=== PATIENT | female | born 1945 | race Caucasian/White ===

== ENCOUNTER 2016-05-26 12:24 | Inpatient (IN) | payer MEDICARE ==
[2016-05-26] MEDS ORDERED: methylPREDNISolone SOD SUCCI 125 MG/2 ML VIAL IV STA (14:11)
[2016-05-26] MEDS ORDERED: IPRATROPIUM-ALBUTEROL 3 ML NEB INHALATION STA (14:11)
[2016-05-26] MEDS ORDERED: RX INFO: IV CONTRAST WAS GIVEN 1 EACH MISC MISCELLANE PRN (14:13)
[2016-05-26 14:53] LABS: Basophils % (A) 1 %; CH 28.1; CHCM 34.2; Eosinophils # (A) 0.2 k/uL (0-0.7); Eosinophils % (A) 2 %; HCT 39.7 % (34.0-46.0); HDW 2.86; HGB 13.3 gm/dL (11.4-16.0); Luc # (Auto) 0.25; Luc % (Auto) 3; Lymphocytes # (A) 1.5 k/uL (1.0-4.8); Lymphocytes % (A) 18 %; MCH 27.6 pg (25.0-35.0); MCHC 33.5 g/dL (31.0-37.0); MCV 82.4 fL (80.0-100.0); Mean Platelet Volume 7.9; Monocytes # (A) 0.3 k/uL (0-1.0); Monocytes % (A) 4 %; Neutrophils # (A) 6.2 k/uL (1.3-7.7); Neutrophils % (A) 73 %; RBC 4.82 m/uL (3.80-5.40); RDW 13.4 % (11.5-15.5); WBC 8.5 k/uL (3.8-10.6); WBC (Perox) 8.32
[2016-05-26 15:05] LABS: Calcium 9.7 mg/dL (8.4-10.2); Total Bilirubin 0.9 mg/dL (0.2-1.3); Total Protein 8.1 g/dL (6.3-8.2)
[2016-05-26 15:06] LABS: Creatine Kinase 55 U/L (30-135)
[2016-05-26 15:10] LABS: Potassium 4.6 mmol/L (3.5-5.1)
[2016-05-26 15:19] LABS: Creatine Kinase MB 0.7 ng/mL (0.0-2.4); Troponin I <0.012 ng/mL (0.000-0.034)
[2016-05-26 15:28] LABS: Partial Thromboplastin Time 21.5 sec (22.0-30.0); Prothrombin Time 9.9 sec (9.0-12.0)
--- NOTE | 2016-05-26 15:55 | XR ---
EXAMINATION TYPE: XR chest 2V DATE OF EXAM: 05/26/2016 3:51 PM COMPARISON: Prior chest x-ray 25 September 2015 HISTORY: Possible infiltrate, cough and shortness of breath TECHNIQUE: Frontal and lateral views of the chest are obtained. FINDINGS: There is no focal air space opacity, pleural effusion, or pneumothorax seen. The cardiac silhouette size is within normal limits. There are overlying cardiac leads. Surgical clips present i n the upper abdomen. Prominent lung volume may be indicative of underlying COPD. Patient is rotated. The osseous structures are intact. IMPRESSION: No acute cardiopulmonary process.
--- NOTE | 2016-05-26 15:58 | ED ---
SOB HPI - General Chief Complaint: Shortness of Breath Stated Complaint: SOB Time Seen by Provider: 05/26/16 14:00 Source: patient Mode of arrival: ambulatory Limitations: no limitations - History of Present Illness Initial Comments: This 70-year-old white female presents with a complaint of some shortness of breath. She also has had a nonproductive cough and wheezing present over the last 8 days. She's felt very shaky and weak at times. She denies any chest pain or fever. She's been on amoxicillin for the past 5 days for treatment of a bronchitis. She was seen at Dr. Morrison's office today and had a chest x- ray which was purportedly negative. She was sent over by his PA to have further evaluation and treatment. She denies any leg pain or swelling. She denies any history of COPD, emphysema, or asthma. She denies any other known pulmonary problems. No other complaints or modifying factors. - Related Data Home Medications Medication Instructions Recorded Confirmed Atorvastatin [Lipitor] 80 mg PO DAILY 10/10/14 05/26/16 Lansoprazole [Prevacid] 30 mg PO DAILY 10/10/14 05/26/16 Levothyroxine Sodium [Synthroid] 50 mcg PO DAILY 10/10/14 05/26/16 Lisinopril-Hctz 20-25 mg 1 tab PO DAILY 10/10/14 05/26/16 [Zestoretic 20-25] Metoprolol Tartrate [Lopressor] 25 mg PO DAILY 10/10/14 05/26/16 Ergocalciferol [Vitamin D2 50,000 units PO MO 05/02/15 05/26/16 (DRISDOL)] Clopidogrel Bisulfate [Plavix] 75 mg PO DAILY 09/25/15 05/26/16 Aspirin EC [Ecotrin Low Dose] 81 mg PO DAILY 09/26/15 05/26/16 glipiZIDE [Glucotrol] 5 mg PO AC-BRKFST 09/27/15 05/26/16 Amoxicillin 875 mg PO BID 05/26/16 05/26/16 Ondansetron [Zofran] 4 mg PO Q12HR PRN 05/26/16 05/26/16 Previous Rx's Medication Instructions Recorded Folic Acid 1 mg PO DAILY@1200 #30 tab 10/01/15 Allergies Allergy/AdvReac Type Severity Reaction Status Date / Time codeine Allergy Rash/Hives Verified 05/26/16 14:20 Review of Systems ROS Statement: Those systems with pertinent positive or pertinent negative responses have been documented in the HPI. ROS Other: All systems not noted in ROS Statement are negative. Past Medical History Past Medical History: Coronary Artery Disease (CAD), Diabetes Mellitus, GERD/ Reflux, Hyperlipidemia, Hypertension, Thyroid Disorder Additional Past Medical History / Comment(s): FREQUENT NAUSEA History of Any Multi-Drug Resistant Organisms: MRSA Date of last positivie culture/infection: 2012 MDRO Source:: UNDER BREAST Past Surgical History: Appendectomy, Section, Cholecystectomy, Heart Catheterization With Stent, Hysterectomy Additional Past Surgical History / Comment(s): STENT X1 Past Anesthesia/Blood Transfusion Reactions: Postoperative Nausea & Vomiting ( PONV) Date of Last Stent Placement:: 2012 Past Psychological History: No Psychological Hx Reported Smoking Status: Former smoker Past Alcohol Use History: None Reported Past Drug Use History: None Reported - Past Family History Mother Family Medical History: Cancer Additional Family Medical History / Comment(s): BREAST General Exam - General Exam Comments Initial Comments: GENERAL: The patient is well nourished and well hydrated. VITAL SIGNS: Heart rate, blood pressure, respiratory rate reviewed as recorded in nurse's notes. EYES: Pupils are round and reactive. Extraocular movements are intact. No conjunctival / lid redness or swelling. ENT: No external evidence of injury, swelling, or ecchymosis. Airway is patent. Throat is clear. NECK: Nontender. No swelling or evidence of injury. No subcutaneous emphysema. Trachea is midline. No thyroid mass. HEART: Regular rate and rhythm. Good peripheral pulses. LUNGS/CHEST: There is wheezing noted to the bilateral chest. No ecchymosis, subcutaneous emphysema, or tenderness. ABDOMEN: Abdomen soft without tenderness. No palpable masses or organomegaly. No peritoneal signs. No abdominal wall swelling or ecchymosis. EXTREMITIES: No extremity tenderness. Normal muscle tone and function. No thoracolumbar tenderness. NEUROLOGIC: Sensation is grossly intact. Cranial nerve exam reveals face is symmetrical, tongue is midline, speech is clear. SKIN: No abrasions or ecchymosis is noted. No induration or masses noted. PSYCHIATRIC: Alert and oriented. Appropriate behavior and judgment. Limitations: no limitations Course Vital Signs 05/26/16 05/26/16 05/26/16 12:53 14:29 15:14 Temperature 97.1 F L Pulse Rate 80 71 Respiratory 18 24 Rate Blood Pressure 159/75 O2 Sat by Pulse 96 Oximetry 05/26/16 15:30 Temperature Pulse Rate 71 Respiratory Rate Blood Pressure O2 Sat by Pulse Oximetry Medical Decision Making - Medical Decision Making The patient was seen and examined. All diagnostics were reviewed. An IV is started and she receives IV Solu-Medrol as well as IV antibiotics. She also had a chest x-ray but this did not show any acute process. The d-dimer is elevated on the laboratory. A computed tomography scan cannot be completed as her renal function studies are elevated with a low GFR. A VQ scan will be ordered. Lovenox also will be ordered. This felt as though she would require admission to the hospital for further treatment. It is felt as though a pulmonary embolism would need to be ruled out but overall is felt as though she likely does have a bronchitis with bronchospasm. Her blood pressure also is elevated as will be monitored. She was given a breathing treatment in the ER as well and relates only minimal relief. Case is discussed with Dr. Morrison and he is agreeable to admission. - Lab Data Result diagrams: 05/26/16 14:30 05/26/16 14:30 Lab Results 05/26/16 05/26/16 05/26/16 Range/Units 14:30 14:30 14:30 WBC 8.5 (3.8-10.6) k/uL RBC 4.82 (3.80-5.40) m/uL Hgb 13.3 (11.4-16.0) gm/dL Hct 39.7 (34.0-46.0) % MCV 82.4 (80.0-100.0) fL MCH 27.6 (25.0-35.0) pg MCHC 33.5 (31.0-37.0) g/dL RDW 13.4 (11.5-15.5) % Plt Count 280 (150-450) k/uL Neutrophils % 73 % Lymphocytes % 18 % Monocytes % 4 % Eosinophils % 2 % Basophils % 1 % Neutrophils # 6.2 (1.3-7.7) k/uL Lymphocytes # 1.5 (1.0-4.8) k/uL Monocytes # 0.3 (0-1.0) k/uL Eosinophils # 0.2 (0-0.7) k/uL Basophils # 0.0 (0-0.2) k/uL PT (9.0-12.0) sec INR (<1.1) APTT (22.0-30.0) sec D-Dimer (<0.60) mg/L FEU Sodium 136 L (137-145) mmol/L Potassium 4.6 (3.5-5.1) mmol/L Chloride 96 L (98-107) mmol/L Carbon Dioxide 26 (22-30) mmol/L Anion Gap 14 mmol/L BUN 25 H (7-17) mg/dL Creatinine 1.23 H (0.52-1.04) mg/dL Est GFR (MDRD) Af Amer 52 (>60 ml/min/1.73 sqM) Est GFR (MDRD) Non-Af 43 (>60 ml/min/1.73 sqM) Glucose 100 H (74-99) mg/dL Calcium 9.7 (8.4-10.2) mg/dL Total Bilirubin 0.9 (0.2-1.3) mg/dL AST 27 (14-36) U/L ALT 21 (9-52) U/L Alkaline Phosphatase 81 (38-126) U/L Total Creatine Kinase 55 (30-135) U/L CK-MB (CK-2) 0.7 (0.0-2.4) ng/mL CK-MB (CK-2) Rel Index 1.3 Troponin I <0.012 (0.000-0.034) ng/mL Total Protein 8.1 (6.3-8.2) g/dL Albumin 4.7 (3.5-5.0) g/dL 05/26/16 Range/Units 14:30 WBC (3.8-10.6) k/uL RBC (3.80-5.40) m/uL Hgb (11.4-16.0) gm/dL Hct (34.0-46.0) % MCV (80.0-100.0) fL MCH (25.0-35.0) pg MCHC (31.0-37.0) g/dL RDW (11.5-15.5) % Plt Count (150-450) k/uL Neutrophils % % Lymphocytes % % Monocytes % % Eosinophils % % Basophils % % Neutrophils # (1.3-7.7) k/uL Lymphocytes # (1.0-4.8) k/uL Monocytes # (0-1.0) k/uL Eosinophils # (0-0.7) k/uL Basophils # (0-0.2) k/uL PT 9.9 (9.0-12.0) sec INR 1.0 (<1.1) APTT 21.5 L (22.0-30.0) sec D-Dimer 2.26 H (<0.60) mg/L FEU Sodium (137-145) mmol/L Potassium (3.5-5.1) mmol/L Chloride (98-107) mmol/L Carbon Dioxide (22-30) mmol/L Anion Gap mmol/L BUN (7-17) mg/dL Creatinine (0.52-1.04) mg/dL Est GFR (MDRD) Af Amer (>60 ml/min/1.73 sqM) Est GFR (MDRD) Non-Af (>60 ml/min/1.73 sqM) Glucose (74-99) mg/dL Calcium (8.4-10.2) mg/dL Total Bilirubin (0.2-1.3) mg/dL AST (14-36) U/L ALT (9-52) U/L Alkaline Phosphatase (38-126) U/L Total Creatine Kinase (30-135) U/L CK-MB (CK-2) (0.0-2.4) ng/mL CK-MB (CK-2) Rel Index Troponin I (0.000-0.034) ng/mL Total Protein (6.3-8.2) g/dL Albumin (3.5-5.0) g/dL Disposition Clinical Impression: Bronchospasm, Dyspnea, Elevated d-dimer, Hypertension, Renal insufficiency, Failure of outpatient treatment, Nausea and vomiting Disposition: ADMITTED IP TO THIS [facility] Condition: Fair Time of Disposition: 16:04 Decision Date: 05/26/16 Decision Time: 16:04
[2016-05-26] MEDS ORDERED: ONDANSETRON 4 MG/2 ML VIAL IVP STA (16:06)
[2016-05-26] MEDS ORDERED: ENOXAPARIN 80 MG/0.8 ML SYRINGE SQ STA (16:06)
[2016-05-26] MEDS ORDERED: LEVOFLOXACIN 750MG-D5W PMX 750 MG in DEXTROSE/WATER 1 150ML.BAG IVPB STA (16:11)
[2016-05-26] MEDS ORDERED: ONDANSETRON 4 MG/2 ML VIAL IVP PRN (16:12)
[2016-05-26 17:26] LABS: Glucose,Whole Blood 186 mg/dL (75-99)
[2016-05-26] MEDS: INSULIN LISPRO (humaLOG) 300 UNIT/3 ML VIAL SQ SCH ×2 (17:46→22:02)
[2016-05-26] MEDS ORDERED: ERGOCALCIFEROL 50,000 UNIT CAP PO SCH (18:00)
[2016-05-26] MEDS: methylPREDNISolone SOD SUCCI 125 MG/2 ML VIAL IV SCH ×2 (18:24→23:41)
[2016-05-26 21:18] LABS: Creatine Kinase 54 U/L (30-135)
[2016-05-26] MEDS: BUDESONIDE 0.5 MG/2 ML NEBU INHALATION SCH (21:31)
[2016-05-26 21:32] LABS: Creatine Kinase MB 0.6 ng/mL (0.0-2.4); Troponin I <0.012 ng/mL (0.000-0.034)
[2016-05-26 21:58] LABS: Glucose,Whole Blood 270 mg/dL (75-99)
--- NOTE | 2016-05-26 22:18 | NM ---
EXAMINATION TYPE: NM pul vent and perfuse DATE OF EXAM: 05/26/2016 8:22 PM COMPARISON: Same day chest x-ray HISTORY: Cough, congestion, and shortness of breath TECHNIQUE: Utilizing inhalation of 67.6 mCi Tc 99m DTPA aerosol and intravenous injection of 5.3 mCi of Tc 99m MAA, ventilation and perfusion images are acquired post injection in multiple projections. FINDINGS: Normal radiotracer distribution is noted in the lungs. There is no evidence of mismatched defects. IMPRESSION: Low probability for pulmonary embolism
[2016-05-27 03:04] LABS: Creatine Kinase 51 U/L (30-135)
[2016-05-27 03:17] LABS: Creatine Kinase MB 0.7 ng/mL (0.0-2.4); Troponin I <0.012 ng/mL (0.000-0.034)
[2016-05-27] MEDS ORDERED: ENOXAPARIN 80 MG/0.8 ML SYRINGE SQ SCH (06:00)
[2016-05-27] MEDS: methylPREDNISolone SOD SUCCI 125 MG/2 ML VIAL IV SCH ×4 (06:02→23:29)
[2016-05-27] MEDS: LEVOTHYROXINE 50 MCG TAB PO SCH (06:02)
[2016-05-27 07:40] LABS: Glucose,Whole Blood 202 mg/dL (75-99)
[2016-05-27] MEDS: ASPIRIN 81 MG CHEW PO SCH (08:17)
[2016-05-27] MEDS: glipiZIDE 5 MG TAB PO SCH (08:17)
[2016-05-27] MEDS: ATORVASTATIN 80 MG TAB PO SCH (08:17)
[2016-05-27] MEDS: LISINOPRIL-HCTZ 20-25 MG 1 EACH TAB PO SCH (08:17)
[2016-05-27] MEDS: METOPROLOL TARTRATE 25 MG TAB PO SCH (08:18)
[2016-05-27] MEDS: PANTOPRAZOLE 40 MG TABLET PO SCH (08:18)
[2016-05-27] MEDS: INSULIN LISPRO (humaLOG) 300 UNIT/3 ML VIAL SQ SCH ×4 (08:18→21:22)
[2016-05-27] MEDS: CLOPIDOGREL 75 MG TAB PO SCH (08:18)
[2016-05-27] MEDS: BUDESONIDE 0.5 MG/2 ML NEBU INHALATION SCH ×2 (08:32→20:39)
[2016-05-27] MEDS: IPRATROPIUM-ALBUTEROL 3 ML NEB INHALATION PRN (08:32)
[2016-05-27 09:00] LABS: Basophils % (A) 0 %; CH 28.4; CHCM 33.9; Eosinophils % (A) 0 %; HCT 35.2 % (34.0-46.0); HDW 2.74; HGB 11.4 gm/dL (11.4-16.0); Luc # (Auto) 0.07; Luc % (Auto) 1; Lymphocytes # (A) 0.5 k/uL (1.0-4.8); Lymphocytes % (A) 5 %; MCH 27.3 pg (25.0-35.0); MCHC 32.5 g/dL (31.0-37.0); MCV 84.1 fL (80.0-100.0); Mean Platelet Volume 7.6; Monocytes # (A) 0.1 k/uL (0-1.0); Monocytes % (A) 1 %; Neutrophils % (A) 94 %; RBC 4.18 m/uL (3.80-5.40); RDW 13.4 % (11.5-15.5); WBC 10.7 k/uL (3.8-10.6); WBC (Perox) 11.28
[2016-05-27 09:08] LABS: Calcium 8.5 mg/dL (8.4-10.2); Potassium 4.1 mmol/L (3.5-5.1)
[2016-05-27] MEDS: ACETAMINOPHEN TAB 325 MG TAB PO PRN (10:23)
[2016-05-27 12:04] LABS: Glucose,Whole Blood 189 mg/dL (75-99)
[2016-05-27 12:05] LABS: Hemoglobin A1C 7.2 % (4.2-6.1)
[2016-05-27] MEDS: FOLIC ACID 1 MG TAB PO SCH (12:57)
--- NOTE | 2016-05-27 13:24 | P.HPIM ---
History of Present Illness H&P Date: 05/27/16 Chief Complaint: Shortness of breath Patient is a 70-year-old white female, patient of Dr. Dr. Morrison in the outpatient setting, with a medical history significant for coronary artery disease with stent placement, type 2 diabetes mellitus, GERD, hyperlipidemia, hypertension, hypothyroidism, chronic renal failure stage III, and TIA 6 years ago. Patient presented to the emergency department with complains of nonproductive cough and wheezing present for approximately 8 days associated with generalized weakness. Patient was treated in the outpatient setting with amoxicillin for 5 days prior to arrival for acute bronchitis with no relief in symptoms. No history of fevers, chills, chest pain, abdominal pain, leg swelling, leg pain, or known chronic respiratory problems such as COPD, emphysema, or asthma. Chest x-ray in the emergency department without evidence for acute process. Patient did have an elevated d-dimer with subsequent VQ scan showing low probability for pulmonary embolism. Patient was also noted to have some renal insufficiency with elevated BUN and creatinine suspect secondary to dehydration. In the emergency department, patient was given a nebulized updraft treatment, started on IV Solu-Medrol and on antibiotics in the form of Levaquin with minimal relief. Patient was admitted to the medical floor for IV steroids, IV antibiotics, and nebulized updraft treatments. Upon examination, patient reports slight improvement in breathing. Patient is complaining of a headache and states she didn't sleep well last night. Patient complains of nonproductive cough, denies chills, nausea, vomiting, chest pain, abdominal pain, or leg swelling. Patient is tolerating diet. Patient is urinating without difficulty, no dysuria, urgency, or hematuria. No history of diarrhea or constipation. Past Medical History Past Medical History: Coronary Artery Disease (CAD), Diabetes Mellitus, GERD/ Reflux, Hyperlipidemia, Hypertension, Osteoarthritis (OA), Thyroid Disorder Additional Past Medical History / Comment(s): TIA, UTI-ECOLI,BRONCHITIS, ENDOMETREOSIS,"HEADACHES". PAST MED HX "STATED CKD STAGE lll-pt not aware of this". History of Any Multi-Drug Resistant Organisms: MRSA Date of last positivie culture/infection: 2012 MDRO Source:: UNDER BREAST Past Surgical History: Appendectomy, Section, Cholecystectomy, Heart Catheterization With Stent, Hysterectomy Additional Past Surgical History / Comment(s): STENT X1 Past Anesthesia/Blood Transfusion Reactions: Motion Sickness, Postoperative Nausea & Vomiting (PONV) Additional Past Anesthesia/Blood Transfusion Reaction / Comment(s): clasuterphobia Date of Last Stent Placement:: 2012 Past Psychological History: No Psychological Hx Reported Additional Psychological History / Comment(s): pt is independant,lives with spouse and 1 daughter. no pets. has 1 step up into house-home is on one level. no outside services recieved. no medical equipment. 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 Smoking Status: Former smoker Past Alcohol Use History: None Reported Additional Past Alcohol Use History / Comment(s): started smoking 1963, quit 1998, smoked 1 ppd. Past Drug Use History: None Reported - Past Family History Father Additional Family Medical History / Comment(s): drowned at age 32 Mother Family Medical History: Cancer Additional Family Medical History / Comment(s): BREAST, emphysema Medications and Allergies Home Medications Medication Instructions Recorded Confirmed Type Atorvastatin [Lipitor] 80 mg PO DAILY 10/10/14 05/26/16 History Lansoprazole [Prevacid] 30 mg PO DAILY 10/10/14 05/26/16 History Levothyroxine Sodium [Synthroid] 50 mcg PO DAILY 10/10/14 05/26/16 History Lisinopril-Hctz 20-25 mg 1 tab PO DAILY 10/10/14 05/26/16 History [Zestoretic 20-25] Metoprolol Tartrate [Lopressor] 25 mg PO DAILY 10/10/14 05/26/16 History Ergocalciferol [Vitamin D2 50,000 units PO MO 05/02/15 05/26/16 History (DRISDOL)] Clopidogrel Bisulfate [Plavix] 75 mg PO DAILY 09/25/15 05/26/16 History Aspirin EC [Ecotrin Low Dose] 81 mg PO DAILY 09/26/15 05/26/16 History glipiZIDE [Glucotrol] 5 mg PO AC-BRKFST 09/27/15 05/26/16 History Amoxicillin 875 mg PO BID 05/26/16 05/26/16 History Ondansetron [Zofran] 4 mg PO Q12HR PRN 05/26/16 05/26/16 History Allergies Allergy/AdvReac Type Severity Reaction Status Date / Time codeine Allergy Rash/Hives Verified 05/26/16 14:20 Physical Exam Vitals: Vital Signs Temp Pulse Pulse Resp BP BP Pulse Ox 05/27/16 08:49 70 05/27/16 08:35 76 05/27/16 08:00 67 18 05/27/16 07:00 96.8 F L 67 18 157/57 95 05/26/16 23:00 97.1 F L 84 16 126/71 96 05/26/16 17:49 97.3 F L 98 20 135/65 98 05/26/16 16:17 96.9 F L 100 18 133/60 98 Intake and Output 05/26/16 05/27/16 05/27/16 22:59 06:59 14:59 Intake Total 200 Balance 200 Intake: Oral 200 Other: Voiding Method Toilet # Voids 1 GENERAL: Pt awake and alert, well-appearing, well-nourished, and in no acute distress. HEAD: Atraumatic, normocephalic. EYES: Pupils equal, round, and reactive to light, sclera anicteric, conjunctiva are normal. ENT: Oropharynx clear without exudates. Moist mucous membranes. Tongue smooth, pink, no lesions, protrudes in midline. NECK:Supple without lymphadenopathy or JVD. LUNGS: Breath sounds diminished with coarse rhonchi and audible expiratory wheezing to auscultation bilaterally. HEART: Heart S1, S2, no S3 or S4. Regular rate and rhythm. No murmurs, rubs or gallops. ABDOMEN: Soft, obese, nontender, nondistended, normoactive bowel sounds. No guarding, no rebound. No masses or organomegaly appreciated. EXTREMITIES: Palpable peripheral pulses. No edema. No calf tenderness. NEUROLOGICAL: Pt oriented x 3. PSYCH: Normal mood, normal affect. Good insight. Good judgment. SKIN: Warm, dry, intact. Normal turgor. No rashes or lesions. Results CBC & Chem 7: 05/27/16 08:36 05/27/16 08:36 Labs: Abnormal Lab Results - Last 24 Hours (Table) 05/26/16 05/26/16 05/27/16 Range/Units 17:24 21:56 06:55 WBC (3.8-10.6) k/uL Neutrophils # (1.3-7.7) k/uL Lymphocytes # (1.0-4.8) k/uL Sodium (137-145) mmol/L Carbon Dioxide (22-30) mmol/L BUN (7-17) mg/dL Creatinine (0.52-1.04) mg/dL Glucose (74-99) mg/dL POC Glucose (mg/dL) 186 H 270 H 202 H (75-99) mg/dL 05/27/16 05/27/16 Range/Units 08:36 08:36 WBC 10.7 H (3.8-10.6) k/uL Neutrophils # 10.0 H (1.3-7.7) k/uL Lymphocytes # 0.5 L (1.0-4.8) k/uL Sodium 132 L (137-145) mmol/L Carbon Dioxide 20 L (22-30) mmol/L BUN 20 H (7-17) mg/dL Creatinine 1.17 H (0.52-1.04) mg/dL Glucose 221 H (74-99) mg/dL POC Glucose (mg/dL) (75-99) mg/dL Chest x-ray: report reviewed (No focal airspace opacity, pleural effusion, or pneumothorax seen. Prominent lung volumes may be indicative of underlying COPD. No acute cardiopulmonary process.) CT scan - chest: report reviewed (No pulmonary probability of pulmonary embolism ) Thrombosis Risk Factor Assmnt - DVT/VTE Prophylaxis DVT/VTE Prophylaxis: Pharmacologic Prophylaxis ordered, Mechanical Prophylaxis ordered - Choose All That Apply Any of the Below Risk Factors Present?: Yes Each Factor Represents 1 point: Abnormal pulmonary function (COPD), Obesity ( BMI >25) Other Risk Factors: Yes Each Risk Factor Represents 2 Points: Age 61-74 years Thrombosis Risk Factor Assessment Total Risk Factor Score: 4 Thrombosis Risk Factor Assessment Level: Moderate Risk Assessment and Plan Plan: Impression and plan: 1. Shortness of breath with wheezing, present on admission, suspect secondary to acute bronchitis with differential diagnosis of exacerbation of COPD. Continue supplemental oxygen to Oxygen saturation greater than 92%. Continue nebulized updraft treatments, continue IV Solu-Medrol 60 mg every 6 hours, continue Pulmicort, continue Levaquin for empiric prophylactic coverage. 2. Possible COPD. see #1. 3. Elevated d-dimer, present on admission, pulmonary embolism ruled out. We' ll discontinue Lovenox. 4. Leukocytosis, suspect reactive. Will obtain urinalysis and check influenza A and B. 5. Acute renal failure, suspect secondary to intravascular volume depletion secondary to dehydration. 6. Chronic renal failure, stage III. 7. Diabetes mellitus type 2, uncontrolled with hyperglycemia on admission. Continue Glucotrol. Continue Accu-Cheks before meals at bedtime with Humalog sliding scale. 8. GERD. Continue Protonix. 9. Hyperlipidemia. Continue Lipitor. 10. Hypertension. Continue lisinopril/hydrochlorothiazide, continue metoprolol. 11. Hypothyroidism. Continue levothyroxine. 12. History of TIA. Continue aspirin and Plavix. 13. GI prophylaxis. Continue Protonix. 14. DVT prophylaxis. Continue aspirin, pneumatic compression sleeves, encourage early ambulation. 15. Repeat CBC and BMP in a.m. The above impression and plan have been discussed and directed by Dr. Morrison. Avtar CONWAY acting as scribe for Dr. Morrison.
[2016-05-27 14:00] LABS: Appearance,Urine Clear (Clear); Bilirubin,Urine Negative (Negative); Glucose,Urine (UA) 3+ (Negative); Ketones,Urine 1+ (Negative); Leukocyte Esterase,Urine Negative (Negative); Nitrite,Urine Negative (Negative); PH, Urine 5.5 (5.0-8.0); Protein,Urine Negative (Negative); Specific Gravity,Urine 1.013 (1.001-1.035); UA Billing (MACRO vs. MICRO) CHEM; Urobilinogen,Urine <2.0 mg/dL (<2.0)
[2016-05-27] MEDS: LEVOFLOXACIN 250 MG TAB PO SCH (15:12)
[2016-05-27] MEDS ORDERED: LEVOFLOXACIN 500MG-D5W PMX 500 MG in DEXTROSE/WATER 1 100ML.BAG IVPB SCH (16:00)
[2016-05-27 17:10] LABS: Glucose,Whole Blood 226 mg/dL (75-99)
[2016-05-27 20:48] LABS: Glucose,Whole Blood 252 mg/dL (75-99)
[2016-05-27] MEDS: TEMAZEPAM 15 MG CAP PO PRN (21:26)
[2016-05-28] MEDS: LEVOTHYROXINE 50 MCG TAB PO SCH (05:56)
[2016-05-28] MEDS: methylPREDNISolone SOD SUCCI 125 MG/2 ML VIAL IV SCH ×2 (05:56→11:02)
[2016-05-28] MEDS: IPRATROPIUM-ALBUTEROL 3 ML NEB INHALATION PRN (07:13)
[2016-05-28] MEDS: BUDESONIDE 0.5 MG/2 ML NEBU INHALATION SCH ×2 (07:13→20:47)
[2016-05-28 07:28] LABS: Glucose,Whole Blood 202 mg/dL (75-99)
[2016-05-28] MEDS: glipiZIDE 5 MG TAB PO SCH (07:39)
[2016-05-28] MEDS: ASPIRIN 81 MG CHEW PO SCH (07:39)
[2016-05-28] MEDS: METOPROLOL TARTRATE 25 MG TAB PO SCH (07:39)
[2016-05-28] MEDS: PANTOPRAZOLE 40 MG TABLET PO SCH (07:40)
[2016-05-28] MEDS: ATORVASTATIN 80 MG TAB PO SCH (07:40)
[2016-05-28] MEDS: CLOPIDOGREL 75 MG TAB PO SCH (07:40)
[2016-05-28] MEDS: LISINOPRIL-HCTZ 20-25 MG 1 EACH TAB PO SCH (07:40)
[2016-05-28] MEDS: INSULIN LISPRO (humaLOG) 300 UNIT/3 ML VIAL SQ SCH ×4 (07:40→21:28)
[2016-05-28 09:03] LABS: Anion Gap 14 mmol/L; Blood Urea Nitrogen 21 mg/dL (7-17); Carbon Dioxide 17 mmol/L (22-30); Chloride 102 mmol/L (98-107); Glucose 226 mg/dL (74-99); Non-African American GFR(MDRD) 52 (>60 ml/min/1.73 sqM); Sodium 133 mmol/L (137-145)
[2016-05-28 09:20] LABS: Basophils % (A) 0 %; CH 27.4; Eosinophils % (A) 0 %; HCT 34.1 % (34.0-46.0); HDW 2.65; HGB 10.9 gm/dL (11.4-16.0); Luc # (Auto) 0.04; Luc % (Auto) 0; Lymphocytes # (A) 0.6 k/uL (1.0-4.8); Lymphocytes % (A) 3 %; MCH 27.4 pg (25.0-35.0); MCHC 31.8 g/dL (31.0-37.0); MCV 86.1 fL (80.0-100.0); Mean Platelet Volume 7.1; Monocytes # (A) 0.2 k/uL (0-1.0); Monocytes % (A) 1 %; Neutrophils # (A) 16.4 k/uL (1.3-7.7); Neutrophils % (A) 95 %; RBC 3.96 m/uL (3.80-5.40); RDW 13.5 % (11.5-15.5); WBC 17.2 k/uL (3.8-10.6); WBC (Perox) 17.99
[2016-05-28] MEDS: FOLIC ACID 1 MG TAB PO SCH (11:02)
[2016-05-28] MEDS: SODIUM CHLORIDE 0.9% 1,000 ML IV SCH (11:55)
[2016-05-28 12:20] LABS: Glucose,Whole Blood 164 mg/dL (75-99)
--- NOTE | 2016-05-28 13:36 | P.PN ---
Subjective Principal diagnosis: Acute bronchitis Patient is a 70-year-old white female, patient of Dr. Dr. Morrison in the outpatient setting, with a medical history significant for coronary artery disease with stent placement, type 2 diabetes mellitus, GERD, hyperlipidemia, hypertension, hypothyroidism, chronic renal failure stage III, and TIA 6 years ago. Patient presented to the emergency department with complains of nonproductive cough and wheezing present for approximately 8 days associated with generalized weakness. Patient was treated in the outpatient setting with amoxicillin for 5 days prior to arrival for acute bronchitis with no relief in symptoms. No history of fevers, chills, chest pain, abdominal pain, leg swelling, leg pain, or known chronic respiratory problems such as COPD, emphysema, or asthma. Chest x-ray in the emergency department without evidence for acute process. Patient did have an elevated d-dimer with subsequent VQ scan showing low probability for pulmonary embolism. Patient was also noted to have some renal insufficiency with elevated BUN and creatinine suspect secondary to dehydration. In the emergency department, patient was given a nebulized updraft treatment, started on IV Solu-Medrol and on antibiotics in the form of Levaquin with minimal relief. Patient was admitted to the medical floor for IV steroids, IV antibiotics, and nebulized updraft treatments. Upon examination, patient reports minimal improvement in breathing. Patient is complaining of a nonproductive cough. Denies chills, nausea, vomiting, chest pain, abdominal pain, or leg swelling. Patient is tolerating diet. Patient is urinating without difficulty. Patient reports that she has been short of breath with minimal activity even before her bronchitis started. Patient states she has an appointment to see cardiology at the end of this month for stress test and echocardiogram. Objective - Vital Signs Vital signs: Vital Signs Temp 96.5 F L 05/28/16 07:00 Pulse 72 05/28/16 07:25 Resp 18 05/28/16 07:00 BP 130/75 05/28/16 07:00 Pulse Ox 96 05/28/16 07:00 Intake & Output 05/27/16 05/28/16 05/28/16 18:59 06:59 18:59 Weight 82.1 kg Other: Voiding Method Toilet Toilet # Voids 4 1 - Exam GENERAL: Pt awake and alert, well-appearing, well-nourished, and in no acute distress. HEAD: Atraumatic, normocephalic. EYES: Pupils equal, round, and reactive to light, sclera anicteric, conjunctiva are normal. ENT: Oropharynx clear without exudates. Moist mucous membranes. NECK:Supple without lymphadenopathy or JVD. LUNGS: Breath sounds diminished with expiratory wheezing to auscultation bilaterally. HEART: Heart S1, S2, no S3 or S4. Regular rate and rhythm. No murmurs, rubs or gallops. ABDOMEN: Soft, obese, nontender, nondistended, normoactive bowel sounds. No guarding, no rebound. No masses or organomegaly appreciated. EXTREMITIES: Palpable peripheral pulses. No edema. No calf tenderness. NEUROLOGICAL: Pt oriented x 3. PSYCH: Normal mood, normal affect. Good insight. Good judgment. SKIN: Warm, dry, intact. Normal turgor. No rashes or lesions. - Labs CBC & Chem 7: 05/28/16 08:23 05/28/16 08:23 Labs: Abnormal Lab Results - Last 24 Hours (Table) 05/27/16 05/27/16 05/27/16 Range/Units 08:36 13:41 17:05 WBC (3.8-10.6) k/uL Hgb (11.4-16.0) gm/dL Neutrophils # (1.3-7.7) k/uL Lymphocytes # (1.0-4.8) k/uL Sodium (137-145) mmol/L Carbon Dioxide (22-30) mmol/L BUN (7-17) mg/dL Creatinine (0.52-1.04) mg/dL Glucose (74-99) mg/dL POC Glucose (mg/dL) 226 H (75-99) mg/dL Hemoglobin A1c 7.2 H (4.2-6.1) % Calcium (8.4-10.2) mg/dL Urine Glucose (UA) 3+ H (Negative) Urine Ketones 1+ H (Negative) 05/27/16 05/28/16 05/28/16 Range/Units 20:46 07:25 08:23 WBC 17.2 H (3.8-10.6) k/uL Hgb 10.9 L (11.4-16.0) gm/dL Neutrophils # 16.4 H (1.3-7.7) k/uL Lymphocytes # 0.6 L (1.0-4.8) k/uL Sodium (137-145) mmol/L Carbon Dioxide (22-30) mmol/L BUN (7-17) mg/dL Creatinine (0.52-1.04) mg/dL Glucose (74-99) mg/dL POC Glucose (mg/dL) 252 H 202 H (75-99) mg/dL Hemoglobin A1c (4.2-6.1) % Calcium (8.4-10.2) mg/dL Urine Glucose (UA) (Negative) Urine Ketones (Negative) 05/28/16 05/28/16 Range/Units 08:23 12:17 WBC (3.8-10.6) k/uL Hgb (11.4-16.0) gm/dL Neutrophils # (1.3-7.7) k/uL Lymphocytes # (1.0-4.8) k/uL Sodium 133 L (137-145) mmol/L Carbon Dioxide 17 L (22-30) mmol/L BUN 21 H (7-17) mg/dL Creatinine 1.05 H (0.52-1.04) mg/dL Glucose 226 H (74-99) mg/dL POC Glucose (mg/dL) 164 H (75-99) mg/dL Hemoglobin A1c (4.2-6.1) % Calcium 8.0 L (8.4-10.2) mg/dL Urine Glucose (UA) (Negative) Urine Ketones (Negative) Assessment and Plan Plan: Impression and plan: 1. Shortness of breath with wheezing, present on admission, suspect secondary to acute bronchitis with differential diagnosis of exacerbation of COPD. Continue supplemental oxygen to Oxygen saturation greater than 92%. Continue nebulized updraft treatments, decrease IV Solu-Medrol to 40 mg every 8 hours, continue Pulmicort, continue Levaquin for empiric prophylactic coverage. Check BNP and echocardiogram. Consult cardiology. 2. Possible COPD. see #1. 3. Elevated d-dimer, present on admission, pulmonary embolism ruled out. We' ll discontinue Lovenox. 4. Leukocytosis, suspect reactive. 5. Acute renal failure, suspect secondary to intravascular volume depletion secondary to dehydration, improved. 6. Chronic renal failure, stage III. 7. Diabetes mellitus type 2, uncontrolled with hyperglycemia on admission. Continue Glucotrol. Continue Accu-Cheks before meals at bedtime with Humalog sliding scale. 8. GERD. Continue Protonix. 9. Hyperlipidemia. Continue Lipitor. 10. Hypertension. Continue lisinopril/hydrochlorothiazide, continue metoprolol. 11. Hypothyroidism. Continue levothyroxine. 12. History of TIA. Continue aspirin and Plavix. 13. GI prophylaxis. Continue Protonix. 14. DVT prophylaxis. Continue aspirin, pneumatic compression sleeves, encourage early ambulation. 15. Repeat CBC and BMP in a.m. The above impression and plan have been discussed and directed by Dr. Morrison. Avtar CONWAY acting as scribe for Dr. Morrison.
[2016-05-28] MEDS: methylPREDNISolone SOD SUCCI 40 MG/ML 1 ML VIAL IV SCH ×2 (15:04→23:43)
[2016-05-28] MEDS: LEVOFLOXACIN 250 MG TAB PO SCH (15:05)
[2016-05-28 16:58] LABS: Glucose,Whole Blood 185 mg/dL (75-99)
[2016-05-28 21:31] LABS: Glucose,Whole Blood 233 mg/dL (75-99)
[2016-05-28] MEDS: TEMAZEPAM 15 MG CAP PO PRN (22:29)
[2016-05-29 01:33] VITALS: RESP 20
[2016-05-29] MEDS: LEVOTHYROXINE 50 MCG TAB PO SCH (06:11)
[2016-05-29] MEDS: ATORVASTATIN 80 MG TAB PO SCH (07:41)
[2016-05-29] MEDS: METOPROLOL TARTRATE 25 MG TAB PO SCH (07:41)
[2016-05-29] MEDS: PANTOPRAZOLE 40 MG TABLET PO SCH (07:41)
[2016-05-29] MEDS: ASPIRIN 81 MG CHEW PO SCH (07:41)
[2016-05-29] MEDS: LISINOPRIL-HCTZ 20-25 MG 1 EACH TAB PO SCH (07:41)
[2016-05-29] MEDS: CLOPIDOGREL 75 MG TAB PO SCH (07:41)
[2016-05-29] MEDS: methylPREDNISolone SOD SUCCI 40 MG/ML 1 ML VIAL IV SCH (07:41)
[2016-05-29 07:42] LABS: Glucose,Whole Blood 187 mg/dL (75-99)
[2016-05-29] MEDS: glipiZIDE 5 MG TAB PO SCH (07:45)
[2016-05-29] MEDS: INSULIN LISPRO (humaLOG) 300 UNIT/3 ML VIAL SQ SCH ×2 (07:45→12:28)
[2016-05-29 08:10] VITALS: BP 150/83; TEMP 97.3
[2016-05-29 09:43] LABS: Basophils % (A) 0 %; CH 28.4; CHCM 33.9; Eosinophils % (A) 0 %; HCT 34.1 % (34.0-46.0); HDW 2.76; HGB 11.2 gm/dL (11.4-16.0); Luc # (Auto) 0.07; Luc % (Auto) 0; Lymphocytes # (A) 0.8 k/uL (1.0-4.8); Lymphocytes % (A) 5 %; MCH 27.7 pg (25.0-35.0); MCHC 32.9 g/dL (31.0-37.0); MCV 84.1 fL (80.0-100.0); Mean Platelet Volume 8.1; Monocytes # (A) 0.4 k/uL (0-1.0); Monocytes % (A) 2 %; Neutrophils % (A) 92 %; RBC 4.06 m/uL (3.80-5.40); RDW 13.7 % (11.5-15.5); WBC 15.3 k/uL (3.8-10.6); WBC (Perox) 15.38
[2016-05-29 09:47] LABS: Anion Gap 10 mmol/L; Blood Urea Nitrogen 23 mg/dL (7-17); Calcium 8.7 mg/dL (8.4-10.2); Carbon Dioxide 21 mmol/L (22-30); Chloride 99 mmol/L (98-107); Glucose 208 mg/dL (74-99); Non-African American GFR(MDRD) >60 (>60 ml/min/1.73 sqM); Potassium 4.4 mmol/L (3.5-5.1); Sodium 130 mmol/L (137-145)
[2016-05-29] MEDS: BUDESONIDE 0.5 MG/2 ML NEBU INHALATION SCH (10:21)
[2016-05-29] MEDS: ACETAMINOPHEN TAB 325 MG TAB PO PRN (10:25)
--- NOTE | 2016-05-29 10:28 | ECHOF ---
Referral Reason:shortness of breath MEASUREMENTS -------- HEIGHT: 152.4 cm WEIGHT: 82.1 kg BP: 130/75 RVIDd: 3.2 cm (< 3.3) IVSd: 1.2 cm (0.6 - 1.1) LVIDd: 5.2 cm (3.9 - 5.3) LVPWd: 1.1 cm (0.6 - 1.1) IVSs: 1.7 cm LVIDs: 3.7 cm LVPWs: 1.7 cm LA Diam: 3.7 cm (2.7 - 3.8) LAESV Index (A-L): 24.78 ml/m Ao Diam: 2.7 cm (2.0 - 3.7) AV Cusp: 1.2 cm (1.5 - 2.6) LA Diam: 3.6 cm (2.7 - 3.8) MV EXCURSION: 14.447 mm (> 18.000) MV EF SLOPE: 43 mm/s (70 - 150) EPSS: 0.4 cm MV E Jere: 1.29 m/s MV DecT: 303 ms MV A Jere: 1.28 m/s MV E/A Ratio: 1.00 AV maxP.24 mmHg AV meanP.47 mmHg RAP: 5.00 mmHg RVSP: 25.37 mmHg FINDINGS -------- Sinus rhythm. This was a technically good study. There is borderline concentric left ventricular hypertrophy. Overall left ventricular systolic function is normal with, an EF between 55 - 60 %. The right ventricle is normal in size. Normal LA size by volume 22+/-6 ml/m2. The right atrium is normal in size. Aortic valve is trileaflet and is mildly thickened. There is moderate aortic stenosis present. Peak/mean gradient across the Aortic Valve max 36 mHg{AV mean 19mmHg The mitral valve leaflets are mildly thickened. Mild mitral annular calcification present. Mild mitral regurgitation is present. Mild tricuspid regurgitation present. Right ventricular systolic pressure is normal at < 35 mmHg. Pulmonic valve appears structurally normal. The aortic root size is normal. Normal inferior vena cava with normal inspiratory collapse consistent with estimated right atrial pressure of 5 mmHg. Echo free space may represent effusion or a pericardial fat pad. CONCLUSIONS -------- 1. Sinus rhythm. 2. Peak/mean gradient across the Aortic Valve max 36 mHg{AV mean 19mmHg 3. The mitral valve leaflets are mildly thickened. 4. Mild mitral annular calcification present. 5. Mild mitral regurgitation is present. 6. Mild tricuspid regurgitation present. 7. Right ventricular systolic pressure is normal at < 35 mmHg. 8. Pulmonic valve appears structurally normal. 9. The aortic root size is normal. 10. Normal inferior vena cava with normal inspiratory collapse consistent with estimated right atrial pressure of 5 mmHg. 11. Echo free space may represent effusion or a pericardial fat pad. 12. This was a technically good study. 13. There is borderline concentric left ventricular hypertrophy. 14. Overall left ventricular systolic function is normal with, an EF between 55 - 60 %. 15. The right ventricle is normal in size. 16. Normal LA size by volume 22+/-6 ml/m2. 17. The right atrium is normal in size. 18. Aortic valve is trileaflet and is mildly thickened. 19. There is moderate aortic stenosis present. WATER TRAINER: Martha Martinez RDCS
[2016-05-29] MEDS: FOLIC ACID 1 MG TAB PO SCH (11:10)
[2016-05-29] MEDS: SODIUM CHLORIDE 0.9% 1,000 ML IV SCH (11:10)
[2016-05-29] MEDS: IPRATROPIUM-ALBUTEROL 3 ML NEB INHALATION PRN (11:49)
[2016-05-29 11:55] LABS: Glucose,Whole Blood 189 mg/dL (75-99)
[2016-05-29 12:11] VITALS: PULSE 70
--- NOTE | 2016-05-29 14:28 | P.DS ---
Providers Date of admission: 05/26/16 16:07 Expected date of discharge: 05/29/16 Attending physician: Piyush Morrison Consults: 05/28/16 13:08 Consult Physician Urgent Consulting Provider: Tonny Borja Consult Reason/Comments: shortness of breath, chf? Do you want consulting provider notified?: Yes Primary care physician: Piyush Morrison Hospital Course: Patient is a 70-year-old white female, patient of Dr. Dr. Morrison in the outpatient setting, with a medical history significant for coronary artery disease with stent placement, type 2 diabetes mellitus, GERD, hyperlipidemia, hypertension, hypothyroidism, chronic renal failure stage III, and TIA 6 years ago. Patient presented to the emergency department with complains of nonproductive cough and wheezing present for approximately 8 days associated with generalized weakness. Patient was treated in the outpatient setting with amoxicillin for 5 days prior to arrival for acute bronchitis with no relief in symptoms. No history of fevers, chills, chest pain, abdominal pain, leg swelling, leg pain, or known chronic respiratory problems such as COPD, emphysema, or asthma. Chest x-ray in the emergency department without evidence for acute process. Patient did have an elevated d-dimer with subsequent VQ scan showing low probability for pulmonary embolism. Patient was also noted to have some renal insufficiency with elevated BUN and creatinine suspect secondary to dehydration. In the emergency department, patient was given a nebulized updraft treatment, started on IV Solu-Medrol and on antibiotics in the form of Levaquin with minimal relief. Patient was admitted to the medical floor for IV steroids, IV antibiotics, and nebulized updraft treatments. Patient was noted to have a slightly elevated BNP of 1290. Echocardiogram with Doppler was performed with evidence of moderate aortic stenosis and preserved LV function with EF of 55-60%. Patient will follow-up with cardiology in the outpatient setting where she has no appointment for a stress test at the end of this month. Patient improved during the hospital stay and was deemed stable for discharge to home with close follow-up in the outpatient setting. Discharge diagnosis: 1. Shortness of breath with wheezing, present on admission, suspect secondary to acute bronchitis with differential diagnosis of exacerbation of COPD. 2. Possible COPD. 3. Elevated d-dimer, present on admission, pulmonary embolism ruled out. 4. Leukocytosis, suspect reactive. 5. Acute renal failure, suspect secondary to intravascular volume depletion secondary to dehydration, resolved. 6. History of chronic renal failure, stage III. 7. Diabetes mellitus type 2, uncontrolled with hyperglycemia on admission. 8. GERD. 9. Hyperlipidemia. 10. Hypertension. 11. Hypothyroidism. 12. History of TIA. 13. Moderate aortic stenosis. The above impression and plan have been discussed and directed by Dr. Morrison. Avtar CONWAY acting as scribe for Dr. Morrison. Pertinent Studies: EKG; chest x-ray; pulmonary perfusion imaging; echocardiogram with Doppler Patient Condition at Discharge: Good Plan - Discharge Summary New Discharge Prescriptions: Albuterol Inhaler [Ventolin Hfa Inhaler] 1 - 2 puff INHALATION Q6HR PRN #1 inhaler PRN Reason: Shortness Of Breath Levofloxacin [Levaquin] 750 mg PO DAILY #5 tab predniSONE 0 mg PO DIRECTED #30 tab Discharge Medication List Atorvastatin [Lipitor] 80 mg PO DAILY 10/10/14 [History] Lansoprazole [Prevacid] 30 mg PO DAILY 10/10/14 [History] Levothyroxine Sodium [Synthroid] 50 mcg PO DAILY 10/10/14 [History] Lisinopril-Hctz 20-25 mg [Zestoretic 20-25] 1 tab PO DAILY 10/10/14 [History] Metoprolol Tartrate [Lopressor] 25 mg PO DAILY 10/10/14 [History] Ergocalciferol [Vitamin D2 (DRISDOL)] 50,000 units PO MO 05/02/15 [History] Clopidogrel Bisulfate [Plavix] 75 mg PO DAILY 09/25/15 [History] Aspirin EC [Ecotrin Low Dose] 81 mg PO DAILY 09/26/15 [History] glipiZIDE [Glucotrol] 5 mg PO AC-BRKFST 09/27/15 [History] Folic Acid 1 mg PO DAILY@1200 #30 tab 10/01/15 [Rx] Ondansetron [Zofran] 4 mg PO Q12HR PRN 05/26/16 [History] Albuterol Inhaler [Ventolin Hfa Inhaler] 1 - 2 puff INHALATION Q6HR PRN #1 inhaler 05/29/16 [Rx] Levofloxacin [Levaquin] 750 mg PO DAILY #5 tab 05/29/16 [Rx] predniSONE 0 mg PO DIRECTED #30 tab 05/29/16 [Rx] Follow up Appointment(s)/Referral(s): Piyush Morrison MD [Primary Care Provider] - 06/02/16 1:15 pm Eliezer Stoll MD [STAFF PHYSICIAN] - 06/16/16 1:45 pm (Echo cancelled, you had at [facility] on 05/28/16. Keep appointment for stress test.) Patient Instructions/Handouts: Acute Bronchitis (GEN), How to Use a Nebulizer ( DC) Activity/Diet/Wound Care/Special Instructions: Cardiac diabetic diet. Discharge Disposition: HOME SELF-CARE
== END 2016-05-29 14:22 | disposition home or self-care (01) | DRG 191 ==
LOC: EC 12:24 → 4MS4W 16:07
PROVIDERS: ADMIT Family Medicine; ATTEND Family Medicine
DX: J44.1 Chronic obstructive pulmonary disease with (acute) exacerbation (principal); N17.9 Acute kidney failure, unspecified; E11.22 Type 2 diabetes mellitus with diabetic chronic kidney disease; E11.65 Type 2 diabetes mellitus with hyperglycemia; E78.5 Hyperlipidemia, unspecified; J44.0 Chronic obstructive pulmonary disease with (acute) lower respiratory infection; N18.3 Chronic kidney disease, stage 3 (moderate); E86.0 Dehydration; I12.9 Hypertensive chronic kidney disease with stage 1 through stage 4 chronic kidney disease, or unspecified chronic kidney disease; J20.9 Acute bronchitis, unspecified; E03.9 Hypothyroidism, unspecified; I25.10 Atherosclerotic heart disease of native coronary artery without angina pectoris; K21.9 Gastro-esophageal reflux disease without esophagitis; I35.0 Nonrheumatic aortic (valve) stenosis; R51 Headache; R11.2 Nausea with vomiting, unspecified; I44.4 Left anterior fascicular block; R53.1 Weakness; D72.829 Elevated white blood cell count, unspecified; M19.90 Unspecified osteoarthritis, unspecified site; Z95.5 Presence of coronary angioplasty implant and graft; Z16.24 Resistance to multiple antibiotics; Z86.73 Personal history of transient ischemic attack (TIA), and cerebral infarction without residual deficits; Z79.899 Other long term (current) drug therapy; Z79.82 Long term (current) use of aspirin; Z79.02 Long term (current) use of antithrombotics/antiplatelets; Z87.891 Personal history of nicotine dependence; Z82.5 Family history of asthma and other chronic lower respiratory diseases; Z88.5 Allergy status to narcotic agent; Z87.440 Personal history of urinary (tract) infections; Z86.19 Personal history of other infectious and parasitic diseases; Z86.14 Personal history of Methicillin resistant Staphylococcus aureus infection; Z79.84 Long term (current) use of oral hypoglycemic drugs; Z80.3 Family history of malignant neoplasm of breast; Z90.710 Acquired absence of both cervix and uterus; Z90.49 Acquired absence of other specified parts of digestive tract; Z87.09 Personal history of other diseases of the respiratory system
CPT/HCPCS: 36415; 71020; 78582; 80048; 80053; 81003; 82550; 82553; 83036; 83880; 84484; 85025; 85379; 85610; 85730; 87040; 87502; 93005; 93306; 94640; 96365; 96372; 96375; 99285

== ENCOUNTER → 2016-10-07 | Outpatient (CLI) | payer MEDICARE ==
--- NOTE | 2016-10-08 07:54 | MM ---
Reason for exam: screening (asymptomatic). Last mammogram was performed 4 years and 2 months ago. History: Patient is postmenopausal. Family history of breast cancer in mother at age 72. Physical Findings: A clinical breast exam by your physician is recommended on an annual basis and results should be correlated with mammographic findings. MG 3D Screening Mammo W/Cad Bilateral CC and MLO view(s) were taken. Prior study comparison: August 11, 2012, CAD bilateral diagnostic mammogram. June 06, 2011, CAD bilateral diagnostic mammogram. The breast tissue is almost entirely fat. There is chronic nodularity in the right breast. No significant changes when compared with prior studies. ASSESSMENT: Benign, BI-RAD 2 RECOMMENDATION: Routine screening mammogram of both breasts in 1 year.
== END | disposition home or self-care (01) ==
LOC: RADMAMWWP 10:47
PROVIDERS: ATTEND Family Medicine
DX: Z12.31 Encounter for screening mammogram for malignant neoplasm of breast (principal)
CPT/HCPCS: 77063; G0202

== ENCOUNTER → 2017-04-03 | Outpatient (CLI) | payer MEDICARE ==
[2017-04-03 10:00] LABS: Calcium 9.3 mg/dL (8.4-10.2); Potassium 4.1 mmol/L (3.5-5.1)
[2017-04-03 10:11] LABS: Anisocytosis Slight; HCT 33.6 % (34.0-46.0); HGB 10.4 gm/dL (11.4-16.0); Hypochromasia Slight; MCH 25.3 pg (25.0-35.0); MCHC 30.8 g/dL (31.0-37.0); MCV 82.1 fL (80.0-100.0); Mean Platelet Volume 7.1; Platelet Count 216 k/uL (150-450); RBC 4.09 m/uL (3.80-5.40); RDW 17.2 % (11.5-15.5); WBC 6.3 k/uL (3.8-10.6)
[2017-04-03 11:01] LABS: Eosinophils # (M) 0.19 k/uL (0-0.7); Lymphocytes # (M) 3.21 k/uL (1.0-4.8); Monocytes # (M) 0.69 k/uL (0-1.0); Neutrophils # (M) 2.21 k/uL (1.3-7.7); Neutrophils % (M) 35 %; Nucleated Red Blood Cells 0 /100 WBC (0-0); Total Cells Counted 100
[2017-04-03 11:02] LABS: Poikilocytosis (M) Present
[2017-04-03 16:55] LABS: Iron Saturation 12.35 (12.00-45.00)
[2017-04-03 17:04] LABS: Vitamin D 25 Hydroxy 49.4 ng/mL (30.0-100.0)
== END | disposition home or self-care (01) ==
LOC: LABWHC1 09:21
PROVIDERS: ATTEND Family Medicine
DX: G45.9 Transient cerebral ischemic attack, unspecified (principal); D50.9 Iron deficiency anemia, unspecified; R47.1 Dysarthria and anarthria; R12 Heartburn
CPT/HCPCS: 36415; 80048; 82306; 82542; 82607; 82728; 82746; 83540; 83550; 84443; 85025

== ENCOUNTER → 2017-04-21 | Outpatient (CLI) | payer MEDICARE ==
--- NOTE | 2017-04-21 12:50 | US ---
EXAMINATION TYPE: US carotid duplex BILAT DATE OF EXAM: 04/21/2017 COMPARISON: NONE CLINICAL HISTORY: TIA G45.9. EXAM MEASUREMENTS: RIGHT: Peak Systolic Velocity (PSV) cm/sec ----- Right CCA: 78.7 ----- Right ICA: 84.2 ----- Right ECA: 82.0 ICA/CCA ratio: 1.1 RIGHT: End Diastole cm/sec ----- Right CCA: 22.6 ----- Right ICA: 17.1 ----- Right ECA: 0.0 LEFT: Peak Systolic Velocity (PSV) cm/sec ----- Left CCA: 86.5 ----- Left ICA: 108.2 ----- Left ECA: 80.9 ICA/CCA ratio: 1.3 LEFT: End Diastole cm/sec ----- Left CCA: 22.7 ----- Left ICA: 31.8 ----- Left ECA: 0.0 VERTEBRALS (direction of flow): Right Vertebral: Antegrade Left Vertebral: Antegrade Rhythm: Normal No significant stenosis seen, no elevated velocities, mild to moderate bilateral plaque noted. IMPRESSION: Bilateral plaque without hemodynamically significant stenosis. Criteria for Assigning % of Stenosis / Diameter reduction (Estimation based on the indirect measurements of the internal carotid artery velocities (ICA PSV). 1. Normal (no stenosis)=ICA PSV < 125 cm/s: ratio < 2.0: ICA EDV<40 cm/s. 2. Less than 50% stenosis=ICA PSV < 125 cm/s: ratio < 2.0: ICA EDV<40 cm/s. 3. 50 to 69% stenosis=ICA PSV of 125 to 230 cm/s: ration 2.0 ? 4.0: ICA EDV 40-100 cm/s. 4. Greater than 70% stenosis to near occlusion= ICA PSV > 230 cm/s: ratio > 4.0: ICA EDV > 100 cm/s. 5. Near occlusion= ICA PSV velocities may be low or undetectable: variable ratio and ICA EDV. 6. Total occlusion=unable to detect flow.
--- NOTE | 2017-04-22 15:49 | EEG ---
ELECTROENCEPHALOGRAM REPORT DATE OF EE04/21/2017. REFERRING PHYSICIAN: Dr. Lulu Dugan MD. DATE OF EE04/21/2017 ELECTROENCEPHALOGRAPHIC EXAMINATION REPORT: INDICATION FOR EXAMINATION: This patient is a 71-year-old female being evaluated for TIA. AGE: [age]. EEG FINDINGS: A routine 21 channel awake digital EEG recording was accomplished utilizing the 10-20 international system with bipolar and referential montages. The background activity in the most alert resting state consists of a low to medium amplitude, fairly well- developed and well sustained 6-7 Hz activity over the posterior head regions. This posterior rhythm attenuates to eye opening. There is a small amount of low amplitude 18-20 Hz beta activity seen maximally over the anterior head regions. Muscle and movement artifact was observed on a few occasions during the tracing. Hyperventilation was not performed. Photic stimulation at flash frequencies of 2-30 Hz produced a minimal occipital driving response. No epileptiform discharges were seen. IMPRESSION: This is EEG is mildly abnormal in a diffuse fashion due to slight slowing of the EEG background. The EEG failed to reveal any focal, lateralized, or epileptiform abnormalities. Clinical correlation is recommended. MMODL / IJN: [id number] /
== END | disposition home or self-care (01) ==
LOC: RADECHMAIN 12:15
PROVIDERS: ATTEND Family Medicine
DX: I65.23 Occlusion and stenosis of bilateral carotid arteries (principal); R94.31 Abnormal electrocardiogram [ECG] [EKG]
CPT/HCPCS: 93880; 95819

== ENCOUNTER → 2017-04-24 | Outpatient (CLI) | payer MEDICARE ==
--- NOTE | 2017-04-25 09:03 | ECHOF ---
Referral Reason:TIA G45.9 MEASUREMENTS -------- HEIGHT: 152.4 cm WEIGHT: 72.6 kg BP: 135/59 IVSd: 1.2 cm (0.6 - 1.1) LVIDd: 4.1 cm (3.9 - 5.3) LVPWd: 1.3 cm (0.6 - 1.1) IVSs: 1.6 cm LVIDs: 2.9 cm LVPWs: 1.6 cm LAESV Index (A-L): 20.81 ml/m Ao Diam: 2.5 cm (2.0 - 3.7) AV Cusp: 0.8 cm (1.5 - 2.6) LA Diam: 3.9 cm (2.7 - 3.8) MV EXCURSION: 13.189 mm (> 18.000) MV EF SLOPE: 63 mm/s (70 - 150) EPSS: 0.4 cm MV E Jere: 1.07 m/s MV DecT: 270 ms MV A Jere: 1.30 m/s MV E/A Ratio: 0.82 AV maxP.62 mmHg AV meanP.84 mmHg AR PHT: 603 ms RAP: 5.00 mmHg RVSP: 27.07 mmHg FINDINGS -------- Sinus rhythm. This was a technically good study. The left ventricular size is normal. There is mild concentric left ventricular hypertrophy. Overa ll left ventricular systolic function is normal with, an EF between 55 - 60 %. The right ventricle is normal in size and function. The left atrium is normal in size. The right atrium is normal in size. Aortic valve is trileaflet and is severely thickened. There is mild aortic regurgitation. There i s moderate aortic stenosis present. Peak/mean gradient across the Aortic Valve is 40.62mmHg / 22.84 mmHg. The mitral valve leaflets are mildly thickened. Mild mitral annular calcification present. Mild m itral regurgitation is present. Echo dense structure seen in LA near mitral leaflets. Mild tricuspid regurgitation present. The right ventricular systolic pressure, as measured by Doppl er, is 27.07mmHg. Trace/mild (physiologic) pulmonic regurgitation. The aortic root size is normal. Normal inferior vena cava with normal inspiratory collapse consistent with estimated right atrial pre ssure of 5 mmHg. The pericardium is normal. CONCLUSIONS -------- 1. Sinus rhythm. 2. This was a technically good study. 3. The left ventricular size is normal. 4. There is mild concentric left ventricular hypertrophy. 5. Overall left ventricular systolic function is normal with, an EF between 55 - 60 %. 6. The right ventricle is normal in size and function. 7. The left atrium is normal in size. 8. The right atrium is normal in size. 9. Aortic valve is trileaflet and is severely thickened. 10. There is mild aortic regurgitation. 11. There is moderate aortic stenosis present. 12. Peak/mean gradient across the Aortic Valve is 40.62mmHg / 22.84mmHg. 13. The mitral valve leaflets are mildly thickened. 14. Mild mitral annular calcification present. 15. Mild mitral regurgitation is present. 16. Echo dense structure seen in LA near mitral leaflets. 17. Mild tricuspid regurgitation present. 18. The right ventricular systolic pressure, as measured by Doppler, is 27.07mmHg. 19. Trace/mild (physiologic) pulmonic regurgitation. 20. The aortic root size is normal. 21. Normal inferior vena cava with normal inspiratory collapse consistent with estimated right atrial pressure of 5 mmHg. 22. The pericardium is normal. REVENUE INSPECTOR: Alma Lopez RDCS
== END ==
LOC: RADECHMAIN 12:51
PROVIDERS: ATTEND Family Medicine
DX: I08.3 Combined rheumatic disorders of mitral, aortic and tricuspid valves (principal); I70.8 Atherosclerosis of other arteries
CPT/HCPCS: 93306

== ENCOUNTER → 2017-06-10 | Outpatient (CLI) | payer MEDICARE ==
--- NOTE | 2017-06-11 16:00 | MR ---
EXAMINATION TYPE: MR cervical spine wo con DATE OF EXAM: 06/10/2017 COMPARISON: NONE HISTORY: Neck pain, headache, rt arm weakness/tingling TECHNIQUE: Multiplanar, multisequence images of the cervical spine were acquired. C2-C3: No evidence for degenerative disc disease. No disc bulge/herniation or protrusion. No Canal stenosis. Foramina are patent bilaterally. C3-C4: Broad-based disc bulge causes only minimal anterior mass effect on the thecal sac. No signific ant central stenosis. No significant foraminal encroachment present. C4-C5: Posterior extension of endplate disc complex, broad-based disc bulge causes only mild anterior mass effect on the thecal sac and encroaches only minimally on the foramen on the right, lateral ext ension of endplate disc complex is causes left-sided foraminal encroachment to a greater degree. C5-C6: Posterior extension of endplate disc complex may contact the anterior cervical cord, there is mild spinal stenosis. Lateral extension of endplate disc complex results in foraminal encroachment le ft greater than right. C6-C7: Posterior extension of endplate disc complex is noted causing only mild anterior mass effect o n the thecal sac. Lateral extension of endplate disc complex causes left-sided foraminal encroachment . C7-T1: There is some facet arthropathy. Minimal anterolisthesis grade 1 present. May accentuate, cont ribute to some left-sided foraminal encroachment greater than right. No significant central stenosis or evident disc herniation. Cervical segments are intact. There is normal alignment. Cervical spinal cord is of normal signal. Craniovertebral junction relationships are within normal limits. Cervical vertebral bodies show pre served height, there is endplate discogenic marrow signal changes especially at C4-5, C5-6 and C6-7, loss of disc height and signal is greatest at C5-6 and C6-7 with associated spondylosis. IMPRESSION: Multilevel degenerative disc disease and foraminal encroachment.
== END | disposition home or self-care (01) ==
LOC: RADMRIMAIN 15:46
PROVIDERS: ATTEND Psychiatry & Neurology Neurology
DX: M50.30 Other cervical disc degeneration, unspecified cervical region (principal)
CPT/HCPCS: 72141

== ENCOUNTER → 2017-08-20 | Outpatient (CLI) | payer MEDICARE ==
--- NOTE | 2017-08-20 15:14 | XR ---
EXAMINATION TYPE: XR lumbosacral spine min 4V DATE OF EXAM: 08/20/2017 COMPARISON: NONE HISTORY: Low back pain TECHNIQUE: Five-view lumbar spine FINDINGS: Scoliosis present with a convexity to left centered at L3. Facet degenerative changes prese nt L4-5 L5-S1. Vertebral body heights are preserved significant disc space narrowing is not identifie d. Vascular calcifications within the aorta. If additional evaluation is required, MRI could be performed. IMPRESSION: 1. Some facet changes within the lower lumbar spine.
== END | disposition home or self-care (01) ==
LOC: RADXRMAIN 14:40
PROVIDERS: ATTEND Family Medicine
DX: M47.816 Spondylosis without myelopathy or radiculopathy, lumbar region (principal)
CPT/HCPCS: 72110

== ENCOUNTER → 2017-10-02 | Outpatient (CLI) | payer MEDICARE ==
--- NOTE | 2017-10-02 23:15 | MR ---
EXAMINATION TYPE: MR lumbar spine wo con DATE OF EXAM: 10/02/2017 COMPARISON: None HISTORY: LBP, radiates into back of thighs x 3 years TECHNIQUE: Multiplanar, multisequence images of the lumbar spine were acquired. Lumbar vertebra have normal alignment. There is slight decreased signal in the disks throughout the l umbar spine. There are small posterior disc bulges at L3-4 L4-5 without significant impingement on th e spinal canal. There is hypertrophic facet arthropathy at L4-5 with mild lateral recess stenosis. Th ere is no lumbar paraspinal mass. There is no compression fracture. I see no focal bone destruction. The neural foramina are fairly well-maintained. IMPRESSION: Small posterior disc bulging at L3-4 L4-5. Mild lateral recess stenosis due to facet arthropathy at L 4-5. No fracture.
== END | disposition home or self-care (01) ==
LOC: RADMRIMAIN 16:29
PROVIDERS: ATTEND Family Medicine
DX: M48.061 Spinal stenosis, lumbar region without neurogenic claudication (principal); M51.26 Other intervertebral disc displacement, lumbar region; M48.8X6 Other specified spondylopathies, lumbar region
CPT/HCPCS: 72148

== ENCOUNTER → 2017-10-26 | Outpatient (CLI) | payer MEDICARE ==
--- NOTE | 2017-10-26 14:17 | P.PN ---
Progress Note - Text Progress Note Date: 10/26/17 Progress Note: Patient presents for follow-up visit to chief complaint of left SI joint pain. Patient has not been to our clinic in approximately 2 years. Patient underwent SI joint injections 2 and then left sacroiliac radio frequency ablation. She states she had excellent pain relief for 2 years or than 90%. Within the past for 5 months she started noticing return of similar symptoms of pain in her low back radiating to her thigh into her side into her groin area just above the knee. She states that her left side is worse than her right over the right symptoms are new or onset. Patient is not taking any prescribed medications for pain other than Motrin 800 mg I advised her to not take Motrin 800 mg as her medical records show that she has some degree of acute kidney injury. Otherwise patient has no new pain complaints since her last visit. In addition to above, 13-point review of systems is also negative for chest pain , shortness of breath, changes in vision, changes in hearing, new onset weakness , abdominal pain, diarrhea, extreme fatigue, malaise, fever, skin changes, homicidal or suicidal ideation, or bowel or bladder incontinence. Vital Signs: Reviewed in EMR Gen: WDWN, AAOx3, NAD HEENT: NCAT, EOMI, hearing grossly normal Pulm: resp unlabored Cardio: No peripheral edema, regular rate and rhythm Neck: supple, trachea midline ROM in flexion lumbar spine: Within normal limits ROM in extension lumbar spine: Within normal limits Lumbar paravertebral tenderness: Mildly positive bilateral Facet loading: Mildly positive bilateral SI joint tenderness: Significant only positive on the left, positive on right Kg's test: Positive L>R Straight leg raise: Negative Lower extremity: decreased ROM dorsiflexion/plantarflexion strength, hip flexion/extension, and knee flexion/extension secondary to pain Neuro: muscle strength lower extremities PRESERVED Assessment: 1. Lumbosacral spondylosis 2. SI joint joint dysfunction 3. Knee osteoarthritis Plan: 1. Explanation: Opioid and psychological risk scores were reviewed. Diagnoses , prognoses, and multiple treatment options including but not limited to physical therapy, interventional therapies, adjuvant medical therapies, narcotic medication therapies, and surgery were discussed with the patient and all questions were answered to the patient's satisfaction. 2. Opioid agreement: Patient signed narcotic agreement, and was orally counseled to not overuse, abuse, divert, or cell medications, and to take them as prescribed by only 1 healthcare provider. The patient was also counseled to take medications as prescribed by only 1 healthcare provider and to store opioid medications in the safe and preferably locked location. Patient was also counseled against driving or operating heavy equipment while using narcotic medications and also not use alcohol or any illicit or recreational drugs. The patient verbalized understanding that lack of compliance with any of the above and likely result in failure to renew narcotic prescriptions, possible discharge from the clinic, and possible legal ramifications thereafter if indicated. 3. Counseling: The patient was counseled extensively on SMOKING CESSATION, BODY MASS INDEX, EXERCISE. Specifically, the patient was instructed regarding the importance of smoking cessation, weight control, and exercise in the context of both chronic pain and overall health. 4. Procedures: Bilateral SI joint injection next available date 5. Consultations: Patient is on Plavix for history of TIAs. We will get consent from Dr. Stoll her assortment planner to stop for at least 5-7 days. 6. Investigations: None 7. Medications: None 8. Disposition: Bilateral sacroiliac joint injections next available date PQRS measures: 1-Patient's medications are documented in the chart. 2-Tobacco use is negative 3-Patient has had a pneumococcal vaccine. 4-Advanced care planning discussed, patient unable to give. 5-Opioid contract signed with the patient. 6-Pain positive, follow-up visit or procedure scheduled 7-Patient's blood pressure measured and documented, and patient will follow up with the primary care due to hypertension. 8-Patient's weight was measured, and body mass index ABOVE the normal limits, and counseling was done. Patient instructed to follow up with PCP. 9-Patient WAS NOT identified as an unhealthy alcohol user.
[2017-10-26 14:19] VITALS: BP 131/59; PULSE 57; RESP 16
== END | disposition home or self-care (01) ==
LOC: PNWHC3 12:50
PROVIDERS: ATTEND Anesthesiology
DX: M46.1 Sacroiliitis, not elsewhere classified (principal); M47.816 Spondylosis without myelopathy or radiculopathy, lumbar region; M17.10 Unilateral primary osteoarthritis, unspecified knee
CPT/HCPCS: 99211

== ENCOUNTER 2017-11-11 06:02 | Day surgery (SDC) | payer MEDICARE ==
[2017-11-09 14:38] VITALS: BMI 32.0
[~2017-11-11 06:02] MED LIST: LACTATED RINGERS 1,000 ML IV SCH
[2017-11-11] MEDS ORDERED: LIDOCAINE 1% 20 ML VIAL (10MG/ML) FOR IV START INTRADERMA ONE (06:29)
[2017-11-11 06:31] VITALS: RESP 18; TEMP 97
[2017-11-11 06:34] LABS: Glucose,Whole Blood 154 mg/dL (75-99)
--- NOTE | 2017-11-11 07:29 | P.PCN ---
Date of Procedure: 11/11/17 Procedure(s) Performed: Preoperative diagnoses= 1-bilateral sacroiliitis. 2-lumbar degenerative disc disease. 3-lumbar spondylosis Postoperative diagnoses= same as preoperative diagnosis. Procedure= bilateral sacroiliac joint steroid injection under fluoroscopic guidance. Anesthesia= moderate sedation with Versed 1 mg and fentanyl 25 micrograms. Estimated blood loss=minimal. Procedure indication= the patient had a history of severe chronic low back pain , diagnosed with sacroiliitis and lumbar sacral facet arthropathy unresponsive to conservative treatment. Procedure description= the patient was seen and identified in the preoperative holding area, risks and benefits and alternative of the procedure and possible complications discussed with the patient, and he agreed with the preceding, patient signed the consent, an IV was started, and vital signs were monitored and were stable throughout the procedure, patient was placed in the prone position or table and the lumbosacral area was prepped and draped with a sterile fashion, vital signs were closely monitored during the procedure, the fluoroscopy camera was placed in the contralateral oblique view on the right sacroiliac joint and the lower part of the joint was identified, local infiltration of the skin and subcutaneous tissue with lidocaine 1% 2 mL then a 22-gauge Quincke-type spinal needle advanced slowly under fluoroscopy and placed in the posterior and inferior border of the right sacroiliac joint, placement confirmed with AP and lateral view, and after appropriate needle placement confirmed and after negative aspiration for heme and CSF and there was no paresthesia during the injection, 3 ml of Marcaine 0.5% and 20 mg of DEpo - Medrol injected after negative aspiration, the needle removed, and the entire same procedure was repeated for the left sacroiliac joint Patient tolerated the procedure well without any complication, The patient returned to supine position after the back was cleaned and a Band- Aid applied, the patient transported to recovery room in stable condition and he was monitored for 30 minutes before he was discharged home and then patient was reexamined before going home and patient was discharged in stable condition and patient will follow up with the pain clinic in a few weeks
[2017-11-11] MEDS ORDERED: IV FLUID CONTINUATION 1,000 ML IV ONE ×2 (07:35)
[2017-11-11 07:40] VITALS: PULSE 69
[2017-11-11 07:53] VITALS: BP 140/78
--- NOTE | 2017-11-11 07:59 | FL ---
Fluoroscopy INDICATION: Pain FINDINGS: Fluoroscopy time: 6 seconds. Images obtained: 2. IMPRESSIONS: 1. Documentation of fluoroscopy.
== END 2017-11-11 08:06 | disposition home or self-care (01) ==
LOC: ORPAIN 06:02
PROVIDERS: ATTEND Specialist
DX: M47.816 Spondylosis without myelopathy or radiculopathy, lumbar region (principal); G89.29 Other chronic pain; M54.5 Low back pain; M46.1 Sacroiliitis, not elsewhere classified; M51.36 Other intervertebral disc degeneration, lumbar region; I10 Essential (primary) hypertension; Z86.73 Personal history of transient ischemic attack (TIA), and cerebral infarction without residual deficits; E03.9 Hypothyroidism, unspecified; E11.9 Type 2 diabetes mellitus without complications; Z88.5 Allergy status to narcotic agent; Z79.02 Long term (current) use of antithrombotics/antiplatelets
CPT/HCPCS: 64450; J2250; J1030; J3010; 99152

== ENCOUNTER 2017-11-25 06:39 | Day surgery (SDC) | payer MEDICARE ==
[2017-11-20 11:37] VITALS: BMI 32.0
[2017-11-25 07:25] VITALS: TEMP 97.2
[2017-11-25] MEDS ORDERED: LIDOCAINE 1% 20 ML VIAL (10MG/ML) FOR IV START INTRADERMA ONE (07:27)
[2017-11-25 07:31] LABS: Glucose,Whole Blood 135 mg/dL (75-99)
[2017-11-25] MEDS ORDERED: IV FLUID CONTINUATION 1,000 ML IV ONE ×2 (08:04)
[2017-11-25 08:08] VITALS: BP 138/78; PULSE 70; RESP 18
--- NOTE | 2017-11-25 08:43 | P.PCN ---
Date of Procedure: 11/25/17 Surgeon: Donn Osorio Description of Procedure: Preoperative diagnoses: Bilateral sacroilitis Postoperative diagnoses: Bilateral sacroilitis. Procedure: Bilateral sacroiliac joint steroid injection under fluoroscopic guidance. Surgeon: Donn Osorio MD Anesthesia: IV sedation per hospital guidelines with 2 mg of midazolam as limb EBL: None Procedure indication: The patient had a history of severe chronic low back pain , diagnosed with sacroiliitis and lumbar sacral facet arthropathy unresponsive to conservative treatment. Procedure description: The patient was seen and identified in the preoperative holding area, risks and benefits and alternative of the procedure and possible complications discussed with the patient, and he agreed with the preceding, patient signed the consent, an IV was started, and vital signs were monitored and were stable throughout the procedure, patient was placed in the prone position or table and the lumbosacral area was prepped and draped with a sterile fashion, vital signs were closely monitored during the procedure, the fluoroscopy camera was placed in the contralateral oblique view on the right sacroiliac joint and the lower part of the joint was identified a 2 mL then a 25 -gauge Quincke-type spinal needle advanced slowly under fluoroscopy and placed in the posterior and inferior border of the right sacroiliac joint, placement confirmed with AP and lateral view, and after appropriate needle placement confirmed and after negative aspiration for heme and CSF and there was , 3 ml of Marcaine 0.5% and 20 mg of Kenalog injected after negative aspiration, no paresthesia during the injection, no resistance to injection, and the needle was removed. The entire same procedure was repeated for the left sacroiliac joint Patient tolerated the procedure well without any complication. The patient returned to supine position after the back was cleaned and a Band- Aid applied, the patient transported to recovery room in stable condition and he was monitored for 30 minutes before he was discharged home and then patient was reexamined before going home and patient was discharged in stable condition and patient will follow up with the pain clinic in a few weeks. She has had previous radiofrequency ablation of her sacroiliac joints was gave her approximate 2 years of good pain relief. She may need this to be repeated in the future if she does not receive good benefit from these procedures.
--- NOTE | 2017-11-25 09:16 | FL ---
EXAMINATION TYPE: FL guided pain mgmt statistic DATE OF EXAM: 11/25/2017 FLUOROSCOPY Fluoroscopy time of 1 seconds was used during bilateral SI joint injection. 3 image/s document/s the procedure.
== END 2017-11-25 09:00 | disposition home or self-care (01) ==
LOC: ORPAIN 06:39
PROVIDERS: ATTEND Pain Medicine Pain Medicine
DX: G89.29 Other chronic pain (principal); M46.1 Sacroiliitis, not elsewhere classified; M47.817 Spondylosis without myelopathy or radiculopathy, lumbosacral region; M53.3 Sacrococcygeal disorders, not elsewhere classified; M17.10 Unilateral primary osteoarthritis, unspecified knee; N17.9 Acute kidney failure, unspecified; Z79.1 Long term (current) use of non-steroidal anti-inflammatories (NSAID); Z79.02 Long term (current) use of antithrombotics/antiplatelets; Z88.5 Allergy status to narcotic agent
CPT/HCPCS: J2250; J3301; J3010; G0260; 27096

== ENCOUNTER → 2017-12-08 | Outpatient (CLI) | payer MEDICARE ==
[2017-12-08 13:07] VITALS: BP 120/56; PULSE 75; RESP 18
--- NOTE | 2017-12-08 13:27 | P.PAINPG ---
Subjective Progress Note Date: 12/08/17 This is follow-up visit for this patient with a history of severe and chronic low back pain secondary to sacroiliitis, sacroiliac joint dysfunction, lumbar facet arthropathy, We have done an interventional pain procedure bilateral sacroiliac joint steroid injection, tissue had good pain relief for short-term, patient denies any suicidal ideation, Patient denies any motor or sensory deficit, denies any change in the bowel movement or urination, patient denies any fever or night swetes Before the first injection was 6-7/10 dropped to 0/10 , immediately after the injection, the same results happened after the second injection Objective - Vital Signs Vital signs: Vital Signs Temp Pulse 75 12/08/17 13:00 Resp 18 12/08/17 13:00 BP 120/56 12/08/17 13:00 Pulse Ox 98 12/08/17 13:00 Intake & Output 12/07/17 12/08/17 12/08/17 18:59 06:59 18:59 Weight 74.389 kg - Exam Physical Examinations : 1-Constitutiona : Cooperative , not in acute distress . 2-HEENT : nech ; supple , no Lymphadenopathy , normal thyroid size . eyes : no ptosis , no icterus , no photophobia . ENT : normal of hearing , normal oropharynx , no Thrush . 3- Respiratory : Chest clear to auscultations Bilaterally , no wheezing , no Rhonchi . 4- Cardiovascular : regular rate and rhythem , S1 , S2 , no S3 , no S4. 5- Gastrointestinal : abdomen soft no tenderness , bowel sounds , no organomegally . 6- Genitourinary : Defferred . 7- neurologic : Cranial nerve II to XII intact , no focal neurological deffecit . 8-psychatric : alert , oriented X 3 , appropriate affect , intact judgment and insight . 9-Lymphatic : no Lymphadenopathy . 10- musculoskeltal : . Lumber spine moter stegnth lower extremities ,thigh and legs 5/5 Right side , 5/5 Left side deep tendon reflexes : normal Knee Jerk , normal ankle Jerk positive lumber facet Loading Test Range of motion of the lumbar spine Flexion 30 degrees, extension 10 degrees strait leg raising test negative bilaterally Fabere test positive RT and positive LT . Sever tenderness over the Sacroiliac joint on the R and L sides Assessment and Plan Plan: Assessment and plan= severe chronic low back pain secondary to sacroiliitis and sacroiliac joint dysfunction and lumbar spondylosis Patient had good pain relief but only for short- term after the sacroiliac joint steroid injections 2 Tissue could benefit from radiofrequency ablation of the sacroiliac joint, (RFA of the L5-S1 dorsal ramus, and RFA of the lateral branches of S1/S2/S3 ). On the left side first and the right-sided later , she has to hold Plavix for 1 week before the procedure Time with Patient: Less than 30 PQRS Measure Charge Sheet Measure #130: Documentation of Current Meds in Medical Chart: Patient's medications documented in chart Measure #226: Tobacco Use: Screen & Cessation Intervention: Pt not a tobacco user Measure #111: Pneumonia Vaccination: Pneumococcal vaccine NOT administered or previously given Measure #47: Advance Care Plan: Advance care planning discussed & documented, pt chose/unable to give Measure #412: Opioid Treatment Agreement: No documentation of signed opioid treatment agreement Measure #408: Opioid Therapy Follow-up Evaluation: Patient had NO f/u eval minimum every 3 months during opioid therapy Measure #317: Preventitive Care & Scrn High Bld Press & F/U: Normal blood pressure, f/u not required Measure #128: Body Mass Index (BMI) Screening & Follow-up: BMI documented ABOVE normal parameters - f/u documented Measure #131: Pain Assessment & Follow-up: Pain positive & plan documented, Follow-up scheduled Measure #431: Unhealthy Alcohol Use Preventative Care & Scrn: Patient not identified as an unhealthy alcohol user PQRS Narrative: Smoking Status Former smoker Do You Want the Pneumonia No Vaccine AT THIS TIME? Blood Pressure 120/56 Pain Intensity [Lower Back] 8 Scale Used Numeric (1 - 10) Hx Alcohol Use (MH) No Home Medications: Ambulatory Orders Atorvastatin [Lipitor] 80 mg PO DAILY 10/10/14 Lansoprazole [Prevacid] 30 mg PO DAILY 10/10/14 Levothyroxine Sodium [Synthroid] 50 mcg PO DAILY 10/10/14 Lisinopril-Hctz 20-25 mg [Zestoretic 20-25] 1 tab PO DAILY 10/10/14 Metoprolol Tartrate [Lopressor] 25 mg PO DAILY 10/10/14 Ergocalciferol [Vitamin D2 (DRISDOL)] 50,000 units PO MO 05/02/15 Clopidogrel Bisulfate [Plavix] 75 mg PO DAILY 09/25/15 Aspirin EC [Ecotrin Low Dose] 81 mg PO DAILY 09/26/15 Folic Acid 1 mg PO DAILY@1200 #30 tab 10/01/15 Ondansetron [Zofran] 4 mg PO Q12HR PRN 05/26/16 metFORMIN HCL [Glucophage] 500 mg PO DAILY 11/09/17 Controlled Substance Measures - Controlled Substance Measures Is patient prescribed a controlled substance at discharge?: No When asked, does pt state using other controlled substances?: No If prescribed controlled substance>3 days was MAPS reviewed?: No If Rx opioid, was Start Talking consent form obtained?: No If opioid is for acute pain is fill amount 7 days or less?: No Was information provided regarding opioid addiction?: No
== END ==
LOC: PNWHC3 11:41
PROVIDERS: ATTEND Specialist
DX: G89.29 Other chronic pain (principal); M47.816 Spondylosis without myelopathy or radiculopathy, lumbar region; M53.3 Sacrococcygeal disorders, not elsewhere classified; M46.1 Sacroiliitis, not elsewhere classified; Z79.899 Other long term (current) drug therapy; Z79.82 Long term (current) use of aspirin; Z79.84 Long term (current) use of oral hypoglycemic drugs; Z87.891 Personal history of nicotine dependence
CPT/HCPCS: 99211

== ENCOUNTER 2018-01-06 09:05 | Day surgery (SDC) | payer MEDICARE ==
[2017-12-31 09:30] VITALS: BMI 32.0
[2018-01-06] MEDS ORDERED: LACTATED RINGERS 1,000 ML IV SCH (10:23)
[2018-01-06 10:31] VITALS: PULSE 62; RESP 20; TEMP 97.4
[2018-01-06 10:36] LABS: Glucose,Whole Blood 133 mg/dL (75-99)
--- NOTE | 2018-01-06 11:19 | P.PCN ---
Date of Procedure: 01/06/18 Procedure(s) Performed: PREOPERATIVE DIAGNOSIS: 1-Bilateral sacroiliit. post operative Diagnosis: . 1-Bilateral sacroiliit. PROCEDURES: 1- Left multi-site radiofrequency thermocoagulation/ablation of the S1, S2, and S3 lateral branchs. The procedure was performed using fluoroscopic guidance during needle placement to assure proper position and maximize safety . ANESTHESIA: LOCAL ANESTHESIA = moderate sedation with intravenous versed 2mg and Fentanyle 100 mcg EBL: NONE INDICATION/MEDICAL NECESSITY: History of low back pain secondary to sacroiliitis ,unresponsive to more conservative treatments. The patient reported more than 50% relief of pain symptoms following 2 previous diagnostic blocks with Bupivacaine. PROCEDURE DESCRIPTION: The patient was seen and identified in the preoperative area. Risks, benefits, complications, and alternatives were discussed with the patient. The patient agreed to proceed with the procedure and signed the consent. Vital signs were checked before and after the procedure and they remained stable. Patient ambulated to the procedure room and time out was completed. The patient was placed in the prone position on the procedure table and a pillow was placed under the abdomen to reduce lumbar lordosis. The lumbosacral area was prepped and draped in the usual sterile fashion. Critical pause was taken. S1, S3, and S3 Lateral Branch RF: The medial margins of the left sacroiliac joints identified using AP fluoroscopy. Under fluoroscopic guidance, three 10-cm 20 -gauge radiofrequency cannula with a 10-mm active tip were inserted 2-3 mm medial to the medial edge of the left sacroiliac joint to , and starting from the inferior border of the jaw and going serpiginously total of 5 needle was placed the sensory testing , was performed at 50 Hz and 0 to 1 volt at the three levels with production of concordant pain starting at 0.5 volt. Motor stimulation was done at 2.5 Hz. No radicular symptoms or paresthesias were produced during the testing. Subsequently, radiofrequency ablation at a mode of 90 seconds at 80 degrees Celsius at the 3 levels after negative motor and sensory testing and after injecting 0.5 ml of preservative free Bupivacaine 0.5 %. Then after the radiofrequency done mixture of ropivacaine 0.5% mixed with 40 mg of Kenalog total volume 5 mL and 1 mL injected at each level after negative aspiration The needle was withdrawn intact after each injection. COMPLICATIONS: The patient tolerated the procedure well without any acute complications. DISPOSTION/PLAN: The patient ambulated to the recovery area after the procedure in a stable condition for observation. Patient was reexamined prior to discharge. Patient was observed for 30 minutes in the recovery area and was discharged home, accompanied by an adult, after meeting discharged criteria. Discharge instructions were give to the patient by the staff. Patient was specifically instructed not to drive today and to rest for the rest of the day. The patient will schedule a follow up visit in the clinic in weeks or earlier if needed.
[2018-01-06 12:37] VITALS: BP 116/55
--- NOTE | 2018-01-06 14:39 | FL ---
Fluoroscopy HISTORY: Pain 15 seconds fluoroscopy time supplied to the referring clinician. 3 intraoperative C-arm images docum ent the procedure. See dictated report from anesthesia.
== END 2018-01-06 12:15 | disposition home or self-care (01) ==
LOC: ORPAIN 09:05
PROVIDERS: ATTEND Specialist
DX: M46.1 Sacroiliitis, not elsewhere classified (principal); I25.10 Atherosclerotic heart disease of native coronary artery without angina pectoris; I10 Essential (primary) hypertension; E11.9 Type 2 diabetes mellitus without complications; Z86.73 Personal history of transient ischemic attack (TIA), and cerebral infarction without residual deficits; Z88.5 Allergy status to narcotic agent
CPT/HCPCS: 64640 ×3; J2250; J3301; J3010; 99152; 99153

== ENCOUNTER → 2018-01-25 | Day surgery (SDC) | payer MEDICARE ==
[2018-01-20 09:31] VITALS: BMI 32.0
[~2018-01-25] MED LIST changes: -LACTATED RINGERS 1,000 ML IV SCH; +SODIUM CHLORIDE 0.9% 500 ML 500 ML IV ONE; +SODIUM CHLORIDE 0.9% 500 ML 500 ML IV SCH
[2018-01-25 09:56] VITALS: TEMP 97.5
[2018-01-25 09:59] LABS: Glucose,Whole Blood 141 mg/dL (75-99)
--- NOTE | 2018-01-25 11:13 | P.PCN ---
Date of Procedure: 01/25/18 Procedure(s) Performed: PREOPERATIVE DIAGNOSIS: 1-Bilateral sacroiliit. post operative Diagnosis: . 1-Bilateral sacroiliit. PROCEDURES: 1-Right multi-site radiofrequency thermocoagulation/ablation of the S1, S2, and S3 lateral branchs. The procedure was performed using fluoroscopic guidance during needle placement to assure proper position and maximize safety . ANESTHESIA: LOCAL ANESTHESIA = moderate sedation with intravenous versed 2mg, and Fentanyle 50 mcg EBL: NONE INDICATION/MEDICAL NECESSITY: History of low back pain secondary to sacroiliitis ,unresponsive to more conservative treatments. The patient reported more than 50% relief of pain symptoms following 2 previous diagnostic blocks with Bupivacaine. PROCEDURE DESCRIPTION: The patient was seen and identified in the preoperative area. Risks, benefits, complications, and alternatives were discussed with the patient. The patient agreed to proceed with the procedure and signed the consent. Vital signs were checked before and after the procedure and they remained stable. Patient ambulated to the procedure room and time out was completed. The patient was placed in the prone position on the procedure table and a pillow was placed under the abdomen to reduce lumbar lordosis. The lumbosacral area was prepped and draped in the usual sterile fashion. Critical pause was taken. S1, S3, and S3 Lateral Branch RF: The medial margins of the Right sacroiliac joints identified using AP fluoroscopy. Under fluoroscopic guidance, three 10-cm 18 -gauge radiofrequency cannula with a 10-mm active tip were inserted 2-3 mm medial to the medial edge of the left sacroiliac joint to , and starting from the inferior border of the right sacroiliacjoints and going superiorley, total of 6 needle was placed , then the sensory testing ,was performed at 50 Hz and 0 to 1 volt at the three levels with production of concordant pain starting at 0.5 volt. Motor stimulation was done at 2.5 Hz. No radicular symptoms or paresthesias were produced during the testing. Subsequently, radiofrequency ablation at a mode of 90 seconds at 80 degrees Celsius at all the levels after negative motor and sensory testing and after injecting 0.5 ml of preservative free Bupivacaine 0.5 %. Then after the radiofrequency done mixture of ropivacaine 0.5% mixed with 40 mg of Kenalog total volume 5 mL and 1 mL injected at each level after negative aspiration The needle was withdrawn intact after each injection. COMPLICATIONS: The patient tolerated the procedure well without any acute complications. DISPOSTION/PLAN: The patient ambulated to the recovery area after the procedure in a stable condition for observation. Patient was reexamined prior to discharge. Patient was observed for 30 minutes in the recovery area and was discharged home, accompanied by an adult, after meeting discharged criteria. Discharge instructions were give to the patient by the staff. Patient was specifically instructed not to drive today and to rest for the rest of the day. The patient will schedule a follow up visit in the clinic in weeks or earlier if needed.
[2018-01-25 11:51] VITALS: BP 129/60; PULSE 71; RESP 20
--- NOTE | 2018-01-25 11:51 | FL ---
Fluoroscopy HISTORY: Pain 10 seconds fluoroscopy time supplied to the referring clinician. 4 intraoperative C-arm images docum ent the procedure. See dictated report from anesthesia.
== END ==
LOC: ORPAIN 09:16
PROVIDERS: ATTEND Specialist
DX: M46.1 Sacroiliitis, not elsewhere classified (principal); M47.816 Spondylosis without myelopathy or radiculopathy, lumbar region; I25.10 Atherosclerotic heart disease of native coronary artery without angina pectoris; E11.9 Type 2 diabetes mellitus without complications; Z79.02 Long term (current) use of antithrombotics/antiplatelets; Z88.5 Allergy status to narcotic agent
CPT/HCPCS: 64640; J2250; J1030; J3010; 64635; 64636; 99152

== ENCOUNTER → 2018-03-02 | Outpatient (CLI) | payer MEDICARE ==
[2018-03-02 13:48] VITALS: BP 89/54; PULSE 79; RESP 18
--- NOTE | 2018-03-02 14:38 | P.PN ---
Subjective Progress Note Date: 03/02/18 This is follow-up visit for this patient with a history of severe and chronic low back pain secondary to sacroiliitis, sacroiliac joint dysfunction, lumbar facet arthropathy, We have done an interventional pain procedure , radiofrequency ablation of the sacroiliac joint bilaterally, patient currently complaining of severe low back pain with radiation to the left lower extremity associated with some numbness and tingling sensation, only in the left lower extremity patient denies any suicidal ideation, Patient denies any motor or sensory deficit, denies any change in the bowel movement or urination, patient denies any fever or night swetes Physical Examinations : 1-Constitutiona : Cooperative , not in acute distress . 2-HEENT : nech ; supple , no Lymphadenopathy , normal thyroid size . eyes : no ptosis , no icterus , no photophobia . ENT : normal of hearing , normal oropharynx , no Thrush . 3- Respiratory : Chest clear to auscultations Bilaterally , no wheezing , no Rhonchi . 4- Cardiovascular : regular rate and rhythem , S1 , S2 , no S3 , no S4. 5- Gastrointestinal : abdomen soft no tenderness , bowel sounds , no organomegally . 6- Genitourinary : Defferred . 7- neurologic : Cranial nerve II to XII intact , no focal neurological deffecit . 8-psychatric : alert , oriented X 3 , appropriate affect , intact judgment and insight . 9-Lymphatic : no Lymphadenopathy . 10- musculoskeltal : . Lumber spine moter stegnth lower extremities ,thigh and legs 5/5 Right side , 5/5 Left side deep tendon reflexes : normal Knee Jerk , normal ankle Jerk positive lumber facet Loading Test Range of motion of the lumbar spine Flexion 30 degrees, extension 10 degrees strait leg raising test negative right side , positive left side Fabere test negative RT and positive LT . no tenderness over the Sacroiliac joint on the R and L sides Assessment and plan= sacroiliitis, status post radiofrequency ablation of the sacroiliac joint. Lumbar radiculopathy (left L4-5 dermatomal distribution ) Patient could benefit from L4 5 lumbar epidural steroid injections left paramedian approach. Patient could benefit from Neurontin 100 mg twice a day and could be increased as tolerate PQRS Measure Charge Sheet Measure #130: Documentation of Current Meds in Medical Chart: Patient's medications documented in chart Measure #226: Tobacco Use: Screen & Cessation Intervention: Pt not a tobacco user Measure #111: Pneumonia Vaccination: Pneumococcal vaccine NOT administered or previously given Measure #47: Advance Care Plan: Advance care planning discussed & documented, pt chose/unable to give Measure #412: Opioid Treatment Agreement: No documentation of signed opioid treatment agreement Measure #408: Opioid Therapy Follow-up Evaluation: Patient had NO f/u eval minimum every 3 months during opioid therapy Measure #317: Preventitive Care & Scrn High Bld Press & F/U: Normal blood pressure, f/u not required Measure #128: Body Mass Index (BMI) Screening & Follow-up: BMI documented ABOVE normal parameters - f/u documented Measure #131: Pain Assessment & Follow-up: Pain positive & plan documented, Follow-up scheduled Measure #431: Unhealthy Alcohol Use Preventative Care & Scrn: Patient not identified as an unhealthy alcohol user PQRS Narrative: - Controlled Substance Measures Is patient prescribed a controlled substance at discharge?: No When asked, does pt state using other controlled substances?: No If prescribed controlled substance>3 days was MAPS reviewed?: No If Rx opioid, was Start Talking consent form obtained?: No If opioid is for acute pain is fill amount 7 days or less?: No Was information provided regarding opioid addiction?: No Objective - Vital Signs Vital signs: Vital Signs Temp Pulse 79 03/02/18 13:40 Resp 18 03/02/18 13:40 BP 89/54 03/02/18 13:40 Pulse Ox 98 03/02/18 13:40 Intake & Output 03/01/18 03/02/18 03/02/18 18:59 06:59 18:59 Weight 72.575 kg
== END | disposition home or self-care (01) ==
LOC: PNWHC3 12:50
PROVIDERS: ATTEND Specialist
DX: G89.29 Other chronic pain (principal); M54.5 Low back pain; M54.16 Radiculopathy, lumbar region; M46.1 Sacroiliitis, not elsewhere classified; M53.88 Other specified dorsopathies, sacral and sacrococcygeal region; M46.86 Other specified inflammatory spondylopathies, lumbar region; Z98.890 Other specified postprocedural states; Z79.899 Other long term (current) drug therapy
CPT/HCPCS: 99211

== ENCOUNTER → 2018-11-12 | Outpatient (CLI) | payer MEDICARE ==
--- NOTE | 2018-11-12 20:51 | US ---
EXAMINATION TYPE: US carotid duplex BILAT DATE OF EXAM: 11/12/2018 COMPARISON: 04/21/2017 CLINICAL HISTORY: 73-year-old female Z86.73, E78.5 Hyperlipidemia, unspecified. Hx TIA- last being 3- 4 years ago. High cholesterol. No HTN. TECHNIQUE: Carotid duplex ultrasound examination. Indirect Doppler criteria was utilized. FINDINGS: EXAM MEASUREMENTS: RIGHT: Peak Systolic Velocity (PSV) cm/sec ----- Right CCA: 70.3 ----- Right ICA: 96.8 ----- Right ECA: 79.0 ICA/CCA ratio: 1.4 RIGHT: End Diastole cm/sec ----- Right CCA: 18.0 ----- Right ICA: 22.5 ----- Right ECA: 6.5 LEFT: Peak Systolic Velocity (PSV) cm/sec ----- Left CCA: 68.6 ----- Left ICA: 90.5 ----- Left ECA: 85.3 ICA/CCA ratio: 1.3 LEFT: End Diastole cm/sec ----- Left CCA: 16.2 ----- Left ICA: 24.5 ----- Left ECA: 9.5 VERTEBRALS (direction of flow): Right Vertebral: Antegrade Left Vertebral: Antegrade Rhythm: Normal Customer Care Agent notes: Wall thickening. No elevated velocities or significant stenosis. Plaque seen in bilateral bulbs. IMPRESSION: No hemodynamically significant stenosis appreciated in either internal carotid artery. Criteria for Assigning % of Stenosis / Diameter reduction (Estimation based on the indirect measurements of the internal carotid artery velocities (ICA PSV). 1. Normal (no stenosis)=ICA PSV < 125 cm/s: ratio < 2.0: ICA EDV<40 cm/s. 2. Less than 50% stenosis=ICA PSV < 125 cm/s: ratio < 2.0: ICA EDV<40 cm/s. 3. 50 to 69% stenosis=ICA PSV of 125 to 230 cm/s: ration 2.0 ? 4.0: ICA EDV 40-100 cm/s. 4. Greater than 70% stenosis to near occlusion= ICA PSV > 230 cm/s: ratio > 4.0: ICA EDV > 100 cm/s. 5. Near occlusion= ICA PSV velocities may be low or undetectable: variable ratio and ICA EDV. 6. Total occlusion=unable to detect flow.
== END | disposition home or self-care (01) ==
LOC: RADUSWWP 15:56
PROVIDERS: ATTEND Nurse Practitioner Family
DX: E78.5 Hyperlipidemia, unspecified (principal); Z86.73 Personal history of transient ischemic attack (TIA), and cerebral infarction without residual deficits
CPT/HCPCS: 93880

== ENCOUNTER → 2018-12-17 | Outpatient (CLI) | payer MEDICARE ==
--- NOTE | 2018-12-21 10:10 | MM ---
Reason for exam: screening (asymptomatic). Last mammogram was performed 2 years and 2 months ago. History: Patient is postmenopausal. Family history of breast cancer in mother at age 72. Physical Findings: A clinical breast exam by your physician is recommended on an annual basis and results should be correlated with mammographic findings. MG Screening Mammo w CAD Bilateral CC and MLO view(s) were taken. Prior study comparison: October 07, 2016, bilateral MG 3d screening mammo w/cad. August 11, 2012, CAD bilateral diagnostic mammogram. There are scattered fibroglandular densities. No suspicious abnormality. No significant changes when compared with prior studies. ASSESSMENT: Negative, BI-RAD 1 RECOMMENDATION: Routine screening mammogram of both breasts in 1 year.
== END | disposition home or self-care (01) ==
LOC: RADMAMWWP 13:28
PROVIDERS: ATTEND Family Medicine
DX: Z12.31 Encounter for screening mammogram for malignant neoplasm of breast (principal)
CPT/HCPCS: 77067

== ENCOUNTER 2019-02-10 16:08 | Inpatient (IN) | payer MEDICARE ==
--- NOTE | 2019-02-10 16:39 | ED ---
General Adult HPI - General Chief complaint: Chest Pain Stated complaint: CHEST PAIN Time Seen by Provider: 02/10/19 16:31 Source: patient Limitations: no limitations - History of Present Illness Initial comments: Patient presents the ED with her for evaluation. Patient states that she has had intermittent, substernal and right-sided chest pain radiating to her left arm for the past week or so, which has become more severe today. Patient denies having any chest pain currently, but she states that she does have left arm pain at this time. Patient states that her pain is worse with deep inspiration. Patient admits to feeling mildly dyspneic as well. Patient denies trauma or injury, headache, focal numbness/weakness/neuro deficit, fever or chills, neck pain, jaw pain, back pain, cough or cold symptoms, palpitations, dizziness, nausea/vomiting/diaphoresis, abdominal pain, urinary symptoms, leg or calf swelling or pain, or any other symptoms or complaints. Patient states that she has a history of cardiac stent placement. - Related Data Home Medications Medication Instructions Recorded Confirmed Atorvastatin [Lipitor] 80 mg PO DAILY 10/10/14 02/10/19 Levothyroxine Sodium [Synthroid] 50 mcg PO DAILY 10/10/14 02/10/19 Lisinopril-Hctz 20-25 mg 1 tab PO DAILY 10/10/14 02/10/19 [Zestoretic 20-25] Metoprolol Tartrate [Lopressor] 25 mg PO DAILY 10/10/14 02/10/19 Ergocalciferol [Vitamin D2 50,000 units PO MO 05/02/15 02/10/19 (DRISDOL)] Clopidogrel Bisulfate [Plavix] 75 mg PO DAILY 09/25/15 02/10/19 Aspirin EC [Ecotrin Low Dose] 81 mg PO DAILY 09/26/15 02/10/19 metFORMIN HCL [Glucophage] 500 mg PO DAILY 11/09/17 02/10/19 Dicyclomine [Bentyl] 10 mg PO TID 02/10/19 02/10/19 Metoclopramide HCl [Reglan] 5 mg PO DAILY 02/10/19 02/10/19 Allergies Allergy/AdvReac Type Severity Reaction Status Date / Time codeine Allergy Nausea & Verified 02/10/19 16:50 Vomiting Review of Systems ROS Statement: Those systems with pertinent positive or pertinent negative responses have been documented in the HPI. ROS Other: All systems not noted in ROS Statement are negative. Past Medical History Past Medical History: Coronary Artery Disease (CAD), CVA/TIA, Diabetes Mellitus, GERD/Reflux, Hyperlipidemia, Hypertension, Osteoarthritis (OA), Thyroid Disord er Additional Past Medical History / Comment(s): TIA,BRONCHITIS, MIGRAINE HEADACHE . History of Any Multi-Drug Resistant Organisms: MRSA Date of last positivie culture/infection: 2012 MDRO Source:: UNDER RT BREAST Past Surgical History: Appendectomy, Section, Cholecystectomy, Heart Catheterization With Stent, Hysterectomy Additional Past Surgical History / Comment(s): STENT X1, CATARACT SURGERY- BILATERAL, PAIN CLINIC PROCEDURES Past Anesthesia/Blood Transfusion Reactions: Postoperative Nausea & Vomiting (PONV) Additional Past Anesthesia/Blood Transfusion Reaction / Comment(s): claust rophobia Date of Last Stent Placement:: 2012 Past Psychological History: No Psychological Hx Reported Smoking Status: Former smoker Past Alcohol Use History: None Reported Past Drug Use History: None Reported - Past Family History Father Additional Family Medical History / Comment(s): drowned at age 32 Mother Family Medical History: Cancer Additional Family Medical History / Comment(s): BREAST, emphysema General Exam Limitations: no limitations General appearance: alert, in no apparent distress Head exam: Present: atraumatic, normocephalic Eye exam: Present: normal appearance, EOMI ENT exam: Present: mucous membranes moist Neck exam: Present: other (Trachea is in midline) Respiratory exam: Present: normal lung sounds bilaterally. Absent: respiratory distress, wheezes, rales, rhonchi, chest wall tenderness Cardiovascular Exam: Present: regular rate, normal rhythm, normal heart sounds, other (Normal radial pulses bilaterally) GI/Abdominal exam: Present: soft. Absent: distended, tenderness Extremities exam: Absent: tenderness, pedal edema, calf tenderness Neurological exam: Present: alert, oriented X3. Absent: motor sensory deficit Psychiatric exam: Present: normal affect, normal mood Skin exam: Present: warm, dry, intact, normal color Course Vital Signs 02/10/19 16:11 Temperature 98 F Pulse Rate 71 Respiratory 18 Rate Blood Pressure 160/76 O2 Sat by Pulse 98 Oximetry - Reevaluation(s) Reevaluation #1: 02/10/19 17:43 Case, H&P and test results were discussed with Dr. Morrison. He accepts h ospital floor admission. He has no further recommendations at this time. 02/10/19 17:50 Patient denies development of any new pain or symptoms while in the ED. Patient remains alert and breathing comfortable. Patient and are aware of the patient's test results, and they both agree with hospital admission at this time. EKG Findings - EKG Comments: EKG Findings:: Normal sinus rhythm, leftward axis, ventricular rate of 66 bpm, normal LA and QRS intervals, normal QT interval, minimal voltage criteria for LVH, no ST or T-wave abnormality Medical Decision Making - Medical Decision Making Patient's EKG and chest x-ray are fairly unremarkable. Patient's troponin and d-dimer are negative. Given the patient's cardiac history and risk factors, will admit the patient to the hospital for further cardiac evaluation. Dr. Morrison has accepted hospital admission. - Lab Data Result diagrams: 02/10/19 16:25 02/10/19 16:25 Lab Results 02/10/19 02/10/19 02/10/19 Range/Units 16:25 16:25 16:25 WBC 8.6 (3.8-10.6) k/uL RBC 4.36 (3.80-5.40) m/uL Hgb 12.6 (11.4-16.0) gm/dL Hct 36.9 (34.0-46.0) % MCV 84.7 (80.0-100.0) fL MCH 28.9 (25.0-35.0) pg MCHC 34.0 (31.0-37.0) g/dL RDW 13.0 (11.5-15.5) % Plt Count 306 (150-450) k/uL Neutrophils % 59 % Lymphocytes % 30 % Monocytes % 5 % Eosinophils % 3 % Basophils % 1 % Neutrophils # 5.1 (1.3-7.7) k/uL Lymphocytes # 2.6 (1.0-4.8) k/uL Monocytes # 0.5 (0-1.0) k/uL Eosinophils # 0.3 (0-0.7) k/uL Basophils # 0.1 (0-0.2) k/uL PT 9.9 (9.0-12.0) sec INR 0.9 (<1.2) APTT 23.8 (22.0-30.0) sec D-Dimer 0.58 (<0.60) mg/L FEU Sodium 135 L (137-145) mmol/L Potassium 4.0 (3.5-5.1) mmol/L Chloride 100 (98-107) mmol/L Carbon Dioxide 26 (22-30) mmol/L Anion Gap 9 mmol/L BUN 26 H (7-17) mg/dL Creatinine 1.28 H (0.52-1.04) mg/dL Est GFR (CKD-EPI)AfAm 48 (>60 ml/min/1.73 sqM) Est GFR (CKD-EPI)NonAf 42 (>60 ml/min/1.73 sqM) Glucose 167 H (74-99) mg/dL Calcium 9.9 (8.4-10.2) mg/dL Magnesium 1.7 (1.6-2.3) mg/dL Total Bilirubin 0.5 (0.2-1.3) mg/dL AST 21 (14-36) U/L ALT 16 (9-52) U/L Alkaline Phosphatase 65 (38-126) U/L Troponin I (0.000-0.034) ng/mL NT-Pro-B Natriuret Pep pg/mL Total Protein 7.0 (6.3-8.2) g/dL Albumin 4.2 (3.5-5.0) g/dL 02/10/19 02/10/19 Range/Units 16:25 16:25 WBC (3.8-10.6) k/uL RBC (3.80-5.40) m/uL Hgb (11.4-16.0) gm/dL Hct (34.0-46.0) % MCV (80.0-100.0) fL MCH (25.0-35.0) pg MCHC (31.0-37.0) g/dL RDW (11.5-15.5) % Plt Count (150-450) k/uL Neutrophils % % Lymphocytes % % Monocytes % % Eosinophils % % Basophils % % Neutrophils # (1.3-7.7) k/uL Lymphocytes # (1.0-4.8) k/uL Monocytes # (0-1.0) k/uL Eosinophils # (0-0.7) k/uL Basophils # (0-0.2) k/uL PT (9.0-12.0) sec INR (<1.2) APTT (22.0-30.0) sec D-Dimer (<0.60) mg/L FEU Sodium (137-145) mmol/L Potassium (3.5-5.1) mmol/L Chloride (98-107) mmol/L Carbon Dioxide (22-30) mmol/L Anion Gap mmol/L BUN (7-17) mg/dL Creatinine (0.52-1.04) mg/dL Est GFR (CKD-EPI)AfAm (>60 ml/min/1.73 sqM) Est GFR (CKD-EPI)NonAf (>60 ml/min/1.73 sqM) Glucose (74-99) mg/dL Calcium (8.4-10.2) mg/dL Magnesium (1.6-2.3) mg/dL Total Bilirubin (0.2-1.3) mg/dL AST (14-36) U/L ALT (9-52) U/L Alkaline Phosphatase (38-126) U/L Troponin I <0.012 (0.000-0.034) ng/mL NT-Pro-B Natriuret Pep 367 pg/mL Total Protein (6.3-8.2) g/dL Albumin (3.5-5.0) g/dL - Radiology Data Radiology results: image reviewed (Chest x-ray is negative) Disposition Clinical Impression: Chest pain Disposition: ADMITTED IP TO THIS [facility] Condition: Stable Is patient prescribed a controlled substance at d/c from ED?: No Referrals: Piyush Morrison MD [Primary Care Provider] - 1-2 days Time of Disposition: 17:43
[2019-02-10] MEDS ORDERED: ASPIRIN 81 MG PO STA (16:43)
[2019-02-10] MEDS ORDERED: levETIRAcetam IV 500 MG in SODIUM CHLORIDE 0.9% 100 ML IVPB STA (16:46)
[2019-02-10 16:51] LABS: Basophils # (A) 0.1 k/uL (0-0.2); Basophils % (A) 1 %; Eosinophils # (A) 0.3 k/uL (0-0.7); Eosinophils % (A) 3 %; HCT 36.9 % (34.0-46.0); HGB 12.6 gm/dL (11.4-16.0); Lymphocytes # (A) 2.6 k/uL (1.0-4.8); Lymphocytes % (A) 30 %; MCH 28.9 pg (25.0-35.0); MCV 84.7 fL (80.0-100.0); Mean Platelet Volume 6.2; Monocytes # (A) 0.5 k/uL (0-1.0); Monocytes % (A) 5 %; Neutrophils # (A) 5.1 k/uL (1.3-7.7); Neutrophils % (A) 59 %; Platelet Count 306 k/uL (150-450); RBC 4.36 m/uL (3.80-5.40); WBC 8.6 k/uL (3.8-10.6)
[2019-02-10 17:02] LABS: Albumin 4.2 g/dL (3.5-5.0); Calcium 9.9 mg/dL (8.4-10.2); Magnesium 1.7 mg/dL (1.6-2.3); Total Bilirubin 0.5 mg/dL (0.2-1.3)
[2019-02-10 17:04] LABS: D-Dimer 0.58 mg/L FEU (<0.60); INR 0.9 (<1.2); Partial Thromboplastin Time 23.8 sec (22.0-30.0); Prothrombin Time 9.9 sec (9.0-12.0)
--- NOTE | 2019-02-10 17:14 | XR ---
EXAMINATION TYPE: XR chest 2V DATE OF EXAM: 02/10/2019 COMPARISON: 05/26/2016 HISTORY: Chest pain TECHNIQUE: Frontal and lateral views of the chest are obtained. FINDINGS: Heart and mediastinum are normal. Lungs are clear. Diaphragm is normal. Bony thorax is nor mal. There are chest leads. IMPRESSION: Normal chest. No change.
[2019-02-10] MEDS ORDERED: NITROGLYCERIN SL TABS 0.4 MG TAB SUBLINGUAL PRN (17:43)
[2019-02-10 20:36] LABS: Glucose,Whole Blood 135 mg/dL (75-99)
[2019-02-11] MEDS ORDERED: ACETAMINOPHEN TAB 325 MG TAB PO STA (03:35)
[2019-02-11 04:37] LABS: Cholesterol 230 mg/dL (<200); HDL Cholesterol 50 mg/dL (40-60); LDL Cholesterol,Calculated 140 mg/dL (0-99); Triglycerides 198 mg/dL (<150)
[2019-02-11] MEDS: LEVOTHYROXINE 50 MCG TAB PO SCH (06:02)
[2019-02-11 06:47] LABS: Glucose,Whole Blood 142 mg/dL (75-99)
[2019-02-11] MEDS ORDERED: metFORMIN 500 MG TAB PO SCH (09:00)
[2019-02-11] MEDS: ACETAMINOPHEN TAB 325 MG TAB PO PRN ×2 (09:24→21:08)
[2019-02-11] MEDS: ASPIRIN 325 MG TAB PO SCH (10:23)
[2019-02-11] MEDS: CLOPIDOGREL 75 MG TAB PO SCH (10:24)
[2019-02-11] MEDS: LISINOPRIL-HCTZ 20-25 MG 1 EACH TAB PO SCH (10:24)
[2019-02-11] MEDS: ATORVASTATIN 80 MG TAB PO SCH (10:24)
[2019-02-11] MEDS: METOPROLOL TARTRATE 25 MG TAB PO SCH (10:24)
[2019-02-11] MEDS ORDERED: LIDOCAINE 1% INJ 10MG/ML (20 ML MDV) ONE (11:39)
[2019-02-11] MEDS ORDERED: fentaNYL (PF) 50 MCG/ML 2 ML AMP ONE (11:44)
[2019-02-11] MEDS ORDERED: IV FLUID CONTINUATION 1,000 ML IV ONE (11:45)
--- NOTE | 2019-02-11 11:53 | P.CRDCN ---
History of Present Illness Consult date: 02/11/19 Chief complaint: Chest pain History of present illness: This is a very pleasant 73-year-old female patient who sees Dr. 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 The patient also does have diabetes, hypertension, dyslipidemia. She was in her usual state of health until about a week ago when she started experiencing intermittent episodes of chest discomfort. The patient described her discomfort across the chest as a pressure on the chest was some radiation to the left arm. No associated symptoms of shortness of breath, sweating, dizziness, or syncope. When she was seen in the morning she was experiencing some ongoing chest discomfort. The EKG showed sinus rhythm without any ischemic ST or T-wave abnormalities. The cardiac enzymes were checked and came in to be unremarkable. Because of the mild ongoing chest discomfort, I did recommend proceeding with coronary angiogram. The patient will be scheduled to undergo a heart catheterization later today by Dr. Stoll. Past Medical History Past Medical History: Blood Disorder, Coronary Artery Disease (CAD), Chest Pain / Angina, CVA/TIA, Diabetes Mellitus, GERD/Reflux, Hyperlipidemia, Hypertension, Osteoarthritis (OA), Pneumonia, Respiratory Disorder, Thyroid Disorder Additional Past Medical History / Comment(s): TIA,BRONCHITIS, MIGRAINE HEADACHE, anemia, DM type 2, broncitis History of Any Multi-Drug Resistant Organisms: MRSA Date of last positivie culture/infection: 2012 MDRO Source:: UNDER RT BREAST Past Surgical History: Appendectomy, Section, Cholecystectomy, Heart Catheterization With Stent, Hysterectomy Additional Past Surgical History / Comment(s): STENT X1, CATARACT SURGERY- BILATERAL, PAIN CLINIC PROCEDURES Past Anesthesia/Blood Transfusion Reactions: Postoperative Nausea & Vomiting (PONV) Additional Past Anesthesia/Blood Transfusion Reaction / Comment(s): claustrophobia Date of Last Stent Placement:: 2012 Past Psychological History: No Psychological Hx Reported Additional Psychological History / Comment(s): CLAUSTROPHOBIA Smoking Status: Former smoker Past Alcohol Use History: None Reported Additional Past Alcohol Use History / Comment(s): started smoking 1963, quit 2001, smoked 1 ppd. Past Drug Use History: None Reported - Past Family History Father Additional Family Medical History / Comment(s): drowned at age 32 Daughter(s) Family Medical History: Cancer, Seizure Disorder Additional Family Medical History / Comment(s): colon ca Mother Family Medical History: Cancer Additional Family Medical History / Comment(s): BREAST, emphysema Medications and Allergies Home Medications Medication Instructions Recorded Confirmed Type Atorvastatin [Lipitor] 80 mg PO DAILY 10/10/14 02/10/19 History Levothyroxine Sodium [Synthroid] 50 mcg PO DAILY 10/10/14 02/10/19 History Lisinopril-Hctz 20-25 mg 1 tab PO DAILY 10/10/14 02/10/19 History [Zestoretic 20-25] Metoprolol Tartrate [Lopressor] 25 mg PO DAILY 10/10/14 02/10/19 History Ergocalciferol [Vitamin D2 50,000 units PO MO 05/02/15 02/10/19 History (DRISDOL)] Clopidogrel Bisulfate [Plavix] 75 mg PO DAILY 09/25/15 02/10/19 History Aspirin EC [Ecotrin Low Dose] 81 mg PO DAILY 09/26/15 02/10/19 History metFORMIN HCL [Glucophage] 500 mg PO DAILY 11/09/17 02/10/19 History Dicyclomine [Bentyl] 10 mg PO TID 02/10/19 02/10/19 History Metoclopramide HCl [Reglan] 5 mg PO DAILY 02/10/19 02/10/19 History Allergies Allergy/AdvReac Type Severity Reaction Status Date / Time codeine Allergy Nausea & Verified 02/10/19 16:50 Vomiting Physical Exam Vitals: Vital Signs Temp Pulse Pulse Pulse Resp BP BP 02/11/19 07:28 97.5 F L 67 18 124/72 02/11/19 04:00 97.8 F 66 18 149/80 02/10/19 23:50 97.8 F 68 18 150/75 02/10/19 20:00 97.5 F L 70 18 176/80 02/10/19 18:52 97.6 F 65 16 180/82 02/10/19 18:02 98.0 F 69 18 119/66 02/10/19 16:15 68 02/10/19 16:11 98 F 71 18 160/76 Pulse Ox 02/11/19 07:28 97 02/11/19 04:00 95 02/10/19 23:50 94 L 02/10/19 20:00 95 02/10/19 18:52 96 02/10/19 18:02 97 02/10/19 16:15 02/10/19 16:11 98 Intake and Output 02/10/19 02/11/19 02/11/19 22:59 06:59 14:59 Other: Voiding Method Toilet Toilet Toilet # Voids 1 1 Weight 77.111 kg - Constitutional General appearance: no acute distress - Respiratory Respiratory: bilateral: CTA - Cardiovascular Rhythm: regular Heart sounds: normal: S1, S2 Abnormal Heart Sounds: systolic murmur Results 02/10/19 16:25 02/10/19 16:25 Cardiac Enzymes 02/10/19 02/10/19 02/10/19 Range/Units 16:25 16:25 23:00 AST 21 (14-36) U/L Troponin I <0.012 <0.012 (0.000-0.034) ng/mL 02/11/19 Range/Units 04:05 AST (14-36) U/L Troponin I <0.012 (0.000-0.034) ng/mL Coagulation 02/10/19 Range/Units 16:25 PT 9.9 (9.0-12.0) sec APTT 23.8 (22.0-30.0) sec Lipids 02/11/19 Range/Units 04:05 Triglycerides 198 H (<150) mg/dL Cholesterol 230 H (<200) mg/dL HDL Cholesterol 50 (40-60) mg/dL CBC 02/10/19 Range/Units 16:25 WBC 8.6 (3.8-10.6) k/uL RBC 4.36 (3.80-5.40) m/uL Hgb 12.6 (11.4-16.0) gm/dL Hct 36.9 (34.0-46.0) % Plt Count 306 (150-450) k/uL Comprehensive Metabolic Panel 02/10/19 Range/Units 16:25 Sodium 135 L (137-145) mmol/L Potassium 4.0 (3.5-5.1) mmol/L Chloride 100 (98-107) mmol/L Carbon Dioxide 26 (22-30) mmol/L BUN 26 H (7-17) mg/dL Creatinine 1.28 H (0.52-1.04) mg/dL Glucose 167 H (74-99) mg/dL Calcium 9.9 (8.4-10.2) mg/dL AST 21 (14-36) U/L ALT 16 (9-52) U/L Alkaline Phosphatase 65 (38-126) U/L Total Protein 7.0 (6.3-8.2) g/dL Albumin 4.2 (3.5-5.0) g/dL Current Medications Generic Name Dose Route Start Last Admin Trade Name Freq PRN Reason Stop Dose Admin Acetaminophen 650 mg 02/11/19 08:56 02/11/19 09:24 Tylenol Tab PO 650 mg Q6HR PRN Administration Fever and/ or Pain Aspirin 325 mg 02/11/19 09:00 02/11/19 10:23 Aspirin PO 325 mg DAILY [facility] Administration Atorvastatin Calcium 80 mg 02/11/19 09:00 02/11/19 10:24 Lipitor PO 80 mg DAILY [facility] Administration Clopidogrel Bisulfate 75 mg 02/11/19 09:00 02/11/19 10:24 Plavix PO 75 mg DAILY [facility] Administration Lisinopril/HCTZ 1 each 02/11/19 09:00 02/11/19 10:24 Zestoretic 20-25 PO 1 each DAILY [facility] Administration Levothyroxine Sodium 50 mcg 02/11/19 06:30 02/11/19 06:02 Synthroid PO 50 mcg DAILY@0630 [facility] Administration Metformin HCl 500 mg 02/11/19 09:00 Glucophage PO DAILY [facility] Metoprolol Tartrate 25 mg 02/11/19 09:00 02/11/19 10:24 Lopressor PO 25 mg DAILY [facility] Administration Nitroglycerin 0.4 mg 02/10/19 17:43 Nitrostat SUBLINGUAL Q5M PRN Chest Pain Intake and Output 02/10/19 02/11/19 02/11/19 22:59 06:59 14:59 Other: Voiding Method Toilet Toilet Toilet # Voids 1 1 Weight 77.111 kg 02/10/19 16:25 02/10/19 16:25 Assessment and Plan Assessment: Assessment #1 chest discomfort concerning for angina #2 known CAD and prior stenting of the LAD. #3 known intermediate disease involving the RCA from 2013 #4 multiple comorbid conditions including diabetes, hypertension, dyslipidemia Plan #1 acute coronary event was ruled out #2 because of her symptoms of chest discomfort are concerning for angina, I did recommend proceeding with coronary angiogram. Thank you for allowing us participate in her care
--- NOTE | 2019-02-11 11:58 | P.HPIM ---
History of Present Illness H&P Date: 02/11/19 Chief Complaint: Chest pain This is a 73-year-old white female well-known to me. She has a history of coronary disease with stent placed in 2012. She began experiencing on and off chest pressure and heaviness for the past 1 week. She said it started yesterday seemed a little bit worse than normal, also into her left arm. She denied any shortness of breath with the episode. He does not have home nitroglycerin to take. She is a type II diabetic. She reports a history of 1 month weakness of her right hand. She denied any other symptoms such as headache, slurred speech or other issues. He denies any numbness or tingling same. Initially her labs showed a GFR of 42. Review of Systems All systems: negative Past Medical History Past Medical History: Blood Disorder, Coronary Artery Disease (CAD) (Stenting in 2012), Chest Pain / Angina, CVA/TIA, Diabetes Mellitus, GERD/Reflux, Hyperli pidemia, Hypertension, Neurologic Disorder (Migraine, TIA), Osteoarthritis (OA), Pneumonia, Respiratory Disorder, Thyroid Disorder History of Any Multi-Drug Resistant Organisms: MRSA Date of last positivie culture/infection: 2012 MDRO Source:: UNDER RT BREAST Past Surgical History: Appendectomy, Section, Cholecystectomy, Heart Catheterization With Stent, Hysterectomy Additional Past Surgical History / Comment(s): STENT X1, CATARACT SURGERY- BILATERAL, PAIN CLINIC PROCEDURES Past Anesthesia/Blood Transfusion Reactions: Postoperative Nausea & Vomiting (PONV) Additional Past Anesthesia/Blood Transfusion Reaction / Comment(s): claustrophobia Date of Last Stent Placement:: 2012 Past Psychological History: No Psychological Hx Reported Additional Psychological History / Comment(s): CLAUSTROPHOBIA Smoking Status: Former smoker Past Alcohol Use History: None Reported Additional Past Alcohol Use History / Comment(s): started smoking 1963, quit 2001, smoked 1 ppd. Past Drug Use History: None Reported - Past Family History Father Additional Family Medical History / Comment(s): drowned at age 32 Daughter(s) Family Medical History: Cancer, Seizure Disorder Additional Family Medical History / Comment(s): colon ca Mother Family Medical History: Cancer Additional Family Medical History / Comment(s): BREAST, emphysema Medications and Allergies Home Medications Medication Instructions Recorded Confirmed Type Atorvastatin [Lipitor] 80 mg PO DAILY 10/10/14 02/10/19 History Levothyroxine Sodium [Synthroid] 50 mcg PO DAILY 10/10/14 02/10/19 History Lisinopril-Hctz 20-25 mg 1 tab PO DAILY 10/10/14 02/10/19 History [Zestoretic 20-25] Metoprolol Tartrate [Lopressor] 25 mg PO DAILY 10/10/14 02/10/19 History Ergocalciferol [Vitamin D2 50,000 units PO MO 05/02/15 02/10/19 History (DRISDOL)] Clopidogrel Bisulfate [Plavix] 75 mg PO DAILY 09/25/15 02/10/19 History Aspirin EC [Ecotrin Low Dose] 81 mg PO DAILY 09/26/15 02/10/19 History metFORMIN HCL [Glucophage] 500 mg PO DAILY 11/09/17 02/10/19 History Dicyclomine [Bentyl] 10 mg PO TID 02/10/19 02/10/19 History Metoclopramide HCl [Reglan] 5 mg PO DAILY 02/10/19 02/10/19 History Allergies Allergy/AdvReac Type Severity Reaction Status Date / Time codeine Allergy Nausea & Verified 02/10/19 16:50 Vomiting Physical Exam Vitals: Vital Signs Temp Pulse Pulse Pulse Resp BP BP 02/11/19 07:28 97.5 F L 67 18 124/72 02/11/19 04:00 97.8 F 66 18 149/80 02/10/19 23:50 97.8 F 68 18 150/75 02/10/19 20:00 97.5 F L 70 18 176/80 02/10/19 18:52 97.6 F 65 16 180/82 02/10/19 18:02 98.0 F 69 18 119/66 02/10/19 16:15 68 02/10/19 16:11 98 F 71 18 160/76 Pulse Ox 02/11/19 07:28 97 02/11/19 04:00 95 02/10/19 23:50 94 L 02/10/19 20:00 95 02/10/19 18:52 96 02/10/19 18:02 97 02/10/19 16:15 02/10/19 16:11 98 Intake and Output 02/10/19 02/11/19 02/11/19 22:59 06:59 14:59 Other: Voiding Method Toilet Toilet Toilet # Voids 1 1 Weight 77.111 kg GENERAL: Well-appearing, well-nourished and in no acute distress. HEAD: Atraumatic, normocephalic. EYES: Pupils equal round and reactive to light, extraocular movements intact, sclera anicteric, conjunctiva are normal. ENT:nares patent, oropharynx clear without exudates. Moist mucous membranes. NECK: Normal range of motion, supple without lymphadenopathy or JVD, no thyromegaly LUNGS: Breath sounds clear to auscultation bilaterally and equal. No wheezes rales or rhonchi. HEART: Regular rate and rhythm without murmurs, rubs or gallops.S1S2 Normal ABDOMEN: Soft, nontender, normoactive bowel sounds. No guarding, no rebound. No masses appreciated. EXTREMITIES: Normal range of motion, no pitting or edema. No clubbing or cyanosis. Capillary refill is normal on the right hand. NEUROLOGICAL: Cranial nerves II through XII grossly intact. Normal speech, normal gait. There is grasp weakness on the right side of the left hand. There is negative Tinel's or Phalen's on the right hand. PSYCH: Normal mood, normal affect. SKIN: Warm, Dry, normal turgor, no rashes or lesions noted. Results CBC & Chem 7: 02/10/19 16:25 02/10/19 16:25 Labs: Abnormal Lab Results - Last 24 Hours (Table) 02/10/19 02/10/19 02/11/19 Range/Units 16:25 20:25 04:05 Sodium 135 L (137-145) mmol/L BUN 26 H (7-17) mg/dL Creatinine 1.28 H (0.52-1.04) mg/dL Glucose 167 H (74-99) mg/dL POC Glucose (mg/dL) 135 H (75-99) mg/dL Triglycerides 198 H (<150) mg/dL Cholesterol 230 H (<200) mg/dL LDL Cholesterol, Calc 140 H (0-99) mg/dL 02/11/19 Range/Units 06:46 Sodium (137-145) mmol/L BUN (7-17) mg/dL Creatinine (0.52-1.04) mg/dL Glucose (74-99) mg/dL POC Glucose (mg/dL) 142 H (75-99) mg/dL Triglycerides (<150) mg/dL Cholesterol (<200) mg/dL LDL Cholesterol, Calc (0-99) mg/dL Chest x-ray: report reviewed Thrombosis Risk Factor Assmnt - DVT/VTE Prophylaxis DVT/VTE Prophylaxis: Pharmacologic Prophylaxis ordered (Defer this to cardiology) - Choose All That Apply Any of the Below Risk Factors Present?: Yes Each Factor Represents 1 point: Obesity (BMI >25) Other Risk Factors: Yes Each Risk Factor Represents 2 Points: Age 61-74 years Other congenital or acquired thrombophilia - If yes, enter type in comment: No Thrombosis Risk Factor Assessment Total Risk Factor Score: 3 Thrombosis Risk Factor Assessment Level: Moderate Risk Assessment and Plan (1) Coronary arteriosclerosis Current Visit: Yes Status: Acute Code(s): I25.10 - ATHSCL HEART DISEASE OF [place] CORONARY ARTERY W/O ANG PCTRS SNOMED Code(s): 88954456 (2) Type 2 diabetes mellitus without complications Current Visit: Yes Status: Acute Code(s): E11.9 - TYPE 2 DIABETES MELLITUS WITHOUT COMPLICATIONS SNOMED Code(s): 777540018 (3) Mixed hyperlipidemia Current Visit: Yes Status: Acute Code(s): E78.2 - MIXED HYPERLIPIDEMIA SNOMED Code(s): 957587255 (4) H/O TIA (transient ischemic attack) and stroke Current Visit: Yes Status: Acute Code(s): Z86.73 - PRSNL HX OF TIA (TIA), AND CEREB INFRC W/O RESID DEFICITS SNOMED Code(s): 046656561 (5) Right hand weakness Current Visit: Yes Status: Acute Code(s): R29.898 - OTH SYMPTOMS AND SIGNS INVOLVING THE MUSCULOSKELETAL SYSTEM SNOMED Code(s): 563355523 (6) Unstable angina Current Visit: Yes Status: Acute Code(s): I20.0 - UNSTABLE ANGINA SNOMED C ode(s): 9180319 (7) Chest pain Current Visit: Yes Status: Acute Code(s): R07.9 - CHEST PAIN, UNSPECIFIED SNOMED Code(s): 80456449 (8) Hypertension Current Visit: No Status: Acute Code(s): I10 - ESSENTIAL (PRIMARY) HYPERTENSION SNOMED Code(s): 08443275 (9) Renal insufficiency Current Visit: No Status: Acute Code(s): N28.9 - DISORDER OF KIDNEY AND URETER, UNSPECIFIED SNOMED Code(s): 311269705 Plan: Consult cardiology. Serial troponins are negative, so I'll hold off on anticoagulation to see her. She remains on aspirin and Plavix. We'll hold her metformin due to renal insufficiency this time. We'll add IV fluids at 75 mL an hour. We'll check a TSH and hemoglobin A1c. Reevaluate her in the next 24 hours depending on the cardiology consultation and outcome.
[2019-02-11] MEDS ORDERED: MIDAZOLAM 2 MG/2 ML VIAL IV ONE (11:59)
[2019-02-11] MEDS ORDERED: SODIUM CHLORIDE 0.9% 1,000 ML IV SCH (12:00)
[2019-02-11] MEDS ORDERED: LIDOCAINE 1% INJ 10MG/ML (20 ML MDV) SQ ONE (12:03)
[2019-02-11] MEDS ORDERED: fentaNYL (PF) 50 MCG/ML 2 ML AMP IV ONE (12:03)
[2019-02-11 12:22] LABS: Calcium 9.2 mg/dL (8.4-10.2); Potassium 4.3 mmol/L (3.5-5.1)
[2019-02-11] MEDS ORDERED: NITROGLYCERIN OINT 1 INCH/GM PACKET TOPICAL ONE ×2 (12:37→12:38)
[2019-02-11] MEDS ORDERED: IOPAMIDOL-370 125ML BTL INJ ONE (12:38)
[2019-02-11] MEDS ORDERED: RX INFO: IV CONTRAST WAS GIVEN 1 EACH MISC MISCELLANE PRN (12:54)
--- NOTE | 2019-02-11 13:12 | LTR ---
February 11, 2019 Re: Inge Montoya Dear Piyush: I performed cardiac catheterization on Inge Montoya. Detailed catheterization note is enclosed for your records. In brief, the stent that we previously placed in the proximal LAD appears patent. She has a tight stenosis in the circumflex coronary artery for which she will undergo angioplasty with stent placement. Sincerely, MD ELLY Villegas / HIGINIO: [id number] /
--- NOTE | 2019-02-11 13:12 | CC ---
CARDIAC CATHETERIZATION REPORT INDICATION: Unstable angina. PROCEDURE NOTE: After obtaining informed consent, left heart catheterization and coronary angiogram were performed via the right femoral artery. The patient has a very tortuous right iliac vessel with an area of stenosis. Initially I used a Glidewire to go across into the abdominal aorta but could not engage the right coronary artery with a standard Clarence or with a Leila catheter. Due to this, I replaced the regular right femoral sheath with a long sheath, it was a 6-Dutch 23 cm sheath and using a Laurel Advantage 0.035 x 260 wire, I used 5-Dutch JL4 and JR4 catheters to complete the cardiac catheterization. Patient received moderate conscious sedation. Total sedation time was 42 minutes. The patient tolerated the procedure well without any obvious immediate complications. We reached her contrast threshold just with the angiogram and the angioplasty that the patient needs will be performed tomorrow. FINDINGS: 1. HEMODYNAMICS: Left ventricular end-diastolic pressure is 12-14 mm. There is no significant gradient across the aortic valve. 2. LEFT VENTRICULOGRAM: Left ventriculogram is not performed. 3. ANGIOGRAPHIC DATA: Left Main Coronary Artery: Left main and circumflex coronary artery almost have separate origins. The previously stented proximal LAD appears patent. Circumflex coronary artery has a focal 70% stenosis. Right coronary artery is a small caliber vessel that shows mild to moderate diffuse disease involving proximal and mid areas. CONCLUSIONS: Patent stent within the LAD and a 70% stenosis involving circumflex coronary artery. PLAN: Angiographic data was reviewed by Dr. Mesa the on-call caster operator who will perform angioplasty tomorrow. Will hydrate her overnight. The patient will have manual hemostasis. MMODL / IJN: [id number] /
[2019-02-11 13:18] LABS: Glucose,Whole Blood 119 mg/dL (75-99)
[2019-02-11 13:19] LABS: T4, Free (Free Thyroxine) 1.32 ng/dL (0.78-2.19)
[2019-02-11] MEDS: INSULIN ASPART (NovoLOG) 100 UNIT/ML VIAL SQ SCH ×3 (13:58→21:09)
[2019-02-11] MEDS: SODIUM CHLORIDE 0.9% 1,000 ML IV SCH (15:04)
[2019-02-11 16:32] LABS: Glucose,Whole Blood 146 mg/dL (75-99)
[2019-02-11 20:19] LABS: Glucose,Whole Blood 215 mg/dL (75-99)
[2019-02-12 00:04] LABS: Hemoglobin A1C 7.8 % (4.0-6.0)
[2019-02-12] MEDS: SODIUM CHLORIDE 0.9% 1,000 ML IV SCH ×2 (02:20→12:20)
[2019-02-12] MEDS: CLOPIDOGREL 75 MG TAB PO SCH (06:00)
[2019-02-12] MEDS: LEVOTHYROXINE 50 MCG TAB PO SCH (06:01)
[2019-02-12] MEDS: ASPIRIN 325 MG TAB PO SCH (06:01)
[2019-02-12] MEDS: ATORVASTATIN 80 MG TAB PO SCH (06:01)
[2019-02-12] MEDS: LISINOPRIL-HCTZ 20-25 MG 1 EACH TAB PO SCH (06:01)
[2019-02-12] MEDS: METOPROLOL TARTRATE 25 MG TAB PO SCH (06:01)
[2019-02-12 06:12] LABS: Glucose,Whole Blood 163 mg/dL (75-99)
[2019-02-12] MEDS: INSULIN ASPART (NovoLOG) 100 UNIT/ML VIAL SQ SCH ×4 (06:28→21:03)
[2019-02-12 06:50] LABS: Basophils # (A) 0.1 k/uL (0-0.2); Basophils % (A) 1 %; Eosinophils # (A) 0.3 k/uL (0-0.7); Eosinophils % (A) 4 %; HCT 33.2 % (34.0-46.0); HGB 11.3 gm/dL (11.4-16.0); Lymphocytes # (A) 1.8 k/uL (1.0-4.8); Lymphocytes % (A) 26 %; MCH 28.9 pg (25.0-35.0); MCHC 33.9 g/dL (31.0-37.0); MCV 85.3 fL (80.0-100.0); Mean Platelet Volume 6.2; Monocytes # (A) 0.4 k/uL (0-1.0); Monocytes % (A) 6 %; Neutrophils # (A) 4.2 k/uL (1.3-7.7); Neutrophils % (A) 62 %; Platelet Count 250 k/uL (150-450); WBC 6.8 k/uL (3.8-10.6)
[2019-02-12 07:01] LABS: Calcium 9.2 mg/dL (8.4-10.2); Potassium 4.4 mmol/L (3.5-5.1)
--- NOTE | 2019-02-12 11:02 | PN ---
PROGRESS NOTE FOLLOW-UP NOTE: Inge is a 73-year-old lady who is admitted to hospital with coronary artery disease and has had bypass surgery. She is doing well, ambulating without any problems. Remains in sinus rhythm. Her blood pressure is fairly well controlled at 139/70. On exam today she is comfortable at rest. Vital signs are stable. Chest exam reveals good air entry bilaterally. Heart exam reveals first and second heart sounds. No gallop. No murmur. Examination of extremities did not reveal any edema. Peripheral pulses are felt. She is currently on aspirin, Lipitor, Plavix, Zestoretic and Lopressor. ASSESSMENT: Coronary artery disease, status post coronary artery bypass grafting. The patient is doing well. She is ready for discharge. MMODL / IJN: [id number] /
[2019-02-12] MEDS ORDERED: VERAPAMIL 2.5 MG/ML 2 ML AMP ONE (11:21)
[2019-02-12] MEDS ORDERED: LIDOCAINE 1% INJ 10MG/ML (20 ML MDV) ONE (11:21)
[2019-02-12] MEDS ORDERED: MIDAZOLAM 2 MG/2 ML VIAL IVP ONE (11:36)
[2019-02-12] MEDS ORDERED: IV FLUID CONTINUATION 950 ML IV ONE (11:36)
[2019-02-12] MEDS ORDERED: BIVALIRUDIN BOLUS 250 MG/50 ML IV ONE (11:42)
[2019-02-12] MEDS ORDERED: BIVALIRUDIN 250 MG in SODIUM CHLORIDE 0.9% 50 ML IV ONE (11:42)
[2019-02-12] MEDS ORDERED: LIDOCAINE 1% INJ 10MG/ML (20 ML MDV) SQ ONE (11:42)
[2019-02-12] MEDS: VERAPAMIL SYRINGE (5 MG/10 ML) INTRAARTER ONE ×2 (11:43→12:00)
[2019-02-12] MEDS ORDERED: CLOPIDOGREL 75 MG TAB ONE (11:57)
[2019-02-12] MEDS ORDERED: CLOPIDOGREL 75 MG TAB PO ONE (12:00)
[2019-02-12] MEDS ORDERED: ATROPINE SULFATE 0.1 MG/ML 10ML SYRINGE IV PRN (12:02)
[2019-02-12] MEDS ORDERED: RX INFO: IV CONTRAST WAS GIVEN 1 EACH MISC MISCELLANE PRN (12:02)
[2019-02-12] MEDS ORDERED: ZOLPIDEM 5 MG TAB PO PRN (12:02)
[2019-02-12] MEDS ORDERED: NITROGLYCERIN SL TABS 0.4 MG TAB SUBLINGUAL PRN (12:02)
[2019-02-12] MEDS ORDERED: MAG HYDROX/AL HYDROX/SIMETH 30 ML CUP PO PRN (12:02)
[2019-02-12] MEDS ORDERED: IOPAMIDOL-370 125ML BTL INJ ONE (12:03)
[2019-02-12] MEDS ORDERED: SODIUM CHLORIDE 0.9% 1,000 ML IV SCH (12:15)
[2019-02-12 12:21] LABS: Glucose,Whole Blood 131 mg/dL (75-99)
--- NOTE | 2019-02-12 12:33 | PTCA ---
PERCUTANEOUSTRANS CORORONARY ANGIOGRAPHY DATE OF SERVICE: 02/12/2019 PERFORMING PHYSICIAN: Lev Mesa MD. PROCEDURE PERFORMED: Successful stenting of the proximal first obtuse marginal branch of left circumflex using a 3.5 x 18 mm Xience drug-eluting stent which was post dilated using a 3.75 mm NC balloon with excellent angiographic results and reduction of stenosis from 80% to 0%. INDICATION: This is a pleasant 73-year-old female patient with history of coronary artery disease and prior stenting of the LAD who presented to the hospital with chest discomfort concerning for angina. She underwent a heart catheterization yesterday by Dr. Stoll and was found to have severe disease involving the proximal left circumflex. She was brought today to undergo an intervention because we reached our maximum amount of contrast use yesterday. APPROACH: Right radial artery. COMPLICATIONS: None. LEVEL OF SEDATION: Moderate, with sedation length of 18 minutes. PROCEDURE DESCRIPTION: After obtaining informed consent, the patient was brought to the cardiac cardiac catheterization technician. The right radial artery was cannulated using micropuncture technique. The micropuncture wire passed easily. Then I placed a 6-Japanese sheath in the right radial artery. After that I gave the patient 2 mg of verapamil IA and anticoagulation with Angiomax was initiated. The left main was engaged using JL3.5 guide. The OM was wired using a run- through wire. After that, I did direct stenting of the lesion using a 3.5 x 18 mm Xience STEPHANIE where the stent was positioned under fluoroscopic guidance and deployed under its nominal pressure. After that I post dilated the stent using a 3.75 mm NC balloon which was inflated under 18 atmospheres. The following angiogram showed excellent angiographic results and the procedure was completed without any complication. POST-PROCEDURE MANAGEMENT: 1. Dual anti-platelet therapy. 2. Risk factor modifications. 3. Follow up with the patient. MMODL / IJN: [id number] /
--- NOTE | 2019-02-12 12:34 | P.PN ---
Subjective This is a 73-year-old white female well-known to me. She has a history of coronary disease with stent placed in 2012. She began experiencing on and off chest pressure and heaviness for the past 1 week. She said it started yesterday seemed a little bit worse than normal, also into her left arm. She denied any shortness of breath with the episode. He does not have home nitroglycerin to take. She is a type II diabetic. She reports a history of 1 month weakness of her right hand. She denied any other symptoms such as headache, slurred speech or other issues. He denies any numbness or tingling same. Initially her labs showed a GFR of 42. 02/12/2019: Patient underwent cardiac catheterization one day ago. She was found to have a patent stent in the LAD and a 70% stenosis involving the circumflex coronary artery. Due to her kidney functions, the procedures were stopped and overnight hydration was recommended followed by a planned an gioplasty today. Currently the patient denies any chest pains, pressure, shortness of breath. She denies any nausea or vomiting. Her awaiting cardiology's repeat angioplasty. If far is now up to 53 today. Objective - Vital Signs Vital signs: Vital Signs Temp 97.7 F 02/12/19 12:20 Pulse 59 L 02/12/19 12:20 Resp 18 02/12/19 12:20 BP 165/83 02/12/19 12:20 Pulse Ox 99 02/12/19 12:20 Intake & Output 02/11/19 02/12/19 02/12/19 18:59 06:59 18:59 Intake Total 100 844 Output Total 600 Balance 100 -600 844 Weight 77.1 kg Intake: IV 100 124 Intake, IV Titration 600 Amount Sodium Chloride 0.9% 1, 600 000 ml @ 75 mls/hr IV . [id number] [facility] Rx#:[id number] Oral 120 Output: Urine 600 Other: Voiding Method Toilet Toilet Toilet # Voids 3 - Exam General: The patient is awake and alert, in no distress, and does not appear acutely ill. Neck: The neck is supple, there is no thyromegaly, lymphadenopathy, tenderness or JVD. Cardiovascular: S1S2 is normal, There is a regular rate and rhythm. No murmur, rub or gallop is appreciated. Respiratory: Lungs are slightly coarse to auscultation bilaterally, respirations are non-labored, breath sounds are equal. Gastrointestinal: Soft, non-distended, non-tender abdomen without masses or organomegaly noted. There is no rebound or guarding present. Bowel sounds are unremarkable. Musculoskeletal: Normal ROM, no tenderness, There is no pedal edema. There is no calf tenderness or swelling. No cords were appreciated. Neurological: CN II-XII intact, there are no obvious motor or sensory deficits. Coordination appears grossly intact. Speech is normal. Skin: Skin is warm and dry and no rashes or lesions are noted. - Labs CBC & Chem 7: 02/12/19 05:33 02/12/19 05:33 Labs: Abnormal Lab Results - Last 24 Hours (Table) 02/11/19 02/11/19 02/11/19 Range/Units 04:05 04:05 13:16 Hgb (11.4-16.0) gm/dL Hct (34.0-46.0) % Sodium 132 L (137-145) mmol/L BUN 27 H (7-17) mg/dL Creatinine 1.12 H (0.52-1.04) mg/dL Glucose 141 H (74-99) mg/dL POC Glucose (mg/dL) 119 H (75-99) mg/dL Hemoglobin A1c 7.8 H (4.0-6.0) % TSH 5.630 H (0.465-4.680) mIU/L 02/11/19 02/11/19 02/12/19 Range/Units 16:29 20:17 05:33 Hgb 11.3 L (11.4-16.0) gm/dL Hct 33.2 L (34.0-46.0) % Sodium (137-145) mmol/L BUN (7-17) mg/dL Creatinine (0.52-1.04) mg/dL Glucose (74-99) mg/dL POC Glucose (mg/dL) 146 H 215 H (75-99) mg/dL Hemoglobin A1c (4.0-6.0) % TSH (0.465-4.680) mIU/L 02/12/19 02/12/19 02/12/19 Range/Units 05:33 06:11 12:19 Hgb (11.4-16.0) gm/dL Hct (34.0-46.0) % Sodium (137-145) mmol/L BUN 22 H (7-17) mg/dL Creatinine (0.52-1.04) mg/dL Glucose 150 H (74-99) mg/dL POC Glucose (mg/dL) 163 H 131 H (75-99) mg/dL Hemoglobin A1c (4.0-6.0) % TSH (0.465-4.680) mIU/L Assessment and Plan (1) Coronary arteriosclerosis Current Visit: Yes Status: Acute Code(s): I25.10 - ATHSCL HEART DISEASE OF [place] CORONARY ARTERY W/O ANG PCTRS SNOMED Code(s): 03807084 (2) Type 2 diabetes mellitus without complications Current Visit: Yes Status: Acute Code(s): E11.9 - TYPE 2 DIABETES MELLITUS WITHOUT COMPLICATIONS SNOMED Code(s): 112174060 (3) Mixed hyperlipidemia Current Visit: Yes Status: Acute Code(s): E78.2 - MIXED HYPERLIPIDEMIA SNOMED Code(s): 253523732 (4) H/O TIA (transient ischemic attack) and stroke Current Visit: Yes Status: Acute Code(s): Z86.73 - PRSNL HX OF TIA (TIA), AND CEREB INFRC W/O RESID DEFICITS SNOMED Code(s): 156060869 (5) Right hand weakness Current Visit: Yes Status: Acute Code(s): R29.898 - OTH SYMPTOMS AND SIGNS INVOLVING THE MUSCULOSKELETAL SYSTEM SNOMED Code(s): 981855889 (6) Unstable angina Current Visit: Yes Status: Acute Code(s): I20.0 - UNSTABLE ANGINA SNOMED Code(s): 3058150 (7) Chest pain Current Visit: Yes Status: Acute Code(s): R07.9 - CHEST PAIN, UNSPECIFIED SNOMED Code(s): 64466375 (8) Hypertension Current Visit: No Status: Acute Code(s): I10 - ESSENTIAL (PRIMARY) HYPERTENSION SNOMED Code(s): 11833015 (9) Renal insufficiency Current Visit: No Status: Acute Code(s): N28.9 - DISORDER OF KIDNEY AND URETER, UNSPECIFIED SNOMED Code(s): 649619348 Plan: Wait on her upcoming angioplasty. Plan a slight dose increase his Synthroid after discharge. He'll be seen again in the next 24 hours
[2019-02-12 13:01] VITALS: BMI 33.2
[2019-02-12 16:44] LABS: Glucose,Whole Blood 157 mg/dL (75-99)
[2019-02-12 20:53] LABS: Glucose,Whole Blood 135 mg/dL (75-99)
[2019-02-13] MEDS: SODIUM CHLORIDE 0.9% 1,000 ML IV SCH (05:30)
[2019-02-13 06:22] LABS: Glucose,Whole Blood 147 mg/dL (75-99)
[2019-02-13] MEDS: LEVOTHYROXINE 50 MCG TAB PO SCH (06:38)
[2019-02-13] MEDS: INSULIN ASPART (NovoLOG) 100 UNIT/ML VIAL SQ SCH ×2 (06:38→12:01)
[2019-02-13 08:33] VITALS: TEMP 98.7
[2019-02-13] MEDS: METOPROLOL TARTRATE 25 MG TAB PO SCH (08:37)
[2019-02-13] MEDS: CLOPIDOGREL 75 MG TAB PO SCH (08:37)
[2019-02-13] MEDS: ASPIRIN 325 MG TAB PO SCH (08:37)
[2019-02-13] MEDS: ATORVASTATIN 80 MG TAB PO SCH (08:37)
[2019-02-13] MEDS: LISINOPRIL-HCTZ 20-25 MG 1 EACH TAB PO SCH (08:40)
--- NOTE | 2019-02-13 10:39 | PN ---
PROGRESS NOTE Inge is a 73-year-old lady who was admitted to hospital with unstable angina and underwent cardiac catheterization and angioplasty of [place] circumflex coronary artery. She complains of some discomfort involving the right upper arm. She underwent angioplasty via the right radial approach yesterday. Her exam shows that both the brachial and radial pulses are normal. The discomfort that she had yesterday has actually improved quite a bit. This morning, she is eager to go home and is free of symptoms otherwise. PHYSICAL EXAM: Comfortable at rest. Vital signs are stable. There is no jugular venous distention. Chest exam reveals good air entry bilaterally. Heart exam reveals first and second heart sounds. No gallop. No murmur. Abdomen is soft, nontender. Exam of extremities did not reveal any edema. Peripheral pulses are felt. MEDICATIONS: Medications at this time include aspirin, Lipitor, Plavix, Zestoretic. ASSESSMENT: Coronary artery disease status post angioplasty of circumflex coronary artery. The patient is doing well. She is stable for discharge. She will apply warm compresses to the right arm. She will follow up with me in the office in a week's time. MMODL / IJN: [id number] /
[2019-02-13 11:10] VITALS: BP 134/62; PULSE 58; RESP 16
--- NOTE | 2019-02-13 11:26 | P.DS ---
Providers Date of admission: 02/12/19 14:17 Expected date of discharge: 02/13/19 Attending physician: Piyush Morrison Consults: 02/10/19 17:43 Consult Physician Urgent Consulting Provider: Tawanna Ball Consult Reason/Comments: Chest pain Do you want consulting provider notified?: Yes 02/12/19 12:02 Consult Physician Routine Consulting Provider: [facility] Consult Reason/Comments: Post Interventional patient Do you want consulting provider notified?: Already Contacted Primary care physician: Piyush Morrison - Discharge Diagnosis(es) (1) Unstable angina Current Visit: Yes Status: Acute (2) Coronary arteriosclerosis Current Visit: Yes Status: Acute (3) Type 2 diabetes mellitus without complications Current Visit: Yes Status: Acute (4) Mixed hyperlipidemia Current Visit: Yes Status: Acute (5) H/O TIA (transient ischemic attack) and stroke Current Visit: Yes Status: Acute (6) Right hand weakness Current Visit: Yes Status: Acute (7) Chest pain Current Visit: Yes Status: Acute (8) Hypertension Current Visit: No Status: Acute (9) Renal insufficiency Current Visit: No Status: Acute (10) Stented coronary artery Current Visit: Yes Status: Acute (11) Status post angioplasty with stent Current Visit: Yes Status: Acute Hospital Course: This is a 73-year-old white female well-known to me. She has a history of coronary disease with stent placed in 2012. She began experiencing on and off chest pressure and heaviness for the past 1 week. She said it started yesterday seemed a little bit worse than normal, also into her left arm. She denied any shortness of breath with the episode. He does not have home nitroglycerin to take. She is a type II diabetic. She reports a history of 1 month weakness of her right hand. She denied any other symptoms such as headache, slurred speech or other issues. He denies any numbness or tingling same. Initially her labs showed a GFR of 42. 02/12/2019: Patient underwent cardiac catheterization one day ago. She was found to have a patent stent in the LAD and a 70% stenosis involving the circumflex coronary artery. Due to her kidney functions, the procedures were stopped and overnight hydration was recommended followed by a planned an gioplasty today. Currently the patient denies any chest pains, pressure, shortness of breath. She denies any nausea or vomiting. Her awaiting cardiology's repeat angioplasty. If far is now up to 53 today. 02/13/2019: Patient is status post one day ago PTCA of the first obtuse marginal branch of the left circumflex artery. She is doing well without complaint today. Her kidney functions are stable today. She is cleared by cardiology for discharge. She will follow-up in my office in the next several days for workup of her right hand weakness which could represent an old occult CVA or nerve palsy. She will follow up with cardiology in 1 week Procedures: Cardiac catheterization 02/11/2019,, PTCA first obtuse marginal branch of the left circumflex on 02/12/2019 Patient Condition at Discharge: Stable Plan - Discharge Summary Discharge Rx Participant: No New Discharge Prescriptions: New Zolpidem [Ambien] 5 mg PO HS PRN tab PRN Reason: Insomnia Aspirin 325 mg PO DAILY tab Continue Metoprolol Tartrate [Lopressor] 25 mg PO DAILY Lisinopril-Hctz 20-25 mg [Zestoretic 20-25] 1 tab PO DAILY Levothyroxine Sodium [Synthroid] 50 mcg PO DAILY Atorvastatin [Lipitor] 80 mg PO DAILY Ergocalciferol [Vitamin D2 (DRISDOL)] 50,000 units PO MO Aspirin EC [Ecotrin Low Dose] 81 mg PO DAILY metFORMIN HCL [Glucophage] 500 mg PO DAILY Metoclopramide HCl [Reglan] 5 mg PO DAILY Dicyclomine [Bentyl] 10 mg PO TID Clopidogrel Bisulfate [Plavix] 75 mg PO DAILY #30 tab Discharge Medication List Atorvastatin [Lipitor] 80 mg PO DAILY 10/10/14 [History] Levothyroxine Sodium [Synthroid] 50 mcg PO DAILY 10/10/14 [History] Lisinopril-Hctz 20-25 mg [Zestoretic 20-25] 1 tab PO DAILY 10/10/14 [History] Metoprolol Tartrate [Lopressor] 25 mg PO DAILY 10/10/14 [History] Ergocalciferol [Vitamin D2 (DRISDOL)] 50,000 units PO MO 05/02/15 [History] Aspirin EC [Ecotrin Low Dose] 81 mg PO DAILY 09/26/15 [History] metFORMIN HCL [Glucophage] 500 mg PO DAILY 11/09/17 [History] Dicyclomine [Bentyl] 10 mg PO TID 02/10/19 [History] Metoclopramide HCl [Reglan] 5 mg PO DAILY 02/10/19 [History] Aspirin 325 mg PO DAILY tab 02/13/19 [Rx] Clopidogrel Bisulfate [Plavix] 75 mg PO DAILY #30 tab 02/13/19 [Rx] Zolpidem [Ambien] 5 mg PO HS PRN tab 02/13/19 [Rx] Follow up Appointment(s)/Referral(s): Piyush Morrison MD [Primary Care Provider] - 1-2 days Eliezer Stoll MD [STAFF PHYSICIAN] - 02/17/19 9:00 am Patient Instructions/Handouts: Chest Pain (DC), Coronary Intravascular Stent Placement (DC) Activity/Diet/Wound Care/Special Instructions: per Dr Méndez cardiac cath-right radial and right groin approach Right radial-no flexing or lifting heavier than 5 pounds with right wrist for 5 days; no submerging right wrist for 3 days; dressing may be removed in 24 hours. Cardiac rehab warm compresses to right arm as needed per Dr Stoll
[2019-02-13 12:06] LABS: Glucose,Whole Blood 171 mg/dL (75-99)
--- NOTE | 2019-02-16 04:52 | CDI ---
Documentation Clarification Form Date: 02/16/19 From: Fam Gomez Phone: If you have a question about this query, please contact Cary Rose, Major Gifts Director at [phone] between 8am and 5pm. Admit Date: 02/12/19 Discharge Date: 02/13/19 Patient Name: Inge Montoya Visit Number: [id number] ATTENTION: The Clinical Documentation Specialists (CDI) and [facility] Coding Staff appreciate your assistance in clarifying documentation. Please respond to the clarification below the line at the bottom and electronically sign. The CDI & [facility] Coding staff will review the response and follow-up if needed. Please note: Queries are made part of the Legal Health Record. If you have any questions, please contact the author of this message via ITS. Dear Piyush Shipley., This is a 73-year-old white female well-known to me.She has a history of coronary disease with stent placed in 2012.She began experiencing on and off chest pressure and heaviness for the past 1 week. Due to her kidney functions, the procedures were stopped and overnight hydration was recommended followed by a planned angioplasty today.- Renal Insufficiency. History Risk factors/Other underlying illness: CAD,Chest Pain / Angina, CVA/TIA, Diabetes Mellitus, GERD/Reflux Clinical Indicators: Labs: Creatinine 1.28H Patient presents with a BUN/CR and GFR of: GFR of 42, 49, 53 UrinalysisTreatment: Overnight hydration, We'll add IV fluids at 75 mL an hour. In your professional opinion, can you please clarify if the condition can be further specified? Acute Renal Failure with Acute Tubular Necrosis Acute Renal Failure alone Unable to determine Other, please specify MTDD
--- NOTE | 2019-02-27 22:34 | CDI ---
Documentation Clarification Form Date: 02/28/19 From: Fam Gomez Phone: If you have a question about this query, please contact Cary Rose, Lease Examiner at [phone] between 8am and 5pm. Admit Date: 02/12/19 Discharge Date: 02/13/19 Patient Name: Inge Montoya Visit Number: [id number] ATTENTION: The Clinical Documentation Specialists (CDI) and [facility] Coding Staff appreciate your assistance in clarifying documentation. Please respond to the clarification below the line at the bottom and electronically sign. The CDI & [facility] Coding staff will review the response and follow-up if needed. Please note: Queries are made part of the Legal Health Record. If you have any questions, please contact the author of this message via ITS. Dear Piyush Shipley., This is a 73-year-old white female well-known to me.She has a history of coronary disease with stent placed in 2012.She began experiencing on and off chest pressure and heaviness for the past 1 week. Due to her kidney functions, the procedures were stopped and overnight hydration was recommended followed by a planned angioplasty today.- Renal Insufficiency. History Risk factors/Other underlying illness: CAD,Chest Pain / Angina, CVA/TIA, Diabetes Mellitus, GERD/Reflux Clinical Indicators: Labs: Creatinine 1.28H Patient presents with a BUN/CR and GFR of: GFR of 42, 49, 53 UrinalysisTreatment: Overnight hydration, We'll add IV fluids at 75 mL an hour. In your professional opinion, can you please clarify if the condition can be further specified? Acute Renal Failure with Acute Tubular Necrosis Acute Renal Failure alone Unable to determine Other, please specify Dehydration MTDD
== END 2019-02-13 12:14 | disposition home or self-care (01) | DRG 247 ==
LOC: EC 16:08 → 1SOBS 17:43 → 3SCARD 02-11 17:31 → OBSVTOIN 02-12 14:17
PROVIDERS: ADMIT Family Medicine; ATTEND Family Medicine
PROC: B2111ZZ Fluoroscopy of Multiple Coronary Arteries using Low Osmolar Contrast (ICD-10-PCS; 2019-02-11)
PROC: 4A023N7 Measurement of Cardiac Sampling and Pressure, Left Heart, Percutaneous Approach (ICD-10-PCS; 2019-02-11)
PROC: 027034Z Dilation of Coronary Artery, One Artery with Drug-eluting Intraluminal Device, Percutaneous Approach (ICD-10-PCS; principal; 2019-02-12 11:30)
DX: I25.110 Atherosclerotic heart disease of native coronary artery with unstable angina pectoris (principal); R53.1 Weakness; E11.9 Type 2 diabetes mellitus without complications; E07.9 Disorder of thyroid, unspecified; G43.909 Migraine, unspecified, not intractable, without status migrainosus; K21.9 Gastro-esophageal reflux disease without esophagitis; E78.2 Mixed hyperlipidemia; I10 Essential (primary) hypertension; E86.0 Dehydration; M19.90 Unspecified osteoarthritis, unspecified site; Z87.09 Personal history of other diseases of the respiratory system; Z86.14 Personal history of Methicillin resistant Staphylococcus aureus infection; Z90.49 Acquired absence of other specified parts of digestive tract; Z98.891 History of uterine scar from previous surgery; Z90.710 Acquired absence of both cervix and uterus; Z95.5 Presence of coronary angioplasty implant and graft; Z79.899 Other long term (current) drug therapy; Z79.890 Hormone replacement therapy; Z88.5 Allergy status to narcotic agent; Z86.73 Personal history of transient ischemic attack (TIA), and cerebral infarction without residual deficits; Z79.02 Long term (current) use of antithrombotics/antiplatelets; Z79.82 Long term (current) use of aspirin; Z79.84 Long term (current) use of oral hypoglycemic drugs; Z98.42 Cataract extraction status, left eye; Z98.41 Cataract extraction status, right eye; Z87.891 Personal history of nicotine dependence; Z82.5 Family history of asthma and other chronic lower respiratory diseases; Z80.3 Family history of malignant neoplasm of breast; Z87.01 Personal history of pneumonia (recurrent); Z86.59 Personal history of other mental and behavioral disorders; Z80.0 Family history of malignant neoplasm of digestive organs; Z82.0 Family history of epilepsy and other diseases of the nervous system
CPT/HCPCS: 36415; 71046; 80048; 80053; 80061; 82565; 83036; 83735; 83880; 84439; 84443; 84484; 85025; 85379; 85610; 85730; 93005; 93458; 99285; C1874

== ENCOUNTER → 2019-02-25 | Outpatient (CLI) | payer MEDICARE ==
--- NOTE | 2019-02-25 09:36 | MR ---
MR brain without contrast HISTORY: Right-sided weakness Multiplanar multisequence imaging through the brain No comparisons There is no restricted diffusion. There is no hemorrhage or hydrocephalus. Cerebellopontine angles, c orpus callosum, pituitary, cervical medullary junction are within normal limits, there is a partially empty sella. There are normal vascular flow voids. Inflammatory changes are present within the masto id air cells. The orbits show symmetric appearance. Scattered hyperintensities are present within the subcortical, juxtacortical, periventricular white matter on inversion recovery and T2-weighted seque nces. Mild mucosal thickening present in the ethmoid air cells. IMPRESSION: Nonspecific white matter demyelination may be due to chronic small vessel ischemia. Mild age-related atrophy. No acute abnormality of the brain. Mild mastoid inflammatory change.
== END | disposition home or self-care (01) ==
LOC: RADMRIMAIN 07:54
PROVIDERS: ATTEND Nurse Practitioner Family
DX: G31.1 Senile degeneration of brain, not elsewhere classified (principal); R90.89 Other abnormal findings on diagnostic imaging of central nervous system
CPT/HCPCS: 70551

== ENCOUNTER 2019-10-29 11:24 | Observation (INO) | payer MEDICARE ==
[2019-10-29] MEDS ORDERED: SODIUM CHLORIDE 0.9% 500 ML 500 ML IV STA (11:40)
[2019-10-29] MEDS ORDERED: SODIUM CHLORIDE 0.9% 500 ML 500 ML IV ONE (12:19)
[2019-10-29 12:25] LABS: Basophils # (A) 0.1 k/uL (0-0.2); Basophils % (A) 1 %; Eosinophils # (A) 0.3 k/uL (0-0.7); Eosinophils % (A) 3 %; HCT 40.5 % (34.0-46.0); HGB 13.3 gm/dL (11.4-16.0); Lymphocytes # (A) 2.9 k/uL (1.0-4.8); Lymphocytes % (A) 29 %; MCH 28.2 pg (25.0-35.0); MCHC 32.8 g/dL (31.0-37.0); MCV 86.1 fL (80.0-100.0); Mean Platelet Volume 7.4; Monocytes # (A) 0.4 k/uL (0-1.0); Monocytes % (A) 4 %; Neutrophils # (A) 6.4 k/uL (1.3-7.7); Neutrophils % (A) 62 %; Platelet Count 281 k/uL (150-450); RBC 4.71 m/uL (3.80-5.40); RDW 13.2 % (11.5-15.5); WBC 10.3 k/uL (3.8-10.6)
[2019-10-29 12:33] LABS: Potassium 3.9 mmol/L (3.5-5.1)
[2019-10-29 12:34] LABS: Albumin 3.6 g/dL (3.5-5.0); Calcium 9.1 mg/dL (8.4-10.2); Magnesium 1.5 mg/dL (1.6-2.3); Total Bilirubin 0.6 mg/dL (0.2-1.3)
--- NOTE | 2019-10-29 12:49 | ED ---
General Adult HPI - General Chief complaint: Syncope Stated complaint: Syncope Time Seen by Provider: 10/29/19 11:27 Source: patient, EMS, RN notes reviewed, old records reviewed Mode of arrival: EMS Limitations: no limitations - History of Present Illness Initial comments: 74-year-old female presenting with episode of syncope. Patient states that last night she had taken a sleeping pill, Seroquel which was prescribed to her daughter for some difficulty sleeping. She was awoken by her at 10 AM this morning and was still quite tired. She's gotten up to go to breakfast and apparently had lost consciousness and collapsed. There was no reported injury, her had caught her and lowered her to the ground. EMS was called and the patient was transported. She was found to be hypotensive and tachycardic by EMS. She has no complaints this morning of chest pain or palpitations, no abdominal pain. There was one reported episode of vomiting just after she awoke after the initial event. Denies fever. Denies cough or URI symptoms. - Related Data Home Medications Medication Instructions Recorded Confirmed Atorvastatin [Lipitor] 80 mg PO DAILY 10/10/14 02/10/19 Levothyroxine Sodium [Synthroid] 50 mcg PO DAILY 10/10/14 02/10/19 Lisinopril-Hctz 20-25 mg 1 tab PO DAILY 10/10/14 02/10/19 [Zestoretic 20-25] Metoprolol Tartrate [Lopressor] 25 mg PO DAILY 10/10/14 02/10/19 Ergocalciferol [Vitamin D2 50,000 units PO MO 05/02/15 02/10/19 (DRISDOL)] Aspirin EC [Ecotrin Low Dose] 81 mg PO DAILY 09/26/15 02/10/19 metFORMIN HCL [Glucophage] 500 mg PO DAILY 11/09/17 02/10/19 Dicyclomine [Bentyl] 10 mg PO TID 02/10/19 02/10/19 Metoclopramide HCl [Reglan] 5 mg PO DAILY 02/10/19 02/10/19 Previous Rx's Medication Instructions Recorded Aspirin 325 mg PO DAILY tab 02/13/19 Clopidogrel Bisulfate [Plavix] 75 mg PO DAILY #30 tab 02/13/19 Allergies Allergy/AdvReac Type Severity Reaction Status Date / Time codeine Allergy Nausea & Verified 02/10/19 16:50 Vomiting Review of Systems ROS Statement: Those systems with pertinent positive or pertinent negative responses have been documented in the HPI. ROS Other: All systems not noted in ROS Statement are negative. Past Medical History Past Medical History: Blood Disorder, Coronary Artery Disease (CAD), Chest Pain / Angina, CVA/TIA, Diabetes Mellitus, GERD/Reflux, Hyperlipidemia, Hypertension, Neurologic Disorder, Osteoarthritis (OA), Pneumonia, Respiratory Disorder, Thyroid Disorder Additional Past Medical History / Comment(s): TIA,BRONCHITIS, MIGRAINE HEADACHE, anemia, DM type 2, broncitis History of Any Multi-Drug Resistant Organisms: MRSA Date of last positivie culture/infection: 2012 MDRO Source:: UNDER RT BREAST Past Surgical History: Appendectomy, Section, Cholecystectomy, Heart Catheterization With Stent, Hysterectomy Additional Past Surgical History / Comment(s): STENT X1, CATARACT SURGERY- BILATERAL, PAIN CLINIC PROCEDURES Past Anesthesia/Blood Transfusion Reactions: Postoperative Nausea & Vomiting (PONV) Additional Past Anesthesia/Blood Transfusion Reaction / Comment(s): claustrophobia Date of Last Stent Placement:: 2012 Past Psychological History: No Psychological Hx Reported Past Alcohol Use History: None Reported Past Drug Use History: None Reported - Past Family History Father Additional Family Medical History / Comment(s): drowned at age 32 Daughter(s) Family Medical History: Cancer, Seizure Disorder Additional Family Medical History / Comment(s): colon ca Mother Family Medical History: Cancer Additional Family Medical History / Comment(s): BREAST, emphysema General Exam Limitations: no limitations General appearance: alert, in no apparent distress Head exam: Present: atraumatic, normocephalic Eye exam: Present: normal appearance, PERRL ENT exam: Present: mucous membranes dry Neck exam: Present: normal inspection. Absent: tenderness, meningismus Respiratory exam: Present: normal lung sounds bilaterally. Absent: respiratory distress, wheezes Cardiovascular Exam: Present: regular rate, normal rhythm, systolic murmur GI/Abdominal exam: Present: soft. Absent: distended, tenderness Extremities exam: Present: normal inspection Back exam: Present: normal inspection Neurological exam: Present: alert, oriented X3, CN II-XII intact. Absent: motor sensory deficit Psychiatric exam: Present: normal affect, normal mood Skin exam: Present: warm, dry, intact. Absent: cyanosis, diaphoretic Course Vital Signs 10/29/19 11:29 Temperature 97.2 F L Pulse Rate 91 Respiratory 18 Rate Blood Pressure 105/55 O2 Sat by Pulse 95 Oximetry EKG Findings - EKG Comments: EKG Findings:: EKG: Normal sinus rhythm, left axis, LVH, no ST segment elevation, rate of 94, IL interval 178, QRS duration 86, QTC 477 Medical Decision Making - Medical Decision Making 74-year-old female presenting with syncopal episode. Patient was transported by EMS, she was hypotensive and tachycardic as well as having a low oxygen saturation. Patient has no real complaints time my evaluation. No chest pain or dyspnea. No abdominal pain. She did have some nausea and vomited once prior to arrival. She has a normal CBC, electrolytes are within normal limits with the exception of a mild hypomagnesemia at 1.5. Creatinine is increased from baseline at 1.2. Troponin is negative. She has a significantly elevated d- dimer 3.57 in the setting of acute kidney injury a did order a VQ scan this test is pending. Patient has not been able to provide a urine sample yet these results are pending. I discussed case with Dr. Cardoza, we will admit for IV hydration, VQ scan, telemetry and echo. - Lab Data Result diagrams: 10/29/19 12:11 10/29/19 12:11 Lab Results 10/29/19 10/29/19 10/29/19 Range/Units 12:11 12:11 12:11 WBC 10.3 (3.8-10.6) k/uL RBC 4.71 (3.80-5.40) m/uL Hgb 13.3 (11.4-16.0) gm/dL Hct 40.5 (34.0-46.0) % MCV 86.1 (80.0-100.0) fL MCH 28.2 (25.0-35.0) pg MCHC 32.8 (31.0-37.0) g/dL RDW 13.2 (11.5-15.5) % Plt Count 281 (150-450) k/uL Neutrophils % 62 % Lymphocytes % 29 % Monocytes % 4 % Eosinophils % 3 % Basophils % 1 % Neutrophils # 6.4 (1.3-7.7) k/uL Lymphocytes # 2.9 (1.0-4.8) k/uL Monocytes # 0.4 (0-1.0) k/uL Eosinophils # 0.3 (0-0.7) k/uL Basophils # 0.1 (0-0.2) k/uL PT 10.0 (9.0-12.0) sec INR 1.0 (<1.2) APTT 20.5 L (22.0-30.0) sec D-Dimer 3.57 H (<0.60) mg/L FEU Sodium 132 L (137-145) mmol/L Potassium 3.9 (3.5-5.1) mmol/L Chloride 99 (98-107) mmol/L Carbon Dioxide 23 (22-30) mmol/L Anion Gap 10 mmol/L BUN 29 H (7-17) mg/dL Creatinine 1.19 H (0.52-1.04) mg/dL Est GFR (CKD-EPI)AfAm 52 (>60 ml/min/1.73 sqM) Est GFR (CKD-EPI)NonAf 45 (>60 ml/min/1.73 sqM) Glucose 162 H (74-99) mg/dL Calcium 9.1 (8.4-10.2) mg/dL Magnesium 1.5 L (1.6-2.3) mg/dL Total Bilirubin 0.6 (0.2-1.3) mg/dL AST 21 (14-36) U/L ALT 13 (4-34) U/L Alkaline Phosphatase 71 (38-126) U/L Troponin I (0.000-0.034) ng/mL Total Protein 6.0 L (6.3-8.2) g/dL Albumin 3.6 (3.5-5.0) g/dL 10/29/19 Range/Units 12:11 WBC (3.8-10.6) k/uL RBC (3.80-5.40) m/uL Hgb (11.4-16.0) gm/dL Hct (34.0-46.0) % MCV (80.0-100.0) fL MCH (25.0-35.0) pg MCHC (31.0-37.0) g/dL RDW (11.5-15.5) % Plt Count (150-450) k/uL Neutrophils % % Lymphocytes % % Monocytes % % Eosinophils % % Basophils % % Neutrophils # (1.3-7.7) k/uL Lymphocytes # (1.0-4.8) k/uL Monocytes # (0-1.0) k/uL Eosinophils # (0-0.7) k/uL Basophils # (0-0.2) k/uL PT (9.0-12.0) sec INR (<1.2) APTT (22.0-30.0) sec D-Dimer (<0.60) mg/L FEU Sodium (137-145) mmol/L Potassium (3.5-5.1) mmol/L Chloride (98-107) mmol/L Carbon Dioxide (22-30) mmol/L Anion Gap mmol/L BUN (7-17) mg/dL Creatinine (0.52-1.04) mg/dL Est GFR (CKD-EPI)AfAm (>60 ml/min/1.73 sqM) Est GFR (CKD-EPI)NonAf (>60 ml/min/1.73 sqM) Glucose (74-99) mg/dL Calcium (8.4-10.2) mg/dL Magnesium (1.6-2.3) mg/dL Total Bilirubin (0.2-1.3) mg/dL AST (14-36) U/L ALT (4-34) U/L Alkaline Phosphatase (38-126) U/L Troponin I <0.012 (0.000-0.034) ng/mL Total Protein (6.3-8.2) g/dL Albumin (3.5-5.0) g/dL Disposition Clinical Impression: Elevated d-dimer, Dehydration, CHERI (acute kidney injury), Syncope Disposition: ADMITTED IP TO THIS [facility] Condition: Stable Is patient prescribed a controlled substance at d/c from ED?: No Referrals: Piyush Morrison MD [Primary Care Provider] - 1-2 days Decision to Admit Reason: Admit from EC Decision Date: 10/29/19 Decision Time: 13:38
--- NOTE | 2019-10-29 12:53 | XR ---
EXAMINATION TYPE: XR chest 2V DATE OF EXAM: 10/29/2019 COMPARISON: Chest x-ray February 10, 2019 HISTORY: Syncope and weakness. TECHNIQUE: Frontal and lateral views of the chest are obtained. FINDINGS: Some chronic parenchymal change and low lung volumes redemonstrated. There is no suspicious new focal air space opacity, pleural effusion, or pneumothorax seen. The cardiac silhouette size is stable and mildly enlarged. Overlying EKG leads redemonstrated. The osseous structures remain demin eralized. Atherosclerotic aorta redemonstrated. IMPRESSION: Chronic changes and mild cardiomegaly without acute pulmonary process.
[2019-10-29] MEDS ORDERED: MAGNESIUM SULFATE-D5W PMX 1 GM in DEXTROSE/WATER 1 100ML.BAG IVPB ONE (12:54)
[2019-10-29 13:03] LABS: D-Dimer 3.57 mg/L FEU (<0.60); Partial Thromboplastin Time 20.5 sec (22.0-30.0)
[2019-10-29] MEDS: SODIUM CHLORIDE 0.9% 1,000 ML IV SCH (13:12)
[2019-10-29] MEDS ORDERED: NALOXONE 0.4 MG/ML 1 ML VIAL IV PRN (13:34)
[2019-10-29] MEDS ORDERED: ACETAMINOPHEN TAB 325 MG TAB PO PRN (13:34)
[2019-10-29 14:13] LABS: Bacteria,Urine Rare /hpf; Hyaline Casts,Urine 6 /lpf (0-2); Mucus,Urine Rare /hpf; RBC,Urine 12 /hpf (0-5); Squamous Epithelial Cell,Urine 1 /hpf (0-4); WBC,Urine 120 /hpf (0-5)
[2019-10-29 14:16] LABS: Color,Urine Yellow
[2019-10-29 14:17] LABS: Appearance,Urine Slightly Cloudy (Clear); Protein,Urine 1+ (Negative)
[2019-10-29 14:21] LABS: Glucose,Urine (UA) Negative (Negative)
[2019-10-29 14:23] LABS: Bilirubin,Urine Negative (Negative); Blood,Urine Negative (Negative); Ketones,Urine Negative (Negative); Leukocyte Esterase,Urine Large (Negative); Nitrite,Urine Negative (Negative); Urobilinogen,Urine <2.0 mg/dL (<2.0)
--- NOTE | 2019-10-29 15:45 | NM ---
EXAMINATION TYPE: NM pul vent and perfuse DATE OF EXAM: 10/29/2019 COMPARISON: 05/26/2016 HISTORY: Short of breath. Elevated d-dimer. TECHNIQUE: Utilizing inhalation of 36.2 mCi Tc 99m DTPA aerosol and intravenous injection of 5 mCi o f Tc 99m MAA, ventilation and perfusion images are acquired post injection in multiple projections. FINDINGS: There is subsegmental matching defect in the posterior segment left upper lobe. The remainder of the tracer distribution is fairly normal. IMPRESSION: There is low probability of pulmonary embolism. Single matching subsegmental defect in the left upper lobe. There is improved perfusion and ventilation of the left lower lobe compared to old exam.
[2019-10-29 17:20] LABS: Glucose,Whole Blood 127 mg/dL (75-99)
[2019-10-29] MEDS: INSULIN ASPART (NovoLOG) 100 UNIT/ML VIAL SQ SCH ×2 (17:24→21:33)
[2019-10-29] MEDS: DICYCLOMINE 10 MG CAP PO SCH (17:30)
[2019-10-29 20:45] LABS: Glucose,Whole Blood 157 mg/dL (75-99)
[2019-10-29] MEDS: hydrALAZINE HCL 25 MG TAB PO SCH (22:33)
[2019-10-29] MEDS ORDERED: SODIUM CHLORIDE 0.9% 500 ML 250 ML IV ONE (22:33)
[2019-10-30] MEDS ORDERED: LEVOTHYROXINE 50 MCG TAB PO SCH (06:00)
[2019-10-30] MEDS: SODIUM CHLORIDE 0.9% 1,000 ML IV SCH ×4 (06:45→10:27)
[2019-10-30 06:49] LABS: Glucose,Whole Blood 135 mg/dL (75-99)
[2019-10-30] MEDS: hydrALAZINE HCL 25 MG TAB PO SCH (08:12)
[2019-10-30] MEDS: INSULIN ASPART (NovoLOG) 100 UNIT/ML VIAL SQ SCH ×2 (08:13→12:18)
[2019-10-30] MEDS: DICYCLOMINE 10 MG CAP PO SCH ×2 (08:13→12:11)
[2019-10-30] MEDS ORDERED: metFORMIN 500 MG TAB PO SCH (09:00)
[2019-10-30] MEDS ORDERED: LISINOPRIL-HCTZ 20-25 MG 1 EACH TAB PO SCH (09:00)
[2019-10-30] MEDS ORDERED: CLOPIDOGREL 75 MG TAB PO SCH (09:00)
[2019-10-30] MEDS ORDERED: ATORVASTATIN 80 MG TAB PO SCH (09:00)
[2019-10-30 10:06] VITALS: BP 157/69; PULSE 78; RESP 14; TEMP 97.9
--- NOTE | 2019-10-30 10:44 | P.HPIM ---
History of Present Illness H&P Date: 10/30/19 Chief Complaint: Syncope Every 4-year-old female well-known to the practice presents to the emergency room with an episode of syncope. Patient states last night she had taken one of her daughters Seroquel because she was having difficulty sleeping she was involved by her at 10 AM this morning and was still quite tired she gotten up to have breakfast apparently lost consciousness and collapsed no reported injury EMS was called and patient was transported to the emergency room found to be hypotensive and tachycardic she has no complaints of chest pain or palpitations no abdominal pain 1 episode of vomiting patient has a known history of type 2 diabetes Review of Systems Constitutional: Reports as per HPI Cardiovascular: Reports as per HPI Respiratory: Reports as per HPI Gastrointestinal: Reports as per HPI Genitourinary: Reports as per HPI Menstruation: Reports as per HPI, Reports postmenopausal Musculoskeletal: Reports as per HPI Integumentary: Reports as per HPI Neurological: Reports syncope Psychiatric: Reports as per HPI Past Medical History Past Medical History: Coronary Artery Disease (CAD), Chest Pain / Angina, CVA/TIA, Diabetes Mellitus, GERD/Reflux, Hyperlipidemia, Hypertension, Neurologic Disorder, Osteoarthritis (OA), Pneumonia, Respiratory Disorder, Thyroid Disorder Additional Past Medical History / Comment(s): TIA,BRONCHITIS, MIGRAINE HEADACHE, anemia, DM type 2, broncitis History of Any Multi-Drug Resistant Organisms: MRSA Date of last positivie culture/infection: 2012 MDRO Source:: UNDER RT BREAST Past Surgical History: Appendectomy, Section, Cholecystectomy, Heart Catheterization With Stent, Hysterectomy Additional Past Surgical History / Comment(s): STENT X2, CATARACT SURGERY- BILATERAL W IMPLANTS, PAIN CLINIC PROCEDURES (INJECTION IN BACK) Past Anesthesia/Blood Transfusion Reactions: Postoperative Nausea & Vomiting (PONV) Additional Past Anesthesia/Blood Transfusion Reaction / Comment(s): claustrophobia Date of Last Stent Placement:: 2012 Past Psychological History: No Psychological Hx Reported Additional Psychological History / Comment(s): CLAUSTROPHOBIA Smoking Status: Former smoker Past Alcohol Use History: None Reported Additional Past Alcohol Use History / Comment(s): started smoking 1963, quit 2001, smoked 1 ppd. Past Drug Use History: None Reported - Past Family History Father Additional Family Medical History / Comment(s): drowned at age 32 Daughter(s) Family Medical History: Cancer, Seizure Disorder Additional Family Medical History / Comment(s): colon ca Mother Family Medical History: Cancer Additional Family Medical History / Comment(s): BREAST, emphysema Medications and Allergies Home Medications Medication Instructions Recorded Confirmed Type Atorvastatin [Lipitor] 80 mg PO DAILY 10/10/14 10/29/19 History Levothyroxine Sodium [Synthroid] 50 mcg PO DAILY 10/10/14 10/29/19 History Lisinopril-Hctz 20-25 mg 1 tab PO DAILY 10/10/14 10/29/19 History [Zestoretic 20-25] Ergocalciferol [Vitamin D2 50,000 units PO MO 05/02/15 10/29/19 History (DRISDOL)] metFORMIN HCL [Glucophage] 500 mg PO DAILY 11/09/17 10/29/19 History Dicyclomine [Bentyl] 10 mg PO TID 02/10/19 10/29/19 History Clopidogrel Bisulfate [Plavix] 75 mg PO DAILY #30 tab 02/13/19 10/29/19 Rx Allergies Allergy/AdvReac Type Severity Reaction Status Date / Time codeine Allergy Nausea & Verified 02/10/19 16:50 Vomiting Physical Exam Osteopathic Statement: *. No significant issues noted on an osteopathic structural exam other than those noted in the History and Physical/Consult. Vitals: Vital Signs Temp Pulse Pulse Pulse Pulse Resp BP 10/30/19 09:00 97.9 F 78 14 10/30/19 03:20 98 F 86 73 17 10/29/19 23:50 74 10/29/19 22:00 90 10/29/19 20:42 98.1 F 84 17 10/29/19 16:00 97.5 F L 75 14 10/29/19 14:21 97.6 F 93 18 101/69 10/29/19 11:29 97.2 F L 91 18 105/55 BP BP BP BP Pulse Ox 10/30/19 09:00 157/69 96 10/30/19 03:20 137/66 114/69 96 10/29/19 23:50 109/56 10/29/19 22:00 92/54 10/29/19 20:42 130/76 95 10/29/19 16:00 134/79 97 10/29/19 14:21 96 10/29/19 11:29 95 Intake and Output 10/29/19 10/30/19 10/30/19 22:59 06:59 14:59 Other: # Voids 1 1 Weight 72.575 kg General: [Patient awake, alert and oriented times 3. Patient in no acute distress.] HEENT: [PERRL. EOMI. No pharyngeal erythema or exudate.] Neck: [No adenopathy.] Cardiac: [Heart regular in rate and rhythm. No S3. No S4. No clicks, rubs. No murmur.] Lungs: [Clear to auscultation bilaterally.] Abdomen: [No mass. No organomegaly. Bowel sounds presnt and normoactive in all 4 quadrants.] Extremes: [No edema no cyanosis no claudication normal pulses] : Normal female genitalia Musculoskeletal: [No joint erythema, edema or tenderness.] Skin: [No rash.] Neurologic: [No lateralizing deficits. CN II - XII grossly intact.] Lymphatic: [No adenopathy.] Results CBC & Chem 7: 10/29/19 12:11 10/29/19 12:11 Labs: Abnormal Lab Results - Last 24 Hours (Table) 10/29/19 10/29/19 10/29/19 Range/Units 12:11 12:11 12:11 APTT 20.5 L (22.0-30.0) sec D-Dimer 3.57 H (<0.60) mg/L FEU Sodium 132 L (137-145) mmol/L BUN 29 H (7-17) mg/dL Creatinine 1.19 H (0.52-1.04) mg/dL Glucose 162 H (74-99) mg/dL POC Glucose (mg/dL) (75-99) mg/dL Magnesium 1.5 L (1.6-2.3) mg/dL Total Protein 6.0 L (6.3-8.2) g/dL Urine Appearance Slightly Cloudy H (Clear) Urine Protein 1+ H (Negative) Urine RBC 12 H (0-5) /hpf Urine WBC 120 H (0-5) /hpf Urine Bacteria Rare H (None) /hpf Hyaline Casts 6 H (0-2) /lpf Urine Mucus Rare H (None) /hpf 10/29/19 10/29/19 10/30/19 Range/Units 17:19 20:43 06:48 APTT (22.0-30.0) sec D-Dimer (<0.60) mg/L FEU Sodium (137-145) mmol/L BUN (7-17) mg/dL Creatinine (0.52-1.04) mg/dL Glucose (74-99) mg/dL POC Glucose (mg/dL) 127 H 157 H 135 H (75-99) mg/dL Magnesium (1.6-2.3) mg/dL Total Protein (6.3-8.2) g/dL Urine Appearance (Clear) Urine Protein (Negative) Urine RBC (0-5) /hpf Urine WBC (0-5) /hpf Urine Bacteria (None) /hpf Hyaline Casts (0-2) /lpf Urine Mucus (None) /hpf Thrombosis Risk Factor Assmnt - Choose All That Apply Any of the Below Risk Factors Present?: Yes Each Factor Represents 1 point: Obesity (BMI >25) Other Risk Factors: Yes Each Risk Factor Represents 3 Points: Age 75 years or older Thrombosis Risk Factor Assessment Total Risk Factor Score: 4 Thrombosis Risk Factor Assessment Level: Moderate Risk Assessment and Plan (1) Elevated d-dimer Current Visit: Yes Status: Acute Code(s): R79.89 - OTHER SPECIFIED ABNORMAL FINDINGS OF BLOOD CHEMISTRY SNOMED Code(s): 754540879 (2) Hypertension Current Visit: No Status: Acute Code(s): I10 - ESSENTIAL (PRIMARY) HYPERTENSION SNOMED Code(s): 20366666 (3) Renal insufficiency Current Visit: No Status: Acute Code(s): N28.9 - DISORDER OF KIDNEY AND URETER, UNSPECIFIED SNOMED Code(s): 644993799 (4) Coronary arteriosclerosis Current Visit: No Status: Acute Code(s): I25.10 - ATHSCL HEART DISEASE OF [place] CORONARY ARTERY W/O ANG PCTRS SNOMED Code(s): 68766112 (5) Type 2 diabetes mellitus without complications Current Visit: No Status: Acute Code(s): E11.9 - TYPE 2 DIABETES MELLITUS WITHOUT COMPLICATIONS SNOMED Code(s): 879587580 (6) Stented coronary artery Current Visit: No Status: Acute Code(s): Z95.5 - PRESENCE OF CORONARY ANGIOPLASTY IMPLANT AND GRAFT SNOMED Code(s): 881694959 (7) Status post angioplasty with stent Current Visit: No Status: Acute Code(s): Z95.820 - PERIPHERAL VASCULAR ANGIOPLASTY STATUS W IMPLANTS AND GRAFTS SNOMED Code(s): 596592496 (8) Dehydration Current Visit: Yes Status: Acute Code(s): E86.0 - DEHYDRATION SNOMED Code(s): 58100419 (9) CHERI (acute kidney injury) Current Visit: Yes Status: Acute Code(s): N17.9 - ACUTE KIDNEY FAILURE, UNSPECIFIED SNOMED Code(s): 47063112 Plan: Acute kidney injury Dehydration corrected with IV fluids Hyponatremia we will repeat chem panel Hematuria Positive leukocyte esterase Large leukocytes and urine Type 2 diabetes controlled at this time Will obtain urine culture Repeat labs including BUN/creatinine and CBC Consider discharge home pending repeat labs Time with Patient: Greater than 30
[2019-10-30 11:39] LABS: Albumin 3.3 g/dL (3.5-5.0); Calcium 8.4 mg/dL (8.4-10.2); Potassium 4.2 mmol/L (3.5-5.1); Total Bilirubin 0.4 mg/dL (0.2-1.3); Total Protein 5.6 g/dL (6.3-8.2)
[2019-10-30 11:47] LABS: Basophils % (A) 1 %; Eosinophils # (A) 0.2 k/uL (0-0.7); Eosinophils % (A) 3 %; HCT 33.9 % (34.0-46.0); HGB 11.1 gm/dL (11.4-16.0); Lymphocytes # (A) 2.1 k/uL (1.0-4.8); Lymphocytes % (A) 29 %; MCH 28.6 pg (25.0-35.0); MCHC 32.7 g/dL (31.0-37.0); MCV 87.3 fL (80.0-100.0); Mean Platelet Volume 7.4; Monocytes # (A) 0.4 k/uL (0-1.0); Monocytes % (A) 6 %; Neutrophils # (A) 4.3 k/uL (1.3-7.7); Neutrophils % (A) 60 %; Platelet Count 232 k/uL (150-450); RBC 3.89 m/uL (3.80-5.40); RDW 13.1 % (11.5-15.5); WBC 7.1 k/uL (3.8-10.6)
[2019-10-30 11:50] LABS: Glucose,Whole Blood 180 mg/dL (75-99)
[2019-10-30] MEDS ORDERED: SULFAMETHOX-TMP 400-80MG 1 EACH TAB PO SCH (13:45)
--- NOTE | 2019-10-30 13:51 | P.DS ---
Providers Date of admission: 10/29/19 13:34 Expected date of discharge: 10/30/19 Attending physician: Taurus Cardoza Primary care physician: Piyush Morrison - Discharge Diagnosis(es) (1) Elevated d-dimer Current Visit: Yes Status: Acute (2) Hypertension Current Visit: No Status: Acute (3) Renal insufficiency Current Visit: No Status: Acute (4) Coronary arteriosclerosis Current Visit: No Status: Acute (5) Type 2 diabetes mellitus without complications Current Visit: No Status: Acute (6) Stented coronary artery Current Visit: No Status: Acute (7) Status post angioplasty with stent Current Visit: No Status: Acute (8) Dehydration Current Visit: Yes Status: Acute (9) CHERI (acute kidney injury) Current Visit: Yes Status: Acute Hospital Course: Patient was admitted to the hospital. via The emergency room secondary to dehydration and taking her daughter's sleeping medication Patient's sodium is still 132 . However, this patient has completely cleared, cognitively and wishes to go home and has said most 16 clear that she'll come to the office tomorrow will fluid restrict her no more than 1500 mL orally we'll repeat the sodium tomorrow her kidney function has completely returned to normal the urine looks like UTI with high red cells high white cells high leukocyte esterase and minimal epithelials, will start patient on oral Bactrim single strength 1 by mouth twice daily 7 days and we will see her in the office tomorrow Patient Condition at Discharge: Stable Plan - Discharge Summary Discharge Rx Participant: No New Discharge Prescriptions: New Sulfamethox-Tmp 400-80Mg [Bactrim SS 400-80 mg] 1 tab PO Q12HR #14 tablet No Action Lisinopril-Hctz 20-25 mg [Zestoretic 20-25] 1 tab PO DAILY Levothyroxine Sodium [Synthroid] 50 mcg PO DAILY Atorvastatin [Lipitor] 80 mg PO DAILY Ergocalciferol [Vitamin D2 (DRISDOL)] 50,000 units PO MO metFORMIN HCL [Glucophage] 500 mg PO DAILY Dicyclomine [Bentyl] 10 mg PO TID Clopidogrel Bisulfate [Plavix] 75 mg PO DAILY #30 tab Discharge Medication List Atorvastatin [Lipitor] 80 mg PO DAILY 10/10/14 [History] Levothyroxine Sodium [Synthroid] 50 mcg PO DAILY 10/10/14 [History] Lisinopril-Hctz 20-25 mg [Zestoretic 20-25] 1 tab PO DAILY 10/10/14 [History] Ergocalciferol [Vitamin D2 (DRISDOL)] 50,000 units PO MO 05/02/15 [History] metFORMIN HCL [Glucophage] 500 mg PO DAILY 11/09/17 [History] Dicyclomine [Bentyl] 10 mg PO TID 02/10/19 [History] Clopidogrel Bisulfate [Plavix] 75 mg PO DAILY #30 tab 02/13/19 [Rx] Sulfamethox-Tmp 400-80Mg [Bactrim SS 400-80 mg] 1 tab PO Q12HR #14 tablet 10/30/19 [Rx] Follow up Appointment(s)/Referral(s): Piyush Morrison MD [Primary Care Provider] - 1-2 days Activity/Diet/Wound Care/Special Instructions: Restrict fluids to approximately 1500ml a day for the next [address] Morrison office tomorrow (THURSDAY) for a hospital follow up appointment. Do NOT take zestoretic medication. New medication called in to pharmacy ([facility])
[2019-10-31] MEDS ORDERED: ERGOCALCIFEROL 50,000 UNIT CAP PO SCH (09:00)
== END 2019-10-30 15:02 | disposition home or self-care (01) ==
LOC: EC 11:24 → 1SOBS 13:34
PROVIDERS: ADMIT Family Medicine; ATTEND Family Medicine
DX: R55 Syncope and collapse (principal); E11.9 Type 2 diabetes mellitus without complications; E78.5 Hyperlipidemia, unspecified; E83.42 Hypomagnesemia; E86.0 Dehydration; E87.1 Hypo-osmolality and hyponatremia; F40.240 Claustrophobia; I10 Essential (primary) hypertension; I25.10 Atherosclerotic heart disease of native coronary artery without angina pectoris; N17.9 Acute kidney failure, unspecified; Z79.02 Long term (current) use of antithrombotics/antiplatelets; Z79.82 Long term (current) use of aspirin; Z79.84 Long term (current) use of oral hypoglycemic drugs; Z79.890 Hormone replacement therapy; Z79.899 Other long term (current) drug therapy; Z80.0 Family history of malignant neoplasm of digestive organs; Z82.0 Family history of epilepsy and other diseases of the nervous system; Z82.5 Family history of asthma and other chronic lower respiratory diseases; Z86.73 Personal history of transient ischemic attack (TIA), and cerebral infarction without residual deficits; Z87.891 Personal history of nicotine dependence; Z90.710 Acquired absence of both cervix and uterus; Z95.5 Presence of coronary angioplasty implant and graft; Z86.14 Personal history of Methicillin resistant Staphylococcus aureus infection; Z98.42 Cataract extraction status, left eye; Z98.41 Cataract extraction status, right eye; Z96.1 Presence of intraocular lens; Z88.5 Allergy status to narcotic agent
CPT/HCPCS: 96361 ×2; 96365; 99285; 36415; 93005; 85379; 80053 ×2; 83605; 83735 ×2; 84484; 85025 ×2; 85610; 85730; 81001; 71046; 78582; G0378 ×2; A9540; A9567; J3475

== ENCOUNTER → 2020-02-14 | Outpatient (CLI) | payer MEDICARE ==
[2020-02-14 09:44] LABS: HCT 32.9 % (34.0-46.0); HGB 10.9 gm/dL (11.4-16.0); MCH 29.8 pg (25.0-35.0); MCHC 33.3 g/dL (31.0-37.0); MCV 89.6 fL (80.0-100.0); Mean Platelet Volume 8.1; Platelet Count 192 k/uL (150-450); RBC 3.67 m/uL (3.80-5.40); RDW 14.6 % (11.5-15.5); WBC 5.7 k/uL (3.8-10.6)
[2020-02-14 15:29] LABS: African American GFR (CKD) 56.9 (60.0-200.0); Anion Gap 6.8 mmol/L (4.00-12.00); BUN/Creat Ratio 24.55 Ratio (12.00-20.00); Calcium 9.2 mg/dL (8.7-10.3); Carbon Dioxide 28.2 mmol/L (21.6-31.8); Chol/HDL Ratio 2.88; LDL Cholesterol,Calculated 71.6 mg/dL (0.0-131.0); Non-African American GFR(CKD) 49.1 (60.0-200.0); Potassium 4.2 mmol/L (3.5-5.5); VLDL Calculation 22.4 mg/dL (5.00-40.00)
== END | disposition home or self-care (01) ==
LOC: LABWHC1 08:22
PROVIDERS: ATTEND Internal Medicine Cardiovascular Disease
DX: E78.2 Mixed hyperlipidemia (principal)
CPT/HCPCS: 36415; 80048; 80061; 83880; 84443; 84450; 84460; 85027

== ENCOUNTER → 2020-02-22 | Outpatient (CLI) | payer MEDICARE ==
--- NOTE | 2020-02-22 17:38 | MR ---
EXAMINATION TYPE: MR lumbar spine wo con DATE OF EXAM: 02/22/2020 COMPARISON: 10/02/2017 HISTORY: 74-year-old female M54.16, low back pain that radiates down back left thigh TECHNIQUE: Multiplanar, multisequence images of the lumbar spine were obtained without IV contrast. FINDINGS: Mild diffuse heterogeneous marrow signal without suspicious bone marrow placement. Findings suggest r ed marrow hyperplasia. Scattered Modic type II fatty endplate changes present especially upper lumbar spine. Mild multilevel degenerative disc disease with desiccation bulging disks throughout. Advanced hypertrophic facet arthropathy mid to lower lumbar spine with ligamentum flavum thickening. There is a component of congenital spinal canal stenosis mid to lower lumbar spine with AP canal dime nsion of 1.2 cm. Conus medullaris is normal. No prevertebral or paravertebral soft tissue abnormality. Trace grade 1 anterolisthesis L4-L5. At T12-L1, no significant spinal canal stenosis. There is facet arthropathy with mild left neuroforam inal narrowing. At L1-L2, mild diffuse disc bulge and facet arthropathy. No significant canal or foraminal stenosis. At L2/L3, facet arthropathy without significant canal or foraminal stenosis. At L3-L4, there is diffuse disc bulge and underlying congenital canal narrowing. Ligamentum flavum th ickening and hypertrophic facet arthropathy. Changes result in mild right neuroforaminal stenosis and mild overall narrowing of the spinal canal. At L4-L5, there is hypertrophic facet arthropathy and ligamentum flavum thickening with degenerative grade 1 anterolisthesis and bulging disc. Underlying congenital spinal canal narrowing with overall m ild to moderate narrowing of the spinal canal similar to prior. Mild right and [id number] left neuroforaminal stenosis. At L5-S1, hypertrophic facet arthropathy. Mild bilateral neuroforaminal stenosis, left greater than r ight. Possible abutment of the exiting left L5 nerve root. IMPRESSION: 1. 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 2. Similar degenerative grade 1 anterolisthesis at L4-L5. 3. Overall mild to moderate spinal canal stenosis at L4-L5 is similar. 4. Variable mild to moderate neural foraminal stenoses as outlined above. Possible abutment of the ex iting left L5 nerve root at L5-S1.
== END | disposition home or self-care (01) ==
LOC: RADMRIMAIN 15:15
PROVIDERS: ATTEND Physical Medicine & Rehabilitation
DX: M48.061 Spinal stenosis, lumbar region without neurogenic claudication (principal); M43.16 Spondylolisthesis, lumbar region; M51.16 Intervertebral disc disorders with radiculopathy, lumbar region; M47.26 Other spondylosis with radiculopathy, lumbar region; M46.06 Spinal enthesopathy, lumbar region; Z86.39 Personal history of other endocrine, nutritional and metabolic disease; Z95.818 Presence of other cardiac implants and grafts; Z87.898 Personal history of other specified conditions
CPT/HCPCS: 72148

== ENCOUNTER → 2021-07-08 | Outpatient (CLI) | payer MEDICARE ==
[2021-07-08 18:39] LABS: Basophils # (A) 0.07 X 10*3/uL (0.00-0.10); Basophils % (A) 1.2 %; Eosinophils # (A) 0.22 X 10*3/uL (0.04-0.35); Eosinophils % (A) 3.6 %; HCT 35.5 % (37.2-46.3); Immature Grans, Automated 0.2 %; Lymphocytes % (A) 31.4 %; MCH 29.3 pg (27.0-32.0); MCV 94.4 fL (80.0-97.0); Mean Platelet Volume 12.5 fL (9.5-12.2); Monocytes # (A) 0.56 X 10*3/uL (0.20-1.00); Monocytes % (A) 9.2 %; NRBC Per 100 WBC 0 /100 WBCS (0.0-0.0); Neutrophils % (A) 54.4 %; Platelet Count 168 X 10*3/uL (140-440); RBC 3.76 X 10*6/uL (4.10-5.20); RDW 14.9 % (11.5-14.5); WBC 6.06 X 10*3/uL (4.50-10.00)
[2021-07-09 01:04] LABS: Anion Gap 12.1 mmol/L (10.00-18.00); Carbon Dioxide 26.9 mmol/L (20.0-27.5); Potassium 4.2 mmol/L (3.5-5.5)
== END | disposition home or self-care (01) ==
LOC: LABPAT 12:09
PROVIDERS: ATTEND Orthopaedic Surgery
DX: Z01.812 Encounter for preprocedural laboratory examination (principal); M23.92 Unspecified internal derangement of left knee
CPT/HCPCS: 36415; 80051; 85025; 93005

== ENCOUNTER → 2021-07-08 | Outpatient (CLI) | payer MEDICARE | END | disposition home or self-care (01) | LOC: LABPAT 10:55 | PROVIDERS: ATTEND Orthopaedic Surgery | DX: Z53.9 Procedure and treatment not carried out, unspecified reason (principal) ==

== ENCOUNTER 2021-07-24 10:05 | Day surgery (SDC) | payer MEDICARE ==
[2021-07-23 13:22] VITALS: BMI 33.7
--- NOTE | 2021-07-23 19:01 | HP ---
HISTORY AND PHYSICAL DATE OF SURGERY: 07/24/2021 Inge Montoya is a 76-year-old patient seen with progressive left knee pain. We discussed options for treatment. She elected to proceed with left knee arthroscopy. Consent was obtained. PAST MEDICAL HISTORY: Hypertension, hyperlipidemia, [id number]-wxjqvrysh diabetes. PAST SURGICAL HISTORY: Appendectomy, cholecystectomy, hysterectomy, tonsillectomy. DAILY MEDICATIONS: Levothyroxine, atorvastatin, metoprolol, amlodipine, metformin. ALLERGIES: CODEINE. SOCIAL HISTORY: She denies tobacco use. PHYSICAL EVALUATION OF THE LEFT KNEE: Range of motion is zero to 130. Mild effusion. Tenderness, medial joint line. Positive medial Helio's. Ligaments stable. Hip rotation without pain. Distal neurovascular exam intact. Radiographs of the left knee revealed some mild osteoarthritis. MRI left knee revealed medial meniscal tear. IMPRESSION: 1. Internal derangement of left knee with medial meniscal tear. 2. History of hypertension. 3. Hyperlipidemia. 4. [id number] diabetes. PLAN: Left knee arthroscopy with partial medial meniscectomy and debridement. MMODL / IJN: [id number] /
[~2021-07-24 10:05] MED LIST changes: +DEXAMETHASONE SOD PHOSPHATE 4 MG/ML 1 ML VIAL IV ONE; +LACTATED RINGERS 1,000 ML IV SCH; +LIDOCAINE 1% (10MG/ML) FOR IV START INTRADERMA PRN; +ONDANSETRON 4 MG/2 ML VIAL IVP ONE; -SODIUM CHLORIDE 0.9% 500 ML 500 ML IV ONE; -SODIUM CHLORIDE 0.9% 500 ML 500 ML IV SCH
[2021-07-24 10:34] VITALS: RESP 16
[2021-07-24 11:10] LABS: Glucose,Whole Blood 131 mg/dL (75-99)
[2021-07-24] MEDS ORDERED: PROPOFOL 10 MG/ML 20 ML VIAL IV ONE (11:15)
[2021-07-24] MEDS ORDERED: fentaNYL (PF) 50 MCG/ML 2 ML AMP ONE (11:15)
[2021-07-24] MEDS ORDERED: BUPIVACAINE (PF) 0.25% 30 ML VIAL SQ ONE (11:41)
--- NOTE | 2021-07-24 12:08 | P.OP ---
Date of Procedure: 07/24/21 Preoperative Diagnosis: Internal derangement left knee Postoperative Diagnosis: 1. Tear medial lateral meniscus left knee 2. Grade 4 chondromalacia medial femoral condyle left knee 3. Grade 2/3 chondromalacia patella left knee 4. Reactive synovitis medial, lateral and suprapatellar compartments left knee Procedure(s) Performed: 1. Arthroscopic partial medial and lateral meniscectomy left knee 2. Arthroscopic microfracture medial femoral condyle left knee 3. Arthroscopic partial synovectomy medial, lateral and suprapatellar compartments left knee 4. Arthroscopic chondroplasty patella left knee Anesthesia: PRINCESSA, local Surgeon: Marshall Moreira Estimated Blood Loss (ml): 7 Pathology: none sent Condition: stable Disposition: PACU Indications for Procedure: 76-year-old patient seen with progressive left knee pain. After treatment options were discussed, she elected to proceed with arthroscopy. Operative Findings: See description of procedure Description of Procedure: Patient was taken to the operative suite. Patient underwent a general anesthetic by the department of anesthesia. Patient was given preoperative antibiotics. The left lower extremity was placed in a well-padded arthroscopic leg barrera. The left leg was prepped and draped in the normal sterile orthopedic fashion. A lateral parapatellar and suprapatellar incision was made. Trochars were inserted. Arthroscopy was initiated. Suprapatellar pouch revealed diffuse thick reactive synovitis. The patellofemoral joint appeared to articulate congruently. There was grade 2/3 chondromalacia of the patella with some diffuse osteochondral flap tears present. The scope was guided into the medial gutter. No loose bodies or plica were identified. The scope was then guided into the medial compartment. A medial parapatellar incision was made. Trocar inserted followed by probe. There was a complex tear involving the posterior horn of the medial meniscus extending just shy of the midbody. There were grade 4 chondromalacia changes of medial femoral condyle. There was thick reactive synovitis anteriorly. I performed a partial medial meniscectomy getting down to stable meniscal tissue. I performed a chondroplasty of the medial femoral condyle. I performed a partial synovectomy decompressing the reactive synovitis anteriorly. There was an area of exposed bone weightbearing surface medial femoral condyle measuring 1 cm. I introduced a microfracture awl and performed a microfracture to the area penetrating the bone with resultant bleeding at the microfracture site. The residual meniscus was stable. There was good decompression of the synovitis. The residual osteochondral surface appeared stable. Scope and probe were then guided into the intercondylar notch. Cruciates were identified, probed and found to be stable. The scope and probe were then guided into lateral compartment. There was a radial tear mid body lateral meniscus. There were grade 1 chondromalacia changes of the lateral compartment with no tears. There was some thick reactive synovitis anteriorly. I performed a partial lateral meniscectomy. I performed a partial synovectomy. The residual meniscus was stable. There was good decompression of the synovitis. The scope was in guided back into the suprapatellar compartment. I introduced a motorized shaver into the suprapatellar compartment. I debrided some piecemeal fragments of meniscus that I encountered. I performed a chondroplasty of the patella getting down to stable osteochondral tissue. I performed a partial synovectomy decompressing the reactive synovitis. There was good decompression was synovitis. The residual osteochondral surface of patella appeared stable. I took one more look around the entire knee, no residual debris. Instruments were now removed from the joint. The joint was infiltrated with .25% Marcaine. Steri-Strips were applied to the portal sites. Sterile dressings were applied. The patient was placed into a JOHNSON hose. No tourniquet was utilized. The patient was awakened, transferred to a bed and taken to recovery stable satisfactory condition.
[2021-07-24] MEDS ORDERED: KETOROLAC 15 MG/ML 1 ML VIAL IVP ONE (12:15)
[2021-07-24] MEDS: fentaNYL (PF) 50 MCG/ML 2 ML AMP IV PRN ×2 (12:22→12:40)
[2021-07-24 12:49] VITALS: TEMP 97
[2021-07-24 13:21] VITALS: BP 159/77; PULSE 77
== END 2021-07-24 13:57 | disposition home or self-care (01) ==
LOC: OR 10:05
PROVIDERS: ATTEND Orthopaedic Surgery
DX: S83.282A Other tear of lateral meniscus, current injury, left knee, initial encounter (principal); M22.42 Chondromalacia patellae, left knee; M65.862 Other synovitis and tenosynovitis, left lower leg; E11.9 Type 2 diabetes mellitus without complications; E78.5 Hyperlipidemia, unspecified; I10 Essential (primary) hypertension; Z79.84 Long term (current) use of oral hypoglycemic drugs; Z88.5 Allergy status to narcotic agent; Z90.49 Acquired absence of other specified parts of digestive tract; Z90.710 Acquired absence of both cervix and uterus
CPT/HCPCS: 29879; 29880; J1100; J0690; J2405; J3010; J1885; J2704

== ENCOUNTER → 2021-10-25 | Outpatient (CLI) | payer MEDICARE | END | disposition home or self-care (01) | LOC: LABPAT 12:08 | PROVIDERS: ATTEND Orthopaedic Surgery | DX: Z01.812 Encounter for preprocedural laboratory examination (principal); M16.12 Unilateral primary osteoarthritis, left hip | CPT/HCPCS: 87070 ==

== ENCOUNTER → 2022-01-29 | Outpatient (CLI) | payer MEDICARE ==
[2022-01-29 14:16] LABS: HCT 36.7 % (37.2-46.3); HGB 11.4 g/dL (12.0-15.0); MCH 29.2 pg (27.0-32.0); MCHC 31.1 g/dL (32.0-37.0); MCV 94.1 fL (80.0-97.0); Mean Platelet Volume 12.6 fL (9.5-12.2); NRBC Per 100 WBC 0 /100 WBCS (0.0-0.0); Platelet Count 173 X 10*3/uL (140-440); RDW 15.4 % (11.5-14.5); WBC 6.69 X 10*3/uL (4.50-10.00)
[2022-01-29 14:27] LABS: African American GFR (CKD) 67.3 (60.0-200.0); Anion Gap 11.5 mmol/L (10.00-18.00); BUN/Creat Ratio 25.9 Ratio (12.00-20.00); Blood Urea Nitrogen 24.5 mg/dL (9.0-27.0); Calcium 9.3 mg/dL (8.7-10.3); Carbon Dioxide 22.8 mmol/L (20.0-27.5); Non-African American GFR(CKD) 58.1 (60.0-200.0)
== END | disposition home or self-care (01) ==
LOC: LABWHC1 09:10
PROVIDERS: ATTEND Internal Medicine Interventional Cardiology
DX: R07.2 Precordial pain (principal)
CPT/HCPCS: 36415; 80048; 83880; 85027

== ENCOUNTER 2022-02-05 16:38 | Observation (INO) | payer MEDICARE ==
[2022-02-05] MEDS ORDERED: ASPIRIN 81 MG PO STA (17:20)
[2022-02-05] MEDS ORDERED: NITROGLYCERIN OINT 1 INCH/GM PACKET TOPICAL STA (17:31)
[2022-02-05 17:39] LABS: Basophils # (A) 0.1 k/uL (0-0.2); Basophils % (A) 1 %; Eosinophils # (A) 0.4 k/uL (0-0.7); Eosinophils % (A) 5 %; HCT 33.6 % (34.0-46.0); HGB 11.5 gm/dL (11.4-16.0); Lymphocytes # (A) 1.9 k/uL (1.0-4.8); Lymphocytes % (A) 26 %; MCH 30.8 pg (25.0-35.0); MCHC 34.2 g/dL (31.0-37.0); MCV 90.2 fL (80.0-100.0); Mean Platelet Volume 9.1; Monocytes # (A) 0.4 k/uL (0-1.0); Monocytes % (A) 5 %; Neutrophils # (A) 4.4 k/uL (1.3-7.7); Neutrophils % (A) 61 %; Platelet Count 248 k/uL (150-450); RBC 3.72 m/uL (3.80-5.40); RDW 14.5 % (11.5-15.5); WBC 7.2 k/uL (3.8-10.6)
[2022-02-05 17:48] LABS: Albumin 4.2 g/dL (3.5-5.0); Calcium 9.2 mg/dL (8.4-10.2); Magnesium 1.9 mg/dL (1.6-2.3); Total Bilirubin 0.8 mg/dL (0.2-1.3); Total Protein 6.8 g/dL (6.3-8.2)
[2022-02-05 17:50] LABS: Partial Thromboplastin Time 24.1 sec (22.0-30.0); Prothrombin Time 10.4 sec (9.0-12.0)
[2022-02-05 18:01] LABS: Potassium 4.7 mmol/L (3.5-5.1)
--- NOTE | 2022-02-05 18:01 | ED ---
Chest Pain HPI - General Chief Complaint: Chest Pain Stated Complaint: Chest pain, SOB Time Seen by Provider: 02/05/22 16:56 Source: patient, family, EMS, RN notes reviewed Mode of arrival: wheelchair Limitations: no limitations - History of Present Illness Initial Comments: Patient is a 76-year-old female presenting to the emergency room with complaints of sharp stabbing substernal chest pain that radiates to her back that is intermittent. She reports that the pain seems to wax and wane without any known aggravating or alleviating factors. Despite the pain having occurred multiple times throughout the day today she denies any pain at this time. She has known coronary artery disease and was scheduled for a cardiac catheterization with Dr. Duncan February 11, 2022. She reports similar chest pain like symptoms prior to her last cardiac catheterization. She denies any associated symptoms including any orthopnea, diaphoresis, headache, dizziness, shortness of breath, nausea or vomiting. She is on a baby aspirin daily and took it this morning. She is not on any other blood thinners. She is not on any nitrates according to her medication list either. 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 - Related Data Home Medications Medication Instructions Recorded Confirmed Atorvastatin [Lipitor] 80 mg PO DAILY 10/10/14 02/04/22 Ergocalciferol [Vitamin D2 50,000 units PO MO 05/02/15 02/04/22 (DRISDOL)] metFORMIN HCL [Glucophage] 500 mg PO DAILY 11/09/17 02/04/22 Furosemide [Lasix] 20 mg PO DAILY 10/31/21 02/04/22 Pioglitazone HCl 30 mg PO DAILY 10/31/21 02/04/22 amLODIPine [Norvasc] 5 mg PO DAILY 10/31/21 02/04/22 Aspirin [Adult Low Dose Aspirin EC] 81 mg PO DAILY 02/04/22 02/04/22 Levothyroxine Sodium [Synthroid] 75 mcg PO DAILY 02/04/22 02/04/22 Metoprolol Tartrate 25 mg PO BID 02/04/22 02/04/22 Previous Rx's Medication Instructions Recorded Ondansetron [Zofran] 4 mg PO Q8HR PRN #10 tab 11/07/21 Allergies Allergy/AdvReac Type Severity Reaction Status Date / Time codeine Allergy Nausea & Verified 02/05/22 16:49 Vomiting Review of Systems ROS Statement: Those systems with pertinent positive or pertinent negative responses have been documented in the HPI. ROS Other: All systems not noted in ROS Statement are negative. EKG Findings - EKG Comments: EKG Findings:: EKG interpreted by me shows sinus rhythm with left axis deviation, old anterior infarct, no ST abnormalities/changes. Ventricular rate 69 bpm, MA interval 195 ms, QRS duration 120 ms, QT/QTC 463/445 ms, PRT axes 52, -43, 53. 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, heart murmer History of Any Multi-Drug Resistant Organisms: MRSA Date of last positivie culture/infection: 2012 MDRO Source:: UNDER RT BREAST Past Surgical History: Appendectomy, Section, Cholecystectomy, Heart Catheterization With Stent, Hysterectomy, Joint Replacement, Orthopedic Surgery Additional Past Surgical History / Comment(s): CARDIAC STENT X2, CATARACT SURGERY-BILATERAL W IMPLANTS, PAIN CLINIC PROCEDURES , left knee arthroscopy, l eft hip replacement Past Anesthesia/Blood Transfusion Reactions: Postoperative Nausea & Vomiting (PONV) Additional Past Anesthesia/Blood Transfusion Reaction / Comment(s): claustrophobia, diff IV starts Date of Last Stent Placement:: 2012 Past Psychological History: No Psychological Hx Reported Smoking Status: Former smoker - Past Family History Father Additional Family Medical History / Comment(s): drowned at age 32 Daughter(s) Family Medical History: Cancer Additional Family Medical History / Comment(s): colon ca Mother Family Medical History: Cancer Additional Family Medical History / Comment(s): BREAST General Exam Limitations: no limitations General appearance: alert, in no apparent distress Head exam: Present: atraumatic, normocephalic, normal inspection Eye exam: Present: normal appearance, PERRL, EOMI. Absent: scleral icterus, conjunctival injection, periorbital swelling ENT exam: Present: normal exam, mucous membranes moist Neck exam: Present: normal inspection, full ROM Respiratory exam: Present: normal lung sounds bilaterally. Absent: respiratory distress, wheezes, rales, rhonchi, stridor Cardiovascular Exam: Present: regular rate, normal rhythm, normal heart sounds, systolic murmur. Absent: diastolic murmur, rubs, gallop, clicks GI/Abdominal exam: Present: soft, normal bowel sounds. Absent: distended, tenderness, guarding, rebound, rigid Extremities exam: Present: normal inspection, full ROM, other (Puffy ankles nonpitting). Absent: tenderness, pedal edema, joint swelling Back exam: Present: normal inspection Neurological exam: Present: alert, oriented X3, CN II-XII intact Psychiatric exam: Present: normal affect, normal mood Skin exam: Present: warm, dry, intact, normal color. Absent: rash Course Vital Signs 02/05/22 02/05/22 02/05/22 16:47 17:43 18:00 Temperature 96.6 F L Pulse Rate 74 67 67 Respiratory 20 16 16 Rate Blood Pressure 151/65 176/84 149/67 O2 Sat by Pulse 97 97 97 Oximetry Chest Pain MDM - MDM 76-year-old female presenting to the emergency room with sharp substernal chest pain radiating posteriorly with known history of CAD with high concern for ACS. Will obtain EKG, chest x-ray, CBC, CMP, coags, magnesium and troponin. Will also give additional 234 mg of aspirin for a total of [address] 1 inch of Nitropaste along with oxygen. Given lack of chest pain at this time will defer morphine. EKG axis deviation, LVH and old anterior infarct noted, no ST changes. Chest x- ray image interpreted by me showing no evidence of pulmonary infiltrates or consolidation. Radiology report reviewed. CMP without significant abnormalities. BMP with elevated BUN 19 elevated glucose 156 otherwise no abnormalities. Coags normal. Troponin negative 1. Patient resting comfortably with oxygen and nitro placed in place. Spoke with Dr. Morrison patient's primary care provider in regards to presentation laboratory findings and plan for upcoming cardiac catheterization and concern for ACS. Dr. Morrison advised to contact cardiology regarding findings to determine their desire for admission or continued to firm it until planned cardiac catheterization next week. Spoke with Dr. Kee on-call for cardiology per her primary care providers recommendations orders received for admission with increase in beta vicente, high intensity statin therapy, continuation of Nitropaste and heparinization. Will place these orders along with cardiac consult and admission orders to Dr. Morrison. Case discussed with Dr. Szymanski. Disposition Clinical Impression: Chest pain Disposition: ADMITTED IP TO THIS HOSP Condition: Stable Is patient prescribed a controlled substance at d/c from ED?: No Referrals: Piyush Morrison MD [Primary Care Provider] - 1-2 days Time of Disposition: 19:26
--- NOTE | 2022-02-05 18:02 | XR ---
EXAMINATION TYPE: XR chest 2V DATE OF EXAM: 02/05/2022 COMPARISON: 11/05/2021 HISTORY: Chest pain TECHNIQUE: 2 views FINDINGS: Heart and mediastinum are normal. Lungs are clear. Diaphragm is normal. Bony thorax is inta ct. There are chest leads. Thoracic aorta shows mild atheromatous changes. IMPRESSION: No active cardiopulmonary disease. No change.
[2022-02-05] MEDS ORDERED: NITROGLYCERIN SL TABS 0.4 MG TAB SUBLINGUAL PRN (19:22)
[2022-02-05] MEDS ORDERED: NALOXONE 0.4 MG/ML 1 ML VIAL IVP PRN (19:22)
[2022-02-05] MEDS ORDERED: HEPARIN SODIUM 1,000 UN/ML (10ML VL) IV PRN (19:24)
[2022-02-05] MEDS ORDERED: HEPARIN SODIUM 1,000 UN/ML (10ML VL) IV ONE (19:24)
[2022-02-05] MEDS: HEPARIN SOD,PORK IN 0.45% NACL 25,000 UNIT in 0.45% NACL 1 250ML.BAG IV SCH (20:08)
[2022-02-05] MEDS: ATORVASTATIN 80 MG TAB PO SCH (20:13)
[2022-02-05] MEDS: METOPROLOL TARTRATE 50 MG TAB PO SCH (22:26)
[2022-02-06 02:36] LABS: Basophils % (A) 1 %; Eosinophils # (A) 0.3 k/uL (0-0.7); Eosinophils % (A) 5 %; HCT 28.7 % (34.0-46.0); HGB 9.7 gm/dL (11.4-16.0); Lymphocytes # (A) 1.8 k/uL (1.0-4.8); Lymphocytes % (A) 27 %; MCH 30.7 pg (25.0-35.0); MCHC 33.9 g/dL (31.0-37.0); MCV 90.8 fL (80.0-100.0); Mean Platelet Volume 8.9; Monocytes # (A) 0.4 k/uL (0-1.0); Monocytes % (A) 6 %; Neutrophils # (A) 3.8 k/uL (1.3-7.7); Neutrophils % (A) 59 %; Platelet Count 202 k/uL (150-450); RBC 3.17 m/uL (3.80-5.40); RDW 14.1 % (11.5-15.5); WBC 6.4 k/uL (3.8-10.6)
[2022-02-06 02:47] LABS: Basophils # (A) 0.1 k/uL (0-0.2); Basophils % (A) 1 %; Eosinophils # (A) 0.4 k/uL (0-0.7); Eosinophils % (A) 5 %; Hypochromasia Slight; INR 1.1 (<1.2); Lymphocytes # (A) 1.9 k/uL (1.0-4.8); Lymphocytes % (A) 27 %; MCH 29.1 pg (25.0-35.0); MCHC 31.7 g/dL (31.0-37.0); MCV 91.9 fL (80.0-100.0); Mean Platelet Volume 9.6; Monocytes # (A) 0.4 k/uL (0-1.0); Monocytes % (A) 5 %; Neutrophils # (A) 4.2 k/uL (1.3-7.7); Neutrophils % (A) 60 %; Platelet Count 198 k/uL (150-450); Prothrombin Time 11.3 sec (9.0-12.0); RBC 3.27 m/uL (3.80-5.40); RDW 14.3 % (11.5-15.5)
[2022-02-06 02:53] LABS: HGB 9.5 gm/dL (11.4-16.0)
[2022-02-06 02:56] LABS: Magnesium 1.9 mg/dL (1.6-2.3)
[2022-02-06 08:27] LABS: Glucose,Whole Blood 119 mg/dL (70-110)
[2022-02-06] MEDS ORDERED: metFORMIN 500 MG TAB PO SCH (09:00)
--- NOTE | 2022-02-06 09:14 | P.CRDCN ---
History of Present Illness History of present illness: HISTORY OF PRESENTING ILLNESS Patient is a pleasant 76-year-old female with history of CAD status post stenting of her LAD as well as circumflex in 2019, hypertension, diabetes mellitus, hyperlipidemia, valvular regurgitation who presents secondary to worsening chest pain. She states she has been having off-and-on chest pain sometimes worse with exertion however sometimes occurring with rest. This has been going on for approximately month however did have a worse episode yesterday and therefore came to emergency department. Troponin normal 3 and EKG without significant ST or T wave abnormalities. He did follow with Dr. Duncan recently and was recommended to undergo heart catheterization upcoming Thursday. She was given some Nitropaste which may have helped some of her symptoms. She denies any current chest discomfort however did have some mild discomfort this morning. REVIEW OF SYSTEMS At the time of my exam: CONSTITUTIONAL: Denies fever or chills. CARDIOVASCULAR: +chest pain, +shortness of breath, no orthopnea, PND or palpitations. RESPIRATORY: Denies cough. GASTROINTESTINAL: Denies abdominal pain, diarrhea, constipation, nausea or vomiting. MUSCULOSKELETAL: Denies myalgias. NEUROLOGIC: Denies numbness, tingling or weakness. ENDOCRINE: Denies fatigue, weight change, polydipsia or polyurina. GENITOURINARY: Denies burning, hematuria or urgency with micturation. HEMATOLOGIC: Denies history of anemia or bleeding. PHYSICAL EXAMINATION Vital signs reviewed. CONSTITUTIONAL: No apparent distress. HEENT: Head is normocephalic. Pupils are equal, round. Sclerae anicteric. Mucous membranes of the mouth are moist. No JVD. No carotid bruit. CHEST EXAMINATION: Lungs are clear to auscultation. No chest wall tenderness is noted on palpation or with deep breathing. HEART EXAMINATION: Regular rate and rhythm. S1, S2 heard. No murmurs, gallops or rub. ABDOMEN: Soft, nontender. Positive bowel sounds. EXTREMITIES: 2+ peripheral pulses, no lower extremity edema and no calf tenderness. NEUROLOGIC EXAMINATION: Patient is awake, alert and oriented x3. ASSESSMENT 1. Chest pain some typical and some atypical features with concern of possible unstable angina 2. Hypertension 3. Hyperlipidemia 4. CAD with prior history of stenting of LAD as well as circumflex 5. Anemia 6. Diabetes mellitus type 2 7. Report of valvular regurgitation PLAN Patient had recently followed with Dr. Duncan with recommendations for heart catheterization and NIKKIE. Obtain records from office. Check repeat 2-D echo to evaluate left ventricular function. Discussed options and given increasing frequency of symptoms and possible unstable angina discussed heart catheterization this admission and patient agreeable. Likely heart catheterization 02/07. Continue with heparin drip for now. Monitor hemoglobin closely. Further recommendations to follow. 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, heart murmer History of Any Multi-Drug Resistant Organisms: MRSA Date of last positivie culture/infection: 2012 MDRO Source:: UNDER RT BREAST Past Surgical History: Appendectomy, Section, Cholecystectomy, Heart Catheterization With Stent, Hysterectomy, Joint Replacement, Orthopedic Surgery Additional Past Surgical History / Comment(s): CARDIAC STENT X2, CATARACT SURGERY-BILATERAL W IMPLANTS, PAIN CLINIC PROCEDURES , left knee arthroscopy, left hip replacement Past Anesthesia/Blood Transfusion Reactions: Postoperative Nausea & Vomiting (PONV) Additional Past Anesthesia/Blood Transfusion Reaction / Comment(s): claustrop hobia, diff IV starts Date of Last Stent Placement:: 2012 Past Psychological History: No Psychological Hx Reported Additional Psychological History / Comment(s): CLAUSTROPHOBIA Smoking Status: Former smoker Past Alcohol Use History: None Reported Additional Past Alcohol Use History / Comment(s): started smoking 1963, quit 2001, smoked 1 ppd. Past Drug Use History: None Reported - Past Family History Father Additional Family Medical History / Comment(s): drowned at age 32 Daughter(s) Family Medical History: Cancer Additional Family Medical History / Comment(s): colon ca Mother Family Medical History: Cancer Additional Family Medical History / Comment(s): BREAST Medications and Allergies Home Medications Medication Instructions Recorded Confirmed Type Atorvastatin [Lipitor] 80 mg PO DAILY 10/10/14 02/05/22 History Ergocalciferol [Vitamin D2 50,000 units PO MO 05/02/15 02/05/22 History (DRISDOL)] metFORMIN HCL [Glucophage] 500 mg PO DAILY 11/09/17 02/05/22 History Furosemide [Lasix] 20 mg PO DAILY 10/31/21 02/05/22 History Pioglitazone HCl 30 mg PO DAILY 10/31/21 02/05/22 History amLODIPine [Norvasc] 5 mg PO DAILY 10/31/21 02/05/22 History Aspirin [Adult Low Dose Aspirin EC] 81 mg PO DAILY 02/04/22 02/05/22 History Levothyroxine Sodium [Synthroid] 75 mcg PO DAILY 02/04/22 02/05/22 History Metoprolol Tartrate 25 mg PO BID-W/MEALS 02/04/22 02/05/22 History Allergies Allergy/AdvReac Type Severity Reaction Status Date / Time codeine Allergy Nausea & Verified 02/05/22 19:35 Vomiting Physical Exam Vitals: Vital Signs Temp Pulse Pulse Resp BP BP Pulse Ox 02/06/22 07:00 98.1 F 59 L 16 158/71 97 02/06/22 02:59 97.8 F 65 17 169/69 97 02/05/22 22:31 98.2 F 72 18 159/73 95 02/05/22 21:00 68 16 156/58 98 02/05/22 20:00 64 16 136/49 98 02/05/22 18:00 67 16 149/67 97 02/05/22 17:43 67 16 176/84 97 02/05/22 16:47 96.6 F L 74 20 151/65 97 Intake and Output 02/05/22 02/06/22 02/06/22 22:59 06:59 14:59 Intake Total 66.626 Balance 66.626 Intake: Intake, IV Titration 66.626 Amount Heparin Sod,Pork in 0.45% 66.626 NaCl 25,000 unit In 0.45 % NaCl 1 250ml.bag @ 12 UNITS/KG/HR 9.798 mls/hr IV .Q24H [facility] Rx#: [id number] Other: # Voids 1 1 Weight 81.647 kg Results 02/06/22 02:08 02/05/22 17:29 Cardiac Enzymes 02/05/22 02/05/22 02/05/22 Range/Units 17:29 17:29 20:27 AST 33 (14-36) U/L Troponin I <0.012 <0.012 (0.000-0.034) ng/mL 02/05/22 Range/Units 23:46 AST (14-36) U/L Troponin I <0.012 (0.000-0.034) ng/mL Coagulation 02/05/22 02/06/22 02/06/22 Range/Units 17:29 02:08 02:08 PT 10.4 11.3 (9.0-12.0) sec APTT 24.1 85.5 H (22.0-30.0) sec CBC 02/05/22 02/06/22 02/06/22 Range/Units 17:29 02:08 02:08 WBC 7.2 7.0 6.4 (3.8-10.6) k/uL RBC 3.72 L 3.27 L 3.17 L (3.80-5.40) m/uL Hgb 11.5 9.5 L D 9.7 L (11.4-16.0) gm/dL Hct 33.6 L 30.0 L 28.7 L (34.0-46.0) % Plt Count 248 198 202 (150-450) k/uL Comprehensive Metabolic Panel 02/05/22 Range/Units 17:29 Sodium 139 (137-145) mmol/L Potassium 4.7 (3.5-5.1) mmol/L Chloride 104 (98-107) mmol/L Carbon Dioxide 25 (22-30) mmol/L BUN 19 H (7-17) mg/dL Creatinine 0.87 (0.52-1.04) mg/dL Glucose 156 H (74-99) mg/dL Calcium 9.2 (8.4-10.2) mg/dL AST 33 (14-36) U/L ALT 16 (4-34) U/L Alkaline Phosphatase 74 (38-126) U/L Total Protein 6.8 (6.3-8.2) g/dL Albumin 4.2 (3.5-5.0) g/dL Current Medications Generic Name Dose Route Start Last Admin Trade Name Freq PRN Reason Stop Dose Admin Amlodipine Besylate 5 mg 02/06/22 09:00 Amlodipine 5 Mg Tab PO DAILY [facility] Aspirin 81 mg 02/06/22 09:00 Aspirin 81 Mg PO DAILY [facility] Atorvastatin Calcium 80 mg 02/05/22 19:30 02/05/22 20:13 Atorvastatin 80 Mg Tab PO 80 mg DAILY [facility] Administration Ergocalciferol 50,000 mcg 02/10/22 09:00 Ergocalciferol 1,250 Mcg (50,000 Iu) Capsule PO Mo@0900 R[facility]MOND Furosemide 20 mg 02/06/22 09:00 Furosemide 20 Mg Tab PO DAILY [facility] Heparin Sodium (Porcine) 0 unit 02/05/22 19:24 Heparin Sodium 1,000 Un/Ml (10ml Vl) IV PER PROTOCOL PRN Low PTT Protocol Heparin Sodium/Sodium Chloride 250 mls @ 9.798 mls/hr 02/05/22 19:30 02/06/22 02:56 25,000 unit/ Sodium Chloride IV 10 units/kg/hr .Q24H [facility]AYMOND 8.165 mls/hr Titration Protocol 12 UNITS/KG/HR Levothyroxine Sodium 75 mcg 02/06/22 09:00 Levothyroxine 75 Mcg Tab PO DAILY [facility] Metformin HCl 500 mg 02/06/22 09:00 Metformin 500 Mg Tab PO DAILY [facility] Metoprolol Tartrate 50 mg 02/05/22 21:00 02/05/22 22:26 Metoprolol Tartrate 50 Mg Tab PO 50 mg BID [facility]MOND Administration Naloxone HCl 0.2 mg 02/05/22 19:22 Naloxone 0.4 Mg/Ml 1 Ml Vial IVP Q2M PRN Opioid Reversal Nitroglycerin 0.4 mg 02/05/22 19:22 Nitroglycerin Sl Tabs 0.4 Mg Tab SUBLINGUAL Q5M PRN Chest Pain Pioglitazone HCl 30 mg 02/06/22 09:00 Pioglitazone 30 Mg Tab PO DAILY [facility] Intake and Output 02/05/22 02/06/22 02/06/22 22:59 06:59 14:59 Intake Total 66.626 Balance 66.626 Intake: Intake, IV Titration 66.626 Amount Heparin Sod,Pork in 0.45% 66.626 NaCl 25,000 unit In 0.45 % NaCl 1 250ml.bag @ 12 UNITS/KG/HR 9.798 mls/hr IV .Q24H [facility] Rx#: [id number] Other: # Voids 1 1 Weight 81.647 kg 02/06/22 02:08 02/05/22 17:29
[2022-02-06] MEDS: ASPIRIN 81 MG PO SCH (09:57)
[2022-02-06] MEDS: PIOGLITAZONE 30 MG TAB PO SCH (09:57)
[2022-02-06] MEDS: FUROSEMIDE 20 MG TAB PO SCH (09:57)
[2022-02-06] MEDS: LEVOTHYROXINE 75 MCG TAB PO SCH (09:57)
[2022-02-06] MEDS: METOPROLOL TARTRATE 50 MG TAB PO SCH ×2 (09:57→20:05)
[2022-02-06] MEDS: ATORVASTATIN 80 MG TAB PO SCH (09:57)
[2022-02-06] MEDS: amLODIPine 5 MG TAB PO SCH (09:57)
[2022-02-06] MEDS ORDERED: ACETAMINOPHEN TAB 325 MG TAB PO PRN (11:42)
--- NOTE | 2022-02-06 11:42 | P.HPIM ---
History of Present Illness H&P Date: 02/06/22 Chief Complaint: Chest pain This Is as a 76-year-old white female on the practice. She is a history of coronary disease with a stent in 2019, type 2 diabetes, hypertension, hy perlipidemia, hypothyroidism, began experiencing chest pain several weeks ago. She ordinarily sees Dr. Eliezer Duncan. She reports on vacation began experiencing chest heaviness with episodic shortness of breath during this. She denies any diaphoresis nausea vomiting during these episodes. She said the man coming off and on for the past several weeks and last night it was more severe prompting he r to come the emergency room at the behest of her . Currently she is resting comfortably on the floor. She denies any current symptoms. She remains on heparin drip. Temperature is normal, heart rate stable, blood pressure slightly elevated last currently 150/71, pulse oximetry is 97% on room air. Prone 3 are negative, TSH is normal at 3.3, hemoglobin A1c is 6.1. Hemoglobin is 9.7 with an MCV of 90.8. INR is normal 1.1, chemistries are normal. Cardiology is on consult as I seen the patient. Review of Systems All systems: negative 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, heart murmer History of Any Multi-Drug Resistant Organisms: MRSA Date of last positivie culture/infection: 2012 MDRO Source:: UNDER RT BREAST Past Surgical History: Appendectomy, Section, Cholecystectomy, Heart Catheterization With Stent, Hysterectomy, Joint Replacement, Orthopedic Surgery Additional Past Surgical History / Comment(s): CARDIAC STENT X2, CATARACT SURGERY-BILATERAL W IMPLANTS, PAIN CLINIC PROCEDURES , left knee arthroscopy, left hip replacement Past Anesthesia/Blood Transfusion Reactions: Postoperative Nausea & Vomiting (PONV) Additional Past Anesthesia/Blood Transfusion Reaction / Comment(s): claustrophobia, diff IV starts Date of Last Stent Placement:: 2012 Past Psychological History: No Psychological Hx Reported Additional Psychological History / Comment(s): CLAUSTROPHOBIA Smoking Status: Former smoker Past Alcohol Use History: None Reported Additional Past Alcohol Use History / Comment(s): started smoking 1963, quit 2001, smoked 1 ppd. Past Drug Use History: None Reported - Past Family History Father Additional Family Medical History / Comment(s): drowned at age 32 Daughter(s) Family Medical History: Cancer Additional Family Medical History / Comment(s): colon ca Mother Family Medical History: Cancer Additional Family Medical History / Comment(s): BREAST Medications and Allergies Home Medications Medication Instructions Recorded Confirmed Type Atorvastatin [Lipitor] 80 mg PO DAILY 10/10/14 02/05/22 History Ergocalciferol [Vitamin D2 50,000 units PO MO 05/02/15 02/05/22 History (DRISDOL)] metFORMIN HCL [Glucophage] 500 mg PO DAILY 11/09/17 02/05/22 History Furosemide [Lasix] 20 mg PO DAILY 10/31/21 02/05/22 History Pioglitazone HCl 30 mg PO DAILY 10/31/21 02/05/22 History amLODIPine [Norvasc] 5 mg PO DAILY 10/31/21 02/05/22 History Aspirin [Adult Low Dose Aspirin EC] 81 mg PO DAILY 02/04/22 02/05/22 History Levothyroxine Sodium [Synthroid] 75 mcg PO DAILY 02/04/22 02/05/22 History Metoprolol Tartrate 25 mg PO BID-W/MEALS 02/04/22 02/05/22 History Allergies Allergy/AdvReac Type Severity Reaction Status Date / Time codeine Allergy Nausea & Verified 02/05/22 19:35 Vomiting Physical Exam Vitals: Vital Signs Temp Pulse Pulse Resp BP BP Pulse Ox 02/06/22 07:00 98.1 F 59 L 16 158/71 97 02/06/22 02:59 97.8 F 65 17 169/69 97 02/05/22 22:31 98.2 F 72 18 159/73 95 02/05/22 21:00 68 16 156/58 98 02/05/22 20:00 64 16 136/49 98 02/05/22 18:00 67 16 149/67 97 02/05/22 17:43 67 16 176/84 97 02/05/22 16:47 96.6 F L 74 20 151/65 97 Intake and Output 02/05/22 02/06/22 02/06/22 22:59 06:59 14:59 Intake Total 66.626 Balance 66.626 Intake: Intake, IV Titration 66.626 Amount Heparin Sod,Pork in 0.45% 66.626 NaCl 25,000 unit In 0.45 % NaCl 1 250ml.bag @ 12 UNITS/KG/HR 9.798 mls/hr IV .Q24H [facility] Rx#: [id number] Other: # Voids 1 1 Weight 81.647 kg GENERAL: Well-appearing, well-nourished and in no acute distress. HEAD: Atraumatic, normocephalic. EYES: Pupils equal round and reactive to light, extraocular movements intact, sclera anicteric, conjunctiva are normal. ENT:nares patent, oropharynx clear without exudates. Moist mucous membranes. NECK: Normal range of motion, supple without lymphadenopathy or JVD, no thyromegaly LUNGS: Breath sounds clear to auscultation bilaterally and equal. No wheezes rales or rhonchi. HEART: Regular rate and rhythm without murmurs, rubs or gallops.S1S2 Normal ABDOMEN: Soft, nontender, normoactive bowel sounds. No guarding, no rebound. No masses appreciated. EXTREMITIES: Normal range of motion, no pitting or edema. No clubbing or cyanosis. NEUROLOGICAL: Cranial nerves II through XII grossly intact. Normal speech, normal gait. PSYCH: Normal mood, normal affect. SKIN: Warm, Dry, normal turgor, no rashes or lesions noted. Results CBC & Chem 7: 02/06/22 02:08 02/05/22 17:29 Labs: Abnormal Lab Results - Last 24 Hours (Table) 02/05/22 02/05/22 02/06/22 Range/Units 17:29 17:29 02:08 RBC 3.72 L (3.80-5.40) m/uL Hgb (11.4-16.0) gm/dL Hct 33.6 L (34.0-46.0) % APTT (22.0-30.0) sec BUN 19 H (7-17) mg/dL Glucose 156 H (74-99) mg/dL POC Glucose (mg/dL) (70-110) mg/dL Hemoglobin A1c 6.1 H (0.0-6.0) % 02/06/22 02/06/22 02/06/22 Range/Units 02:08 02:08 02:08 RBC 3.27 L 3.17 L (3.80-5.40) m/uL Hgb 9.5 L D 9.7 L (11.4-16.0) gm/dL Hct 30.0 L 28.7 L (34.0-46.0) % APTT 85.5 H (22.0-30.0) sec BUN (7-17) mg/dL Glucose (74-99) mg/dL POC Glucose (mg/dL) (70-110) mg/dL Hemoglobin A1c (0.0-6.0) % 02/06/22 Range/Units 08:25 RBC (3.80-5.40) m/uL Hgb (11.4-16.0) gm/dL Hct (34.0-46.0) % APTT (22.0-30.0) sec BUN (7-17) mg/dL Glucose (74-99) mg/dL POC Glucose (mg/dL) 119 H (70-110) mg/dL Hemoglobin A1c (0.0-6.0) % Thrombosis Risk Factor Assmnt - DVT/VTE Prophylaxis DVT/VTE Prophylaxis: Pharmacologic Prophylaxis ordered - Choose All That Apply Each Factor Represents 1 point: Obesity (BMI >25) Each Risk Factor Represents 3 Points: Age 75 years or older Thrombosis Risk Factor Assessment Total Risk Factor Score: 4 Thrombosis Risk Factor Assessment Level: Moderate Risk Assessment and Plan (1) Unstable angina Current Visit: No Status: Acute Code(s): I20.0 - UNSTABLE ANGINA SNOMED Code(s): 0685132 (2) Chest pain Current Visit: Yes Status: Acute Code(s): R07.9 - CHEST PAIN, UNSPECIFIED SNOMED Code(s): 46850251 (3) Hypothyroidism Current Visit: Yes Status: Acute Code(s): E03.9 - HYPOTHYROIDISM, UNSPECIFIED SNOMED Code(s): 98853949 (4) COPD (chronic obstructive pulmonary disease) Current Visit: No Status: Acute Code(s): J44.9 - CHRONIC OBSTRUCTIVE PULMONARY DISEASE, UNSPECIFIED SNOMED Code(s): 55310511 (5) Coronary arteriosclerosis Current Visit: No Status: Acute Code(s): I25.10 - ATHSCL HEART DISEASE OF [place] CORONARY ARTERY W/O ANG PCTRS SNOMED Code(s): 76648598 (6) H/O TIA (transient ischemic attack) and stroke Current Visit: No Status: Acute Code(s): Z86.73 - PRSNL HX OF TIA (TIA), AND CEREB INFRC W/O RESID DEFICITS SNOMED Code(s): 722618769 (7) Hypertension Current Visit: No Status: Acute Code(s): I10 - ESSENTIAL (PRIMARY) HYPERTENSION SNOMED Code(s): 37035584 (8) Mixed hyperlipidemia Current Visit: No Status: Acute Code(s): E78.2 - MIXED HYPERLIPIDEMIA SNOMED Code(s): 331570665 (9) Stented coronary artery Current Visit: No Status: Acute Code(s): Z95.5 - PRESENCE OF CORONARY ANGIOPLASTY IMPLANT AND GRAFT SNOMED Code(s): 713691357 (10) Type 2 diabetes mellitus without complications Current Visit: No Status: Acute Code(s): E11.9 - TYPE 2 DIABETES MELLITUS WITHOUT COMPLICATIONS SNOMED Code(s): 119875016 Plan: I will wait on further recommendation cardiology, the upcoming cardiac catheterization and NIKKIE planned for tomorrow. Laboratory monitored, continue her home medications for diabetes hypertension hyperlipidemia. We'll hold her metformin tomorrow. Repeat labs in a.m., she'll be reevaluated in the next 24 hours.
[2022-02-06] MEDS: FAMOTIDINE 20 MG TAB PO SCH (13:00)
[2022-02-06 13:03] LABS: Glucose,Whole Blood 105 mg/dL (70-110)
[2022-02-06 13:05] LABS: Chol/HDL Ratio 2.98 Ratio; LDL Cholesterol,Calculated 58.3 mg/dL (0.0-131.0)
[2022-02-06] MEDS: INSULIN ASPART (NovoLOG) 100 UNIT/ML VIAL SQ SCH ×3 (14:11→20:58)
[2022-02-06 17:33] LABS: Glucose,Whole Blood 129 mg/dL (70-110)
[2022-02-06 20:29] LABS: Glucose,Whole Blood 121 mg/dL (70-110)
[2022-02-06] MEDS: HEPARIN SOD,PORK IN 0.45% NACL 25,000 UNIT in 0.45% NACL 1 250ML.BAG IV SCH (22:05)
[2022-02-07 06:19] LABS: Glucose,Whole Blood 110 mg/dL (70-110)
[2022-02-07] MEDS: INSULIN ASPART (NovoLOG) 100 UNIT/ML VIAL SQ SCH ×3 (06:51→18:34)
[2022-02-07] MEDS ORDERED: HEPARIN SODIUM,PORCINE 10,000 UNIT in SODIUM CHLORIDE 0.9% 1,000 ML IRRIGATION PRN (07:00)
[2022-02-07] MEDS ORDERED: HEPARIN SODIUM,PORCINE 2,500 UNIT in SODIUM CHLORIDE 0.9% 250 ML IRRIGATION PRN (07:00)
--- NOTE | 2022-02-07 08:32 | P.PN ---
Subjective Progress Note Date: 02/07/22 HISTORY OF PRESENT ILLNESS: Patient is a pleasant 76-year-old female with history of CAD status post stenting of her LAD as well as circumflex in 2019, hypertension, diabetes mellit us, hyperlipidemia, valvular regurgitation who presents secondary to worsening chest pain. She states she has been having off-and-on chest pain sometimes worse with exertion however sometimes occurring with rest. This has been going on for approximately month however did have a worse episode yesterday and therefore came to emergency department. Troponin normal 3 and EKG without significant ST or T wave abnormalities. He did follow with Dr. Duncan recently and was recommended to undergo heart catheterization upcoming Thursday. She was given some Nitropaste which may have helped some of her symptoms. She denies any current chest discomfort however did have some mild discomfort this morning. 02/07/2022 Patient examined this morning at the bedside. Patient reports this morning that she had another episode of chest discomfort. She states that she was walking back from the bathroom when she developed chest pain on the right side of her chest. She denied any radiation. She states the pain lasted for about 2-3 minutes and then went away on its own. She did not notify any of the nursing staff of her chest pain. She currently denies any chest pain or pressure. She denies any shortness of breath. She remains on IV heparin. Vital signs are stable. Blood pressure slightly elevated this morning at 177/72. PHYSICAL EXAM: VITAL SIGNS: Reviewed. GENERAL: Well-developed in no acute distress. NECK: Supple. No JVD or thyromegaly LUNGS: Respirations even and unlabored. Lungs essentially clear to auscultation bilaterally. HEART: Regular rate and rhythm. S1 and S2 heard. Systolic murmur noted. EXTREMITIES: Normal range of motion. No clubbing or cyanosis. Peripheral pulses intact. No lower extremity edema. JOHNSON hose present. ASSESSMENT: 1. Chest pain some typical and some atypical features with concern of possible unstable angina 2. Hypertension 3. Hyperlipidemia 4. CAD with prior history of stenting of LAD as well as circumflex 5. Anemia 6. Diabetes mellitus type 2 7. Aortic stenosis PLAN: Continue current cardiac medications Continue IV heparin Cardiac catheterization/NIKKIE today with Dr. Cervantes Further recommendations pending patient course Nurse practitioner note has been reviewed by physician. Signing provider agrees with the documented findings, assessment, and plan of care. Objective - Vital Signs Vital signs: Vital Signs Temp 97.7 F 02/07/22 07:00 Pulse 66 02/07/22 07:00 Resp 16 02/07/22 07:00 BP 177/72 02/07/22 07:00 Pulse Ox 97 02/07/22 07:00 FiO2 Intake & Output 02/06/22 02/07/22 02/07/22 18:59 06:59 18:59 Intake Total 156.36 Balance 156.36 Intake: Intake, IV Titration 156.36 Amount Heparin Sod,Pork in 0.45% 156.36 NaCl 25,000 unit In 0.45 % NaCl 1 250ml.bag @ 12 UNITS/KG/HR 9.798 mls/hr IV .Q24H [facility] Rx#: [id number] Other: # Voids 1 1 - Labs CBC & Chem 7: 02/06/22 02:08 02/07/22 05:35 Labs: Abnormal Lab Results - Last 24 Hours (Table) 02/06/22 02/06/22 02/06/22 Range/Units 02:08 12:28 17:32 APTT 65.5 H (22.0-30.0) sec POC Glucose (mg/dL) 129 H (70-110) mg/dL Hemoglobin A1c 6.1 H (0.0-6.0) % 02/06/22 02/07/22 Range/Units 20:28 05:35 APTT 58.6 H (22.0-30.0) sec POC Glucose (mg/dL) 121 H (70-110) mg/dL Hemoglobin A1c (0.0-6.0) %
[2022-02-07 08:58] LABS: African American GFR (CKD) 56.1 (60.0-200.0); Anion Gap 12.2 mmol/L (10.00-18.00); BUN/Creat Ratio 18.91 Ratio (12.00-20.00); Blood Urea Nitrogen 20.8 mg/dL (9.0-27.0); Calcium 8.9 mg/dL (8.7-10.3); Carbon Dioxide 21.8 mmol/L (20.0-27.5); Magnesium 1.8 mg/dL (1.5-2.4); Non-African American GFR(CKD) 48.4 (60.0-200.0); Potassium 4.1 mmol/L (3.5-5.5)
[2022-02-07] MEDS ORDERED: ATORVASTATIN 80 MG TAB PO STA (09:28)
[2022-02-07] MEDS ORDERED: ALPRAZolam 0.5 MG TAB PO PRN (09:28)
[2022-02-07] MEDS ORDERED: ALPRAZolam 0.25 MG TAB PO PRN (09:28)
[2022-02-07] MEDS ORDERED: ASPIRIN 325 MG TAB PO STA (09:28)
[2022-02-07] MEDS ORDERED: NITROGLYCERIN SL TABS 0.4 MG TAB SUBLINGUAL PRN (09:28)
[2022-02-07] MEDS ORDERED: SODIUM CHLORIDE 0.9% 1,000 ML in EMPTY BAG 1 BAG IV SCH (09:30)
[2022-02-07] MEDS: FUROSEMIDE 20 MG TAB PO SCH (10:31)
[2022-02-07] MEDS: FAMOTIDINE 20 MG TAB PO SCH (10:32)
[2022-02-07] MEDS: LEVOTHYROXINE 75 MCG TAB PO SCH (10:32)
[2022-02-07] MEDS: amLODIPine 5 MG TAB PO SCH (10:32)
[2022-02-07] MEDS: ATORVASTATIN 80 MG TAB PO SCH (10:34)
[2022-02-07] MEDS: ASPIRIN 81 MG PO SCH (10:34)
[2022-02-07] MEDS: BENZOCAINE SPRAY 1 CAN MUCOUS MEM ONE ×2 (11:25→11:30)
[2022-02-07] MEDS ORDERED: IV FLUID CONTINUATION 1,000 ML IV ONE ×2 (11:27→12:01)
[2022-02-07] MEDS ORDERED: fentaNYL (PF) 50 MCG/ML 2 ML AMP IV ONE (11:30)
[2022-02-07] MEDS ORDERED: MIDAZOLAM 2 MG/2 ML VIAL IV ONE ×2 (11:30→11:33)
--- NOTE | 2022-02-07 11:51 | P.TEE ---
Description of Procedure(s): Procedure performed: Transesophageal Echocardiogram with color flow doppler, pulsed wave doppler and continuous wave doppler, moderate conscious sedation Moderate conscious sedation: Moderate conscious sedation was supplied with direct supervision of myself using Versed and Fentanyl. Complications: none Indications: Severe PROCEDURE: After the risks, benefits and alternatives of the above mentioned procedure was explained in detail with the patient, informed consent was obtained. Patient was brought to the lab in a fasting state. Patient was given IV Versed and Fentanyl for sedation. The throat was sprayed with Hurricane to anesthetize the throat. A lubricated Omni probe was then introduced into the esophagus and stomach and multiple views were obtained. 2D echo with color flow doppler, pulsed wave doppler and continuous wave doppler was utilized. Agitated saline bubbles were injected to assess for any intra-atrial shunt. The probe was then removed. Patient tolerated the procedure well. Patient was transferred to the post procedure area in stable and satisfactory condition. FINDINGS: 1. The aortic valve is tricuspid and heavily calcified with mainly fusion of the right coronary cusp and left coronary cusp with non-coronary cusp somewhat mobile. Severe aortic stenosis by planimetry with aortic valve area 0.6 cm. Maximum velocity 3.7 m/s however may be underestimated secondary to angulation. 2. The mitral valve appears be normal with trace mitral regurgitation. 3. Tricuspid valve is normal with trace tricuspid regurgitation. 4. The interatrial septum is intact. No evidence of PFO. 5. Left atrial appendage is free of clot. 6. Left ventricular size and function are normal with left ventricular ejection fraction 55%. There is mild increased left ventricular wall thickness.
[2022-02-07] MEDS ORDERED: VERAPAMIL SYRINGE (5 MG/10 ML) INTRAARTER ONE (11:54)
[2022-02-07] MEDS ORDERED: LIDOCAINE 1% INJ 10MG/ML (5 ML VIAL-PF) SQ ONE (11:54)
[2022-02-07] MEDS: HEPARIN SODIUM 1,000 UN/ML (10ML VL) IV ONE ×2 (12:02→12:15)
[2022-02-07] MEDS ORDERED: IOPAMIDOL-370 100ML BTL INJ ONE (12:17)
--- NOTE | 2022-02-07 12:26 | P.CARDCATH ---
Description of Procedure: PROCEDURES PERFORMED: Left heart catheterization, bilateral coronary angiography INDICATION: Chest pain CONSENT:I have discussed the risks, benefits and alternative therapies for the above-mentioned procedure and for both sedation/analgesia as well as necessary blood product administration, if indicated, as they pertain to this patient. The patient has indicated understanding and acceptance of the risks and procedures discussed. PROCEDURE: After the risks, benefits and alternatives of the above mentioned procedure explained in detail with the patient, informed consent was obtained. Patient was taken to the catheterization lab and prepped and draped in usual fashion. 1% lidocaine was used to anesthetize the right radial artery. A 6- Estonian sheath was placed in the right radial artery using modified Seldinger technique. Left coronary angiography was performed with a 5-E[place]ian JL 3.5 catheter and right coronary angiography was performed with a 5-[place]ian JR5 catheter in various views. A 5-[place]ian FR5 catheter was inserted into the left ventricle and pressure measurements were obtained. The right radial sheath was removed and a TR band was placed with hemostasis achieved. The patient tolerated the procedure well. Patient was transported back to the post catheterization holding area in stable condition. Given order line RCA lesion the decision was made to perform iFR. Heparin was given. A 6-Estonian AL 0.75 guide was used to engage the RCA. A 0.014 pressure wire was advanced into the ostium of the RCA and normalize. The wire was then advanced 1 cm distal to the distal lesion and iFR was performed and was normal at 0.94. Conscious Sedation: Patient was monitored under the direct supervision of vision of myself for conscious sedation using Versed and fentanyl for a total duration of 23 minutes HEMODYNAMICS: Aorta 142/46 LV: 179/13, LVEDP 22, mean gradient 34 mmHg SELECTIVE CORONARY ARTERIOGRAPHY: LEFT MAIN: The left main is a large caliber vessel which bifurcates into the LAD and circumflex, very short left main with nearly dual ostia. There is no significant stenosis. LEFT ANTERIOR DESCENDING CORONARY ARTERY: LAD is a large caliber vessel which wraps around to the apex. There are mild luminal irregularities of the LAD. LEFT CIRCUMFLEX CORONARY ARTERY: Left circumflex is a moderate caliber vessel without significant stenosis. RIGHT CORONARY ARTERY: The right coronary artery is a small to moderate caliber vessel which gives off a PDA and PLV branch and is the dominant vessel. There is a proximal RCA 50-60% stenosis and a mid to distal 40% stenosis. iFR normal at 0.94 FINAL IMPRESSION: 1. Mild to moderate CAD as described above including mild luminal irregularities of the LAD, 50-60% proximal RCA stenosis 2. iFR of RCA normal 3. Mildly elevated left sided filling pressures 4. Aortic stenosis with mean gradient 34 mmHg PLAN: 1. Aggressive risk factor modification per most recent ACC/AHA guidelines. 2. Follow-up in the office in 1-2 weeks.
[2022-02-07 13:09] LABS: Glucose,Whole Blood 95 mg/dL (70-110)
--- NOTE | 2022-02-07 14:05 | P.DS ---
Providers Date of admission: 02/05/22 19:24 Expected date of discharge: 02/07/22 Attending physician: Piyush Morrison Consults: 02/05/22 19:22 Consult Physician Routine Consulting Provider: [facility] Consult Reason/Comments: Chest Pain Do you want consulting provider notified?: Already Contacted Primary care physician: Piyush Morrison - Discharge Diagnosis(es) (1) Unstable angina Current Visit: No Status: Acute (2) Chest pain Current Visit: Yes Status: Acute (3) Hypothyroidism Current Visit: Yes Status: Acute (4) COPD (chronic obstructive pulmonary disease) Current Visit: No Status: Acute (5) Coronary arteriosclerosis Current Visit: No Status: Acute (6) H/O TIA (transient ischemic attack) and stroke Current Visit: No Status: Acute (7) Hypertension Current Visit: No Status: Acute (8) Mixed hyperlipidemia Current Visit: No Status: Acute (9) Stented coronary artery Current Visit: No Status: Acute (10) Type 2 diabetes mellitus without complications Current Visit: No Status: Acute (11) Aortic stenosis Current Visit: Yes Status: Acute Hospital Course: This Is as a 76-year-old white female on the practice. She is a history of coronary disease with a stent in 2019, type 2 diabetes, hypertension, hyperlipidemia, hypothyroidism, began experiencing chest pain several weeks ago. She ordinarily sees Dr. Eliezer Duncan. She reports on vacation began experiencing chest heaviness with episodic shortness of breath during this. She denies any diaphoresis nausea vomiting during these episodes. She said the man coming off and on for the past several weeks and last night it was more severe prompting her to come the emergency room at the behest of her . Currently she is resting comfortably on the floor. She denies any current symptoms. She remains on heparin drip. Temperature is normal, heart rate stable, blood pressure slightly elevated last currently 150/71, pulse oximetry is 97% on room air. Prone 3 are negative, TSH is normal at 3.3, hemoglobin A1c is 6.1. Hemoglobin is 9.7 with an MCV of 90.8. INR is normal 1.1, chemistries are normal. Cardiology is on consult as I seen the patient. 02/07/2022: Patient is resting comfortably status post NIKKIE and cardiac karyna terization. Please see the impression and information per cardiology below. He is been cleared for discharge maximum medical therapy. Her metoprolol was increased from 25-50 twice a day and nitroglycerin when necessary was ordered for her. She is to follow up with cardiology in the next several days. Per Dr. Tony Cervantes: Procedure performed: Transesophageal Echocardiogram with color flow doppler, pulsed wave doppler and continuous wave doppler, moderate conscious sedation 1. The aortic valve is tricuspid and heavily calcified with mainly fusion of the right coronary cusp and left coronary cusp with non-coronary cusp somewhat mobile. Severe aortic stenosis by planimetry with aortic valve area 0.6 cm. Maximum velocity 3.7 m/s however may be underestimated secondary to angulation. 2. The mitral valve appears be normal with trace mitral regurgitation. 3. Tricuspid valve is normal with trace tricuspid regurgitation. 4. The interatrial septum is intact. No evidence of PFO. 5. Left atrial appendage is free of clot. 6. Left ventricular size and function are normal with left ventricular ejection fraction 55%. There is mild increased left ventricular wall thickness. PPROCEDURES PERFORMED: Left heart catheterization, bilateral coronary angiography FINAL IMPRESSION: 1. Mild to moderate CAD as described above including mild luminal irregularities of the LAD, 50-60% proximal RCA stenosis 2. iFR of RCA normal 3. Mildly elevated left sided filling pressures 4. Aortic stenosis with mean gradient 34 mmHg PLAN: 1. Aggressive risk factor modification per most recent ACC/AHA guidelines. 2. Follow-up in the office in 1-2 weeks. Patient Condition at Discharge: Stable Plan - Discharge Summary New Discharge Prescriptions: New Nitroglycerin Sl Tabs [Nitrostat] 0.4 mg SUBLINGUAL Q5M PRN #30 tab PRN Reason: Chest Pain Metoprolol Tartrate [Lopressor] 50 mg PO BID #60 tab Acetaminophen Tab [Tylenol] 650 mg PO Q6HR PRN tab PRN Reason: Fever And/ Or Pain Continue Atorvastatin [Lipitor] 80 mg PO DAILY Ergocalciferol [Vitamin D2 (DRISDOL)] 50,000 units PO MO metFORMIN HCL [Glucophage] 500 mg PO DAILY Pioglitazone HCl 30 mg PO DAILY Furosemide [Lasix] 20 mg PO DAILY Levothyroxine Sodium [Synthroid] 75 mcg PO DAILY Aspirin [Adult Low Dose Aspirin EC] 81 mg PO DAILY amLODIPine [Norvasc] 5 mg PO DAILY Discontinued Metoprolol Tartrate 25 mg PO BID-W/MEALS Discharge Medication List Atorvastatin [Lipitor] 80 mg PO DAILY 10/10/14 [History] Ergocalciferol [Vitamin D2 (DRISDOL)] 50,000 units PO MO 05/02/15 [History] metFORMIN HCL [Glucophage] 500 mg PO DAILY 11/09/17 [History] Furosemide [Lasix] 20 mg PO DAILY 10/31/21 [History] Pioglitazone HCl 30 mg PO DAILY 10/31/21 [History] amLODIPine [Norvasc] 5 mg PO DAILY 10/31/21 [History] Aspirin [Adult Low Dose Aspirin EC] 81 mg PO DAILY 02/04/22 [History] Levothyroxine Sodium [Synthroid] 75 mcg PO DAILY 02/04/22 [History] Acetaminophen Tab [Tylenol] 650 mg PO Q6HR PRN tab 02/07/22 [Rx] Metoprolol Tartrate [Lopressor] 50 mg PO BID #60 tab 02/07/22 [Rx] Nitroglycerin Sl Tabs [Nitrostat] 0.4 mg SUBLINGUAL Q5M PRN #30 tab 02/07/22 [Rx] Follow up Appointment(s)/Referral(s): Eliezer Stoll MD [STAFF PHYSICIAN] - 1 Week Patient Instructions/Handouts: Angina (GEN) Discharge Disposition: HOME SELF-CARE
[2022-02-07] MEDS: PIOGLITAZONE 30 MG TAB PO SCH (14:54)
[2022-02-07] MEDS: METOPROLOL TARTRATE 50 MG TAB PO SCH (14:54)
[2022-02-07 16:34] LABS: Glucose,Whole Blood 144 mg/dL (70-110)
[2022-02-07 17:50] VITALS: BP 118/68; PULSE 58; RESP 17; TEMP 97.6
[2022-02-10] MEDS ORDERED: ERGOCALCIFEROL 1,250 MCG (50,000 IU) CAPSULE PO SCH (09:00)
== END 2022-02-07 18:46 | disposition home or self-care (01) ==
LOC: EC 16:38 → 6NMEDSUR 19:24
PROVIDERS: ADMIT Family Medicine; ATTEND Family Medicine
DX: I25.110 Atherosclerotic heart disease of native coronary artery with unstable angina pectoris (principal); E03.9 Hypothyroidism, unspecified; J44.9 Chronic obstructive pulmonary disease, unspecified; I10 Essential (primary) hypertension; E78.2 Mixed hyperlipidemia; Z86.73 Personal history of transient ischemic attack (TIA), and cerebral infarction without residual deficits; E11.9 Type 2 diabetes mellitus without complications; I08.3 Combined rheumatic disorders of mitral, aortic and tricuspid valves; Z95.5 Presence of coronary angioplasty implant and graft; F40.240 Claustrophobia; E66.9 Obesity, unspecified; Z68.35 Body mass index [BMI] 35.0-35.9, adult; D64.9 Anemia, unspecified; I25.2 Old myocardial infarction; Z80.0 Family history of malignant neoplasm of digestive organs; Z87.891 Personal history of nicotine dependence; Z90.710 Acquired absence of both cervix and uterus; Z96.642 Presence of left artificial hip joint; Z79.84 Long term (current) use of oral hypoglycemic drugs; Z79.82 Long term (current) use of aspirin; Z79.890 Hormone replacement therapy; Z79.899 Other long term (current) drug therapy
CPT/HCPCS: 96366 ×3; 96376; 96365; 99285; 36415; 93005; 93312; 93320; 93325; 93458; 93799; 80061; 80053; 80048; 84443; 83735 ×3; 84484; 85025 ×2; 85610 ×2; 85730 ×3; 83036; 71046; G0378 ×3; C1887; C1769 ×2; C1894; J2250; J2001; J3010; J1644 ×4; Q9967

== ENCOUNTER → 2022-02-28 | Outpatient (CLI) | payer MEDICARE ==
[2022-02-28 12:02] LABS: Basophils # (A) 0.06 X 10*3/uL (0.00-0.10); Basophils % (A) 0.7 %; Eosinophils # (A) 0.43 X 10*3/uL (0.04-0.35); Eosinophils % (A) 5.3 %; HCT 31.7 % (37.2-46.3); HGB 10.1 g/dL (12.0-15.0); Immature Grans, Automated 0.4 %; Lymphocytes # (A) 1.93 X 10*3/uL (0.90-5.00); Lymphocytes % (A) 23.9 %; MCH 29.1 pg (27.0-32.0); MCHC 31.9 g/dL (32.0-37.0); MCV 91.4 fL (80.0-97.0); Mean Platelet Volume 12.6 fL (9.5-12.2); Monocytes # (A) 0.64 X 10*3/uL (0.20-1.00); Monocytes % (A) 7.9 %; NRBC Per 100 WBC 0 /100 WBCS (0.0-0.0); Neutrophils # (A) 4.99 X 10*3/uL (1.80-7.70); Neutrophils % (A) 61.8 %; Platelet Count 169 X 10*3/uL (140-440); RBC 3.47 X 10*6/uL (4.10-5.20); RDW 14.3 % (11.5-14.5); WBC 8.08 X 10*3/uL (4.50-10.00)
[2022-02-28 15:28] LABS: ALT 12 U/L (8-44); AST 16 U/L (13-35); African American GFR (CKD) 70.3 (60.0-200.0); Albumin 3.7 g/dL (3.8-4.9); Albumin/Globulin Ratio 1.68 (1.60-3.17); Alkaline Phosphatase 78 U/L (41-126); BUN/Creat Ratio 24.64 Ratio (12.00-20.00); Blood Urea Nitrogen 22.5 mg/dL (9.0-27.0); Calcium 9.4 mg/dL (8.7-10.3); Carbon Dioxide 22.5 mmol/L (20.0-27.5); Chloride 106 mmol/L (96-109); Chol/HDL Ratio 3.26 Ratio; Globulin 2.2 g/dL (1.6-3.3); Glucose 119 mg/dL (70-110); LDL Cholesterol,Calculated 80.7 mg/dL (0.0-131.0); Non-African American GFR(CKD) 60.6 (60.0-200.0); Potassium 4.5 mmol/L (3.5-5.5); Sodium 140 mmol/L (135-145); Total Protein 5.9 g/dL (6.2-8.2)
== END | disposition home or self-care (01) ==
LOC: LABWHC1 09:11
PROVIDERS: ATTEND Family Medicine
DX: Z00.01 Encounter for general adult medical examination with abnormal findings (principal); Z13.820 Encounter for screening for osteoporosis; I12.9 Hypertensive chronic kidney disease with stage 1 through stage 4 chronic kidney disease, or unspecified chronic kidney disease; E11.22 Type 2 diabetes mellitus with diabetic chronic kidney disease; E78.2 Mixed hyperlipidemia; I25.119 Atherosclerotic heart disease of native coronary artery with unspecified angina pectoris; I35.0 Nonrheumatic aortic (valve) stenosis; E03.9 Hypothyroidism, unspecified; N18.31 Chronic kidney disease, stage 3a; R16.0 Hepatomegaly, not elsewhere classified
CPT/HCPCS: 36415; 80053; 80061; 83036; 84443; 85025

== ENCOUNTER → 2022-03-06 | Outpatient (CLI) | payer MEDICARE ==
--- NOTE | 2022-03-06 11:27 | CT ---
EXAMINATION TYPE: CT TAVR Planning DATE OF EXAM: 03/06/2022 HISTORY: TAVR planning. CT DLP: 5354.6 mGycm Automated Exposure Control for Dose Reduction was Utilized. CONTRAST: CT scan of the chest, abdomen and pelvis is performed with IV Contrast, patient injected with 120ml m L of Isovue 370. COMPARISON: None TECHNIQUE: Helical imaging obtained through the chest, abdomen and pelvis during arterial phase zackary tez administration of radiographic contrast intravenously. FINDINGS: See report from [facility] regarding preprocedural planning CHEST: Lower Neck and Thyroid: No significant findings Lungs: No significant findings Central Airway: No significant findings Pleura: No significant findings Pulmonary Arteries: No significant findings Heart and Pericardium: No significant findings Lymph Nodes: No significant findings Mediastinum & Esophagus: No significant findings ABDOMEN/PELVIS: Please note arterial phase of the imaging limits detailed evaluation of the solid abdominal organs. Liver: No significant findings Spleen: No significant findings Kidneys: Nephrolithiasis difficult to exclude bilaterally. Adrenal Glands: No significant findings Pancreas: No significant findings Gallbladder: Surgically absent. Bowel and Mesentery: No significant findings Lymph Nodes: No significant findings Urinary Bladder: No significant findings Pelvic Organs: No significant findings Other: Degenerative changes and scoliotic curvature lumbar spine. Other Lines/Tubes/Devices/Hardware: Left hip prosthesis. IMPRESSION: As above
[2022-03-06 12:45] LABS: Prothrombin Time 10.1 sec (9.0-12.0)
[2022-03-06 20:49] LABS: Appearance,Urine Clear (Clear); Bilirubin,Urine Negative (Negative); Blood,Urine Negative (Negative); Color,Urine Yellow (Yellow); Ketones,Urine Negative (Negative); Nitrite,Urine Negative (Negative); PH, Urine 5.5 (5.0-8.0); Specific Gravity,Urine 1.051 (1.001-1.030); Urobilinogen,Urine 0.2 (0.2,1.0)
[2022-03-06 21:04] LABS: Hepatitis A Antibody IgM Nonreactive (Nonreactive); Hepatitis B Core IgM Nonreactive (Nonreactive); Hepatitis B Surface Antigen Nonreactive (Nonreactive); Hepatitis C IgG Antibody Nonreactive (Nonreactive)
== END | disposition home or self-care (01) ==
LOC: LABWHC1 09:04
PROVIDERS: ATTEND Thoracic Surgery (Cardiothoracic Vascular Surgery)
DX: Z01.818 Encounter for other preprocedural examination (principal); I35.1 Nonrheumatic aortic (valve) insufficiency; I35.0 Nonrheumatic aortic (valve) stenosis; E87.8 Other disorders of electrolyte and fluid balance, not elsewhere classified; Z79.899 Other long term (current) drug therapy; R58 Hemorrhage, not elsewhere classified; E07.9 Disorder of thyroid, unspecified; R35.0 Frequency of micturition; Z79.01 Long term (current) use of anticoagulants; E11.9 Type 2 diabetes mellitus without complications; N28.9 Disorder of kidney and ureter, unspecified; E78.5 Hyperlipidemia, unspecified
CPT/HCPCS: 83880; 80074; 83735; 85610; 85730; 81003; 87086; 71275; 74174; 36415; Q9967

== ENCOUNTER 2022-04-02 09:32 | Day surgery (SDC) | payer MEDICARE ==
[2022-03-31 10:55] VITALS: BMI 34.2
[~2022-04-02 09:32] MED LIST changes: +ALPRAZolam 0.25 MG TAB PO PRN; +ASPIRIN 325 MG TAB PO PRN; -DEXAMETHASONE SOD PHOSPHATE 4 MG/ML 1 ML VIAL IV ONE; -LACTATED RINGERS 1,000 ML IV SCH; -LIDOCAINE 1% (10MG/ML) FOR IV START INTRADERMA PRN; -ONDANSETRON 4 MG/2 ML VIAL IVP ONE; +SODIUM CHLORIDE 0.9% 1,000 ML in EMPTY BAG 1 BAG IV ONE
[2022-04-02 10:13] LABS: Glucose,Whole Blood 125 mg/dL (70-110)
[2022-04-02 10:40] LABS: Basophils % (A) 1 %; Eosinophils # (A) 0.3 k/uL (0-0.7); Eosinophils % (A) 4 %; HCT 34.7 % (34.0-46.0); HGB 11.1 gm/dL (11.4-16.0); Lymphocytes # (A) 1.6 k/uL (1.0-4.8); Lymphocytes % (A) 23 %; MCH 28.8 pg (25.0-35.0); MCHC 32.1 g/dL (31.0-37.0); MCV 89.5 fL (80.0-100.0); Mean Platelet Volume 9.2; Monocytes # (A) 0.4 k/uL (0-1.0); Monocytes % (A) 6 %; Neutrophils # (A) 4.4 k/uL (1.3-7.7); Neutrophils % (A) 64 %; Platelet Count 216 k/uL (150-450); RBC 3.87 m/uL (3.80-5.40); RDW 14.7 % (11.5-15.5); WBC 6.9 k/uL (3.8-10.6)
[2022-04-02 11:01] LABS: Calcium 9.2 mg/dL (8.4-10.2)
[2022-04-02 11:02] LABS: Potassium 4.9 mmol/L (3.5-5.1)
[2022-04-02] MEDS ORDERED: MIDAZOLAM 2 MG/2 ML VIAL IV ONE ×2 (14:45→14:59)
[2022-04-02] MEDS ORDERED: HYDROmorphone 0.5 MG/0.5 ML SYRINGE IVP ONE (14:45)
[2022-04-02] MEDS ORDERED: LIDOCAINE 1% INJ 10MG/ML (30 ML VIAL-PF) SQ ONE (14:46)
[2022-04-02] MEDS ORDERED: HEPARIN SODIUM 1,000 UN/ML (10ML VL) ONE (14:56)
[2022-04-02] MEDS ORDERED: HEPARIN SODIUM 1,000 UN/ML (10ML VL) IV ONE (14:59)
[2022-04-02] MEDS ORDERED: IOPAMIDOL-250 100ML BTL INTRAARTER ONE ×2 (15:31)
[2022-04-02] MEDS ORDERED: CLOPIDOGREL 75 MG TAB PO ONE (15:33)
[2022-04-02] MEDS ORDERED: CLOPIDOGREL 75 MG TAB ONE (15:34)
[2022-04-02] MEDS ORDERED: ACETAMINOPHEN TAB 325 MG TAB PO PRN (15:36)
[2022-04-02] MEDS ORDERED: NITROGLYCERIN SL TABS 0.4 MG TAB SUBLINGUAL PRN (15:36)
[2022-04-02] MEDS ORDERED: NALOXONE 0.4 MG/ML 1 ML VIAL IVP PRN (15:37)
--- NOTE | 2022-04-02 15:43 | P.PCN ---
Date of Procedure: 04/02/22 Operative Findings: PERCUTANEOUS PERIPHERAL INTERVENTION Performing physician Lev Mesa M.D. Procedure performed #1 successful stenting of the right and left common iliac artery using 8.0 x 59 on the right and 8.0 x 39 mm on the left with an excellent angiographic results with adjunctive use of intravascular ultrasound #2 shockwave of the right common iliac artery #3 bilateral common iliac arteries and common femoral arteries angiogram #4 ultrasound guided access of the right and left common femoral arteries Indication This is a 76-year-old female patient was diagnosed recently with severe symptomatic aortic stenosis. She underwent a CTA which showed critical disease involving the right and left common iliac arteries. Approach Right common femoral artery and left common femoral artery Complications None Level of sedation Moderate with a sedation time of 52 minutes Procedure description After obtaining an informed consent the patient was brought to the cardiac labor law professor. The right common femoral artery was cannulated using micropuncture technique under ultrasound guidance, the micropuncture wire passed easily then I placed 6-Tanzanian sheath 11 cm at the right common femoral artery. After that I did an angiogram of the distal aorta and bilateral iliac using a power injection and using 5-Tanzanian pigtail catheter. The angiogram revealed critical disease involving heavily calcified right common iliac artery and severe disease involving also a calcified left him in iliac artery. At that point I decided to pursue with an intervention. So I did upgrade my 11 cm 6-Tanzanian sheath on the right side into a 23 cm 6-Tanzanian bright tip sheath over all 35 stiff Glidewire. Then I did access the left common femoral artery using micro-puncture technique under ultrasound guidance, the micro-rupture wire passed easily then I placed another 23 cm 6-Tanzanian sheath at the left common femoral artery. I did exchange my 035 wire into a wall for wire using 035 catheter. Anticoagulation was initiated using heparin with continuous ACT monitoring. Subsequently I did intravascular ultrasound of the right and left common iliac artery which showed a diameter about 8 mm with extremely calcified iliac. At that point I decided to do shockwave on the right common iliac artery which has a critical lesion. That was performed using 7 mm balloon. It was performed in a kissing technique with a regular balloon angioplasty on the left common iliac artery. After that I deployed 28 mm stents in a kissing technique. On the right we deployed a 8.0 x 59 and on the left is 8.0 x 13 mm both balloon expandable stents were distant were positioned under fluoroscopy guidance and deployed under fluoroscopy guidance. The following angiogram showed good angiographic results and the procedure was completed with no complication. After that I did exchange my long sheath into an 11 cm 6-Tanzanian sheath before I did selective right common femoral artery angiogram. Postprocedure management #1 dual antiplatelet therapy #2 aggressive cholesterol control #3 risk factors modification #4 follow-up with the patient
[2022-04-02] MEDS ORDERED: SODIUM CHLORIDE 0.9% 1,000 ML in EMPTY BAG 1 BAG IV SCH (15:45)
[2022-04-02] MEDS: METOPROLOL TARTRATE 50 MG TAB PO SCH (20:54)
[2022-04-03 04:00] VITALS: RESP 16
[2022-04-03 06:18] LABS: Glucose,Whole Blood 131 mg/dL (70-110)
[2022-04-03] MEDS ORDERED: LEVOTHYROXINE 75 MCG TAB PO SCH (06:30)
[2022-04-03] MEDS: METOPROLOL TARTRATE 50 MG TAB PO SCH (08:47)
[2022-04-03] MEDS ORDERED: ATORVASTATIN 80 MG TAB PO SCH (09:00)
[2022-04-03] MEDS ORDERED: CLOPIDOGREL 75 MG TAB PO SCH (09:00)
[2022-04-03] MEDS ORDERED: PIOGLITAZONE 30 MG TAB PO SCH (09:00)
[2022-04-03] MEDS ORDERED: FUROSEMIDE 20 MG TAB PO SCH (09:00)
[2022-04-03] MEDS ORDERED: amLODIPine 5 MG TAB PO SCH (09:00)
[2022-04-03] MEDS ORDERED: ASPIRIN 81 MG PO SCH (09:00)
[2022-04-03] MEDS ORDERED: PIOGLITAZONE 15 MG TAB PO SCH (09:00)
--- NOTE | 2022-04-03 09:49 | IR ---
EXAMINATION TYPE: IR stent intravas non coronary DATE OF EXAM: 04/02/2022 COMPARISON: NONE HISTORY: Fluoroscopy time. Fluoroscopy was provided to the referring clinician.
[2022-04-03 10:42] VITALS: BP 146/73; PULSE 66; TEMP 97.5
--- NOTE | 2022-04-03 10:58 | P.PCN ---
Date of Procedure: 04/03/22 Operative Findings: This is a 76-year-old female patient who was diagnosed recently with severe symptomatic aortic stenosis. As a workup she underwent CTA and that revealed critical disease involving the right and left common iliac arteries was extremely calcified vessels. The patient was admitted to the hospital yesterday and underwent successful angioplasty and stenting of both iliacs with an excellent angiographic results and with no complication. The procedure was performed from the right and left groins. She was seen this morning. Both groins are soft and nontender with no bruises. As a matter of fact the patient does have a great pulses in both feet. She is going to be discharged home on dual antiplatelet therapy and she will be scheduled to undergo the transcutaneous aortic valve replacement in the next few days.
[2022-04-07] MEDS ORDERED: ERGOCALCIFEROL 1,250 MCG (50,000 IU) CAPSULE PO SCH (09:00)
== END 2022-04-03 12:07 | disposition home or self-care (01) ==
LOC: CATHCVL 09:32 → 3SCARD 15:30 → CATHCVL 04-03 12:07
PROVIDERS: ATTEND Internal Medicine Interventional Cardiology
DX: I25.10 Atherosclerotic heart disease of native coronary artery without angina pectoris (principal); I35.0 Nonrheumatic aortic (valve) stenosis; I10 Essential (primary) hypertension; E78.5 Hyperlipidemia, unspecified; E11.9 Type 2 diabetes mellitus without complications; Z79.84 Long term (current) use of oral hypoglycemic drugs; Z79.02 Long term (current) use of antithrombotics/antiplatelets; Z79.899 Other long term (current) drug therapy
CPT/HCPCS: 37221; 75625; 37252; 37253; 80048; 82565; 85025; C1769 ×4; C1894 ×3; C1725 ×2; C1753; C1876; C1760; C9766; J2250; J2001; J1644; J1170; Q9966

== ENCOUNTER 2022-04-09 07:13 | Inpatient (IN) | payer MEDICARE ==
[2022-04-07 16:19] VITALS: BMI 34.2
[2022-04-09] MEDS ORDERED: SODIUM CHLORIDE 0.9% 1,000 ML IV ONE (07:50)
[2022-04-09 07:52] LABS: Glucose,Whole Blood 144 mg/dL (70-110)
[2022-04-09] MEDS ORDERED: NITROGLYCERIN-D5W PMX 25 MG/250 ML BTL IV PRN (08:00)
[2022-04-09] MEDS ORDERED: TRANEXAMIC ACID 2,000 MG in SODIUM CHLORIDE 0.9% 80 ML IV PRN (08:00)
[2022-04-09] MEDS ORDERED: ASPIRIN 325 MG TAB PO ONE (08:00)
[2022-04-09] MEDS ORDERED: ATORVASTATIN 10 MG TAB PO ONE (08:00)
[2022-04-09] MEDS ORDERED: INSULIN REGULAR 100 UNIT in SODIUM CHLORIDE 0.9% 100 ML IV PRN (08:00)
[2022-04-09] MEDS ORDERED: LACTATED RINGERS 1,000 ML IV SCH ×2 (08:00→11:01)
[2022-04-09] MEDS ORDERED: CLOPIDOGREL 75 MG TAB PO ONE ×2 (08:00)
[2022-04-09] MEDS ORDERED: SODIUM CHLORIDE 0.9% 500 ML 500 ML INTRAARTER PRN (08:00)
[2022-04-09] MEDS ORDERED: PROTAMINE SULFATE 250 MG in EMPTY BAG 1 BAG IV PRN (08:00)
[2022-04-09] MEDS ORDERED: METOPROLOL TARTRATE 25 MG TAB PO ONE (08:00)
[2022-04-09] MEDS ORDERED: CLEVIDIPINE BUTYRATE 25 MG in EMPTY BAG 1 BAG IV PRN (08:00)
[2022-04-09] MEDS ORDERED: ELECTROLYTE-A SOLUTION 1,000 ML with POTASSIUM CHLORIDE 100 MEQ, MAGNESIUM SULFATE 16 M... IV PRN ×5 (08:00)
[2022-04-09] MEDS ORDERED: fentaNYL (PF) 50 MCG/ML 2 ML AMP ONE (08:44)
[2022-04-09] MEDS ORDERED: GLYCOPYRROLATE 0.2 MG/ML 2 ML VIAL ONE (08:44)
[2022-04-09] MEDS ORDERED: SUCCINYLCHOLINE CHLORIDE 200 MG/10 ML VIAL IV ONE (08:44)
[2022-04-09] MEDS ORDERED: ONDANSETRON 4 MG/2 ML VIAL ONE (08:44)
[2022-04-09] MEDS ORDERED: PROTAMINE SULFATE 10 MG/ML 5 ML VIAL IV ONE (08:44)
[2022-04-09] MEDS ORDERED: ROCURONIUM 10 MG/ML (5 ML VIAL) IV ONE (08:44)
[2022-04-09] MEDS ORDERED: MIDAZOLAM 2 MG/2 ML VIAL ONE (08:44)
[2022-04-09] MEDS ORDERED: ceFAZolin 1,000 MG VIAL ONE (08:44)
[2022-04-09] MEDS ORDERED: NEOSTIGMINE 1 MG/ML 10 ML VIAL ONE (08:44)
[2022-04-09] MEDS ORDERED: PROPOFOL 10 MG/ML 20 ML VIAL IV ONE (08:44)
[2022-04-09] MEDS ORDERED: ePHEDrine 50 MG/ML 1 ML VIAL ONE (08:44)
[2022-04-09] MEDS ORDERED: HEPARIN SODIUM,PORCINE 10,000 UNIT/ML 1 ML VIAL ONE (08:44)
[2022-04-09] MEDS ORDERED: LIDOCAINE 2% INJ 20 MG/ML (2 ML VIAL) ONE (08:44)
[2022-04-09] MEDS ORDERED: SODIUM CHLORIDE 0.9% 100 ML BAG ONE (08:44)
[2022-04-09] MEDS ORDERED: PHENYLEPHRINE-0.9% NACL SYG 1,000 MCG/10 ML SYRINGE ONE (08:44)
--- NOTE | 2022-04-09 10:16 | P.ANPRN ---
Procedure Note - Anesthesia - NIKKIE Intraop Pre Bypass NIKKIE Intraop - Anesthesia Indication: Transcatheter aortic valve replacement Date of Procedure: 04/09/22 Pre-operative Diagnosis: Severe aortic stenosis Post-operative Diagnosis: Severe aortic stenosis status post transcatheter aortic valve replacement Surgeon: Rose Leung Left Ventricle: Ejection fraction 55-60%. No regional wall motion abnormalities observed. Ejection Fraction: Normal Regional Wall Motion Abnormalities: None Left Ventricle Hypertrophy: Yes R. Ventricle Function: Normal Aortic Valve: Aortic valve severely calcified with severe stenosis noted. Valve area 0.8 cm and peak gradient of 40 mmHg and mean gradient of 25 mmHg. Anatomy: Trileaflet Aortic Stenosis: Severe Aortic Regurgitation: None Mitral Stenosis: None Mitral Regurgitation: Mild Tricuspid Stenosis: None Tricuspid Regurgitation: Trace Pulmonic Stenosis: None Pulmonic Regurgitation: None R. Atrial Dilation: No R. Atrial PFO: No L. Atrial Dilation: No Aortic Dissection: No Aortic Calcification: None Plural Effusion: None - NIKKIE Intraop Post Bypass NIKKIE Intraop Post Bypass Procedure Performed: Transcatheter aortic valve replacement Left Ventricle: Ejection fraction 50-60%. Normal new regional wall motion abnormalities noted. Ejection Fraction: Normal Regional Wall Motion Abnormalities: None R. Ventricle Function: Normal Aortic Valve: Prosthetic aortic valve in situ. Appears to be seated valve. Trace to Mild paravalvular leak noted which doesn't appear to be hemodynamically significant. Peak gradient across the prosthetic valve is 15 mmHg and mean gradient is 6 mmHg. Mitral Valve: Unchanged Tricuspid: Unchanged Pulmonic: Unchanged Aortic Dissection: No
[2022-04-09] MEDS ORDERED: IOPAMIDOL-370 100ML BTL INTRATHECA ONE (10:17)
--- NOTE | 2022-04-09 10:44 | P.PCN ---
Date of Procedure: 04/09/22 Description of Procedure: TRANSCATHETER AORITC VALVE REPLACEMENT OPERATIVE REPORT PROCEDURE PERFORMED: 1. Percutaneous Aortic Valve Implantation using a 26 mm Evolut FX . 2. Transesophageal echocardiography (performed by anesthesia) 3. Ultrasound guided access and repair of right and left femoral artery access site by Perclose closure and Angio-Seal device only on the right 4. Placement of temporary pacemaker wire. 5. Aortic root angiography 6. Bilateral iliac and bilateral femoral angiogram INDICATIONS: 1. 76year-old with a history of severe symptomatic aortic valve stenosis. 2. The patient was experiencing shortness of breath with exertion consistent with NYHA class III PERFORMING PHYSICIANS: 1. Tony Cervantes DO Interventional Cardiology 2. Lev Mesa MD Interventional Cardiology. 3. Rose Leung MD, Cardiothoracic Surgeon. SEDATION: General anesthesia provided by anesthesia, see separate note APPROACH: Bilateral femoral artery via percutaneous approach PROCEDURE DESCRIPTION: The patient was discussed at valve clinic with multidisciplinary approach with cardiothoracic surgeon as well as door repairer bus and thought better treated with TAVR. Risks, benefits, and alternatives of the procedure had been explained to the patient who understood the risks and agreed to proceed. After consents were obtained, patient was brought to the transcatheter aortic valve implantation room in the cardiac slab off mill tender and general anesthesia was provided by the anesthesiologist (see separate report). Once full body sterile prep was performed, the left common femoral vein was cannulated using micropuncture technique, the micropuncture wire passed easily then I placed a 6-Kosovan 23 cm sheath at the left common femoral vein. Pacing threshholds were checked and deemed appropriate. Subsequently the left common femoral artery was cannulated using micropuncture technique under ultrasound guidance, the micropuncture wire passed easily then I placed a 6-Kosovan 55 cm sheath at the left common femoral vein over O35 wire. The sheath was advanced all the way to the proximal descending aorta.. Next, a 6-Kosovan pigtail catheter was advanced into the aorta and positioned in the non-coronary cusp of the aortic valve. The SideArm of the sheath was conducted into the pressure transducer. The pigtail catheter was connected into a tubing injection. The right femoral artery was accessed using modified Seldinger technique, micropuncture technique and under direct ultrasound guidance. Femoral angiogram was done showing access in the common femoral artery and a 6Fr sheath was placed. Next preclose technique was performed using a two Perclose. Next a 0.035 Safari wire was placed in the Aorta via a pigtail catheter. Subsequently we did exchanged the 8-Kosovan sheath into a 14-Kosovan sheath over the both 35 Safari wire. Next a 6F- AL1 catheter was advanced over a wire to the aortic root. A straight wire was advanced through the catheter and used to cross the severely stenotic valve. The AL1 was then exchanged for a 6Fr pigtail catheter and pressure measurements were obtained. The 0.035 Safari wire was then positioned in the apex. Next a 26 mm Evolut FX was advanced. The valve was then positioned across the aortic valve and confirmed with aortic root angiography. [The valve was initially partially deployed however needed repositioning and therefore was recaptured.] The valve was then deployed in proper position using slow deployment and with rapid pacing in conjuncture with aortic root angiography and NIKKIE. The delivery system was withdrawn back into the arch and an aortic root injection in conjunction with NIKKIE demonstrated a satisfactory result. There was no para valvular leak. There was no evidence of any other significant abnormalities. The preclose Perclose was then deployed in the the right femoral artery and hemostasis was achieved after adding an 8-Kosovan Angio-Seal. The pigtail was then advanced to the level of the iliac bifurcation via the left femoral access. 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 No dye staining was identified. The flow was good. For that reason we decided to treat medically at this point. I was able to obtain good distal pedal pulses on the right side. Finally I did selective left common femoral artery angiogram. The procedure was completed was no complication. The pacer wire was pulled out. COMPLICATIONS: None RECOMMENDATIONS: The patient will be monitored in the ICU for hemodynamic and electrical stability. An echo to be done in the morning to assess the valve and rule out any pericardial effusion Discharge home in the next 24 hours
[2022-04-09 10:48] LABS: Glucose,Whole Blood 131 mg/dL (70-110)
[2022-04-09] MEDS ORDERED: ACETAMINOPHEN TAB 325 MG TAB PO PRN (11:01)
[2022-04-09] MEDS ORDERED: IPRATROPIUM-ALBUTEROL 3 ML NEB INHALATION PRN (11:01)
[2022-04-09] MEDS ORDERED: NITROGLYCERIN SL TABS 0.4 MG TAB SUBLINGUAL PRN (11:01)
[2022-04-09] MEDS ORDERED: ONDANSETRON 4 MG/2 ML VIAL IVP PRN (11:01)
--- NOTE | 2022-04-09 11:33 | XR ---
EXAMINATION TYPE: XR chest 1V portable DATE OF EXAM: 04/09/2022 11:25 AM COMPARISON: Chest radiographs from 02/05/2022, CT TAVR 03/06/2022. TECHNIQUE: XR chest 1V portable Portable AP radiograph of the chest. CLINICAL INDICATION:Female, 76 years old with history of Post Operative Cardiac Surgery; FINDINGS: Lungs/Pleura: There is no evidence of pleural effusion, focal consolidation, or pneumothorax. Pulmonary vascularity: Unremarkable. Heart/mediastinum: Cardiomediastinal silhouette is enlarged and stable in size. Postsurgical changes from TAVR. Musculoskeletal: No acute osseous pathology. IMPRESSION: Postsurgical changes from TAVR. No focal consolidation or pneumothorax.
[2022-04-09 11:45] LABS: Basophils % (A) 0 %; Eosinophils # (A) 0.2 k/uL (0-0.7); Eosinophils % (A) 3 %; Lymphocytes % (A) 17 %; MCH 29.9 pg (25.0-35.0); MCHC 33.7 g/dL (31.0-37.0); MCV 88.7 fL (80.0-100.0); Mean Platelet Volume 8.4; Monocytes # (A) 0.2 k/uL (0-1.0); Monocytes % (A) 3 %; Neutrophils # (A) 4.6 k/uL (1.3-7.7); Neutrophils % (A) 78 %; Platelet Count 169 k/uL (150-450); RDW 14.6 % (11.5-15.5); WBC 5.9 k/uL (3.8-10.6)
[2022-04-09 12:03] LABS: Partial Thromboplastin Time 25.5 sec (22.0-30.0); Prothrombin Time 10.7 sec (9.0-12.0)
[2022-04-09 12:09] LABS: HGB 7.8 gm/dL (11.4-16.0)
[2022-04-09 12:10] LABS: Ionized Calcium 4.9 mg/dL (4.5-5.3)
--- NOTE | 2022-04-09 12:23 | IR ---
EXAMINATION TYPE: IR stent intravas non coronary DATE OF EXAM: 04/09/2022 CLINICAL HISTORY: TAVR TECHNIQUE: Fluoroscopy. COMPARISON: None. FINDINGS: Fluoroscopic guidance was provided during procedure performed by Dr. Leung. A total of 1 9.8 minutes of fluoroscopic time was utilized during the procedure. Please see separate report for pr ocedural details. IMPRESSION: As Above.
[2022-04-09 12:25] LABS: Albumin 2.5 g/dL (3.5-5.0); Calcium 7.8 mg/dL (8.4-10.2); Magnesium 1.7 mg/dL (1.6-2.3); Potassium 3.7 mmol/L (3.5-5.1); Total Bilirubin 0.4 mg/dL (0.2-1.3); Total Protein 4.7 g/dL (6.3-8.2)
[2022-04-09] MEDS ORDERED: POTASSIUM CHLORIDE ER 20 MEQ TAB.ER PO STA (12:46)
[2022-04-09] MEDS: MAGNESIUM SULFATE-D5W PMX 1 GM in DEXTROSE/WATER 1 100ML.BAG IVPB SCH ×2 (12:54→13:00)
[2022-04-09] MEDS ORDERED: DEXTROSE 50% SYRINGE 50 ML IVP PRN ×2 (14:17)
--- NOTE | 2022-04-09 14:48 | P.CNPUL ---
History of Present Illness Consult date: 04/09/22 Requesting physician: Alma Reina Reason for consult: other (ICU management) Chief complaint: TAVR History of present illness: I'm seeing this patient today 04/09/2022 for a new consultation in the ICU post transcatheter aortic valve replacement. this is a pleasant 76-year-old female with the pertinent past medical history of coronary artery disease, PCI with stent placement, hyperlipidemia, hypertension, diabetes mellitus type 2 [id number], TIA 2, remote history of MRSA in 2012, osteoarthritis, and multiple orthopedic surgeries. Patient had some initial concern of progressive exertional shortness of breath, chest pain, and lower extremity swelling. This prompted a cardiac evaluation which ultimately revealed severe aortic stenosis. a NIKKIE performed on 02/05/2022 revealed a tricuspid aortic valve which was heavily calcified, and severe aortic stenosis with a maximum velocity of 3.7 m/s. patient did undergo an elective transcatheter aortic valve replacement today with Dr. Leung, Dr. Tamez, and Dr. Cervantes. no complications were reported. the patient is currently resting comfortably supine in bed, in the ICU, on 2 L nasal cannula, in no acute distress. a postoperative chest x-ray showed some postsurgical changes without focal consolidation or pneumothorax. patient's postoperative CBC showed a drop in hemoglobin to 7.8 g/dL. This will have to be repeated. bilateral groin access sites are soft to palpation, without obvious hematoma. The rest of the patient's CBC was fairly stable with a WBC count of 5.9, platelets 169,000. patient's BMP shows a sodium 136, potassium 3.7, chloride 107, serum CO2 26, BUN 24, creatinine 0.98, glucose 118. patient's heart rhythm is currently normal sinus without any current ectopy. blood pressure is slightly hypertensive. She has not required any fluid boluses or pressors. patient is receiving DVT prophylaxis in the form of heparin and GI prophylaxis with Protonix. patient is currently hemodynamically stable. Review of Systems REVIEW OF SYSTEMS: CONSTITUTIONAL: Denies any recent significant weight loss or weight gain. EYES: Denies change in vision. EARS, NOSE, MOUTH, THROAT: Denies headaches, denies sore throat. CARDIOVASCULAR: Denies chest pain, palpitations or syncopal episodes. see HPI RESPIRATORY: Denies shortness of breath, cough, congestion or hemoptysis. GASTROINTESTINAL: Denies change in appetite, denies abdominal pain GENITOURINARY: Denies hematuria, denies infections. MUSKULOSKELETAL: Denies pain, denies swelling. INTEGUMENTARY: Denies rash, denies eczema. NEUROLOGICAL: Denies recent memory loss, no recent seizure activity. PSYCHIATRIC: Denies anxiety, denies depression. HEMATOLOGIC/LYMPHATIC: Denies anemia, denies enlarged lymph nodes. 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, heart murmer History of Any Multi-Drug Resistant Organisms: MRSA Date of last positivie culture/infection: 2012 MDRO Source:: UNDER RT BREAST Past Surgical History: Appendectomy, Section, Cholecystectomy, Heart Catheterization With Stent, Hysterectomy, Joint Replacement, Orthopedic Surgery Additional Past Surgical History / Comment(s): CARDIAC STENT X2, CATARACT SURGERY-BILATERAL W IMPLANTS, PAIN CLINIC PROCEDURES , left knee arthroscopy, l eft hip replacement, NIKKIE Past Anesthesia/Blood Transfusion Reactions: Postoperative Nausea & Vomiting (PONV) Additional Past Anesthesia/Blood Transfusion Reaction / Comment(s): claustrophobia, diff IV starts Date of Last Stent Placement:: 2012 Past Psychological History: No Psychological Hx Reported Additional Psychological History / Comment(s): CLAUSTROPHOBIA Smoking Status: Former smoker Past Alcohol Use History: None Reported Additional Past Alcohol Use History / Comment(s): started smoking 1963, quit 2001, smoked 1 ppd. Past Drug Use History: None Reported - Past Family History Father Additional Family Medical History / Comment(s): drowned at age 32 Daughter(s) Family Medical History: Cancer Additional Family Medical History / Comment(s): colon ca Mother Family Medical History: Cancer Additional Family Medical History / Comment(s): BREAST Medications and Allergies Home Medications Medication Instructions Recorded Confirmed Type Atorvastatin [Lipitor] 80 mg PO DAILY 10/10/14 04/09/22 History Ergocalciferol [Vitamin D2 50,000 units PO MO 05/02/15 04/09/22 History (DRISDOL)] Furosemide [Lasix] 20 mg PO DAILY 10/31/21 04/09/22 History Pioglitazone HCl 30 mg PO DAILY 10/31/21 04/07/22 History amLODIPine [Norvasc] 5 mg PO DAILY 10/31/21 04/07/22 History Aspirin [Adult Low Dose Aspirin EC] 81 mg PO DAILY 02/04/22 04/09/22 History Levothyroxine Sodium [Synthroid] 75 mcg PO QAM 02/04/22 04/09/22 History Acetaminophen Tab [Tylenol] 650 mg PO Q6HR PRN tab 02/07/22 04/07/22 Rx Metoprolol Tartrate [Lopressor] 50 mg PO BID #60 tab 02/07/22 04/09/22 Rx Nitroglycerin Sl Tabs [Nitrostat] 0.4 mg SUBLINGUAL Q5M PRN #30 tab 02/07/22 04/07/22 Rx Clopidogrel [Plavix] 75 mg PO DAILY #90 tablet 04/03/22 04/09/22 Rx metFORMIN HCL 500 mg OP DAILY 04/07/22 04/07/22 History Allergies Allergy/AdvReac Type Severity Reaction Status Date / Time codeine Allergy Nausea & Verified 04/07/22 15:55 Vomiting Physical Exam Vitals: Vital Signs Temp Pulse Pulse Resp BP BP Pulse Ox 04/09/22 14:00 60 14 96 04/09/22 13:00 61 4 L 96 04/09/22 12:00 97.4 F L 62 9 L 96 04/09/22 11:30 61 15 123/44 96 04/09/22 11:20 60 12 96 04/09/22 11:14 63 21 96 04/09/22 08:00 97.9 F 78 16 177/79 98 Intake and Output 04/08/22 04/09/22 04/09/22 22:59 06:59 14:59 Intake Total 1100 Balance 1100 Intake: IV 750 Intake, IV Titration 350 Amount Lactated Ringers 1,000 ml 150 @ 50 mls/hr IV .Q20H [facility] Rx#:[id number] Magnesium Sulfate-D5w Pmx 200 1 gm In Dextrose/Water 1 100ml.bag @ 100 mls/hr IVPB Q1H [facility] Rx#: [id number] Other: Weight 81.3 kg ABP, PAP, CO, CI - Last 8 Hours Arterial Blood Pressure 131/40 Arterial Blood Pressure 148/46 Arterial Blood Pressure 147/45 Arterial Blood Pressure 145/46 Arterial Blood Pressure 144/45 Arterial Blood Pressure 138/42 GENERAL EXAM: Alert, 76-year-old female, laying supine,, comfortable in no apparent distress. HEAD: Normocephalic and atraumatic EYES: Normal reaction of pupils, equal size. NOSE: Clear with pink turbinates. THROAT: No erythema or exudates. NECK: No masses, no JVD. CHEST: No chest wall deformity. LUNGS: Equal air entry with no crackles, wheeze, rhonchi or dullness. on 2 L nasal cannula. No conversational dyspnea or accessory muscle use. CVS: S1 and S2 normal with no audible murmur, regular rhythm. ABDOMEN: No hepatosplenomegaly, normal bowel sounds, no guarding or rigidity. SPINE: No scoliosis or deformity SKIN: No rashes CENTRAL NERVOUS SYSTEM: No focal deficits, tone is normal in all 4 extremities. EXTREMITIES: There is no peripheral edema, clubbing, or cyanosis. there are bilateral groin access sites that are soft without obvious hematomas. Peripheral pulses are intact. Results - Laboratory Findings CBC and BMP: 04/09/22 11:10 04/09/22 11:10 PT/INR, D-dimer PT 10.7 sec (9.0-12.0) 04/09/22 11:10 INR 1.0 (<1.2) 04/09/22 11:10 Abnormal lab findings: Abnormal Labs 04/09/22 04/09/22 04/09/22 07:50 10:46 11:10 RBC 2.60 L Hgb 7.8 L D Hct 23.0 L Sodium BUN Glucose POC Glucose (mg/dL) 144 H 131 H Calcium Total Protein Albumin 04/09/22 11:10 RBC Hgb Hct Sodium 136 L BUN 24 H Glucose 118 H POC Glucose (mg/dL) Calcium 7.8 L Total Protein 4.7 L Albumin 2.5 L - Diagnostic Findings Chest x-ray: image reviewed Assessment and Plan Assessment: severe aortic stenosis post transcatheter aortic valve replacement. no obvious complications noted. Patient is receiving postoperative antibiotic prophylaxis in the form of cefazolin. Patient is currently on bed rest. Bilateral groin access sites are soft to palpation without obvious hematoma formation. postoperative anemia. We will recheck patient's H&H Hypertension Hyperlipidemia coronary artery disease diabetes mellitus type 2 [id number]. patient normally takes metformin and Actos at home. History of PCI with a stent to the LAD in 2019 history of TIA 2 without any residual deficits ex-smoker remote history of MRSA infection in 2013 Plan: patient's medications, labs, chest x-ray reviewed No obvious complications from surgery a postoperative echocardiogram is ordered for tomorrow we will recheck H&H and continue to monitor for any bleeding maintain bedrest per cardiology continue postoperative antibiotic prophylaxis in the form of cefazolin Continue supplemental oxygen to maintain oxygen saturation 92% or greater continue DVT and GI prophylaxis May use NovoLog sliding scale for glucose coverage per protocol we will continue to follow I have personally seen and examined the patient, performed the documentation and the assessment and plan as written. Number of minutes spent on the visit: . 20 Intensive care unit hemodynamically stable. There is a drop in hemoglobin post surgery. Hemoglobin is going to be repeated. The surgical wound site dry clean and intact. There is no evidence of any bleeding. The patient is currently calm and comfortable on room air oxygen. Chest x-ray was reviewed. Medication was reviewed. We'll continue to follow. We'll keep the patient ICU for the next 24 hours. Time with Patient: Greater than 30
[2022-04-09 16:36] LABS: Glucose,Whole Blood 132 mg/dL (70-110)
[2022-04-09] MEDS: INSULIN ASPART (NovoLOG) 100 UNIT/ML VIAL SQ SCH ×2 (16:48→23:19)
[2022-04-09 19:29] LABS: HCT 30.7 % (34.0-46.0); MCHC 31.8 g/dL (31.0-37.0); MCV 91.2 fL (80.0-100.0); Mean Platelet Volume 8.5; Platelet Count 192 k/uL (150-450); RBC 3.37 m/uL (3.80-5.40); RDW 14.9 % (11.5-15.5); WBC 7.4 k/uL (3.8-10.6)
[2022-04-09 19:39] LABS: HGB 9.8 gm/dL (11.4-16.0)
--- NOTE | 2022-04-09 19:55 | OP ---
OPERATIVE REPORT CO-SURGEONS: Dr. Lev Mesa and Dr. Tony Cervantes. PREOPERATIVE DIAGNOSIS: Severe symptomatic aortic valve stenosis. POSTOPERATIVE DIAGNOSIS: Severe symptomatic aortic valve stenosis. PROCEDURES PERFORMED: 1. Insertion of right ventricular temporary pacing wire. 2. Transcatheter aortic valve replacement using a 26-mm Evolut FX CoreValve. DESCRIPTION OF PROCEDURE: The technical details will be dictated by Structural Cardiology. To mention that I fully participated in the proper deployment of a 26-mm FX CoreValve from [employer] in proper anatomic position with NIKKIE showing essentially trace paravalvular leak and very low residual gradient. There were no change to the EKG. MMODL / IJN: [id number] /
[2022-04-09] MEDS: METOPROLOL TARTRATE 50 MG TAB PO SCH (19:58)
[2022-04-09 20:16] LABS: Glucose,Whole Blood 138 mg/dL (70-110)
[2022-04-09] MEDS: HEPARIN SODIUM,PORCINE/PF 5,000 UNIT/0.5 ML SYRINGE SQ SCH (23:44)
[2022-04-10 05:23] LABS: Basophils % (A) 0 %; Eosinophils # (A) 0.3 k/uL (0-0.7); Eosinophils % (A) 4 %; HCT 25.6 % (34.0-46.0); HGB 8.4 gm/dL (11.4-16.0); Lymphocytes % (A) 16 %; MCH 29.4 pg (25.0-35.0); Mean Platelet Volume 8.3; Monocytes # (A) 0.4 k/uL (0-1.0); Monocytes % (A) 6 %; Neutrophils # (A) 4.7 k/uL (1.3-7.7); Neutrophils % (A) 73 %; Platelet Count 178 k/uL (150-450); RBC 2.88 m/uL (3.80-5.40); RDW 14.5 % (11.5-15.5); WBC 6.4 k/uL (3.8-10.6)
[2022-04-10 05:41] LABS: Calcium 8.3 mg/dL (8.4-10.2); Magnesium 2.3 mg/dL (1.6-2.3); Potassium 4.6 mmol/L (3.5-5.1); Total Bilirubin 0.4 mg/dL (0.2-1.3); Total Protein 5.4 g/dL (6.3-8.2)
[2022-04-10] MEDS ORDERED: LEVOTHYROXINE 75 MCG TAB PO SCH (06:30)
[2022-04-10 06:37] LABS: Glucose,Whole Blood 140 mg/dL (70-110)
[2022-04-10] MEDS: INSULIN ASPART (NovoLOG) 100 UNIT/ML VIAL SQ SCH ×2 (06:42→12:45)
[2022-04-10] MEDS ORDERED: PANTOPRAZOLE 40 MG TABLET PO SCH (07:30)
[2022-04-10] MEDS: HEPARIN SODIUM,PORCINE/PF 5,000 UNIT/0.5 ML SYRINGE SQ SCH (08:56)
[2022-04-10] MEDS: METOPROLOL TARTRATE 50 MG TAB PO SCH (08:56)
--- NOTE | 2022-04-10 08:56 | XR ---
EXAMINATION TYPE: XR chest 1V portable DATE OF EXAM: 04/10/2022 Comparison: 04/09/2022 Clinical History: 76-year-old female Post Operative Cardiac Surgery Findings: Heart limits of normal in size. Endovascular aortic valve replacement. Aorta and pulmonary vasculatur e are within normal. Minimal residual patchy retrocardiac density remains, improving from prior. No p leural effusion. Impression: Minimal residual patchy retrocardiac atelectasis versus infiltrate, improving from prior.
[2022-04-10] MEDS ORDERED: bisacodyL 10 MG SUPP RECTAL PRN (09:00)
[2022-04-10] MEDS ORDERED: amLODIPine 5 MG TAB PO SCH (09:00)
[2022-04-10] MEDS ORDERED: CLOPIDOGREL 75 MG TAB PO SCH (09:00)
[2022-04-10] MEDS ORDERED: PIOGLITAZONE 30 MG TAB PO SCH (09:00)
[2022-04-10] MEDS ORDERED: FUROSEMIDE 20 MG TAB PO SCH (09:00)
[2022-04-10] MEDS ORDERED: ASPIRIN 81 MG PO SCH (09:00)
[2022-04-10] MEDS ORDERED: ATORVASTATIN 80 MG TAB PO SCH (09:00)
--- NOTE | 2022-04-10 09:58 | P.PN ---
Subjective Progress Note Date: 04/10/22 I'm seeing this patient today 04/09/2022 for a new consultation in the ICU post transcatheter aortic valve replacement. this is a pleasant 76-year-old female with the pertinent past medical history of coronary artery disease, PCI with stent placement, hyperlipidemia, hypertension, diabetes mellitus type 2 [id number], TIA 2, remote history of MRSA in 2012, osteoarthritis, and multiple orthopedic surgeries. Patient had some initial concern of progressive exertional shortness of breath, chest pain, and lower extremity swelling. This prompted a cardiac evaluation which ultimately revealed severe aortic stenosis. a NIKKIE performed on 02/05/2022 revealed a tricuspid aortic valve which was heavily calcified, and severe aortic stenosis with a maximum velocity of 3.7 m/s. patient did undergo an elective transcatheter aortic valve replacement today with Dr. Leung, Dr. Tamez, and Dr. Cervantes. no complications were reported. the patient is currently resting comfortably supine in bed, in formerly [facility] ICU, on 2 L nasal cannula, in no acute distress. a postoperative chest x-ray showed some postsurgical changes without focal consolidation or pneumothorax. patient's postoperative CBC showed a drop in hemoglobin to 7.8 g/dL. This will have to be repeated. bilateral groin access sites are soft to palpation, without obvious hematoma. The rest of the patient's CBC was fairly stable with a WBC count of 5.9, platelets 169,000. patient's BMP shows a sodium 136, potassium 3.7, chloride 107, serum CO2 26, BUN 24, creatinine 0.98, glucose 118. patient's heart rhythm is currently normal sinus without any current ectopy. blood pressure is slightly hypertensive. She has not required any fluid boluses or pressors. patient is receiving DVT prophylaxis in the form of heparin and GI prophylaxis with Protonix. patient is currently hemodynamically stable. 04/10/2022, the patient is postop day #1. She is doing extremely well. No cardiac events. No cardiac arrhythmias. Cardiac rhythm is sinus. No neurologic deficits. No shortness of breath. She is on room air oxygen. Hemoglobin has remained stable and the level from today is at 8.4. Platelet counts are normal at 178. BUN is at 19 with a creatinine of 0.9. She has no complaints. The surgical one-sided in the groin are dry clean and intact. No hematoma formation. Objective - Vital Signs Vital signs: Vital Signs Temp 98.0 F 04/10/22 08:00 Pulse 63 04/10/22 09:00 Resp 12 04/10/22 09:00 BP 119/43 04/10/22 09:00 Pulse Ox 93 L 04/10/22 09:00 FiO2 Intake & Output 04/09/22 04/10/22 04/10/22 18:59 06:59 18:59 Intake Total 1500 290 718 Output Total 250 600 0 Balance 1250 -310 718 Weight 81.3 kg 82.8 kg Intake: IV 750 20 Invasive Line 1 10 Invasive Line 2 10 Intake, IV Titration 450 50 100 Amount Lactated Ringers 1,000 ml 200 @ 50 mls/hr IV .Q20H [facility] Rx#:[id number] Magnesium Sulfate-D5w Pmx 200 1 gm In Dextrose/Water 1 100ml.bag @ 100 mls/hr IVPB Q1H [facility] Rx#: [id number] ceFAZolin 2 gm In Sodium 50 50 100 Chloride 0.9% 50 ml @ 100 mls/hr IVPB Q8HR [facility] Rx# :[id number] Oral 300 240 598 Output: Urine 250 600 0 ABP, PAP, CO, CI - Last Documented Arterial Blood Pressure 131/40 - Exam GENERAL EXAM: Alert, 76-year-old female, laying supine,, comfortable in no apparent distress. HEAD: Normocephalic and atraumatic EYES: Normal reaction of pupils, equal size. NOSE: Clear with pink turbinates. THROAT: No erythema or exudates. NECK: No masses, no JVD. CHEST: No chest wall deformity. LUNGS: Equal air entry with no crackles, wheeze, rhonchi or dullness. on 2 L nasal cannula. No conversational dyspnea or accessory muscle use. CVS: S1 and S2 normal with no audible murmur, regular rhythm. ABDOMEN: No hepatosplenomegaly, normal bowel sounds, no guarding or rigidity. SPINE: No scoliosis or deformity SKIN: No rashes CENTRAL NERVOUS SYSTEM: No focal deficits, tone is normal in all 4 extremities. EXTREMITIES: There is no peripheral edema, clubbing, or cyanosis. there are bilateral groin access sites that are soft without obvious hematomas. Peripheral pulses are intact. - Labs CBC & Chem 7: 04/10/22 04:52 04/10/22 04:52 Labs: Abnormal Lab Results - Last 24 Hours (Table) 04/09/22 04/09/22 04/09/22 Range/Units 10:46 11:10 11:10 RBC 2.60 L (3.80-5.40) m/uL Hgb 7.8 L D (11.4-16.0) gm/dL Hct 23.0 L (34.0-46.0) % Sodium 136 L (137-145) mmol/L BUN 24 H (7-17) mg/dL Glucose 118 H (74-99) mg/dL POC Glucose (mg/dL) 131 H (70-110) mg/dL Calcium 7.8 L (8.4-10.2) mg/dL Total Protein 4.7 L (6.3-8.2) g/dL Albumin 2.5 L (3.5-5.0) g/dL 04/09/22 04/09/22 04/09/22 Range/Units 16:34 18:53 20:14 RBC 3.37 L (3.80-5.40) m/uL Hgb 9.8 L D (11.4-16.0) gm/dL Hct 30.7 L (34.0-46.0) % Sodium (137-145) mmol/L BUN (7-17) mg/dL Glucose (74-99) mg/dL POC Glucose (mg/dL) 132 H 138 H (70-110) mg/dL Calcium (8.4-10.2) mg/dL Total Protein (6.3-8.2) g/dL Albumin (3.5-5.0) g/dL 04/10/22 04/10/22 04/10/22 Range/Units 04:52 04:52 06:35 RBC 2.88 L (3.80-5.40) m/uL Hgb 8.4 L (11.4-16.0) gm/dL Hct 25.6 L (34.0-46.0) % Sodium 134 L (137-145) mmol/L BUN 19 H (7-17) mg/dL Glucose 131 H (74-99) mg/dL POC Glucose (mg/dL) 140 H (70-110) mg/dL Calcium 8.3 L (8.4-10.2) mg/dL Total Protein 5.4 L (6.3-8.2) g/dL Albumin 3.0 L (3.5-5.0) g/dL Assessment and Plan Assessment: severe aortic stenosis post transcatheter aortic valve replacement. no obvious complications noted. Patient is receiving postoperative antibiotic prophylaxis in the form of cefazolin. Patient is currently on bed rest. Bilateral groin access sites are soft to palpation without obvious hematoma formation. She is postop day #1. She is doing extremely well for now. postoperative anemia. No evidence of any bleeding and the patient has a stable hemoglobin of 8.4. Hypertension Hyperlipidemia coronary artery disease diabetes mellitus type 2 [id number]-[id number]. patient normally takes metformin and Actos at home. History of PCI with a stent to the LAD in 2019 history of TIA 2 without any residual deficits ex-smoker remote history of MRSA infection in 2012 Plan: Awaiting the results of the postop echocardiogram Chest x-rays adequate Hemodynamically stable Neurologically intact Hemoglobin is stable Cardiac rhythm is sinus Tolerating diet and ambulating Possible home today
--- NOTE | 2022-04-10 10:02 | CA ---
Transthoracic Echo Report Name: Inge Montoya Age: 76 Gender: F : 1945 Exam Date: 04/10/2022 07:31 Exam Location: [facility] Ht (in): 60 Wt (lb): 179 Ordering Physician: Alma Reina Attending/Referring Phys: [id number], Latosha Direct Support Staff Member Diandra Matthews RDCS Procedure CPT: Indications: post TAVR Cardiac Hx: Technical Quality: Fair Contrast 1: Total Dose (mL): Contrast 2: Total Dose (mL): MEASUREMENTS (Male / Female) Normal Values 2D ECHO LV Diastolic Diameter PLAX 4.1 cm 4.2 - 5.9 / 3.9 - 5.3 cm LV Systolic Diameter PLAX 2.4 cm IVS Diastolic Thickness 1.6 cm 0.6 - 1.0 / 0.6 - 0.9 cm LVPW Diastolic Thickness 1.6 cm 0.6 - 1.0 / 0.6 - 0.9 cm LV Relative Wall Thickness 0.8 RV Internal Dim ED PLAX 2.8 cm LVOT Diameter 1.5 cm LA Volume 63.1 cm??? 18 - 58 / 22 - 52 cm??? DOPPLER AV Peak Velocity 185.7 cm/s AV Peak Gradient 13.8 mmHg AV Mean Velocity 122.6 cm/s AV Mean Gradient 6.7 mmHg AV Velocity Time Integral 37.8 cm LVOT Peak Velocity 100.1 cm/s LVOT Peak Gradient 4.0 mmHg LVOT Velocity Time Integral 23.0 cm LVOT Stroke Volume 40.6 cm??? LVOT Stroke Volume Index 22.8 ml/m??? LVOT Cardiac Index 1393.7 cm???/min???m??? AV Area Cont Eq vti 1.1 cm??? AV Area Cont Eq pk 0.9 cm??? MV Area PHT 3.0 cm??? Mitral E Point Velocity 106.7 cm/s Mitral A Point Velocity 125.3 cm/s Mitral E to A Ratio 0.9 MV Deceleration Time 255.7 ms MV E' Velocity 4.9 cm/s Mitral E to MV E' Ratio 22.0 TR Peak Velocity 190.2 cm/s TR Peak Gradient 14.5 mmHg Right Ventricular Systolic Press 19.1 mmHg FINDINGS Left Ventricle Moderately increased left ventricular wall thickness. Left ventricular cavity size normal. Normal left ventricular systolic function with no obvious regional wall motion abnormalities. Left ventricular ejection fraction is estimated at 55-60 %. Right Ventricle Normal right ventricular size and function. Right ventricular systolic pressure within normal limits. Right Atrium Normal right atrial size. Left Atrium Moderately increased left atrial volume. Mildly increased left atrial area. Mitral Valve Structurally normal mitral valve. No mitral stenosis. Mild mitral annular calcification. Mild mitral regurgitation. Centrally directed mitral regurgitation jet. Aortic Valve S/P TAVR. Normally functioning bioprosthetic aortic valve without stenosis with a peak velocity of 1.9 m/s, peak gradient 14 mmHg, mean gradient 7 mmHg, and estimated aortic valve area of 1.1 cm???. Tricuspid Valve Structurally normal tricuspid valve. Mild tricuspid regurgitation. Pulmonic Valve Trace pulmonic regurgitation. Pericardium No pericardial effusion. Aorta Normal size aortic root and proximal ascending aorta. CONCLUSIONS Normally functioning bioprosthetic valve in aortic position without any evidence of valvular perivalvular leak Normal LV function Previewed by: Dr. Eliezer Stoll MD (Electronically Signed) Final Date: 10 April 2022 10:01
--- NOTE | 2022-04-10 12:30 | P.DS ---
Providers Date of admission: 04/09/22 10:09 Expected date of discharge: 04/10/22 Attending physician: Lev Mesa Consults: 04/09/22 08:00 Consult to Anesthesia Routine Consulting Provider: Anesthesia,Services Consult Reason/Comments: Cardiac Surgery Pre-Op 04/09/22 11:01 Consult Physician Routine Consulting Provider: Ferdniand Quiroga Consult Reason/Comments: Mechanist Consult: post cardiac surgery Do you want consulting provider notified?: Yes Consult Physician Routine Consulting Provider: Rose Leung Consult Reason/Comments: post TAVR Do you want consulting provider notified?: Already Contacted Primary care physician: Piyush Morrison [facility] Course: MEDICAL HISTORY: 1. Severe symptomatic aortic valve stenosis, NYHA class III symptoms 2. Peripheral vascular disease with critical disease involving the right and left common iliac arteries, status post successful stenting of the left and right common iliac arteries, status post shockwave of the right common iliac artery by Dr. Tamez 3. History of coronary artery disease status post PCI to her circumflex and LAD coronary artery in 2018 4. Hypertension 5. Hyperlipidemia 6. Diabetes mellitus, hemaglobin A1C 6.3% 6. Chronic anemia 7. History of TIA 2 8. Hypothyroid 9. Osteoarthritis 10. COPD with a preoperative FEV1 75% of predicted value the base volume of 1.25 L 11. Remote history of nicotine dependence PROCEDURE: 1. Percutaneous aortic valve implantation using a 26 mm Evolut-FX 2. Transesophageal echocardiography performed by anesthesia 3. Ultrasound-guided access and repair of right and left femoral artery access site by Perclose closure device and Angio-Seal device only on the right 4. Placement of temporary pacemaker wire 5. Aortic root angiography 6. Bilateral iliac and bilateral femoral angiogram HISTORY OF PRESENT ILLNESS: This is a 6-year-old female who follows on an outpatient basis with Dr. Morrison for her primary care and Dr. Sury Stoll for cardiology. She has a known history of severe aortic valve stenosis and has been symptomatic with increased exertional dyspnea. She had been referred to structural heart clinic for evaluation for transcatheter aortic valve replacement after heart catheterization and echocardiogram were completed. Echocardiography demonstrated normal systolic function with EF 55%, aortic valve area 0.6 cm with a maximum velocity 3.7 m/s and a mean gradient of 36 mmHg. Heart catheterization showed mild to moderate coronary artery disease with mild luminal irregularities of the LAD, a 50-60% proximal right coronary artery stenosis and aortic valve stenosis with a mean gradient of 34 mmHg. After workup was completed STS risk score was calculated along with incremental risk and the patient was felt to be intermediate risk for surgical aortic valve replacement, therefore transcatheter aortic valve replacement was recommended. The usual course of TAVR was discussed in detail the patient, risks and benefits were reviewed, shared decision making between cardiology, cardiothoracic surgery, and the patient took place and the patient consented to proceed with the procedure. HOSPITAL COURSE: The patient was brought to the hospital on 04/09/22, was taken to the extended stay area, prepared in the usual fashion, and subsequently taken to the cardiac catheterization laboratory where Dr. Tamez and Dr. Leung completed TAVR procedure under general anesthesia with fluoroscopy and NIKKIE. The valve was deployed under rapid ventricular pacing and proceeded without event. At the end of the procedure there was no significant gradient, hemodynamics were felt to be acceptable, and there was trace to mild of significant paravalvular leak. Upon completion of the procedure the patient was extubated and was transferred to the cardiovascular intensive care unit where she was recovered and monitored hemodynamically. Her oxygen was titrated down, she was tolerating oral diet, her pain was controlled, follow-up TTE was acceptable, and she was ready to be discharged to home on postoperative day #1. She has received written and verbal instruction regarding her medications, activity restrictions, signs and symptoms requiring physician notification, and follow-up appointments. Plan - Discharge Summary Discharge Rx Participant: No New Discharge Prescriptions: Continue Atorvastatin [Lipitor] 80 mg PO DAILY Ergocalciferol [Vitamin D2 (DRISDOL)] 50,000 units PO MO Pioglitazone HCl 30 mg PO DAILY Furosemide [Lasix] 20 mg PO DAILY Levothyroxine Sodium [Synthroid] 75 mcg PO QAM Aspirin [Adult Low Dose Aspirin EC] 81 mg PO DAILY Nitroglycerin Sl Tabs [Nitrostat] 0.4 mg SUBLINGUAL Q5M PRN #30 tab PRN Reason: Chest Pain metFORMIN HCL 500 mg OP DAILY amLODIPine [Norvasc] 5 mg PO DAILY Metoprolol Tartrate [Lopressor] 50 mg PO BID #60 tab Acetaminophen Tab [Tylenol] 650 mg PO Q6HR PRN tab PRN Reason: Fever And/ Or Pain Clopidogrel [Plavix] 75 mg PO DAILY #90 tablet Discharge Medication List Atorvastatin [Lipitor] 80 mg PO DAILY 10/10/14 [History] Ergocalciferol [Vitamin D2 (DRISDOL)] 50,000 units PO MO 05/02/15 [History] Furosemide [Lasix] 20 mg PO DAILY 10/31/21 [History] Pioglitazone HCl 30 mg PO DAILY 10/31/21 [History] amLODIPine [Norvasc] 5 mg PO DAILY 10/31/21 [History] Aspirin [Adult Low Dose Aspirin EC] 81 mg PO DAILY 02/04/22 [History] Levothyroxine Sodium [Synthroid] 75 mcg PO QAM 02/04/22 [History] Acetaminophen Tab [Tylenol] 650 mg PO Q6HR PRN tab 02/07/22 [Rx] Metoprolol Tartrate [Lopressor] 50 mg PO BID #60 tab 02/07/22 [Rx] Nitroglycerin Sl Tabs [Nitrostat] 0.4 mg SUBLINGUAL Q5M PRN #30 tab 02/07/22 [Rx] Clopidogrel [Plavix] 75 mg PO DAILY #90 tablet 04/03/22 [Rx] metFORMIN HCL 500 mg OP DAILY 04/07/22 [History] Follow up Appointment(s)/Referral(s): Piyush Morrison MD [Primary Care Provider] - As Needed Clinic,Structural Heart [NON-STAFF] - 05/09/22 2:00 pm (Please come to the Valve Clinic office 05/09/2022 @ 2 pm before your appointment with Dr. Stoll, and 03/10/2023 @ 1:15 pm before your appointment with Dr. Stoll) Eliezer Stoll MD [STAFF PHYSICIAN] - 04/16/22 4:00 pm (Your appointment in 1 week is for groin check. You also have a 30 day post TAVR echo and appointment with Dr. Stoll 05/09/2022 @ 2:30 pm, and a 1 year post TAVR echo and appointment with Dr. Stoll 03/10/2023 @ 1:45 pm) Ambulatory/Diagnostic Orders: Complete Blood Count w/diff [LAB.AMB] Time Frame: 05/09/22, Facility: [facility], Location: [facility] Complete Blood Count w/diff [LAB.AMB] Time Frame: 04/08/22, Facility: [facility], Location: [facility] Complete Blood Count w/diff [LAB.AMB] Time Frame: 03/10/23, Facility: [facility], Location: Laboratory [facility] Comprehensive Metabolic Panel [LAB.AMB] Time Frame: 03/10/23, Facility: [facility], Location: [facility] Comprehensive Metabolic Panel [LAB.AMB] Time Frame: 05/09/22, Facility: [facility], Location: [facility] Comprehensive Metabolic Panel [LAB.AMB] Time Frame: 04/08/22, Facility: [facility], Location: Laboratory [facility] Activity/Diet/Wound Care/Special Instructions: DISCHARGE INSTRUCTIONS: 1. No driving for 1 week, or until physician gives their ok. 2. No lifting, pushing, or pulling more than 5-10 pounds for 1 week. 3. Hold both groins when you cough or sneeze for the next 2 weeks. Bruising is common, but report increased swelling, pain or fever >101F 4. Shower daily. No pool, hot tub, or bathtub for 1 week 5. No powders, lotions, ointments on incisions. 6. No straining, including for bowel movements. Use stool softner if necessary 7. Stairs are not an issue. Go slowly, using handrail and take 1 step at a time. Ambulate several times daily 8. Continue pain control per as needed orders. 9. Take only the medications listed on your discharge form 10. Eat low salt (limited to 2 grams or 2000 milligrams) daily, avoid adding salt, avoid canned/processed foods 11. Take your weight daily in the morning and record, bring with you to your follow up appointments 12. Keep all follow up appointments. You will need a valve clinic appointment at 30 days and 1 year post procedure for follow up 13. You have been referred to and are expected to begin Cardiac Rehab in approximately 4 weeks. 14. You will need antibiotics prior to any dental work, including cleanings, and any surgeries to prevent Endocarditis (bacterial infection in your heart) For any questions or concerns please call your valve coordinators: Alma or Carlos @ Discharge Disposition: HOME SELF-CARE
[2022-04-10 12:37] VITALS: BP 133/47; PULSE 63; RESP 17; TEMP 97.7
--- NOTE | 2022-04-10 13:32 | CDI ---
Documentation Clarification Form Date: 04/10/2022 1:19:04 PM From: Tiffanie Corral CCS, CCDS Admit Date: 04/09/2022 10:09:00 AM Patient Name: Inge Montoya Visit Number: [id number] Discharge Date: ATTENTION: The Clinical Documentation Specialists (CDI) and [facility] Coding Staff appreciate your assistance in clarifying documentation. Please respond to the clarification below the line at the bottom and electronically sign. The CDI & [facility] Coding staff will review the response and follow-up if needed. Please note: Queries are made part of the Legal Health Record. If you have any questions, please contact the author of this message via ITS. Dr. Ferdinand Quiroga: Postoperative Anemia, no evidence of any bleeding, Hgb 8.4 is documented in the 04/10 Pulmonary/Critical Care Progress Note. Additional clarification is requested regarding the relationship, if any, that exists between the diagnosis and the procedure. Patients Admitting Diagnosis per the 04/09 OR Note: Severe symptomatic aortic valve stenosis. Post-Operative Diagnosis: same. Procedure performed 04/09: Insertion of right ventricular temporary pacing wire. TAVR. History/Risk Factors per the 04/09 Pulmonary/Critical Care Consult: CAD w/stent placement, PVD with stents, NIDDM II, Hyperlipidemia, Hypertension, TIA x2, MRSA 2013, Former smoker. Clinical Indicators: Presented for the above elective surgery. LABS: Hemoglobin 04/09: 7.8, 9.8; 04/10: 8.4. Hematocrit: 04/09: 23.0, 30.7; 25.6. Treatment 04/09: I&Os, Pneumatic Compression Sleeve, IV Zofran 4 mg q6H/prn, INH Duoneb 3 ml q2H/prn, IV Lactated Ringers 1,000 mls @ 50 mls/hr q20H, Nitro 0.4 mg q5M/prn, po K-Dur 40 meq x1, IV Mag Sulfate/Dextrose 100 mls @ 100 mls/hr q1H, IV Cefazolin 50 mls @ 100 mls/hr q8H. What relationship, if any, exists between the diagnosis of Postoperative Anemia and the procedure and please clarify the specific type of Anemia: [ ] Acute Blood Loss Anemia is a complication of surgical procedure [ ] Acute Blood Loss Anemia is an expected outcome of the surgical procedure [ ] Acute Blood Loss Anemia is related to patients co-morbid condition(s), please specify: and is not a complication of the procedure [ x] Other please specify: [ ] Unable to determine (Template Last Revised: May 2020) MTDD
[2022-04-10] MEDS ORDERED: SENNOSIDES-DOCUSATE SODIUM 1 EACH TAB PO SCH (21:00)
[2022-04-14] MEDS ORDERED: ERGOCALCIFEROL 1,250 MCG (50,000 IU) CAPSULE PO SCH (09:00)
== END 2022-04-10 13:30 | disposition home or self-care (01) | DRG 267 ==
LOC: CATHCVL 07:13 → 2SICU 10:09 → CATHCVL 10:09 → 2SICU 10:14
PROVIDERS: ADMIT Internal Medicine Interventional Cardiology; ATTEND Internal Medicine Interventional Cardiology
PROC: B41D1ZZ Fluoroscopy of Aorta and Bilateral Lower Extremity Arteries using Low Osmolar Contrast (ICD-10-PCS; 2022-04-09)
PROC: 02RF38Z Replacement of Aortic Valve with Zooplastic Tissue, Percutaneous Approach (ICD-10-PCS; principal; 2022-04-09 10:15)
PROC: B24BZZ4 Ultrasonography of Heart with Aorta, Transesophageal (ICD-10-PCS; 2022-04-09 10:15)
DX: I35.0 Nonrheumatic aortic (valve) stenosis (principal); Z00.6 Encounter for examination for normal comparison and control in clinical research program; E11.51 Type 2 diabetes mellitus with diabetic peripheral angiopathy without gangrene; D64.9 Anemia, unspecified; E03.9 Hypothyroidism, unspecified; E78.5 Hyperlipidemia, unspecified; J44.9 Chronic obstructive pulmonary disease, unspecified; I10 Essential (primary) hypertension; I25.10 Atherosclerotic heart disease of native coronary artery without angina pectoris; M19.90 Unspecified osteoarthritis, unspecified site; G43.909 Migraine, unspecified, not intractable, without status migrainosus; Z79.02 Long term (current) use of antithrombotics/antiplatelets; Z79.82 Long term (current) use of aspirin; Z79.890 Hormone replacement therapy; Z79.84 Long term (current) use of oral hypoglycemic drugs; Z79.899 Other long term (current) drug therapy; Z86.14 Personal history of Methicillin resistant Staphylococcus aureus infection; Z86.73 Personal history of transient ischemic attack (TIA), and cerebral infarction without residual deficits; Z87.891 Personal history of nicotine dependence; Z95.5 Presence of coronary angioplasty implant and graft; Z96.642 Presence of left artificial hip joint; Z88.5 Allergy status to narcotic agent
CPT/HCPCS: 33210; 33362; 71045; 80053; 82330; 83735; 85025; 85027; 85610; 85730; 86850; 86891; 86900; 86901; 93306; 93312; 93320; 93325

== ENCOUNTER 2022-09-15 16:43 | Emergency (ER) | payer MEDICARE ==
[2022-09-15 17:16] VITALS: TEMP 97.7
--- NOTE | 2022-09-15 17:20 | ED ---
General Adult HPI - General Source: RN notes reviewed <Elena Garcia - Last Filed: 09/15/22 17:15> <Atilio Fernandes - Last Filed: 09/15/22 22:50> - General Stated complaint: Chest Pain Time Seen by Provider: 09/15/22 17:15 - History of Present Illness Initial comments: 77-year-old female resents to the emergency department with a chief complaint of chest pain that started a few hours ago. She reports the pain as sharp that radiates into her left arm. She is complaining of accompanying symptoms of nausea (Elena Garcia) This is a 77-year-old female with a past medical history including diabetes, hypertension, hypothyroidism as well as previous aortic valve replacement in March 2022 presents emergency department for central chest pain. The patient stated that around 3 PM, he had chest pain that started in the center of her ch est that radiated to her left arm. The patient stated that by the time I did evaluate her, the pain had resolved and she felt better to go home. The patient denied any further complaints including any shortness of breath or difficulty in breathing. The patient was resting in bed comfortably. (Atilio Fernandes) - Related Data Home Medications Medication Instructions Recorded Confirmed Atorvastatin [Lipitor] 80 mg PO DAILY 10/10/14 04/09/22 Ergocalciferol [Vitamin D2 50,000 units PO MO 05/02/15 04/09/22 (DRISDOL)] Furosemide [Lasix] 20 mg PO DAILY 10/31/21 04/09/22 Pioglitazone HCl 30 mg PO DAILY 10/31/21 04/07/22 amLODIPine [Norvasc] 5 mg PO DAILY 10/31/21 04/07/22 Aspirin [Adult Low Dose Aspirin EC] 81 mg PO DAILY 02/04/22 04/09/22 Levothyroxine Sodium [Synthroid] 75 mcg PO QAM 02/04/22 04/09/22 Previous Rx's Medication Instructions Recorded Acetaminophen Tab [Tylenol] 650 mg PO Q6HR PRN tab 02/07/22 Metoprolol Tartrate [Lopressor] 50 mg PO BID #60 tab 02/07/22 Nitroglycerin Sl Tabs [Nitrostat] 0.4 mg SUBLINGUAL Q5M PRN #30 tab 02/07/22 Clopidogrel [Plavix] 75 mg PO DAILY #90 tablet 04/03/22 metFORMIN HCL 500 mg PO DAILY #0 04/10/22 Allergies Allergy/AdvReac Type Severity Reaction Status Date / Time codeine Allergy Nausea & Verified 04/07/22 15:55 Vomiting Review of Systems ROS Other: All systems not noted in ROS Statement are negative. <Elena Garcia - Last Filed: 09/15/22 17:15> ROS Other: All systems not noted in ROS Statement are negative. <Atilio Fernandes - Last Filed: 09/15/22 22:50> ROS Statement: Those systems with pertinent positive or pertinent negative responses have been documented in the HPI. 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, heart murmer History of Any Multi-Drug Resistant Organisms: MRSA Date of last positivie culture/infection: 2012 MDRO Source:: UNDER RT BREAST Past Surgical History: Appendectomy, Section, Cholecystectomy, Heart Catheterization With Stent, Hysterectomy, Joint Replacement, Orthopedic Surgery Additional Past Surgical History / Comment(s): CARDIAC STENT X2, CATARACT SURGERY-BILATERAL W IMPLANTS, PAIN CLINIC PROCEDURES , left knee arthroscopy, left hip replacement, NIKKIE Past Anesthesia/Blood Transfusion Reactions: Postoperative Nausea & Vomiting (PONV) Additional Past Anesthesia/Blood Transfusion Reaction / Comment(s): claustrophobia, diff IV starts Date of Last Stent Placement:: 2012 Past Psychological History: No Psychological Hx Reported Additional Psychological History / Comment(s): CLAUSTROPHOBIA Smoking Status: Former smoker Past Alcohol Use History: None Reported Additional Past Alcohol Use History / Comment(s): started smoking 1963, quit 2001, smoked 1 ppd. Past Drug Use History: None Reported - Past Family History Father Additional Family Medical History / Comment(s): drowned at age 32 Daughter(s) Family Medical History: Cancer Additional Family Medical History / Comment(s): colon ca Mother Family Medical History: Cancer Additional Family Medical History / Comment(s): BREAST <Elena Garcia - Last Filed: 09/15/22 17:15> General Exam <Elena Garcia - Last Filed: 09/15/22 17:15> Limitations: no limitations General appearance: alert, in no apparent distress Head exam: Present: atraumatic, normocephalic, normal inspection Eye exam: Present: normal appearance, PERRL Pupils: Present: normal accommodation ENT exam: Present: normal exam, normal oropharynx, mucous membranes moist Neck exam: Present: normal inspection, full ROM Respiratory exam: Present: chest wall tenderness (TTP over the central sternum) Cardiovascular Exam: Present: regular rate, normal rhythm, normal heart sounds GI/Abdominal exam: Present: soft, normal bowel sounds Extremities exam: Present: normal inspection, full ROM Back exam: Present: normal inspection, full ROM Neurological exam: Present: alert, oriented X3, CN II-XII intact Psychiatric exam: Present: normal affect, normal mood Skin exam: Present: warm, dry <Atilio Fernandes - Last Filed: 09/15/22 22:50> - General Exam Comments Initial Comments: Visual Physical Exam Vital signs reviewed General: Well-appearing, nontoxic, no acute distress. Head: Normocephalic, atraumatic Eyes: PERRLA, EOMI ENT: Airway patent Chest: Nonlabored breathing Skin: No visual rash, normal skin tone Neuro: Alert and oriented 3 Musculoskeletal: No gross abnormalities (Elena Garcia) Course Vital Signs 09/15/22 09/15/22 09/15/22 17:14 20:27 20:30 Temperature 97.7 F Pulse Rate 65 65 Respiratory 18 18 Rate Blood Pressure 140/63 154/63 O2 Sat by Pulse 99 97 97 Oximetry 09/15/22 09/15/22 09/15/22 21:00 21:30 22:00 Temperature Pulse Rate 59 L 62 70 Respiratory 16 17 17 Rate Blood Pressure 137/54 142/52 148/50 O2 Sat by Pulse 98 98 97 Oximetry EKG Findings - EKG Comments: EKG Findings:: An EKG was obtained and was interpreted by myself showing a rate of 62, IL interval 196, QRS duration 107 and QTC of 455. This EKG showed a normal sinus rhythm with no ST segment elevation or depression noted. <Atilio Fernandes - Last Filed: 09/15/22 22:50> Medical Decision Making - Lab Data Result diagrams: 09/15/22 17:45 09/15/22 17:45 <Atilio Fernandes - Last Filed: 09/15/22 22:50> - Medical Decision Making Was pt. sent in by a medical professional or institution ([facility] [place], UNISAW OPERATOR, urgent care, hospital, or prison...) When possible be specific @ -No Did you speak to anyone other than the patient for history (EMS, parent, family, police, friend...)? What history was obtained from this source @ -No Did you review nursing and triage notes (agree or disagree)? Why? @ -I reviewed and agree with nursing and triage notes Were old charts reviewed (outside hosp., previous admission, EMS record, old EKG, old radiological studies, urgent care reports/EKG's, prison records)? Report findings @ -No old charts were reviewed Differential Diagnosis (chest pain, altered mental status, abdominal pain women, abdominal pain men, vaginal bleeding, weakness, fever, dyspnea, syncope, headache, dizziness, GI bleed, back pain, seizure, CVA, palpatations, mental health)? @ -ACS, pneumothorax, pneumonia EKG interpreted by me (3pts min.). @ -As above X-rays interpreted by me (1pt min.). @ -Chest x-ray was obtained and was interpreted by myself showing no acute process. CT interpreted by me (1pt min.). @ -None done U/S interpreted by me (1pt. min.). @ -None done What testing was considered but not performed or refused? (CT, X-rays, U/S, labs)? Why? @ -None What meds were considered but not given or refused? Why? @ -None Did you discuss the management of the patient with other professionals (prof [place] i.e. CHERY[facility] [place], UNISAW OPERATOR, lab, RT, psych nurse, social security specialist, manager of radiology, teacher, chief wellness officer, nurse case management)? Give summary @ -No Was smoking cessation discussed for >3mins.? @ -No Was critical care preformed (if so, how long)? @ -No Were there social determinants of health that impacted care today? How? (Homelessness, low income, unemployed, alcoholism, drug addiction, transportat ion, low edu. Level, literacy, decrease access to med. care, [place] [facility], rehab)? @ -No Was there de-escalation of care discussed even if they declined (Discuss DNR or withdrawal of care, Hospice)? DNR status @ -No What co-morbidities impacted this encounter? (DM, HTN, Smoking, COPD, CAD, Cancer, CVA, ARF, Chemo, Hep., AIDS, mental health diagnosis, sleep apnea, morbid obesity)? @ -Hypertension, diabetes, hypothyroidism, previous aortic valve replacement Was patient admitted / discharged? Hospital course, mention meds given and route, prescriptions, significant lab abnormalities, going to OR and other pertinent info. @ -The patient was seen and evaluated emergency department. Physical exam, the patient was resting in bed without any acute distress. Vital signs admission were stable. All laboratory workup was within normal limits and when I went to evaluate the patient, she stated that she felt improved and wanted to go home. Physical exam did show reproducibility of pain on palpation to the anterior midline chest wall and was likely costochondritis as a cause of her chest pain. The patient was stable for discharge home and was advised to follow-up with her bolter helper for further workup and evaluation. The patient was agreeable to this and all her questions were answered. The patient was discharged home in stable condition. Undiagnosed new problem with uncertain prognosis? @ -No Drug Therapy requiring intensive monitoring for toxicity (Heparin, Nitro, Insulin, Cardizem)? @ -No Were any procedures done? @ -No Diagnosis/symptom? @ -Chest pain, costochondritis Acute, or Chronic, or Acute on Chronic? @ -Acute Uncomplicated (without systemic symptoms) or Complicated (systemic symptoms)? @ -Uncomplicated Side effects of treatment? @ -No Exacerbation, Progression, or Severe Exacerbation? @ -No Poses a threat to life or bodily function? How? (Chest pain, [place], VA, pneumonia, PE, COPD, DKA, ARF, appy, cholecystitis, CVA, Diverticulitis, Homicidal, Suicidal, threat to staff... and all critical care pts) @ -No (Atilio Fernandes) - Lab Data Lab Results 09/15/22 09/15/22 09/15/22 Range/Units 17:45 17:45 17:45 WBC 8.5 (3.8-10.6) k/uL RBC 4.42 (3.80-5.40) m/uL Hgb 10.9 L (11.4-16.0) gm/dL Hct 34.9 (34.0-46.0) % MCV 79.0 L (80.0-100.0) fL MCH 24.7 L (25.0-35.0) pg MCHC 31.2 (31.0-37.0) g/dL RDW 17.4 H (11.5-15.5) % Plt Count 180 (150-450) k/uL MPV 9.5 Neutrophils % 51 % Lymphocytes % 39 % Monocytes % 5 % Eosinophils % 4 % Basophils % 1 % Neutrophils # 4.3 (1.3-7.7) k/uL Lymphocytes # 3.3 (1.0-4.8) k/uL Monocytes # 0.4 (0-1.0) k/uL Eosinophils # 0.3 (0-0.7) k/uL Basophils # 0.1 (0-0.2) k/uL Hypochromasia Slight Anisocytosis Slight Microcytosis Slight PT 10.4 (9.0-12.0) sec INR 1.0 (<1.2) APTT 22.2 (22.0-30.0) sec Sodium 139 (137-145) mmol/L Potassium 4.2 (3.5-5.1) mmol/L Chloride 103 (98-107) mmol/L Carbon Dioxide 25 (22-30) mmol/L Anion Gap 11 mmol/L BUN 17 (7-17) mg/dL Creatinine 1.07 H (0.52-1.04) mg/dL Est GFR (CKD-EPI)AfAm 58 (>60 ml/min/1.73 sqM) Est GFR (CKD-EPI)NonAf 50 (>60 ml/min/1.73 sqM) Glucose 117 H (74-99) mg/dL Calcium 9.3 (8.4-10.2) mg/dL Magnesium 1.9 (1.6-2.3) mg/dL Total Bilirubin 0.7 (0.2-1.3) mg/dL AST 28 (14-36) U/L ALT 16 (4-34) U/L Alkaline Phosphatase 79 (38-126) U/L Troponin I (0.000-0.034) ng/mL Total Protein 7.5 (6.3-8.2) g/dL Albumin 4.3 (3.5-5.0) g/dL 09/15/22 Range/Units 17:45 WBC (3.8-10.6) k/uL RBC (3.80-5.40) m/uL Hgb (11.4-16.0) gm/dL Hct (34.0-46.0) % MCV (80.0-100.0) fL MCH (25.0-35.0) pg MCHC (31.0-37.0) g/dL RDW (11.5-15.5) % Plt Count (150-450) k/uL MPV Neutrophils % % Lymphocytes % % Monocytes % % Eosinophils % % Basophils % % Neutrophils # (1.3-7.7) k/uL Lymphocytes # (1.0-4.8) k/uL Monocytes # (0-1.0) k/uL Eosinophils # (0-0.7) k/uL Basophils # (0-0.2) k/uL Hypochromasia Anisocytosis Microcytosis PT (9.0-12.0) sec INR (<1.2) APTT (22.0-30.0) sec Sodium (137-145) mmol/L Potassium (3.5-5.1) mmol/L Chloride (98-107) mmol/L Carbon Dioxide (22-30) mmol/L Anion Gap mmol/L BUN (7-17) mg/dL Creatinine (0.52-1.04) mg/dL Est GFR (CKD-EPI)AfAm (>60 ml/min/1.73 sqM) Est GFR (CKD-EPI)NonAf (>60 ml/min/1.73 sqM) Glucose (74-99) mg/dL Calcium (8.4-10.2) mg/dL Magnesium (1.6-2.3) mg/dL Total Bilirubin (0.2-1.3) mg/dL AST (14-36) U/L ALT (4-34) U/L Alkaline Phosphatase (38-126) U/L Troponin I <0.012 (0.000-0.034) ng/mL Total Protein (6.3-8.2) g/dL Albumin (3.5-5.0) g/dL Disposition <Elena Garcia - Last Filed: 09/15/22 17:15> Is patient prescribed a controlled substance at d/c from ED?: No Time of Disposition: 21:30 <Atilio Fernandes - Last Filed: 09/15/22 22:50> Clinical Impression: Chest pain, Costochondritis Disposition: HOME SELF-CARE Condition: Stable Instructions (If sedation given, give patient instructions): Chest Pain (ED), Costochondritis (ED) Referrals: Eliezer Stoll MD [STAFF PHYSICIAN] - 1-2 days
[2022-09-15 18:39] LABS: Anisocytosis Slight; Basophils # (A) 0.1 k/uL (0-0.2); Basophils % (A) 1 %; Eosinophils # (A) 0.3 k/uL (0-0.7); Eosinophils % (A) 4 %; HCT 34.9 % (34.0-46.0); HGB 10.9 gm/dL (11.4-16.0); Hypochromasia Slight; Lymphocytes # (A) 3.3 k/uL (1.0-4.8); Lymphocytes % (A) 39 %; MCH 24.7 pg (25.0-35.0); MCHC 31.2 g/dL (31.0-37.0); Mean Platelet Volume 9.5; Microcytosis Slight; Monocytes # (A) 0.4 k/uL (0-1.0); Monocytes % (A) 5 %; Neutrophils # (A) 4.3 k/uL (1.3-7.7); Neutrophils % (A) 51 %; Platelet Count 180 k/uL (150-450); RBC 4.42 m/uL (3.80-5.40); RDW 17.4 % (11.5-15.5); WBC 8.5 k/uL (3.8-10.6)
[2022-09-15 18:54] LABS: Partial Thromboplastin Time 22.2 sec (22.0-30.0); Prothrombin Time 10.4 sec (9.0-12.0)
--- NOTE | 2022-09-15 18:54 | XR ---
EXAMINATION TYPE: XR chest 2V DATE OF EXAM: 09/15/2022 6:33 PM COMPARISON: Chest radiographs from 04/10/2022 TECHNIQUE: XR chest 2V Frontal and lateral views of the chest. CLINICAL INDICATION:Female, 77 years old with history of Chest pain; FINDINGS: Lungs/Pleura: There is no evidence of pleural effusion, focal consolidation, or pneumothorax. Pulmonary vascularity: Unremarkable. Heart/mediastinum: Cardiomediastinal silhouette is unremarkable. Musculoskeletal: No acute osseous pathology. IMPRESSION: No acute cardiopulmonary disease/process.
[2022-09-15 19:22] LABS: ALT 16 U/L (4-34); AST 28 U/L (14-36); African American GFR (CKD) 58 (>60 ml/min/1.73 sqM); Albumin 4.3 g/dL (3.5-5.0); Alkaline Phosphatase 79 U/L (38-126); Anion Gap 11 mmol/L; Blood Urea Nitrogen 17 mg/dL (7-17); Calcium 9.3 mg/dL (8.4-10.2); Carbon Dioxide 25 mmol/L (22-30); Chloride 103 mmol/L (98-107); Glucose 117 mg/dL (74-99); Magnesium 1.9 mg/dL (1.6-2.3); Non-African American GFR(CKD) 50 (>60 ml/min/1.73 sqM); Potassium 4.2 mmol/L (3.5-5.1); Sodium 139 mmol/L (137-145); Total Bilirubin 0.7 mg/dL (0.2-1.3); Total Protein 7.5 g/dL (6.3-8.2)
[2022-09-15 22:11] VITALS: BP 148/50; PULSE 70; RESP 17
== END 2022-09-15 22:13 | disposition home or self-care (01) ==
LOC: EC 16:43
DX: R07.89 Other chest pain (principal); M94.0 Chondrocostal junction syndrome [Tietze]; I25.10 Atherosclerotic heart disease of native coronary artery without angina pectoris; E11.9 Type 2 diabetes mellitus without complications; E03.9 Hypothyroidism, unspecified; E78.5 Hyperlipidemia, unspecified; I10 Essential (primary) hypertension; M19.90 Unspecified osteoarthritis, unspecified site; Z86.73 Personal history of transient ischemic attack (TIA), and cerebral infarction without residual deficits; Z79.890 Hormone replacement therapy; Z79.84 Long term (current) use of oral hypoglycemic drugs; Z79.899 Other long term (current) drug therapy; Z79.1 Long term (current) use of non-steroidal anti-inflammatories (NSAID); Z88.5 Allergy status to narcotic agent; Z79.82 Long term (current) use of aspirin; Z87.891 Personal history of nicotine dependence
CPT/HCPCS: 36415; 71046; 80053; 83735; 84484; 85025; 85610; 85730; 93005; 99285

== ENCOUNTER → 2023-02-25 | Outpatient (CLI) | payer MEDICARE ==
[2023-02-25 16:30] LABS: Creatinine,Urine Random 128.6 mg/dL; Protein/Creatinine Ratio,Urine 0.14
[2023-02-25 19:24] LABS: Basophils # (A) 0.05 X 10*3/uL (0.00-0.10); Basophils % (A) 0.8 %; Eosinophils # (A) 0.27 X 10*3/uL (0.04-0.35); Eosinophils % (A) 4.2 %; HCT 31.7 % (37.2-46.3); HGB 9.8 g/dL (12.0-15.0); Lymphocytes # (A) 2.18 X 10*3/uL (0.90-5.00); Lymphocytes % (A) 33.9 %; MCH 25.7 pg (27.0-32.0); MCHC 30.9 g/dL (32.0-37.0); Mean Platelet Volume 12.2 FL (9.5-12.2); Monocytes # (A) 0.55 X 10*3/uL (0.20-1.00); Monocytes % (A) 8.6 %; NRBC Per 100 WBC 0 X 10*3/uL (0.00-0.01); Neutrophils # (A) 3.36 X 10*3/uL (1.80-7.70); Neutrophils % (A) 52.2 %; Platelet Count 227 X 10*3/uL (140-440); RBC 3.82 X 10*6/uL (4.10-5.20); WBC 6.43 X 10*3/uL (4.50-10.00)
[2023-02-25 19:35] LABS: % Iron Saturation 12.23 (12.00-45.00); Albumin 3.8 g/dL (3.8-4.9); Blood Urea Nitrogen 19.9 mg/dL (9.0-27.0); Calcium 9.6 mg/dL (8.7-10.3); Carbon Dioxide 26.3 mmol/L (21.6-31.8); Chloride 103 mmol/L (96-109); Ferritin 14.9 ng/mL (10.0-291.0); Glucose 151 mg/dL (70-110); Iron 51 UG/DL (50-170); Magnesium 1.9 mg/dL (1.5-2.4); Phosphorus 3.3 mg/dL (2.4-5.1); Potassium 4.1 mmol/L (3.5-5.5); Sodium 142 mmol/L (135-145); Total Iron Binding Capacity 417 UG/DL (228-460); Uric Acid 5.9 mg/dL (2.9-7.7)
[2023-02-25 21:25] LABS: Appearance,Urine Clear (Clear); Bilirubin,Urine Negative (Negative); Blood,Urine Negative (Negative); Color,Urine Yellow (Yellow); Ketones,Urine Negative (Negative); Nitrite,Urine Negative (Negative); Specific Gravity,Urine 1.021 (1.001-1.030)
[2023-02-25 21:34] LABS: Bacteria,Urine None Seen (None Seen)
== END | disposition home or self-care (01) ==
LOC: LABWHC1 14:21
PROVIDERS: ATTEND Internal Medicine Nephrology
DX: N18.30 Chronic kidney disease, stage 3 unspecified (principal); D63.1 Anemia in chronic kidney disease; E55.9 Vitamin D deficiency, unspecified; E21.3 Hyperparathyroidism, unspecified; M10.9 Gout, unspecified; N39.0 Urinary tract infection, site not specified; R80.9 Proteinuria, unspecified
CPT/HCPCS: 36415; 80048; 81001; 82040; 82306; 82570; 82728; 83540; 83550; 83735; 83970; 84100; 84156; 84550; 85025; 86334; 86335

== ENCOUNTER → 2023-03-03 | Outpatient (CLI) | payer MEDICARE ==
[2023-03-03 10:49] VITALS: BP 169/83; PULSE 85; RESP 16; TEMP 97.3
--- NOTE | 2023-03-03 13:00 | P.PAINPG ---
PQRS Measure Charge Sheet Comment: HISTORY OF PRESENT ILLNESS: A 77 yr old female w at side as a referral from [facility] presents today w severe and chronic LBP x 3 yrs secondary to anterolisthesis, spondylosis and facet arthropathy without myelopathy for evaluation. Pt states pain level is provoked at 9/10 in intensity, constant, localized in the mid to lower lumbar spine, predominantly axial, achy in character w occasional shooting pain towards the LLE. Pain is provoked by standing/ walking for periods >15 min. Pain is alleviated by chiropractic treatments weekly x 1 yr w last visit in Dec 2022, alternating heat & i8ce, medications (Tyl), topical BioFreeze & Lidocaine, repositioning and rest. Oswestry axial pain score at 36. PMH: OA, CAD, Angina, CVA x2, NIDDM II, Hyperlipidemia, HTN, Respiratory Disorder, Hypothyroid Disorder, Claustrophobia PSH: Appendectomy, C- Section, Cholecystectomy, NIKKIE, Heart Catheterization With Stent x2 (2012), Hysterectomy, L Knee Arthroscopy, L Hip Replacement (2021), BL Cataract Extraction w Lens Implants, LESIs SH: Hx of tobacco use/ Quit in 2001, No ETOH use, No illilcit drug use FH: Mo- Breast CA. Daughter- Colon Ca. Fa- Drowned/ age 32. All: See list Meds: See list REVIEW OF ORGAN SYSTEMS: CONSTITUTIONAL: No fevers or chills. No recent weight loss. NEUROLOGICAL: + numbness and tingling along the distal extremities. No seizure disorders or headaches. MUSCULOSKELETAL: + pain PSYCHIATRIC: Denies current depression or suicidal thoughts. Physical Examinations : Constitutional : Cooperative , not in acute distress . Neurologic : Cranial nerve II to XII intact. No focal neurological deficits. Psychiatric : alert & oriented x 3. Matching mood & appropriate affect. Judgment & insight intact. Musculoskeletal : Cervical Spine Motor strength in the deltoid and biceps: Normal right side. Normal Left side Motor strength biceps and the wrist extensors: Normal right side . Normal left side Motor strength in the triceps muscle: Normal right side. Normal left side Deep tendon reflexes: Normal at the biceps. Normal at Brachioradialis. Normal at triceps Vertebral body tenderness to deep palpation over Cervical facet loading test: positive bilaterally Spurling test: positive bilaterally Neck distraction test: positive bilaterally Carlton sign: positive bilaterally Lumbar spine Motor strength lower extremities ,thigh and legs 5/5 Right side , 5/5 Left side Deep tendon reflexes : Normal Knee Jerk. Normal Ankle Jerk Vertebral body tenderness over L5 Rogers Test positive Lumbar facet Loading Test: positive Right / positive Left Range of motion of the lumbar spine Flexion 30 degrees, extension 10 degrees Straight Leg Raise test: Left/ Right positive at <30 degrees Schuyler test: positive right / positive left. Severe tenderness over the Sacroiliac joint on the Right / Left sides Gaenslen test: positive bilaterally Seated flexion test: positive bilaterally. Sacral spine : Severe tenderness over the Sacroiliac joint: right side / left side Range of motion: Flexion of the lumbar spine <60 degrees Range of motion: Extension of the lumbar spine <20 degrees Gaenslen's Test positive Schuyler test: positive right side / left side Thigh Thrust Test Sacral Thrust Test Imaging: MRI noncontrast of the lumbar spine from 02/22/20 reviewed Assessment/ Plan : Lumbar anterolisthesis, lumbar stenosis Recommendation of L TFESI L5-S1 #1. May need a series of injections for optimal pain relief. Risks, benefits of procedure discussed and patient verbalized understanding. Admits to anti- coagulant use or medical history of diabetes. Protocol for discontinuation/ continuation of medications tone procedure discussed. All questions answered. I have spent greater than 30 minutes on patient care today. Dr Agudelo was available by phone for the evaluation of this patient. The time was used to review the medical records including relevant urine studies and Prescription history (MAPs), review of the available imaging, evaluation and examination of the patient, coordination of care with the medical staff and if applicable referring physicians, as well as creation of the medical record PQRS Narrative: Smoking Status Former smoker Hx Alcohol Use (MH) No Home Medications: Ambulatory Orders Atorvastatin [Lipitor] 80 mg PO DAILY 10/10/14 Ergocalciferol [Vitamin D2 (DRISDOL)] 50,000 units PO MO 05/02/15 Furosemide [Lasix] 20 mg PO DAILY 10/31/21 Pioglitazone HCl 30 mg PO DAILY 10/31/21 amLODIPine [Norvasc] 5 mg PO DAILY 10/31/21 Levothyroxine Sodium [Synthroid] 75 mcg PO QAM 02/04/22 Acetaminophen Tab [Tylenol] 650 mg PO Q6HR PRN tab 02/07/22 Metoprolol Tartrate [Lopressor] 50 mg PO BID #60 tab 02/07/22 Nitroglycerin Sl Tabs [Nitrostat] 0.4 mg SUBLINGUAL Q5M PRN #30 tab 02/07/22 Clopidogrel [Plavix] 75 mg PO DAILY #90 tablet 04/03/22 metFORMIN HCL 500 mg PO DAILY #0 04/10/22 diazePAM [Valium] 5 mg PO DAILY PRN 1 Days #2 tab 03/03/23 Controlled Substance Measures - Controlled Substance Measures Is patient prescribed a controlled substance at discharge?: Yes When asked, does pt state using other controlled substances?: No If prescribed controlled substance>3 days was MAPS reviewed?: Prescribed <3 Days
== END ==
LOC: PNWHC3 10:08
PROVIDERS: ATTEND Specialist
DX: M62.81 Muscle weakness (generalized) (principal); M54.16 Radiculopathy, lumbar region; M48.061 Spinal stenosis, lumbar region without neurogenic claudication; M43.16 Spondylolisthesis, lumbar region; M41.86 Other forms of scoliosis, lumbar region; I25.10 Atherosclerotic heart disease of native coronary artery without angina pectoris; E11.9 Type 2 diabetes mellitus without complications; E78.5 Hyperlipidemia, unspecified; I10 Essential (primary) hypertension; E03.9 Hypothyroidism, unspecified; Z79.84 Long term (current) use of oral hypoglycemic drugs; Z79.02 Long term (current) use of antithrombotics/antiplatelets; Z87.891 Personal history of nicotine dependence; Z86.73 Personal history of transient ischemic attack (TIA), and cerebral infarction without residual deficits; Z88.5 Allergy status to narcotic agent
CPT/HCPCS: 99211

== ENCOUNTER 2023-03-12 11:54 | Day surgery (SDC) | payer MEDICARE ==
[~2023-03-12 11:54] MED LIST changes: -ALPRAZolam 0.25 MG TAB PO PRN; -ASPIRIN 325 MG TAB PO PRN; +LACTATED RINGERS 1,000 ML IV SCH; -SODIUM CHLORIDE 0.9% 1,000 ML in EMPTY BAG 1 BAG IV ONE
[2023-03-12 13:06] LABS: Glucose,Whole Blood 174 mg/dL (70-110)
[2023-03-12 13:26] VITALS: TEMP 97.8
[2023-03-12] MEDS ORDERED: IOPAMIDOL M200 10 ML VIAL ONE (13:41)
[2023-03-12] MEDS ORDERED: methylPREDNISolone ACETATE 40 MG/ML 1 ML VIAL ONE (13:41)
--- NOTE | 2023-03-12 13:48 | P.PCN ---
Date of Procedure: 03/12/23 Procedure(s) Performed: PREOPERATIVE DIAGNOSIS: 1-Lumbar radiculopathy . 2-lumbar degenerative disc disease. 3-lumbar spondylosis with lumbar facet arthropathy without myelopathy POSTOPERATIVE DIAGNOSIS: 1-lumbar radiculopathy. 2-lumbar degenerative disc disease. 3-lumbar spondylosis with facet arthropathy without myelopathy PROCEDURE 1. Transforaminal epidural steroid injection under fluoroscopic guidance at left L5-S1 level. (Fluoroscopy images stored on file in the radiology Department ) 2. Lumbar epidurogram . ANESTHESIA: Local with 1% lidocaine 3 ml. EBL: Minimal PROCEDURE INDICATION: The patient with low back pain and radiculopathy symptoms unresponsive to conservative treatment. PROCEDURE DESCRIPTION / TECHNIQUE: The patient was seen and identified in the preoperative area. Risks, benefits, complications, and alternatives were discussed with the patient. The patient agreed to proceed with the procedure and signed the consent. IV was started, and vital signs were stable. Patient was taken to the OR and time out was completed. The patient was placed in the prone position on procedure table and a pillow was placed under the abdomen to reduce lumbar lordosis. The lumbosacral area was prepped and draped in the usual sterile fashion. Critical pause was taken. Vital signs were closely monitored during the procedure. Using oblique fluoroscopy, the chin of the ``Benson dog at left L5-S1 level was identified, and the skin and deeper tissues just below was localized with 1% lidocaine. Subsequently, a 22-gauge 5-inch spinal needle was advanced under a tunneled view fluoroscopic guidance just underneath the chin of the ``Benson dog at the right/left L4-5 Under lateral fluoroscopy, the needle was then advanced to the posterior border of the interforaminal space. After negative aspiration of CSF and blood and with no paresthesias, 1 mL Isovue 200 contrast dye was injected excellent epidurogram and outlining of the nerve root Subsequently, 3 mL of block solution containing 40 mg Depo-Medrol and 2 mL of 0.9% normal saline PF was injected. Needle was removed . At the end of the procedure, skin was cleansed, and bandages were applied. COMPLICATIONS:none DISPOSITION / PLANS: The patient was placed in a supine position and transferred to the recovery area in a stable condition for observation. There was no evidence of lower extremity motor or sensory deficit after the procedure. Patient was discharged from the recovery room after meeting discharge criteria. Home discharge instructions were given to the patient by the staff. The patient was reexamined prior to discharge.
[2023-03-12 14:15] VITALS: BP 160/80; PULSE 64; RESP 16
--- NOTE | 2023-03-12 14:31 | FL ---
EXAMINATION TYPE: FL guided pain mgmt statistic Intraoperative/procedural fluoroscopic services were provided. Total fluoroscopy time is 6.9 seconds with a total of 1 submitted images to PACS. Please se e the operative/procedural note for further details. DAP: [id number] [id number]
== END 2023-03-12 14:24 | disposition home or self-care (01) ==
LOC: ORPAIN 11:54
PROVIDERS: ATTEND Specialist
DX: M51.16 Intervertebral disc disorders with radiculopathy, lumbar region (principal); M47.26 Other spondylosis with radiculopathy, lumbar region; E11.9 Type 2 diabetes mellitus without complications; Z88.5 Allergy status to narcotic agent
CPT/HCPCS: 64483; J1030; Q9966

== ENCOUNTER → 2023-04-08 | Outpatient (CLI) | payer MEDICARE ==
[2023-04-08 10:45] VITALS: BP 184/86; PULSE 57; RESP 16
--- NOTE | 2023-04-08 11:04 | P.PAINPG ---
PQRS Measure Charge Sheet Comment: HISTORY OF PRESENT ILLNESS: A 77 yr old female w at side presents today w severe and chronic LBP x 3 yrs secondary to anterolisthesis, spondylosis and facet arthropathy without myelopathy for evaluation s/p L TFESI L5-S1 #1. Pt states she experienced 100 % pain relief x 2 days s/p procedure. Pt states pain level is provoked at 8/10 in intensity, constant, localized in the mid to lower lumbar spine, predominantly axial, achy in character w occasional shooting pain towards the L hip and ankle. Pain is provoked by standing/ walking for periods >15 min. Pain is alleviated by chiropractic treatments weekly x 1 yr w last visit in Dec 2022, alternating heat & ice, medications , topical , repositioning and rest. Oswestry axial pain score at 36. Interventional procedures include L TFESI L5-S1 #1 Medications include Tyl, BioFreeze gel, Lidocaine cream REVIEW OF ORGAN SYSTEMS: CONSTITUTIONAL: No fevers or chills. No recent weight loss. NEUROLOGICAL: + numbness and tingling along the distal extremities. No seizure disorders or headaches. MUSCULOSKELETAL: + pain PSYCHIATRIC: Denies current depression or suicidal thoughts. Physical Examinations : Constitutional : Cooperative , not in acute distress . Neurologic : Cranial nerve II to XII intact. No focal neurological deficits. Psychiatric : alert & oriented x 3. Matching mood & appropriate affect. Judgment & insight intact. Musculoskeletal : Cervical Spine Motor strength in the deltoid and biceps: Normal right side. Normal Left side Motor strength biceps and the wrist extensors: Normal right side . Normal left side Motor strength in the triceps muscle: Normal right side. Normal left side Deep tendon reflexes: Normal at the biceps. Normal at Brachioradialis. Normal at triceps Vertebral body tenderness to deep palpation over Cervical facet loading test: positive bilaterally Spurling test: positive bilaterally Neck distraction test: positive bilaterally Carlton sign: positive bilaterally Lumbar spine Motor strength lower extremities ,thigh and legs 5/5 Right side , 5/5 Left side Deep tendon reflexes : Normal Knee Jerk. Normal Ankle Jerk Vertebral body tenderness over L5 Rogers Test positive Lumbar facet Loading Test: positive Right / positive Left Range of motion of the lumbar spine Flexion 30 degrees, extension 10 degrees Straight Leg Raise test: Left/ Right positive at <30 degrees Schuyler test: positive right / positive left. Severe tenderness over the Sacroiliac joint on the Right / Left sides Gaenslen test: positive bilaterally Seated flexion test: positive bilaterally. Sacral spine : Severe tenderness over the Sacroiliac joint: right side / left side Range of motion: Flexion of the lumbar spine <60 degrees Range of motion: Extension of the lumbar spine <20 degrees Gaenslen's Test positive Schuyler test: positive right side / left side Thigh Thrust Test Sacral Thrust Test Imaging: MRI noncontrast of the lumbar spine from 02/22/20 reviewed Assessment/ Plan : Lumbar anterolisthesis, lumbar stenosis Recommendation of medication management [place] 5/325mg #60 w 1 RF. Use, side effects, adverse reactions and safe storage discussed. Opiate/ narcotic agreement signed 04/08/23. Risks, benefits discussed and patient verbalized understanding. All questions answered. I have spent greater than 30 minutes on patient care today. Dr Agudelo was available by phone for the evaluation of this patient. The time was used to review the medical records including relevant urine studies and Prescription history (MAPs), review of the available imaging, evaluation and examination of the patient, coordination of care with the medical staff and if applicable referring physicians, as well as creation of the medical record PQRS Narrative: Smoking Status Former smoker Hx Alcohol Use (MH) No Home Medications: Ambulatory Orders Atorvastatin [Lipitor] 80 mg PO DAILY 10/10/14 Ergocalciferol [Vitamin D2 (DRISDOL)] 50,000 units PO MO 05/02/15 Furosemide [Lasix] 20 mg PO DAILY 10/31/21 Pioglitazone HCl 30 mg PO DAILY 10/31/21 amLODIPine [Norvasc] 5 mg PO DAILY 10/31/21 Levothyroxine Sodium [Synthroid] 75 mcg PO QAM 02/04/22 Acetaminophen Tab [Tylenol] 650 mg PO Q6HR PRN tab 02/07/22 Metoprolol Tartrate [Lopressor] 50 mg PO BID #60 tab 02/07/22 Nitroglycerin Sl Tabs [Nitrostat] 0.4 mg SUBLINGUAL Q5M PRN #30 tab 02/07/22 metFORMIN HCL 500 mg PO DAILY #0 04/10/22 diazePAM [Valium] 5 mg PO DAILY PRN 1 Days #2 tab 03/03/23 diazePAM [Valium] 5 mg PO BID PRN 1 Days #2 tab 12/28/23 HYDROcodone/APAP 5-325MG [[place] 5-325] 1 tab PO BID PRN 30 Days #60 tab 04/08/23 HYDROcodone/APAP 5-325MG [[place] 5-325] 1 tab PO BID PRN 30 Days #60 tab 04/08/23 Controlled Substance Measures - Controlled Substance Measures Is patient prescribed a controlled substance at discharge?: No
== END ==
LOC: PNWHC3 10:08
PROVIDERS: ATTEND Specialist
DX: M48.061 Spinal stenosis, lumbar region without neurogenic claudication (principal); M43.16 Spondylolisthesis, lumbar region; Z87.891 Personal history of nicotine dependence; Z88.5 Allergy status to narcotic agent
CPT/HCPCS: 99211

== ENCOUNTER → 2023-04-17 | Outpatient (CLI) | payer MEDICARE ==
--- NOTE | 2023-04-18 15:18 | MR ---
EXAMINATION TYPE: MR lumbar spine wo con DATE OF EXAM: 04/17/2023 COMPARISON: 02/22/2020 HISTORY: Lower back pain, radiates down back of left thigh. TECHNIQUE: Multiplanar, multisequence images of the lumbar spine were acquired without IV contrast. Findings: There is moderate levoscoliosis lumbar spine. The sagittal images, the lumbar vertebral segments are normal in height and alignment and there is no fracture or subluxation. There is mild degenerative disc disease at multiple levels where there is loss of signal intensity/de siccation and mild circumferential disc bulge at the L3-4, L4-5 and L5-S1 levels. There is no focal disc protrusion or herniation. There is moderate to marked facet hypertrophy at the L4-5 and L5-S1 levels and mild to moderate facet hypertrophy at the L1-2, L2-3 and L3-4 levels. Secondary to disc bulge and thickening of ligamentum flavum, there is a mild spinal stenosis at the L 4-5 level and minimal spinal stenosis at the L3-4 level. There is moderate neural foraminal stenosis at the L3-4 level bilaterally and at the L5-S1 level on t he left. Comparison to the prior study dated 02/22/2020, there is been no significant interval change. IMPRESSION: 1. Moderate levoscoliosis lumbar spine. 2. Diffuse mild degenerative disc disease throughout the lumbar region. 3. No lumbar disc herniation. 4. Mild spinal stenosis L4-5 level and minimal spinal stenosis at the L3-4 level. 5. Moderate neuroforaminal stenosis L3-4 bilaterally and at L5-S1 level on the left. 6. Multilevel facet degeneration as described above moderate to marked in the lower lumbar spine at L 4-5 and L5-S1. 7. No significant interval change compared to previous.
== END | disposition home or self-care (01) ==
LOC: RADMRIMAIN 14:25
PROVIDERS: ATTEND Orthopaedic Surgery
DX: M51.36 Other intervertebral disc degeneration, lumbar region (principal); M48.061 Spinal stenosis, lumbar region without neurogenic claudication; M99.73 Connective tissue and disc stenosis of intervertebral foramina of lumbar region
CPT/HCPCS: 72148

== ENCOUNTER → 2023-05-04 | Outpatient (CLI) | payer MEDICARE ==
[2023-05-04 15:41] LABS: ALT 12 U/L (8-44); AST 19 U/L (13-35); Chol/HDL Ratio 3.55 Ratio; LDL Cholesterol,Calculated 100.6 mg/dL (0.0-131.0)
== END | disposition home or self-care (01) ==
LOC: LABWHC1 09:17
PROVIDERS: ATTEND Internal Medicine Cardiovascular Disease
DX: E78.2 Mixed hyperlipidemia (principal)
CPT/HCPCS: 36415; 80061; 84450; 84460

== ENCOUNTER → 2023-05-04 | Outpatient (CLI) | payer MEDICARE ==
--- NOTE | 2023-05-04 16:47 | CT ---
EXAMINATION TYPE: CT lumbar spine wo con DATE OF EXAM: 05/04/2023 3:47 PM COMPARISON: None HISTORY: LOW BACK PAIN CT DLP: 1438.2 mGycm Automated exposure control for dose reduction was used. Unenhanced CT of the lumbar spine was performed. Bone and soft tissue window settings are submitted as well as coronal and sagittal reconstructions. Findings: There is moderate levoscoliosis of the lumbar spine. On the sagittal images the lumbar vertebral segments are normal in height and alignment and there is no fracture or subluxation. The disc spaces are well-maintained in height. There is minimal degenerative disease at the L5-S1 lev el where there is mild vacuum phenomena. Secondary to facet hypertrophy, circumferential disc bulge and thickening of ligamentum flavum, there is a mild to moderate spinal stenosis at the L4-5 level.. Grossly there are no large disc herniations. There is moderate facet osteoarthritis at the L4-5 and L5-S1 levels. The sacrum and SI joints are nor mal. There is no bony compromise of the neural foramina. IMPRESSION: 1. Moderate levoscoliosis lumbar spine. 2. Minimal degenerative disease at the L5-S1 level. 3. Moderate facet arthropathy in the lower lumbar spine. 4. mild to moderate spinal stenosis L4-5 level. Confirmation with MRI is recommended if clinically in dicated.
== END | disposition home or self-care (01) ==
LOC: RADCTMAIN 14:16
PROVIDERS: ATTEND Orthopaedic Surgery
DX: M47.817 Spondylosis without myelopathy or radiculopathy, lumbosacral region (principal); M48.061 Spinal stenosis, lumbar region without neurogenic claudication; M41.86 Other forms of scoliosis, lumbar region; M51.37 Other intervertebral disc degeneration, lumbosacral region
CPT/HCPCS: 72131

== ENCOUNTER → 2023-09-29 | Outpatient (CLI) | payer MEDICARE ==
--- NOTE | 2023-09-29 15:22 | CT ---
EXAMINATION TYPE: CT pelvis wo con DATE OF EXAM: 09/29/2023 COMPARISON: HISTORY: bilateral hip pain CT DLP: 580 mGycm Automated exposure control for dose reduction was used. Unenhanced CT of the pelvis was performed. La ck of contrast limits evaluation. Bone window settings are reviewed in the axial coronal and sagittal plane. FINDINGS: There are vacuum changes noted of both sacroiliac joints with mild to moderate narrowing seen bilater ally compatible with osteoarthritis. Mild sclerosis is seen along the sacral side of the inferior rig ht SI joint and along the mid and lower sacral and iliac side of the left sacroiliac joint. No erosiv e changes seen. No bony destructive process noted. No evidence for fracture or presacral mass. Incide ntal hysterectomy. Left hip prosthesis in place with scattered artifact limiting portions of the stud y. Dense atheromatous change of the iliac arteries. IMPRESSION: BILATERAL OSTEOARTHRITIS OF THE SACROILIAC JOINTS.
== END | disposition home or self-care (01) ==
LOC: RADCTMAIN 14:48
PROVIDERS: ATTEND Orthopaedic Surgery
DX: M46.1 Sacroiliitis, not elsewhere classified (principal)
CPT/HCPCS: 72192

== ENCOUNTER 2023-10-19 05:37 | Day surgery (SDC) | payer MEDICARE ==
--- NOTE | 2023-10-18 14:49 | P.HPOR ---
History of Present Illness H&P Date: 10/14/23 .D:Date: 10/14/23 : 03:23pm .T:Title: [facility] Age: 78 year Height: 5' Weight: 170 lbs BP:104/79 BMI: 33.20 kg/m2 Occupation: Retired VAS: 9 IMPRESSION: It was my pleasure to have seen and examinedGloria.I reviewed the patient's clinical syndrome, physical findings, and imaging studies during the appointment today. It is my impression that the patient has a diagnosis of. 1. Left sacroiliitis 2. Low back pain SIJ FUSION PATIENT INDICATIONS * Currently, the patient is having moderate to severe pain with functional impairment and the pain has persisted despite a minimum six months of intensive nonoperative treatment that has included medication optimization, activity modification, bracing, and active therapeutic exercise targeted at the lumbar spine, pelvis, SIJ and hip including a home exercise program * The patient reports unilateral pain that is caudal to the lumbar spine (L5 vertebrae), localized over the posterior LEFT SIJ, and consistent with LEFT SIJ pain * We have performed multiple thorough physical examinations of the patient at their visits demonstrating localized tenderness with palpation over the sacral sulcus ([place]) in the absence of tenderness of similar severity elsewhere (e.g. greater trochanter, lumbar spine, coccyx) and no other obvious sources for their pain exist or explain their current symptoms. * They have a positive response to a cluster of 3 provocative tests (e.g. thigh thrust test, compression test, Gaenslens test, distraction test, Patricks sign, posterior provocation test), see above for full exam. * The patient does not have a diagnosis of generalized pain behavior (e.g. somatoform disorder) or generalized pain disorders (e.g. fibromyalgia) Diagnostic imaging studies performed include ALL of the following: * Imaging (plain radiographs and a CT or MRI) of the SI joint that excludes the presence of destructive lesions (e.g. tumor, infection), fracture, traumatic SIJ instability, or inflammatory arthropathy that would not be properly addressed by percutaneous SIJ fusion have been completed. * Imaging of the pelvis (AP plain radiograph) to rule out concomitant hip pathology have been completed and a CT is in the process of being done for both further investication and surgical plannaing of the pelvis and structures. * Imaging of the lumbar spine MRI, has been completed and has ruled out severe neural compression or other degenerative condition that is associated with her current low back and buttock/groin pain INJECTIONS: These were completed first with PM&R with fluoroscopy then in office under US guidance. * # 1 Injection: Contrast enhanced therapeutic intra-articular injection LEFT SIJ #2 Injection: Intra-articular SIJ injection with 0.5% marcaine and Corticosteroid LEFT SIJ #3 Injection: Intra-articular SIJ injection with 2% sensorcaine LEFT SIJ All injections have provided at least 75% reduction of pain for Mrs Montoya for the expected duration, and the ability to perform previously painful maneuvers, following an image-guided, contrast-enhanced intra-articular SIJ injection was decreased significantly for a transient time of which all her symptoms have returned and now worsened. Spine Surgery Risk Review Ms. Montoya is presenting for evaluation of left-sided low back and left leg pain . It was my pleasure to have seen and examined Ms. Montoya. In our visit today we have had a chance to go over subjective complaints, physical examination findings and treatments including the natural course history without intervention and various interventional options. The patients imaging demonstrates: XRAY Date: 01/29/23 Location: [facility] Region: Lumbar Views: AP/LAT/FLEX/EXT/OB - Images re-reviewed today with pt. Levoscoliosis. Spondylosis. Good sagittal alignment. PI/LL normal. DDD noted overall. NO fracture no lesions AP pelvis shows LEFT NANCIE in position, no complicating process CT Date: 05/04/23 Location: [facility] Region: Lumbar Contrast: N - Images re-reviewed today with pt. Spondylosis and facet arthrosis noted L1-S1. DDD noted with Subtle Grade I L4-5 spondylolisthesis. NO fractures no lesions. Levoscoliosis MRI Date: 04/17/23 Location: [facility] Region: Lumbar Contrast: N - Images re-reviewed today with pt. Spondylosis Lumbar moderate. With Moderate overall DDD. Suble Grade I spondylolisthesis L4-5 noted with facet arthrosis and moderate central and b/l foraminal stenosis at this level. Levoscoliosis. No fracture. No lesions. On physical exam, Ms. Montoya demonstrates: A continued sharp, throbbing and increasing pain around the left-side of the low back that radiates down into the left lower extremity with a burning, shooting quality. She notes her symptoms have become debilitating, as she is unable to complete many activities of daily living secondary to worsening low back and leg pain. She states her symptoms worsen after prolonged sitting, when going from a seated to standing position, and wit prolonged standing. She notes severe sleep disturbances related to her ongoing pain and associated symptoms. I have explained to the patient that as their condition progresses it will cause further neurological deficits and eventual paralysis. Based on the patients imaging, physical exam, and the rapid progression and disabling nature of their symptoms, at this time I recommend surgery in the form of a: LEFT SI JOINT FUSION. I discussed the risk and benefits of this procedure at length with Ms. Montoya. The patient agreed to considered pursuing the procedure abovementioned. Prior to surgery, she should follow up with her PCP (Cardio, ID, IM etc) for clearance. Questions were invited and answered, and the patient wishes to proceed as outlined below. Currently, I am recommendin.LEFT MINIMALLY INVASIVE SACROILLIAC JOINT FUSION 2.Review of surgical risks and benefits as well as an educational packet on the proposed surgical procedure. Risks: All surgical procedures come with inherent risks, including those related to positioning, anesthesia, intraoperative findings, and postoperative complications. It is important to understand that surgery does not come with any guarantee of a successful outcome as complications and adverse events are always possible. The patient was given a handout in office today discussing the surgical procedure and risks associated with the intervention, both of which were discussed with the patient. These risks include but are not limited to the following: * Experiencing same, different or even worse symptoms in back, neck, arms, or legs compared to before surgery. Requiring further surgery or other forms of treatment presently or at some time in the future at same or other levels of the intended spine surgery. On an extreme but fortunately relatively rare basis severe complication such as blindness, stroke, heart attack, temporary and/or permanent nerve injury, paralysis, coma, or may occur, sometimes without known explanation. Surgical complications may include but are not limited to risk of infection, fluid accumulation in the surgical dissection site, including a seroma or hematoma, that requires additional surgery, wound drainage, bleeding, new numbness or weakness, vision changes/loss, spinal fluid leakage, non-healing and/or infected incision, headaches, difficulty or inability to swallow, hoarse ness, hemopneumothorax, pneumothorax, impotence, retrograde ejaculation, vaginal dryness; injury to nerves, spinal cord, blood vessels, lymphatics or other vital organs (i.e., bowel injury, injury to the great vessels); heterotopic bone formation; complications related to the hardware such as screws, rods, cages including misplaced hardware, device failure, instrumentation at the wrong spine level, hardware fracture/breakage, or hardware loosening; vertebral failure of the spinal column above or below the newly placed hardware; retained surgical instrumentations or devices and the need for further surgery. * Medical risks of the planned spine surgery include but are not limited to generalized Infections to the whole body or local areas outside of the surgical site (sepsis), heart attack, bleeding, anaphylaxis, meningitis, seizure, epilepsy, hearing loss, burn ricks, laceration of the head or other areas of the body, bruising, hypersensitivity of the skin, bladder over distension; allergic reaction; shoulder injury related to positioning; fat, blood and air clots to other areas of the body like heart, lungs, brain; failure of internal organs such as lungs, kidneys, liver and excessive bleeding. If blood transfusions are necessary, note that transfusions may cause intolerance reactions such as anaphylaxis or other complex reactions. Despite best efforts, the results of spine surgery might not heal in terms of bone, soft tissues such as skin, fascia, ligaments, and joints. Additionally, in order to achieve best possible results, spine surgery may be carried out beyond the initially planned levels and involve decompression, fusion including insertion of hardware at levels other than the original intended area of surgical interest change some portions of the procedure in order to ensure the best possible outcomes. With spine surgery and spinal fusion, there are different off label uses of instrumentation (devices, implants and hardware) as well as biological subst ances (bone morphogenic proteins, demineralized bone matrix) as well as using extra bone from allograft sources (i.e. cadaver bone) or autograft (iliac crest bone, ribs, or the spine itself). The patient has been given information about these practices and their inherent risks and benefits. [facility] is an educational center that serves as a training facility for neurosurgical and orthopedic DIRECTOR SOFTWARE and Nursing students. Physician assistants are medically trained surgical providers who function in the outpatient, inpatient, and operating room setting under the direct supervision of the attending surgeon. [facility] has multiple operating rooms with single and overlapping rooms running daily. They currently function under the required guidelines as produced by the [facility] Finance Committee with regards to the overlapping rooms and will continue to comply with changes to this policy as they occur.The requirements include and are complied with as follows: (1) the critical portions of the overlapping rooms will not occur at the same time, (2) the attending physician will be physically present during the critical portions of the procedure and immediately available during the entire case, and (3) a back-up attending is designated should the primary attending not be immediately available. The patient has had a chance to review all the listed information, has been given print outs detailing this information, and has had all his/her questions answered to their satisfaction. It was my pleasure to have seen and examined Ms. Montoya. In our visit today we have had a chance to go over my understanding of our patient's current condition, the natural course history without intervention and various interventional options. Questions were invited and answered, and the patient wishes to proceed as outlined above. I have seen and examined the patient for 25 minutes and we have spent more than 50% of the time in repeat and detailed counseling about the patient's condition, its natural course history with out and as much as can be predicted with surgery and re-review of various surgical treatment options. In conclusion, Ms. Montoya requested we proceed with the above suggested surgery and are willing to accept risks and limitations of the suggested surgery as nature of the disease process and our best attempts at treatment for the condit ion. FOLLOW UP: Post Procedure PATIENT EDUCATION: Medications Reviewed: YES In our visit today Ms. Montoya and I have had a chance to go over my understanding of the patient's current condition, the natural course history without intervention and various interventional options. Questions were invited and answered, and the patient wishes to proceed as outlined above. I will be sure to keep you updated after Ms. Montoya returns here for further follow-up. Thank you again for your referral. Please do not hesitate to contact me if you have any further questions. Signed and authenticated by: Edgardo [facility] [address] [facility], [address] [address] . This message is confidential, intended only for the named recipient(s) and may contain information that is privileged or exempt from disclosure under applicable law. If you are not the intended recipient(s), you are notified that the dissemination, distribution or copying of this information is prohibited. If you received this message in error, please notify the sender then delete this message. Past Medical History Past Medical History: Coronary Artery Disease (CAD), Chest Pain / Angina, CVA/TIA, Diabetes Mellitus, Hyperlipidemia, Hypertension, Musculoskeletal Disorder, Osteoarthritis (OA), Pneumonia, Respiratory Disorder, Thyroid Disorder Additional Past Medical History / Comment(s): BRONCHITIS, MIGRAINES, hx anemia, TIA x 2-no residual effects, heart murmer, History of Any Multi-Drug Resistant Organisms: MRSA Date of last positivie culture/infection: 2012 MDRO Source:: UNDER RT BREAST Past Surgical History: Appendectomy, Section, Cholecystectomy, Heart Catheterization With Stent, Hysterectomy, Joint Replacement, Orthopedic Surgery Additional Past Surgical History / Comment(s): CARDIAC STENT X2, CATARACT SURGERY-BILATERAL W IMPLANTS, PAIN CLINIC PROCEDURES , left knee arthroscopy, left hip replacement, NIKKIE Past Anesthesia/Blood Transfusion Reactions: Postoperative Nausea & Vomiting (PONV) Additional Past Anesthesia/Blood Transfusion Reaction / Comment(s): claustrophobia, diff IV starts Date of Last Stent Placement:: 2012 Smoking Status: Former smoker - Past Family History Father Additional Family Medical History / Comment(s): drowned at age 32 Daughter(s) Family Medical History: Cancer Additional Family Medical History / Comment(s): colon ca Mother Family Medical History: Cancer Additional Family Medical History / Comment(s): BREAST Medications and Allergies Home Medications Medication Instructions Recorded Confirmed Type Atorvastatin [Lipitor] 80 mg PO DAILY 10/10/14 10/15/23 History Ergocalciferol [Vitamin D2 50,000 units PO MO 05/02/15 10/15/23 History (DRISDOL)] Pioglitazone HCl 15 mg PO DAILY 10/31/21 10/15/23 History amLODIPine [Norvasc] 5 mg PO DAILY 10/31/21 10/15/23 History Levothyroxine Sodium [Synthroid] 75 mcg PO QAM 02/04/22 10/15/23 History Acetaminophen Tab [Tylenol] 650 mg PO Q6HR PRN tab 02/07/22 10/15/23 Rx Metoprolol Tartrate [Lopressor] 50 mg PO BID #60 tab 02/07/22 10/15/23 Rx Nitroglycerin Sl Tabs [Nitrostat] 0.4 mg SUBLINGUAL Q5M PRN #30 tab 02/07/22 10/15/23 Rx Ferrous(Unk) 325 mg PO DAILY 10/15/23 10/15/23 History Allergies Allergy/AdvReac Type Severity Reaction Status Date / Time codeine AdvReac Nausea & Verified 10/15/23 13:58 Vomiting Physical Examination Osteopathic Statement: *. No significant issues noted on an osteopathic structural exam other than those noted in the History and Physical/Consult. Assessment and Plan (1) Sacroiliitis Status: Acute Code(s): M46.1 - SACROILIITIS, NOT ELSEWHERE CLASSIFIED SNOMED Code(s): 24269578 (2) Spondylosis of lumbosacral region without myelopathy or radiculopathy Status: Acute Code(s): M47.817 - SPONDYLS W/O MYELOPATHY OR RADICULOPATHY, LUMBOSACR REGION SNOMED Code(s): 19055362 (3) Sacro-iliac pain Status: Acute Code(s): M53.3 - SACROCOCCYGEAL DISORDERS, NOT ELSEWHERE CLASSIFIED SNOMED Code(s): 200642734
[~2023-10-19 05:37] MED LIST changes: -LACTATED RINGERS 1,000 ML IV SCH; +TRANEXAMIC 1,000 MG/100ML-NACL 1,000 MG in SALINE 1 100ML.BAG IVPB PRN
[2023-10-19 06:46] VITALS: BP 195/97; PULSE 56; RESP 18; TEMP 97
[2023-10-19 06:53] LABS: Glucose,Whole Blood 141 mg/dL (70-110)
[2023-10-19] MEDS: IV FLUID CONTINUATION 1,000 ML IV ONE ×2 (07:05→07:10)
[2023-10-19] MEDS: LACTATED RINGERS 1,000 ML BAG IV STA (07:06)
[2023-10-19] MEDS: ACETAMINOPHEN TAB 500 MG TAB PO PRN (07:06)
[2023-10-19] MEDS: GABAPENTIN 300 MG CAP PO PRN (07:06)
[2023-10-19] MEDS: ONDANSETRON 4 MG/2 ML VIAL IVP PRN (07:07)
[2023-10-19] MEDS: MIDAZOLAM 2 MG/2 ML VIAL IV STA (07:10)
[2023-10-19] MEDS ORDERED: SUCCINYLCHOLINE CHLORIDE 200 MG/10 ML VIAL IV ONE (07:25)
[2023-10-19] MEDS ORDERED: PHENYLEPHRINE 10 MG/ML VIAL ONE (07:25)
[2023-10-19] MEDS ORDERED: MIDAZOLAM 2 MG/2 ML VIAL ONE (07:25)
[2023-10-19] MEDS ORDERED: ePHEDrine 50 MG/ML 1 ML VIAL ONE (07:25)
[2023-10-19] MEDS ORDERED: fentaNYL (PF) 50 MCG/ML 2 ML AMP ONE (07:25)
[2023-10-19] MEDS ORDERED: LIDOCAINE 1% INJ 10MG/ML (20 ML MDV) ONE (07:25)
[2023-10-19] MEDS ORDERED: PROPOFOL 10 MG/ML 20 ML VIAL IV ONE (07:25)
[2023-10-19] MEDS ORDERED: WATER FOR INJECTION, STERILE 10 ML VIAL IV ONE (07:25)
[2023-10-19] MEDS ORDERED: TRANEXAMIC 1,000 MG/100ML-NACL PREMIX BAG ONE (07:25)
[2023-10-19] MEDS ORDERED: GLYCOPYRROLATE 0.2 MG/ML 2 ML VIAL ONE (07:25)
[2023-10-19] MEDS ORDERED: BUPIVACAIN-EPI 0.5%-1:200,000 30 ML VIAL ONE (07:30)
[2023-10-19] MEDS ORDERED: LACTATED RINGERS 1,000 ML BAG ONE ×2 (07:30)
[2023-10-19] MEDS ORDERED: ceFAZolin 10 GM VIAL IVPB ONE (07:30)
[2023-10-19] MEDS ORDERED: LIDOCAINE 1%-EPI 1:100,000 20 ML VIAL ONE (07:30)
[2023-10-19] MEDS ORDERED: SODIUM CHLORIDE 0.9% 50 ML BAG ONE (07:30)
[2023-10-19] MEDS ORDERED: THROMBIN (BOVINE) 5,000 UNIT VIAL ONE (07:30)
[2023-10-19] MEDS ORDERED: HYDROmorphone 0.5 MG/0.5 ML SYRINGE ONE (09:51)
[2023-10-19 11:20] LABS: Glucose,Whole Blood 138 mg/dL (70-110)
[2023-10-19] MEDS ORDERED: HYDROcodone/APAP 7.5-325MG 1 EACH TAB ONE (11:45)
--- NOTE | 2023-11-12 15:12 | FL ---
EXAMINATION TYPE: FL guidance operating room, XR lumbar spine 2 or 3V Intraoperative/procedural fluor oscopic services were provided. Total fluoroscopy time is 1 MIN 5 SEC seconds with a total of 6 submi tted images to PACS. Please see the operative/procedural note for further details. DAP: 1210.37 cGycm2
== END 2023-10-19 12:25 ==
LOC: OR 05:37
PROVIDERS: ATTEND Orthopaedic Surgery
DX: M13.88 Other specified arthritis, other site
CPT/HCPCS: 72100

== ENCOUNTER → 2023-11-20 | Outpatient (CLI) | payer MEDICARE ==
--- NOTE | 2023-11-20 14:10 | CT ---
EXAMINATION TYPE: CT pelvis wo con CT DLP: 591.0 mGycm, Automated exposure control for dose reduction was used. DATE OF EXAM: 11/20/2023 1:39 PM COMPARISON: CT abdomen pelvis most recent from CLINICAL INDICATION: Female, 78 years old with history of M13.88 OTHER SPECIFIED ARTHRITIS, OTHER SIT E; Arthritis. Chronic pain TECHNIQUE: Axial CT pelvis wo con;Sagittal and coronal reformats were created on a separate workstat ion. Contrast used: mL of , (none if empty) Oral contrast used: without Oral Contrast (none if empty) FINDINGS: LOWER CHEST: Unremarkable ABDOMEN BLADDER: Unremarkable REPRODUCTIVE: Uterus is not visualized may be surgically absent. Ovaries not definitively visualized. ABDOMEN & PELVIS STOMACH AND BOWEL: No evidence of bowel obstruction. Scattered colonic diverticula. PERITONEUM/RETROPERITONEUM: No evidence of pneumoperitoneum or free fluid. VASCULATURE: No evidence of aortic aneurysm. Stent grafts are present within the bilateral common ajith ac arteries. MUSCULOSKELETAL multilevel degeneration changes of the lower spine. There is left hip arthroplasty wh ich appears intact. The pelvis is intact. Degeneration changes of the hips with osteophyte formation joint space narrowing. The left sacroiliac joint with hardware intact. LYMPH NODES: No gross evidence for lymphadenopathy. SOFT TISSUE/ABDOMINAL WALL: Unremarkable IMPRESSION: 1. Fixation changes to the left hip with hardware intact. 2. Mild to moderate right hip osteoarthrosis. 3. Left sacroiliac joint fixation hardware intact. 4. Colonic diverticulosis.
== END | disposition home or self-care (01) ==
LOC: RADCTMAIN 13:10
PROVIDERS: ATTEND Orthopaedic Surgery
DX: M13.88 Other specified arthritis, other site
CPT/HCPCS: 72192

== ENCOUNTER → 2023-12-24 | Outpatient (CLI) | payer MEDICARE ==
--- NOTE | 2023-12-24 13:19 | XR ---
EXAMINATION TYPE: XR chest 2V DATE OF EXAM: 12/24/2023 COMPARISON: 09/15/22 HISTORY: Shortness of breath TECHNIQUE: Frontal and lateral views of the chest are obtained. FINDINGS: Scattered senescent parenchymal changes noted. No evidence for infiltrate. No evidence for atelectasis. Heart size is stable. Mediastinal structures are stable and grossly unremarkable. No evidence for hilar prominence. Degenerative changes dorsal spine. IMPRESSION: 1. No evidence for acute pulmonary disease. [facility], , 12/24/2023 1:17 PM
[2023-12-24 19:14] LABS: INR 1.01 sec (0.93-1.11); Prothrombin Time 10.9 sec (9.9-11.9)
[2023-12-24 19:56] LABS: ALT 13 U/L (8-44); AST 27 U/L (13-35); Albumin 3.9 g/dL (3.8-4.9); Alkaline Phosphatase 104 U/L (41-126); BUN/Creat Ratio 15.73 Ratio (12.00-20.00); Blood Urea Nitrogen 17.3 mg/dL (9.0-27.0); Calcium 9.3 mg/dL (8.7-10.3); Carbon Dioxide 24.2 mmol/L (21.6-31.8); Chloride 104 mmol/L (96-109); Globulin 2.6 g/dL (1.6-3.3); Glucose 124 mg/dL (70-110); Potassium 4.4 mmol/L (3.5-5.5); Sodium 141 mmol/L (135-145); Total Bilirubin 0.5 mg/dL (0.3-1.2); Total Protein 6.5 g/dL (6.2-8.2)
[2023-12-24 20:29] LABS: HCT 40.4 % (37.2-46.3); HGB 12.9 g/dL (12.0-15.0); MCH 29.4 pg (27.0-32.0); MCHC 31.9 g/dL (32.0-37.0); Mean Platelet Volume 12.7 FL (9.5-12.2); NRBC Per 100 WBC 0 X 10*3/uL (0.00-0.01); Platelet Count 165 X 10*3/uL (140-440); RBC 4.39 X 10*6/uL (4.10-5.20); RDW 14.6 % (11.5-14.5); WBC 7.34 X 10*3/uL (4.50-10.00)
== END | disposition home or self-care (01) ==
LOC: LABPAT 11:34
PROVIDERS: ATTEND Orthopaedic Surgery
DX: Z01.818 Encounter for other preprocedural examination (principal); T84.296A Other mechanical complication of internal fixation device of vertebrae, initial encounter; I11.9 Hypertensive heart disease without heart failure; R06.02 Shortness of breath; R94.31 Abnormal electrocardiogram [ECG] [EKG]; R00.1 Bradycardia, unspecified
CPT/HCPCS: 36415; 71046; 80053; 85027; 85610; 93005

== ENCOUNTER → 2024-01-08 | Outpatient (CLI) | payer MEDICARE | END | disposition home or self-care (01) | LOC: LABPAT 12:48 | PROVIDERS: ATTEND Orthopaedic Surgery | CPT/HCPCS: 86850; 86900; 86901; 87070 ==

== ENCOUNTER 2024-01-15 11:01 | Day surgery (SDC) | payer MEDICARE ==
[2024-01-06 10:23] VITALS: BMI 36.1
--- NOTE | 2024-01-15 06:54 | P.HPOR ---
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 Montoya presents to the office today, 12/24/23, for recheck s/p Left SI joint fusion and pelvis CT results. she has new and severe LLE pain that is going down the back of her leg to the bottom of her foot. She continues to have this despite conservative measures of Rx and OTC medications as well as PT, home exercise. She was on prednisone as well which helped minimally but it is now back. She continues to progressively not be able to walk. CT was done and she presents today for review as well as recheck. H8 Patient denies any f/c/sob/cp, perineal numbness or tingling, bowel, or bladder incontinence/retention. Patient is not ambulatory independently. and uses a walker, cane or her . P1 The patients past social, medical, family, surgical history, as well as review of systems, have been reviewed. Please refer to the History and Physical form that has been scanned into our electronic medical record system. R0 16 points review of systems completed and as stated in HPI, all other systems reviewed are negative. PAST TREATMENTS: PAST IMAGING: YES -CT MRI TRAUMA RELATED: NO - WORK RELATED: NO - PT IN LAST 6 MONTHS: YES - PHYSICIAN DIRECTED HOME EXERCISE PROGRAM: YES - ACTIVITY MODIFICAITON: YES -Limiting activity based on pain MEDICATIONS: YES -Gabapentin, Prednisone ALTERNATIVE INTERVENTIONS (CHIROPRACTIC, ACCUPUNCTURE, MASSAGE, RICE): YES - BRACING: NO - INJECTIONS (RENEE, TF, RFA): NO - MEDICAL HISTORY: Past Medical History: REVIEWED STATED IN CHART Past Surgical History: REVIEWED STATED IN CHART Left SIJ fusion Social History: REVIEWED STATED IN CHART SMOKING: Never smoker ETOH: None SUBSTANCES: None Family History: REVIEWED STATED IN CHART P1 Current Medications: Rx: LEVOTHYROXINE SODIUM 50MCG ORAL Tablet, Ref: 11 Instructions: Take 1 Tablet ORAL DAILY. Rx: ATORVASTATIN CALCIUM 80MG ORAL Tablet, Ref: 11 Instructions: Take 1 Tablet ORAL DAILY. Rx: METOPROLOL TARTRATE 25MG ORAL Tablet, Ref: 11 Instructions: Take 1 Tablet ORAL twice daily as needed. Rx: amLODIPine Ref: 0 Instructions: as directed Rx: furosemide 20 mg tablet Ref: 0 Instructions: take 1 tablet (20 mg) by oral route once daily Rx: pioglitazone 30 mg tablet Ref: 0 Instructions: take 1 tablet (30 mg) by oral route once daily Rx: TylenoL 325 mg tablet Ref: 0 Instructions: take 1 - 2 tablets (325 - 650 mg) by oral route every 4-6 hours as needed Rx: Vitamin D2 1,250 mcg (50,000 unit) capsule Ref: 0 Rx: gabapentin 300 mg capsule Ref: 0 Instructions: take 1 capsule (300 mg) by oral route 3 times per day P1 PHYSICAL EXAM: PC2 PC1 General: AOX3, NAD, Well hydrate, well nourished PN1 HEENT: No lumps or masses Extremities: No color changes, no pooling INTEGUMENT: Appearance: Normal color and turgor Surgical Incisions: Well healed Hairy Patches: ABSENT Dorsal Skin Dimples: Normal [employer] spots: ABSENT PALPATION: TTP Midline: NO Paracervical: NO Parathoracic: NO Paralumbar: MIN SIJ TESTING: TESTED * [place] Finger: YES LEft * FABER4: POS LEFT * Compression: POS LEFT * Distraction: POS LEFT * Thigh thrust: POS LEFT * Hip thrust: POS LEFT POSTURAL BALANCE: Coronal: BALANCED Sagittal: BALANCED Shoulder height: LEVEL Pelvic Girdle: LEVEL ROM AND APPEARANCE: Neck: UNRESTRICTED Lumbar: RESTRICTED Shoulders: Symmetrical Hips: Symmetrical Knees: Symmetrical Hands: Symmetrical Feet: Symmetrical VASCULAR STATUS: PALPABLE PULSES B/L UE AND LE 2/4 RAD/ULNAR/DP/PT Edema: NONE NEUROLOGICAL EXAMINATION: Mental Status: Awake, alert, fully oriented with normal attention, concentration, and memory. Fluent appropriate speech. CRANIAL NERVES: I: Olfactory not assessed. II: Visual acuity normal, no visual field deficit noted with confrontation. III, IV: Normal pupillary reflexes & intact extraocular movements without nystagmus. V, : Intact symmetrical facial sensation. VII: Intact symmetrical facial motor movement: Hearing intact. IX, X: Intact gag, swallow, & normal voice. XI: Sternocleidomastoid, trapezius function intact. XII: Tongue midline with normal movements. TENSIONING: * L'HERMITTE'S SIG:NEG SPURLUNG'S SIGN:NEG CUBITAL TUNNEL COMPRESSION:NEG TINELS AT WRIST:NEG STRAIGH LEG RAISE:POS LEFT CONTRALATERAL STRAIGHT LEG RAISE: NEG MOTOR EXAM (0-5/5, NT) Muscle appearance: Symmetrical, without signs of atrophy or dystrophy UPPER EXTREMITY RIGHT LEFT Shoulder Abduction 5 5 Biceps 5 5 Triceps 5 5 Wrist Extension 5 5 Hand Intrinsics 5 5 Space Systems Operations Craftsman 5 5 LOWER EXTREMITY RIGHT LEFT Hip Flexion 5 5 Knee Extension 5 5 Knee Flexion 5 5 Dorsiflexion 5 5 Plantarflexion 5 4 EHL 5 4 FHL 5 3 REFLEXES (0-4/2, NT): RIGHT LEFT Bicep 2 2 Brachioradialis 2 2 Triceps 2 2 Patellar 2 2 Achilles 2 1 PATHOLOGICAL REFLEXES: RIGHT LEFT HERNANDEZ'S ABSENT ABSENT CLONUS ABSENT ABSENT BABINSKI ABSENT ABSENT RECTAL TONE: INTACT/NT SENSATION (0-4, NT): Sensation intact to LT and Pain * C5-T1 distribution BUE * L2-S2 distribution BLE *Exceptions below* DERMATOMAL DEFICIT/RADICULAR PATTERN: S1/2 LEFT, PROGRESSIVE SEVERE GAIT AND FUNCTIONAL EVALUATION: AMBULATORY AID Cane, Walker ROMBERG'S TEST INTACT HAND AND FINGER DEXTERITY INTACT YES DYSDIADOCHOKINESIA EXAM NEG B/L YES TOE/HEEL WALK INTACT WITH GOOD BALANCE NO SQUAT AND RISE W/O ASSISTANCE TO 60 DEG KNEE FLEXION NO SINGLE LEG STANCE NOT INTACT [place] NEG IMAGING: CT Date: 11/20/23 Location: [facility] Region: Pelvis Contrast: N IMAGES ARE REVIEWED WITH THE PATIENT IN OFFICE AND DEMONSTRATE THE FOLLOWING: FINDINGS: SCREW MIGATION OF THE CAUDAL MOST SI SCREW INTO THE S1/2 FORAMEN CAUSING ENCROAHCMENT WITH CORRELATING SX IN THE LLE. nO FRACTURE. CRANIAL SCREWS ARE IN GOOD POSITION WITHOUT MIGRATION OR FAILURE. IMPRESSION: It was my pleasure to have seen and examined Inge. I reviewed the patient's clinical syndrome, physical findings, and imaging studies during the appointment today. It is my impression that the patient has a diagnosis of. 1. 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 2.LLE radiculopathy, new and progressive, severe 3.LLE weakness PLAN: DISCUSSION: -I have discussed with the pt her sx as well as treatment options. At this point the caudal most screw has failed and migrated medially causing S1/2 foraminal encroachment and causing her sx. She needs this screw revised. THe remainder of the screws are in good position without migration. She understands. Risks and benefits discussed. She is willing to proceed as below. SURGICAL RECOMMENDATION -HARDWARE REVISION LEFT SIJ, SCREWS Surgical Procedure Risk Review Inge Montoya is a 78 year old female presenting for evaluation of sudden onset of LLE WEAKNESS WITH RADICULOPATHY SEVERE S/P HER SIJ FUSION. It was my pleasure to have seen and examined Ms. Montoya. In our visit today we have had a chance to go over subjective complaints, physical examination findings and treatments, including the natural course history without intervention and various interventional options. The imaging demonstrates MIGRATION OF THE CADUAL SCREW INTO THE S1/2 FORAMEN CAUSING ENCROCHAMENT AND PAIN . On physical exam, Ms. Montoya demonstrates LLE WEAKNES,S PAIN, NEW AND PROGRESSIVE . I explained to the patient that as her condition progresses it could cause PROGRESSIVE NEUROLOGICAL DEFICIT . At this time, based on the patients imaging and physical exam, I recommend surgery in the form or a: LEFT SIJ HARDWARE REVISION . I discussed the risk and benefits of this procedure at length with Ms. Montoya. The patient agreed to consider pursuing the procedure mentioned above. Plan: 1. LEFT SACROILIAC JOINT HARDWARE REIVIONS, URGENT DUE TO HER MAXIMUM RECOVERY POTENTIAL IS AT RISK DUE TO HER ACUTE PROGRESSIVE SYMPTOMS. 2. Follow up with PCP for surgical clearance 3. Review of surgical risks and benefits as well as an educational packet on the proposed surgical procedure. Risks: All surgical procedures come with inherent risks, including those related to positioning, anesthesia, intraoperative findings, and postoperative complications. It is important to understand that surgery does not come with any guarantee of a successful outcome as complications and adverse events are always possible. The patient was given a handout in office today discussing the surgical procedure and risks associated with the intervention, both of which were discussed with the patient. These risks include but are not limited to the following: ? Experiencing same, different or even worse symptoms in back, neck, arms, or legs compared to before surgery. ? Requiring further surgery or other forms of treatment presently or at some time in the future at same or other levels of the intended spine surgery. ? On an extreme but fortunately relatively rare basis severe complication such as blindness, stroke, heart attack, temporary and/or permanent nerve injury, paralysis, coma, or may occur, sometimes without known explanation. ? Surgical complications may include but are not limited to risk of infection, fluid accumulation in the surgical dissection site, including a seroma or hematoma, that requires additional surgery, wound drainage, bleeding, new numbness or weakness, vision changes/loss, spinal fluid leakage, non-healing and/or infected incision, headaches, difficulty or inability to swallow, hoarseness, hemopneumothorax, pneumothorax, impotence, retrograde ejaculation, vaginal dryness; injury to nerves, spinal cord, blood vessels, lymphatics or other vital organs (i.e., bowel injury, injury to the great vessels); heterotopic bone formation; complications related to the hardware such as screws, rods, cages including misplaced hardware, device failure, instrumentation at the wrong spine level, hardware fracture/breakage, or hardware loosening; vertebral failure of the spinal column above or below the newly placed hardware; retained surgical instrumentations or devices and the need for further surgery. ? Medical risks of the planned spine surgery include but are not limited to generalized Infections to the whole body or local areas outside of the surgical site (sepsis), heart attack, bleeding, anaphylaxis, meningitis, seizure, epileps y, hearing loss, burn ricks, laceration of the head or other areas of the body, bruising, hypersensitivity of the skin, bladder over distension; allergic reaction; shoulder injury related to positioning; fat, blood and air clots to other areas of the body like heart, lungs, brain; failure of internal organs such as lungs, kidneys, liver and excessive bleeding. If blood transfusions are necessary, note that transfusions may cause intolerance reactions such as anaphylaxis or other complex reactions. Despite best efforts, the results of spine surgery might not heal in terms of bone, soft tissues such as skin, fascia, ligaments, and joints. Additionally, in order to achieve best possible results, spine surgery may be carried out beyond the initially planned levels and involve decompression, fusion including insertion of hardware at levels other than the original intended area of surgical interest change some portions of the procedure in order to ensure the best possible outcomes. With spine surgery and spinal fusion, there are different off label uses of instrumentation (devices, implants and hardware) as well as biological substances (bone morphogenic proteins, demineralized bone matrix) as well as using extra bone from allograft sources (i.e. cadaver bone) or autograft (iliac crest bone, ribs, or the spine itself). The patient has been given information about these practices and their inherent risks and benefits. [facility] Physician Assistants are medically trained surgical providers who function in the outpatient, inpatient, and operating room setting under the direct supervision of the attending surgeon.They assist in the operating room with direct supervision of the attending surgeons. The patient has had a chance to review all the listed information, has been given print outs detailing this information, and has had all his/her questions answered to their satisfaction. It was my pleasure to have seen and examined Ms. Montoya. In our visit today we have had a chance to go over my understanding of our patient's current condition, the natural course history without intervention and various interventional options. Questions were invited and answered, and the patient wishes to proceed as outlined above. I have seen and examined the patient for 25 minutes and we have spent more than 50% of the time in repeat and detailed counseling about the patient's condition, its natural course history with out and as much as can be predicted with surgery and re-review of various surgical treatment options. In conclusion,Ms. Montoya and her spouse/partner requested we proceed with the above suggested surgery and are willing to accept risks and limitations of the suggested surgery as nature of the disease process and our best attempts at flavio tment for the condition. Thank you again for allowing us to be part of your patient's care. Please don't hesitate to contact me if you have any further questions. Signed and authenticated by: Edgardo [facility] [address] [place] [address] Rosalinda [address] [place] [address] FOLLOW UP: pOST OP PLAN AT NEXT VISIT: RECHECK PATIENT EDUCATION: Medications Reviewed: YES In our visit today Ms. Montoya and I have had a chance to go over my understanding of the patient's current condition, the natural course history without intervention and various interventional options. Questions were invited and answered, and the patient wishes to proceed as outlined above. I will be sure to keep you updated after Ms. Montoya returns here for further follow-up. Thank you again for your referral. Please do not hesitate to contact me if you have any further questions. Signed and authenticated by: Edgardo Franco [facility] [address] [facility], [address] [address] . This message is confidential, intended only for the named recipient(s) and may contain information that is privileged or exempt from disclosure under applicable law. If you are not the intended recipient(s), you are notified that the dissemination, distribution or copying of this information is prohibited. If you received this message in error, please notify the sender then delete this message. # SIGNED BY Edgardo Carpenter (GOO)12/30/2023 10:25AM Past Medical History Past Medical History: Coronary Artery Disease (CAD), Chest Pain / Angina, CVA/TIA, Diabetes Mellitus, GERD/Reflux, Hyperlipidemia, Hypertension, Neurologic Disorder, Osteoarthritis (OA), Pneumonia, Respiratory Disorder, Thyroid Disorder Additional Past Medical History / Comment(s): BRONCHITIS, MIGRAINES, hx anemia, TIA x 2-no residual effects, heart murmer. Type II diabetic NIDDM. Acid reflux yers ago. History of Any Multi-Drug Resistant Organisms: MRSA Date of last positivie culture/infection: 2012 MDRO Source:: UNDER RT BREAST Past Surgical History: Appendectomy, Section, Cholecystectomy, Heart Catheterization With Stent, Hysterectomy, Joint Replacement, Orthopedic Surgery Additional Past Surgical History / Comment(s): CARDIAC STENT X2, CATARACT SURGERY-BILATERAL W IMPLANTS, PAIN CLINIC PROCEDURES , left knee arthroscopy, left hip replacement, NIKKIE, Aortic valve replacement Past Anesthesia/Blood Transfusion Reactions: Postoperative Nausea & Vomiting (PONV) Additional Past Anesthesia/Blood Transfusion Reaction / Comment(s): claustrophobia, diff IV starts. Has had blood transfusion post hip procedure-no reaction. Date of Last Stent Placement:: 2012 Smoking Status: Former smoker - Past Family History Father Additional Family Medical History / Comment(s): drowned at age 32 Daughter(s) Family Medical History: Cancer Additional Family Medical History / Comment(s): colon ca Mother Family Medical History: Cancer Additional Family Medical History / Comment(s): BREAST Medications and Allergies Home Medications Medication Instructions Recorded Confirmed Type Atorvastatin [Lipitor] 80 mg PO QAM 10/10/14 01/06/24 History Ergocalciferol [Vitamin D2 50,000 units PO MO 05/02/15 01/06/24 History (DRISDOL)] Pioglitazone HCl 30 mg PO QAM 10/31/21 01/06/24 History amLODIPine [Norvasc] 5 mg PO QAM 10/31/21 01/06/24 History Levothyroxine Sodium [Synthroid] 75 mcg PO QAM 02/04/22 01/06/24 History Acetaminophen Tab [Tylenol] 650 mg PO Q6HR PRN tab 02/07/22 01/06/24 Rx Metoprolol Tartrate [Lopressor] 50 mg PO BID #60 tab 02/07/22 01/06/24 Rx Nitroglycerin Sl Tabs [Nitrostat] 0.4 mg SUBLINGUAL Q5M PRN #30 tab 02/07/22 01/06/24 Rx Ferrous(Unk) 325 mg PO DAILY 10/15/23 01/06/24 History Advil(Unknown Dose) 1 dose PO Q8H PRN 01/06/24 01/06/24 History Gabapentin [Neurontin] 300 mg PO BID 01/06/24 01/06/24 History Allergies Allergy/AdvReac Type Severity Reaction Status Date / Time codeine AdvReac Nausea & Verified 01/06/24 10:03 Vomiting Physical Examination Osteopathic Statement: *. No significant issues noted on an osteopathic structural exam other than those noted in the History and Physical/Consult.
[2024-01-15] MEDS ORDERED: HYDROmorphone 0.5 MG/0.5 ML SYRINGE IVP PRN (11:53)
[2024-01-15] MEDS ORDERED: HYDROcodone/APAP 10-325MG 1 EACH TAB PO PRN (11:53)
[2024-01-15] MEDS ORDERED: ONDANSETRON 4 MG/2 ML VIAL IVP PRN (11:57)
[2024-01-15 12:38] LABS: Glucose,Whole Blood 139 mg/dL (70-110)
[2024-01-15] MEDS: hydrALAZINE HCL 20 MG/ML 1 ML VIAL IVP STA (12:40)
[2024-01-15] MEDS: GABAPENTIN 300 MG CAP PO PRN (12:43)
[2024-01-15] MEDS: ACETAMINOPHEN TAB 500 MG TAB PO PRN (12:43)
[2024-01-15] MEDS: MIDAZOLAM 2 MG/2 ML VIAL IV PRN (12:44)
[2024-01-15] MEDS: ONDANSETRON 4 MG/2 ML VIAL IVP PRN (12:44)
[2024-01-15] MEDS: IV FLUID CONTINUATION 1,000 ML IV ONE ×2 (12:53→12:54)
[2024-01-15] MEDS: LACTATED RINGERS 1,000 ML IV SCH (12:55)
[2024-01-15] MEDS: ENALAPRILAT 1.25 MG/ML 1 ML VIAL IVP STA (13:14)
[2024-01-15] MEDS: LABETALOL SYRINGE 5 MG/ML (4 ML SYR) IVP STA (13:19)
[2024-01-15] MEDS ORDERED: PHENYLEPHRINE 10 MG/ML VIAL ONE (13:49)
[2024-01-15] MEDS ORDERED: LIDOCAINE 1% INJ 10MG/ML (20 ML MDV) ONE (13:49)
[2024-01-15] MEDS ORDERED: SUCCINYLCHOLINE CHLORIDE 200 MG/10 ML VIAL IV ONE (13:49)
[2024-01-15] MEDS ORDERED: ePHEDrine 50 MG/ML 1 ML VIAL ONE (13:49)
[2024-01-15] MEDS ORDERED: TRANEXAMIC 1,000 MG/100ML-NACL PREMIX BAG ONE (13:49)
[2024-01-15] MEDS ORDERED: fentaNYL (PF) 50 MCG/ML 2 ML AMP ONE (13:49)
[2024-01-15] MEDS ORDERED: PHENYLEPHRINE-0.9% NACL SYG 1,000 MCG/10 ML SYRINGE ONE (13:49)
[2024-01-15] MEDS ORDERED: PROPOFOL 10 MG/ML 20 ML VIAL IV ONE (13:49)
[2024-01-15] MEDS: LIDOCAINE 2%-EPI 1:100,000 20 ML VIAL SQ ONE (14:36)
[2024-01-15] MEDS: BUPIVACAINE (PF) 0.5% 30 ML VIAL SQ ONE (14:37)
[2024-01-15] MEDS: VANCOMYCIN 1,000 MG VIAL MISCELLANE ONE (15:39)
--- NOTE | 2024-01-15 16:11 | FL ---
EXAMINATION TYPE: FL guidance operating room, XR lumbar spine 2 or 3V DATE OF EXAM: 01/15/2024 4:04 PM COMPARISON: Pre Operative Images if available both CT/MRI or plain film CLINICAL INDICATION: Female, 78 years old with history of Left SI Screw Revision; TECHNIQUE: FL guidance operating room, XR lumbar spine 2 or 3V, multiple fluoroscopic images provided for procedure. Total fluoroscopy time: 1 min 7 seconds Total submitted images to PACS: 4 DAP: 1188.47 mGym2 Gycm2 uGym2 cGycm2 or equivalent. FINDINGS: Fluoroscopic images during internal fixation/arthroplasty demonstrate fixation hardware in appropriat e position. Hardware appears intact. No immediate complication identified. IMPRESSION: 1. No evidence for intraoperative complication. 2. Please see the operative/procedural note for further details. [facility], , 01/15/2024 4:09 PM
[2024-01-15 16:16] LABS: Glucose,Whole Blood 138 mg/dL (70-110)
[2024-01-15] MEDS: fentaNYL (PF) 50 MCG/ML 2 ML AMP IV PRN (16:28)
--- NOTE | 2024-01-15 17:09 | P.OP ---
Date of Procedure: 01/15/24 Preoperative Diagnosis: HARDWARE FAILURE WITH MIGRATION LEFT SIJ LLE RADICULOPATHY Postoperative Diagnosis: HARDWARE FAILURE WITH MIGRATION LEFT SIJ LLE RADICULOPATHY Procedure(s) Performed: REMOVAL OF DEEP HARDWARE, SCREW, LEFT SIJ Implants: SI BONE EXPLANT 1 SCREW Anesthesia: PRINCESSA Surgeon: Edgardo Carpenter Estimated Blood Loss (ml): 30 IV fluids (ml): 1,200 Urine output (ml): 0 Pathology: none sent Condition: stable Disposition: PACU Indications for Procedure: Inge Montoya is a 78 year old female presenting for evaluation of sudden onset of LLE WEAKNESS WITH RADICULOPATHY SEVERE S/P HER SIJ FUSION. It was my pleasure to have seen and examined Ms. Montoya. In our visit today we have had a chance to go over subjective complaints, physical examination findings and treatments, including the natural course history without intervention and various interventional options. The imaging demonstrates MIGRATION OF THE CADUAL SCREW INTO THE S1/2 FORAMEN CAUSING ENCROCHAMENT AND PAIN . On physical exam, Ms. Montoya demonstrates LLE WEAKNES,S PAIN, NEW AND PROGRESSIVE . I explained to the patient that as her condition progresses it could cause PROGRESSIVE NEUROLOGICAL DEFICIT . At this time, based on the patients imaging and physical exam, I recommend surgery in the form or a: LEFT SIJ HARDWARE REVISION . I discussed the risk and benefits of this procedure at length with Ms. Montoya. The patient agreed to consider pursuing the procedure mentioned above. Plan: 1. LEFT SACROILIAC JOINT HARDWARE REIVIONS, URGENT DUE TO HER MAXIMUM RECOVERY POTENTIAL IS AT RISK DUE TO HER ACUTE PROGRESSIVE SYMPTOMS. Description of Procedure: The patient was seen and examined in the preoperative area. All preoperative protocols were followed. Informed consent was obtained risks and benefits of the procedure were discussed at length. Risks including bleeding infection damage to the surrounding tissue and risk of reoperation were discussed with the patient. Risk of anesthesia up to and including was a discussed with the patient. These are outlined in the risk review. They were willing to accept these risks and all of the risks of surgery. The patient was given a weight- based dose of antibiotics in the form of ANCEF (2G). The patient was seen and evaluated by the anesthesia team who deemed them fit for surgery. The site was marked, the patient was willing to proceed with the procedure. The patient was transferred to the operative suite by the Department of anesthesia. They were then drifted off to sleep by the department anesthesia and GETA was performed. The patient tolerated this well. Once confirmation of lines and ventilation the patient was transferred to a [prone Georgi table very carefully]. All bony prominences including wrists, elbows, axilla, chest, hips, and thighs, and feet were padded very well. Special attention was paid to the genitalia and these were padded accordingly. SCDs were placed on bilateral lower extremities and were connected. Arms were well padded and placed [on arm boards up and out in the 90/90 position]. Once in position, again we confirmed good ventilation capabilities and that lines were running appropriately. The patient's LUMBOPELVIC spine was then exposed. 1010s were placed outlining the incision site. Standard alcohol was used to clean the incision site and allowed to dry. C-arm was used to biomark the patient and confirm level for incision which was marked with a skin marker. Operative briefing was performed with all teams and everyone in agreement to proceed. The patient was then prepped and draped in a normal sterile fashion. Timeout was then performed and all parties were in agreement with the procedure to be performed. Bipanar fluroscopy was used to jean the patient. Incision was made over the previously made incision on the left buttock region and blunt dissection taken down to the illum. Blunt wire was then localized into the distal screw using flurosocopy. Once in the screw it was stimulated and stimulated at 14mA. Remaining screws were then also targeted with wires and stimulated. These stimulated at > 20mA. These wires were then removed and the distal screw wire was then removed using the cdl bulk driver over a wire. Once the screw was removed we again stimulated the screw tract measuring where we obtained >20mA. This was at 30mm. The smallest rescue screw for SI bone is 35 mm and so we did not replace a screw into this tract. Pins were then placed for the 3D c Arm and cdream network navigation. A spin was obtained and confirmed to be accurate. Once this was done, we attempted to find another area to place a screw into the patients SI region. There were no safe tracts that did not intersect with the previous tract or where there was enough room to place a screw and so since we had two good fixation points across the SIJ this was left. We did graft the opening. The wound was copiously irrigated with NSS. We then removed the tracker array and PSIS pins. Deep fascia was closed with 0 Vicryl. Superficial subq closed with 2-0 Vicryl and skin closed with charles. IONM remained stable. Final images c onfirmed removal of correct screw. The wounds were then cleaned and dried and Optifoam dressing placed. The patient was transferred back to their hospital bed atraumatically. Patient was then awakened and extubated by the department of anesthesia having tolerated the procedure very well with no complications. They were transferred to the postoperative care unit in stable condition.
--- NOTE | 2024-01-15 17:12 | P.PN ---
Progress Note - Text Progress Note Date: 01/15/24 PT S/E IN PACU. AWAKE, SLEEPY, ALERT, ANSWERS QUESTIONS. SHE STATES SHE FEELS BETTER AND THAT LLE FEELS BETTER WITHOUT SHARP SHOOTING PAINS. SHE IS STABLE AT THIS TIME. SHE WILL BE TRANSFERRED TO HER OBS BED WHEN STABLE PER PACU AND ANESTHESIA STAFF.
[2024-01-15 20:58] LABS: Glucose,Whole Blood 143 mg/dL (70-110)
[2024-01-16] MEDS: CYCLOBENZAPRINE 5 MG TAB PO PRN (06:06)
[2024-01-16] MEDS: HYDROcodone/APAP 5-325MG 1 EACH TAB PO PRN (06:07)
[2024-01-16 06:17] LABS: Glucose,Whole Blood 138 mg/dL (70-110)
[2024-01-16] MEDS ORDERED: NITROGLYCERIN SL TABS 0.4 MG TAB SUBLINGUAL PRN (07:13)
[2024-01-16 09:02] LABS: Basophils # (A) 0.04 X 10*3/uL (0.00-0.10); Basophils % (A) 0.5 %; Eosinophils % (A) 1.3 %; HCT 33.5 % (37.2-46.3); HGB 10.8 g/dL (12.0-15.0); Lymphocytes # (A) 1.57 X 10*3/uL (0.90-5.00); MCH 30.1 pg (27.0-32.0); MCHC 32.2 g/dL (32.0-37.0); MCV 93.3 FL (80.0-97.0); Mean Platelet Volume 12.5 FL (9.5-12.2); NRBC Per 100 WBC 0 X 10*3/uL (0.00-0.01); Neutrophils # (A) 5.16 X 10*3/uL (1.80-7.70); Neutrophils % (A) 69.1 %; Platelet Count 120 X 10*3/uL (140-440); RBC 3.59 X 10*6/uL (4.10-5.20); RDW 14.7 % (11.5-14.5); WBC 7.48 X 10*3/uL (4.50-10.00)
[2024-01-16 09:19] LABS: BUN/Creat Ratio 17.45 Ratio (12.00-20.00); Blood Urea Nitrogen 19.2 mg/dL (9.0-27.0); Calcium 8.7 mg/dL (8.7-10.3); Carbon Dioxide 25.6 mmol/L (21.6-31.8); Chloride 100 mmol/L (96-109); Glucose 138 mg/dL (70-110); Potassium 4.3 mmol/L (3.5-5.5); Sodium 136 mmol/L (135-145)
[2024-01-16] MEDS: GABAPENTIN 300 MG CAP PO SCH (09:58)
[2024-01-16] MEDS: ATORVASTATIN 80 MG TAB PO SCH (09:58)
[2024-01-16] MEDS: amLODIPine 5 MG TAB PO SCH (09:58)
[2024-01-16] MEDS: FERROUS SULFATE 325 MG TAB PO SCH (09:58)
[2024-01-16] MEDS: SENNOSIDES-DOCUSATE SODIUM 1 EACH TAB PO SCH (09:59)
[2024-01-16] MEDS: METOPROLOL TARTRATE 50 MG TAB PO SCH (09:59)
[2024-01-16] MEDS: LEVOTHYROXINE 75 MCG TAB PO SCH (10:07)
[2024-01-16] MEDS ORDERED: DEXTROSE 50% SYRINGE 50 ML IVP PRN ×2 (10:29)
[2024-01-16 11:38] LABS: Glucose,Whole Blood 160 mg/dL (70-110)
--- NOTE | 2024-01-16 12:45 | P.PN ---
Subjective Progress Note Date: 01/16/24 Principal diagnosis: 1. 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 2. LLE radiculopathy, new and progressive, severe 3. LLE weakness Patient seen and examined this morning. Patient is resting comfortably in bed. Patient does report that she has been up to the restroom and ambulated to the doorway with physical therapy. Patient states she is tolerating activity well. Patient states that she has been toe-touch weightbearing with her walker. She does report that her pain is managed on current regimen. Surgical incision to the left SI region, dressing is clean dry and intact. Patient is looking forward to going home possibly tomorrow. No acute concerns. Objective - Vital Signs Vital signs: Vital Signs Temp 97.9 F 01/16/24 07:28 Pulse 86 01/16/24 07:28 Resp 17 01/16/24 07:28 BP 109/50 01/16/24 07:28 Pulse Ox 93 L 01/16/24 07:28 FiO2 Intake & Output 01/15/24 01/16/24 01/16/24 18:59 06:59 18:59 Intake Total 850 1200 Output Total 30 Balance 820 1200 Weight 84.1 kg Intake: IV 850 Oral 1200 Output: Estimated Blood Loss 30 Other: Voiding Method Bedside Commode # Voids 2 - Exam Physical Examination General: The patient is awake and alert, in no acute distress Skin: Skin is warm and dry with no obvious rashes or lesions. Surgical incision over the left SI region, dressing is clean dry and intact. Neck: The neck is supple, there is no tenderness and ROM intact. Cardiovascular: There is a regular rate and rhythm. No murmur, rub or gallop is appreciated. Respiratory: Lungs are clear to auscultation, respirations are non-labored, collette ath sounds are equal. Gastrointestinal: Soft, non-distended, non-tender abdomen. Back: There is no tenderness to palpation in the midline, paralumbar, parathoracic or buttocks region. There is no obvious deformity . Musculoskeletal: ROM limited secondary to pain and stiffness from surgical pro cedure. Muscle strength in all major muscle groups of bilateral upper extremities 5/5, right lower extremity 5/5, Left lower extremity 4/5 Neurological: CN 2-12 intact. There are no obvious motor or sensory deficits. Movement and coordination equal and intact. Sensory exam to light touch intact C5-T1 and intact from L2-S1. Reflexes 2/4 in bilateral upper and lower extremities. Negative Hoffmans, babinski, and clonus signs. Psychiatric: Cooperative, appropriate mood & affect, normal judgment. - Labs CBC & Chem 7: 01/16/24 05:38 01/16/24 05:38 Labs: Abnormal Lab Results - Last 24 Hours (Table) 01/15/24 01/15/24 01/15/24 Range/Units 12:18 16:14 20:57 RBC (4.10-5.20) X 10*6/uL Hgb (12.0-15.0) g/dL Hct (37.2-46.3) % RDW (11.5-14.5) % Plt Count (140-440) X 10*3/uL MPV (9.5-12.2) FL Est GFR (CKD-EPI) (>=60) Glucose (70-110) mg/dL POC Glucose (mg/dL) 139 H 138 H 143 H (70-110) mg/dL 01/16/24 01/16/24 01/16/24 Range/Units 05:38 05:38 06:15 RBC 3.59 L (4.10-5.20) X 10*6/uL Hgb 10.8 L (12.0-15.0) g/dL Hct 33.5 L (37.2-46.3) % RDW 14.7 H (11.5-14.5) % Plt Count 120 L (140-440) X 10*3/uL MPV 12.5 H (9.5-12.2) FL Est GFR (CKD-EPI) 51 L (>=60) Glucose 138 H (70-110) mg/dL POC Glucose (mg/dL) 138 H (70-110) mg/dL 01/16/24 Range/Units 11:37 RBC (4.10-5.20) X 10*6/uL Hgb (12.0-15.0) g/dL Hct (37.2-46.3) % RDW (11.5-14.5) % Plt Count (140-440) X 10*3/uL MPV (9.5-12.2) FL Est GFR (CKD-EPI) (>=60) Glucose (70-110) mg/dL POC Glucose (mg/dL) 160 H (70-110) mg/dL Assessment and Plan Assessment: Post Op day 1 : REMOVAL OF DEEP HARDWARE, SCREW, LEFT SIJ Plan: -Appreciate vocational rehabilitation consultant and team management. -Activity: Ambulate QID, OOB all meals, up and about, limit lifting bending twisting to less than 5 lbs. Use walker for stability. -Daily PT/OT, increase ambulation strength and balance. -TTWB for LLE -Pain control: Adequate at this time -Meds: reviewed -GI ppx: senna, Miralax -DVT PPX: Aspirin 81mg daily -Hygiene: Maintain dressing clean and dry. -Encourage IS 10x/hr -Dispo: Anticipate discharge home tomorrow with homecare *I reviewed and discussed this case with my attending Dr. Carpenter, whom has reviewed this chart and films and is in agreement with assessment and plan of care as outlined above. I have personally seen and examined the patient, performed the documentation and the assessment and plan as written. Number of minutes spent on the visit: 20m.
[2024-01-16] MEDS: INSULIN ASPART (NovoLOG) 100 UNIT/ML VIAL SQ SCH (13:22)
[2024-01-16 17:01] LABS: Glucose,Whole Blood 232 mg/dL (70-110)
--- NOTE | 2024-01-16 20:53 | P.CONS ---
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 Patient is status post removal of deep hardware and SI bone explant 1 screw.. Patient is postoperative day 0. Patient's blood pressure was elevated preoperatively at 211/111. He received hydralazine 10 mg IV push, and litholyte 1 point 2 5 mg IV, labetalol 10 mg IV push x 1. Blood pressure is controlled this morning. Patient otherwise denied any complaints of chest pain or shortness of breath. No vomiting abdominal pain or diarrhea. No fever no chills. Laboratory data showed WBC 7.4 hemoglobin 10.8 and platelets 120 sodium 136 potassium 4.3 chloride 100 bicarb is 25.6 BUN 19.2 and creatinine 1.1 and blood sugar 138. Review of Systems Constitutional: Patient denies any fever or chills . No generalized weakness or weight loss. Abdomen: Patient denied nausea vomiting and diarrhea and abdominal pain. Cardiovascular: Patient denies any chest pain or short of breath no p alpitations. Respiratory: patient denied any cough or sputum production. No shortness of breath Neurologic: Patient denied any numbness or tingling. no headache. Musculoskeletal: Patient denies any complaints of joint swelling or deformity. Skin: Negative Psychiatric: Negative Endocrine: No heat or cold intolerance. No recent weight gain. Genitourinary: No dysuria or hematuria. All other 14 point ROS negative except the above Past Medical History Past Medical History: Coronary Artery Disease (CAD), Chest Pain / Angina, CVA/TIA, Diabetes Mellitus, GERD/Reflux, Hyperlipidemia, Hypertension, Neurologic Disorder, Osteoarthritis (OA), Pneumonia, Respiratory Disorder, Thyroid Disorder Additional Past Medical History / Comment(s): BRONCHITIS, MIGRAINES, hx anemia, TIA x 2-no residual effects, heart murmer. Type II diabetic NIDDM. Acid reflux yers ago. History of Any Multi-Drug Resistant Organisms: MRSA Year Discovered:: 2012 MDRO Source:: UNDER RT BREAST Past Surgical History: Appendectomy, Section, Cholecystectomy, Heart Catheterization With Stent, Hysterectomy, Joint Replacement, Orthopedic Surgery Additional Past Surgical History / Comment(s): CARDIAC STENT X2, CATARACT SURGERY-BILATERAL W IMPLANTS, PAIN CLINIC PROCEDURES , left knee arthroscopy, left hip replacement, NIKKIE, Aortic valve replacement Past Anesthesia/Blood Transfusion Reactions: Postoperative Nausea & Vomiting (PONV) Additional Past Anesthesia/Blood Transfusion Reaction / Comm: claustrophobia, diff IV starts. Has had blood transfusion post hip procedure-no reaction. Date of Last Stent Placement:: 2012 Past Psychological History: No Psychological Hx Reported Additional Psychological History / Comment(s): CLAUSTROPHOBIA , pre procedure anxiety Smoking Status: Former smoker Past Alcohol Use History: None Reported Additional Past Alcohol Use History / Comment(s): started smoking 1963, quit 2001, smoked 1 ppd. Past Drug Use History: None Reported - Past Family History Father Additional Family Medical History / Comment(s): drowned at age 32 Daughter(s) Family Medical History: Cancer Additional Family Medical History / Comment(s): colon ca Mother Family Medical History: Cancer Additional Family Medical History / Comment(s): BREAST Medications and Allergies Home Medications Medication Instructions Recorded Confirmed Type Atorvastatin [Lipitor] 80 mg PO QAM 10/10/14 01/15/24 History Ergocalciferol [Vitamin D2 50,000 units PO MO 05/02/15 01/15/24 History (DRISDOL)] Pioglitazone HCl 30 mg PO QAM 10/31/21 01/15/24 History amLODIPine [Norvasc] 5 mg PO QAM 10/31/21 01/15/24 History Levothyroxine Sodium [Synthroid] 75 mcg PO QAM 02/04/22 01/15/24 History Acetaminophen Tab [Tylenol] 650 mg PO Q6HR PRN tab 02/07/22 01/15/24 Rx Metoprolol Tartrate [Lopressor] 50 mg PO BID #60 tab 02/07/22 01/15/24 Rx Nitroglycerin Sl Tabs [Nitrostat] 0.4 mg SUBLINGUAL Q5M PRN #30 tab 02/07/22 01/15/24 Rx Ferrous(Unk) 325 mg PO DAILY 10/15/23 01/15/24 History Advil(Unknown Dose) 1 dose PO Q8H PRN 01/06/24 01/15/24 History Gabapentin [Neurontin] 300 mg PO BID 01/06/24 01/15/24 History Cyclobenzaprine [Flexeril] 5 mg PO TID PRN #30 tablet 01/16/24 Rx HYDROcodone/APAP 5-325MG [Linden 1 tab PO Q6HR PRN #28 tab 01/16/24 Rx 5-325] Sennosides/Docusate Sodium [Senna 1 each PO DAILY PRN #20 capsule 01/16/24 Rx Plus 8.6-50 mg Softgel] cefaDROXiL [Duricef] 500 mg PO Q12HR #10 cap 01/16/24 Rx Allergies Allergy/AdvReac Type Severity Reaction Status Date / Time codeine AdvReac Nausea & Verified 01/15/24 11:33 Vomiting Physical Exam Vitals: Vital Signs Temp Pulse Pulse Resp BP Pulse Ox 01/16/24 07:28 97.9 F 86 17 109/50 93 L 01/16/24 00:25 97.9 F 95 16 124/71 93 L 01/15/24 18:32 100 117/68 96 01/15/24 18:17 99 141/76 95 01/15/24 18:02 101 H 121/60 95 01/15/24 17:47 97.8 F 104 H 17 138/65 94 L 01/15/24 17:14 97 18 132/60 95 01/15/24 17:00 98 18 139/64 96 01/15/24 16:45 98 18 143/55 93 L 01/15/24 16:30 97 18 148/66 100 01/15/24 16:15 95 18 155/68 100 01/15/24 16:00 97.3 F L 103 H 19 157/70 100 01/15/24 13:27 81 18 170/67 94 L 01/15/24 13:10 91 18 209/109 95 01/15/24 13:00 86 18 211/91 95 01/15/24 12:55 89 18 200/116 94 L 01/15/24 11:50 211/111 01/15/24 11:31 97.1 F L 84 18 94 L Intake and Output 01/15/24 01/16/24 01/16/24 22:59 06:59 14:59 Intake Total 1200 Output Total 30 Balance 1170 Intake: IV 0 Oral 1200 Output: Estimated Blood Loss 30 Other: Voiding Method Bedside Commode # Voids 2 Weight 84.1 kg PHYSICAL EXAMINATION: Patient is lying in the bed comfortably, no acute distress, awake alert and oriented.. HEENT: Normocephalic. Neck is supple. Pupils reactive. Nostrils clear. Oral cavity is moist. Neck reveals no JVD, carotid bruits, or thyromegaly. CHEST EXAMINATION: Trachea is central. Symmetrical expansion. Lung herrera clear to auscultation and percussion. CARDIAC: Normal S1, S2 with no gallops. Systolic murmur. ABDOMEN: Soft. Bowel sounds normal. No organomegaly. No abdominal bruits. Extremities: reveal no edema. No clubbing or cyanosis Neurologically awake, alert, oriented x3 able to move all extremities.. No gross focal deficits noted Skin: No rash or skin lesions. Psychiatric: Coperative. Nonsuicidal Musculoskeletal: No joint swelling or deformity. Results CBC & Chem 7: 01/16/24 05:38 01/16/24 05:38 Labs: Abnormal Lab Results - Last 24 Hours (Table) 01/15/24 01/15/24 01/15/24 Range/Units 12:18 16:14 20:57 RBC (4.10-5.20) X 10*6/uL Hgb (12.0-15.0) g/dL Hct (37.2-46.3) % RDW (11.5-14.5) % Plt Count (140-440) X 10*3/uL MPV (9.5-12.2) FL Est GFR (CKD-EPI) (>=60) Glucose (70-110) mg/dL POC Glucose (mg/dL) 139 H 138 H 143 H (70-110) mg/dL 01/16/24 01/16/24 01/16/24 Range/Units 05:38 05:38 06:15 RBC 3.59 L (4.10-5.20) X 10*6/uL Hgb 10.8 L (12.0-15.0) g/dL Hct 33.5 L (37.2-46.3) % RDW 14.7 H (11.5-14.5) % Plt Count 120 L (140-440) X 10*3/uL MPV 12.5 H (9.5-12.2) FL Est GFR (CKD-EPI) 51 L (>=60) Glucose 138 H (70-110) mg/dL POC Glucose (mg/dL) 138 H (70-110) mg/dL Assessment and Plan Assessment: Removal of deep hardware, screw, left SIJ. Postoperative day 1 Left lower extremity radiculopathy and weakness due to hardware failure Accelerated essential hypertension. Improved now. Hyperglycemia is uncontrolled diabetes type 2 Coronary arteries history of stent placement History of aortic valve replacement History of TIA x 2 with no residual defects. Hypothyroidism GERD Prior history of smoking DVT prophylaxis patient is on aspirin and also SCDs. Plan: Patient will be continued on home blood pressure medications including Norvasc and metoprolol and will add lisinopril or losartan if continues to be elevated. Continue to titrate medications. Seen sliding scale for better blood sugar control. Follow-up H&H. Continue other home medications. PT OT was consulted. Encourage incentive spirometry. Further recommendations based on the clinical course. Will continue to follow closely. Thank you kindly for your consult. Time with Patient: Greater than 30
[2024-01-16 20:58] LABS: Glucose,Whole Blood 159 mg/dL (70-110)
[2024-01-17 06:48] LABS: Glucose,Whole Blood 128 mg/dL (70-110)
--- NOTE | 2024-01-17 07:05 | P.PN ---
Subjective Progress Note Date: 01/17/24 Principal diagnosis: 1. 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 2. LLE radiculopathy, new and progressive, severe 3. LLE weakness Patient seen and examined this morning. She states her pain is managed on current regimen. Patient continues to report improvement of her left lower extremity radiculopathy since the procedure. Patient states that she has been toe-touch weightbearing with her walker. Surgical incision to the left SI region, dressing is clean dry and intact. Patient is looking forward to going home today, discussed with patient that her pharmacy is closed today and she states she does have some [place] at home to hold her over until she can get them tomorrow morning. No acute concerns. Objective - Vital Signs Vital signs: Vital Signs Temp 97.7 F 01/17/24 01:44 EDT Pulse 62 01/17/24 01:44 EDT Resp 14 01/17/24 01:44 EDT BP 114/61 01/17/24 01:44 EDT Pulse Ox 99 01/17/24 01:44 EDT FiO2 Intake & Output 01/16/24 01/16/24 01/17/24 06:59 18:59 05:59 Intake Total 1200 60 Balance 1200 60 Intake: Intake, IV Titration 60 Amount Lactated Ringers 1,000 ml 60 @ 20 mls/hr IV .Q24H ON LICENSE OF [facility] Rx#:[id number] Oral 1200 Other: Voiding Method Bedside Commode Bedside Commode # Voids 2 3 - Exam Physical Examination General: The patient is awake and alert, in no acute distress Skin: Skin is warm and dry with no obvious rashes or lesions. Surgical incision over the left SI region, dressing is clean dry and intact. Neck: The neck is supple, there is no tenderness and ROM intact. Cardiovascular: There is a regular rate and rhythm. No murmur, rub or gallop is appreciated. Respiratory: Lungs are clear to auscultation, respirations are non-labored, breath sounds are equal. Gastrointestinal: Soft, non-distended, non-tender abdomen. Back: There is no tenderness to palpation in the midline, paralumbar, parathoracic or buttocks region. There is no obvious deformity . Musculoskeletal: ROM limited secondary to pain and stiffness from surgical procedure. Muscle strength in all major muscle groups of bilateral upper extremities 5/5, right lower extremity 5/5, Left lower extremity 4/5 Neurological: CN 2-12 intact. There are no obvious motor or sensory deficits. Movement and coordination equal and intact. Sensory exam to light touch intact C5-T1 and intact from L2-S1. Reflexes 2/4 in bilateral upper and lower extremities. Negative Hoffmans, babinski, and clonus signs. Psychiatric: Cooperative, appropriate mood & affect, normal judgment. - Labs CBC & Chem 7: 01/16/24 05:38 01/16/24 05:38 Labs: Abnormal Lab Results - Last 24 Hours (Table) 01/16/24 01/16/24 01/16/24 Range/Units 05:38 05:38 11:37 RBC 3.59 L (4.10-5.20) X 10*6/uL Hgb 10.8 L (12.0-15.0) g/dL Hct 33.5 L (37.2-46.3) % RDW 14.7 H (11.5-14.5) % Plt Count 120 L (140-440) X 10*3/uL MPV 12.5 H (9.5-12.2) FL Est GFR (CKD-EPI) 51 L (>=60) Glucose 138 H (70-110) mg/dL POC Glucose (mg/dL) 160 H (70-110) mg/dL 01/16/24 01/16/24 Range/Units 16:59 20:50 RBC (4.10-5.20) X 10*6/uL Hgb (12.0-15.0) g/dL Hct (37.2-46.3) % RDW (11.5-14.5) % Plt Count (140-440) X 10*3/uL MPV (9.5-12.2) FL Est GFR (CKD-EPI) (>=60) Glucose (70-110) mg/dL POC Glucose (mg/dL) 232 H 159 H (70-110) mg/dL Assessment and Plan Assessment: Post Op day 2 : REMOVAL OF DEEP HARDWARE, SCREW, LEFT SIJ Plan: -Appreciate vocational rehab consultant and team management. -Activity: Ambulate QID, OOB all meals, up and about, limit lifting bending twisting to less than 5 lbs. Use walker for stability. -Daily PT/OT, increase ambulation strength and balance. -TTWB for LLE -Pain control: Adequate at this time -Meds: reviewed -GI ppx: senna, Miralax -DVT PPX: Aspirin 81mg daily -Hygiene: Maintain dressing clean and dry. -Encourage IS 10x/hr -Dispo: Anticipate discharge home later today. *I reviewed and discussed this case with my attending Dr. Carpenter, whom has reviewed this chart and films and is in agreement with assessment and plan of care as outlined above. I have personally seen and examined the patient, performed the documentation and the assessment and plan as written. Number of minutes spent on the visit: 20m.
--- NOTE | 2024-01-17 07:07 | P.DS ---
Providers Date of admission: 01/15/24 Expected date of discharge: 01/17/24 Attending physician: Edgardo Carpenter DO Consults: 01/15/24 16:56 Consult Physician Routine Consulting Provider: Henry Haynes Reason/Comments: medical management post op Do you want consulting provider notified?: Yes Primary care physician: [facility] Course: Hospital Course: The patient was evaluated preoperatively and found to have the diagnosis of Left SI hardware failure. They underwent appropriate preoperative care and were willing to undergo the intended procedure. They underwent a successful removal of hardware left SI joint, were recovered appropriately and sent to the floor. While on the floor they worked with physical therapy, occupational therapy and nursing to enhance their recovery experience. Their pain was well controlled through their stay and they were started on appropriate medications, DVT ppx modalities, activity and dietary needs. Daily labs were monitored closely, and transfusions were only used when necessary. Medicine as well as other consulting services have made their input and have helped with our team approach and multidisciplinary care. PT milestones have been met and passed and they have made the recommendation of Home with home care for this patient and treating providers agree with this care path. The patient will be discharged home with appropriate medications, instructions and follow-up information and in stable condition. Patient Condition at Discharge: Good Plan - Discharge Summary Discharge Rx Participant: No New Discharge Prescriptions: New HYDROcodone/APAP 5-325MG [Fallon 5-325] 1 tab PO Q6HR PRN #28 tab PRN Reason: Pain cefaDROXiL [Duricef] 500 mg PO Q12HR #10 cap Cyclobenzaprine [Flexeril] 5 mg PO TID PRN #30 tablet PRN Reason: Muscle Spasm Sennosides/Docusate Sodium [Senna Plus 8.6-50 mg Softgel] 1 each PO DAILY PRN #20 capsule PRN Reason: Constipation No Action Atorvastatin [Lipitor] 80 mg PO QAM Ergocalciferol [Vitamin D2 (DRISDOL)] 50,000 units PO MO Pioglitazone HCl 30 mg PO QAM Levothyroxine Sodium [Synthroid] 75 mcg PO QAM Nitroglycerin Sl Tabs [Nitrostat] 0.4 mg SUBLINGUAL Q5M PRN #30 tab PRN Reason: Chest Pain Ferrous(Unk) 325 mg PO DAILY amLODIPine [Norvasc] 5 mg PO QAM Metoprolol Tartrate [Lopressor] 50 mg PO BID #60 tab Acetaminophen Tab [Tylenol] 650 mg PO Q6HR PRN tab PRN Reason: Fever And/ Or Pain Gabapentin [Neurontin] 300 mg PO BID Advil(Unknown Dose) 1 dose PO Q8H PRN PRN Reason: Pain Discharge Medication List Atorvastatin [Lipitor] 80 mg PO QAM 10/10/14 [History] Ergocalciferol [Vitamin D2 (DRISDOL)] 50,000 units PO MO 05/02/15 [History] Pioglitazone HCl 30 mg PO QAM 10/31/21 [History] amLODIPine [Norvasc] 5 mg PO QAM 10/31/21 [History] Levothyroxine Sodium [Synthroid] 75 mcg PO QAM 02/04/22 [History] Acetaminophen Tab [Tylenol] 650 mg PO Q6HR PRN tab 02/07/22 [Rx] Metoprolol Tartrate [Lopressor] 50 mg PO BID #60 tab 02/07/22 [Rx] Nitroglycerin Sl Tabs [Nitrostat] 0.4 mg SUBLINGUAL Q5M PRN #30 tab 02/07/22 [Rx] Ferrous(Unk) 325 mg PO DAILY 10/15/23 [History] Advil(Unknown Dose) 1 dose PO Q8H PRN 01/06/24 [History] Gabapentin [Neurontin] 300 mg PO BID 01/06/24 [History] Cyclobenzaprine [Flexeril] 5 mg PO TID PRN #30 tablet 01/16/24 [Rx] HYDROcodone/APAP 5-325MG [Fallon 5-325] 1 tab PO Q6HR PRN #28 tab 01/16/24 [Rx] Sennosides/Docusate Sodium [Senna Plus 8.6-50 mg Softgel] 1 each PO DAILY PRN #20 capsule 01/16/24 [Rx] cefaDROXiL [Duricef] 500 mg PO Q12HR #10 cap 01/16/24 [Rx] Follow up Appointment(s)/Referral(s): [facility], [NON-STAFF] - 1-2 Days Edgardo Carpenter DO [Doctor of Osteopathic Medicine] - 2 Weeks Activity/Diet/Wound Care/Special Instructions: Spine Discharge and Recovery Instructions Date of Surgery: 01/15/2024 Diagnosis: hardware failure of left SI joint Procedure: removal of hardware of left SI joint Medications: See medication list All medication refills should be obtained through your primary care doctor or your clinic spine surgeon. Please discuss prescription refills at your follow up appointment. Do not call the hospital for medication refills. Activity: Encourage ambulation with assist of walker, Up and about 6-8x daily PT/OT daily work on balance, strength and mobility Up in chair with all meals Shower daily Brace: Use brace when up and about, do not wear in bed or shower Dressing: Leave your dressing in place for a total of 3 days post operatively. Then you may remove your dressing and leave open to air. Keep the area clean and if not able to keep area clean, then cover with sterile gauze and tape. Showering: You may shower 3 days after your procedure allowing soap and water to run over incision. Do not scrub. Do not soak. Blot dry. Follow up: Please confirm a follow up appointment with your surgeon 2 weeks post operatively. Please make an appointment to follow up with your PCP in 1-2 weeks after surgery for evaluation '3 phase, 3-week plan' POST OP WEEKS 1-3 1. Lifting/carrying/pushing/pulling limited to less than 5 pounds. 2. Do not sit for longer than 15 minutes at one time. Get up and walk around. Prolonged sitting is NOT advised. If you lay down, see if you can tolerate laying down on you front (belly side) 3. Walk for periods of 15 minutes = 1 mile but no longer; do it multiple times times each day. 4. Ice your low back after activity. POST OP WEEKS 3-6 1. Lifting limited to less than 20 pounds. 2. Do not sit for longer than 30 minutes at a time. Frequently change positions. Use a sit-to stand workstation or take frequent breaks from sitting if you have returned to work. 3. Walk for 30 minutes each day. If possible, do these three or more times a day POST OP WEEKS 6+ At your 6-week appointment we will give you a physical therapy referral to focus on a core stabilization and strengthening program. You should also work on leg & buttock strengthening, hamstring & quadriceps stretching, and continue a low impact aerobic activity program such as swimming, walking, or riding a stationary bicycle. During the initial 6 weeks after your surgery, you are at the highest risk of re-injuring your spine. You should generally avoid BLT's (bending, lifting and twisting combination motions) and follow the above guidelines to reduce the chance of reinjury. You can anticipate post op appointments in our office at approximately 3 weeks and 6 weeks after your surgery. INCISION CARE: If your incision is not draining you do NOT need to cover it with a dressing. Keep your incision clean, dry and intact. In most cases, we apply skin glue, charles or sutures to the incision at the time of surgery. This will be like a crust or have the appearance of a scab and will fall off in time on its own. The stitches or charles need to be removed at 3 weeks post op appointment. You may begin to shower 3 days after surgery (this allows the glue to butcher well). However, please avoid scrubbing the incision site or peeling off any of the skin glue. This will ensure optimal healing of your incision. Also, during this time avoid soaking the incision area in water - this includes swimming pools, hot tubs or baths. No ointments, lotions or oils on the incision until your surgeon allows. Leave charles, sutures or glue in place. Neurological dysfunction that comes on suddenly can also be a sign of a stroke. Below some common symptoms of a stroke are listed: B - balance difficulty such as sudden onset walking or leaning to one side - NEW E - eye problem such as sudden double vision or trouble seeing on one side - NEW F - Facial weakness or numbness on one side - NEW A - Arm or leg weakness or numbness on one side - NEW S - Slurred speech or difficulty with word finding - NEW T - Time is BRAIN! Call 911 as soon as you recognize these symptoms Diet: Consume a regular diet rich in vegetables and lean protein such as chicken or fish. You should consume in a ratio of approximately 20% fats|40% carbohydrates|40%protein. Vegetables, sweet potatoes, brown rice or quinoa are examples of good carbohydrates. Chips, white bread, cookies and sweets/sugar are examples of bad carbohydrates. Limit your bad carbs, go wild with good carbs. "Life's Simple 7" Guidelines as per [place] [employer] These will help you reclaim your life after surgery and cut off machine helper in your recovery, keeping in mind your restrictions. (1) Get Active. Physical activity can help people lose weight, control high blood pressure and cholesterol, feel emotionally better, and sleep better. (2) Control Cholesterol. Avoid a diet high in saturated fat, trans fat, & cholesterol. Limit whole milk & cream, ice cream, butter, egg yolks, processed meats (like sausage and hot dogs), and fatty meats. Choose healthy foods that are low in saturated fat, trans fat and cholesterol which include: Fruits and vegetables, fiber rich grain products (like whole grain pasta and brown rice), lean meat such as chicken, fish, nuts, seeds, and legumes. (3) Eat Better. Eat small portions. Shop at the grocery with a list and do not stray from it. Tips for a healthy diet include: Limit sodium intake to less than 1500mg daily, avoid prepackaged, processed, and fast foods, choose a diet rich in fruits, vegetables, and whole grain, high fiber foods, and limit saturated & cholesterol in your diet. (4) Manage Blood Pressure. If you have high blood pressure, you should have a cuff at home so that you can check your blood pressure regularly. Be sure you have a good cuff. An arm one is generally better than a wrist one. Bring the cuff to a doctor's appointment to validate that the measurements that your cuff are taking are accurate. Take your blood pressure twice daily when you are sitting down and relaxing. Record the numbers in a log and bring this log with you to your doctors' appointments. (5) Lose Weight if your BMI is above 25. A healthy BMI is between 19-25. To calculate Your BMI, you may use a Standard BMI Calculator on the NIH BMI website: <www.nhlbi.nih.gov/guidelines/obesity/BMI/bmicalc.htm>. Weigh oneself daily. If you are overweight, set a goal to lose weight. A pound a week loss if needed is a good target. (6) Reduce Blood Sugar. Limit foods and liquids with "added sugars." (Added sugars include sucrose, fructose, glucose, maltose, dextrose, high fructose corn syrup, corn syrup, concentrated fruit juice and honey). (7) Stop Smoking. If you smoke, quitting smoking is one of the best things that you can do for your health. Smoking increases your risk of heart attack, stroke, and peripheral vascular disease, which is a build-up of plaque in your arteries. Please discard all the cigarettes and lighters in your house. Have a plan for what you will do when you have the urge to smoke. Direct and second- hand smoke shortens your life as well as the lives of your family, friends and others around you. For your health and the health of those around you, please consider quitting! Proper Bending Body Mechanics: Maintain a wide stance with one foot slightly in front of the other. Keep your back straight. Bend utilizing the strength in your hips and knees. Do not bend at the waist. Maintain the lifted object at your waist-level close to your body. Avoid lifting weight that causes immediately pain or pain anywhere in the body afterwards. Smoking/Nicotine If there was ever one thing that you could do to increase your overall health, decrease your risk of cardiovascular problems by about 39% the second you make the choice, it is to STOP SMOKING. Your body's most instant gratification is the second you stop smoking. We have all heard the studies, read the articles but it is true, smoking is extremely bad for your overall health, and moreover it is detrimental to your bone health. Nicotine, IN ANY FORM, kills bone cells, prevents your body from healing fractures, and significantly prolongs healing after surgery. In spine surgery specifically, it increases your risk of not healing your bones to create a fus ion and increases your risk of having a revision surgery due to this up to 60%. I know it is hard. I know it feels impossible. But there are ways. Take control of your life. We are here to help you through it. And when you are ready, ask us and we can direct you to help if you desire. Use the START Plan to Quit Smoking (please visit the Helpguide.org website listed below for more information): S = Set a quit date. Choose a date within the next 2 weeks, so you have enough time to prepare without losing your motivation to quit. If you mainly smoke at work, quit on the weekend, so you have a few days to adjust to the change. T = Tell family, friends, and co-workers that you plan to quit. Let your friends and family in on your plan to quit smoking and tell them you need their support and encouragement to stop. Look for a quit anand who wants to stop smoking as well. You can help each other get through the rough times. A = Anticipate and plan for the challenges you'll face while quitting. Most people who begin smoking again do so within the first 3 months. You can help yourself make it through by preparing ahead for common challenges, such as nicotine withdrawal and cigarette cravings. R = Remove cigarettes and other tobacco products from your home, car, and work. Throw away all your cigarettes (no emergency pack!), lighters, ashtrays, and matches. Wash your clothes and freshen up anything that smells like smoke. Shampoo your car, clean your drapes and carpet, and steam your furniture. T = Talk to your doctor about getting help to quit. Your doctor can prescribe medication to help with withdrawal and suggest other alternatives. If you can't see a doctor, you can get many products over the counter at your local pharmacy or grocery store, including the nicotine patch, nicotine lozenges, and nicotine gum. Resources for Quitting Smoking: <https://www.[place].gov/documents/[facility]/Quit_Tobacco_Resources_for_patients_31 3480_7.pdf> Supplementation: Take recommended dosages of Vitamin D and Calcium to help fortify your bones and help them to heal. See your health maintenance packet for dosages and recommended levels. DVT/VTE prophylaxis: You will be given compression stockings from the hospital. Wear these daily for the first two weeks after surgery. You may take them off at night. You may be prescribed a medication to help thin your blood. Take this as directed. If you are not prescribed this medication, early and frequent ambulation has been shown to be the best prophylaxis to deep vein thrombosis and sequelae related to this event. Discharge Disposition: HOME WITH HOME HEALTH SERVICES
[2024-01-17 09:01] VITALS: BP 121/55; PULSE 81; RESP 17; TEMP 97.5
[2024-01-17 09:09] LABS: Basophils # (A) 0.03 X 10*3/uL (0.00-0.10); Basophils % (A) 0.5 %; Eosinophils # (A) 0.26 X 10*3/uL (0.04-0.35); Eosinophils % (A) 4.3 %; HCT 32.6 % (37.2-46.3); HGB 10.5 g/dL (12.0-15.0); Lymphocytes # (A) 1.85 X 10*3/uL (0.90-5.00); Lymphocytes % (A) 30.7 %; MCH 30.4 pg (27.0-32.0); MCHC 32.2 g/dL (32.0-37.0); MCV 94.5 FL (80.0-97.0); Mean Platelet Volume 12.9 FL (9.5-12.2); Monocytes # (A) 0.65 X 10*3/uL (0.20-1.00); Monocytes % (A) 10.8 %; NRBC Per 100 WBC 0 X 10*3/uL (0.00-0.01); Neutrophils # (A) 3.22 X 10*3/uL (1.80-7.70); Neutrophils % (A) 53.5 %; Platelet Count 106 X 10*3/uL (140-440); RBC 3.45 X 10*6/uL (4.10-5.20); RDW 14.8 % (11.5-14.5); WBC 6.02 X 10*3/uL (4.50-10.00)
--- NOTE | 2024-01-17 11:26 | P.PN ---
Subjective Progress Note Date: 01/17/24 Patient is a 78-year-old female with a past medical history of hypertension, hyperlipidemia, diabetes type 2 [id number], coronary artery disease with history of stent placement, aortic valve replacement, osteoarthritis, hypothyroidism, history of TIA x 2 with no residual defect, prior history of smoking and other multiple medical problems was admitted to the hospital due to left lower extremity radiculopathy symptoms and found to have hardware failure with migration left SIJ. Patient is status post removal of deep hardware and SI bone explant 1 screw.. Patient is postoperative day 0. Patient's blood pressure was elevated preoperatively at 211/111. He received hydralazine 10 mg IV push, and litholyte 1 point 2 5 mg IV, labetalol 10 mg IV push x 1. Blood pressure is controlled this morning. Patient otherwise denied any complaints of chest pain or shortness of breath. No vomiting abdominal pain or diarrhea. No fever no chills. Laboratory data showed WBC 7.4 hemoglobin 10.8 and platelets 120 sodium 136 potassium 4.3 chloride 100 bicarb is 25.6 BUN 19.2 and creatinine 1.1 and blood sugar 138. 01/17/2024 Patient is currently resting in bed. Awake alert and oriented x 3. No c omplaints of chest pain or shortness of breath. No nausea vomiting abdominal pain or diarrhea. Tolerating oral diet. Lab data showed hemoglobin 10.5 platelets 106 RDW 14.8 MCV 94.5. WBC 6.02 A1c 7.4 and vitamin B12 level 183. Current medications reviewed. Objective - Vital Signs Vital signs: Vital Signs Temp 97.5 F L 01/17/24 08:32 Pulse 81 01/17/24 08:55 Resp 17 01/17/24 08:55 BP 121/55 01/17/24 08:32 Pulse Ox 93 L 01/17/24 08:32 FiO2 Intake & Output 01/16/24 01/17/24 01/17/24 19:59 06:59 18:59 Intake Total Balance Intake: Intake, IV Titration Amount Lactated Ringers 1,000 ml @ 20 mls/hr IV .Q24H RAYMOND Rx#:[id number] Oral Other: Voiding Method Bedside Commode # Voids - Exam PHYSICAL EXAMINATION: Patient is lying in the bed comfortably, no acute distress, awake alert and oriented.. HEENT: Normocephalic. Neck is supple. Pupils reactive. Nostrils clear. Oral cavity is moist. Neck reveals no JVD, carotid bruits, or thyromegaly. CHEST EXAMINATION: Trachea is central. Symmetrical expansion. Lung herrera clear to auscultation and percussion. CARDIAC: Normal S1, S2 with no gallops. No murmurs ABDOMEN: Soft. Bowel sounds normal. No organomegaly. No abdominal bruits. Extremities: reveal no edema. No clubbing or cyanosis Neurologically awake, alert, oriented x3. Able to move all extremities. Left lower extremity slightly weaker than right. No gross focal deficits noted Skin: No rash or skin lesions. Psychiatric: Coperative. Nonsuicidal Musculoskeletal: No joint swelling or deformity. Normal range of motion. - Labs CBC & Chem 7: 01/17/24 03:43 01/16/24 05:38 Labs: Abnormal Lab Results - Last 24 Hours (Table) 01/16/24 01/16/24 01/17/24 Range/Units 16:59 20:50 03:43 RBC (4.10-5.20) X 10*6/uL Hgb (12.0-15.0) g/dL Hct (37.2-46.3) % RDW (11.5-14.5) % Plt Count (140-440) X 10*3/uL MPV (9.5-12.2) FL POC Glucose (mg/dL) 232 H 159 H (70-110) mg/dL Hemoglobin A1c 7.4 H (<=6.0) % Vitamin B12 (200.0-944.0) pg/mL 01/17/24 01/17/24 01/17/24 Range/Units 03:43 03:43 06:41 RBC 3.45 L (4.10-5.20) X 10*6/uL Hgb 10.5 L (12.0-15.0) g/dL Hct 32.6 L (37.2-46.3) % RDW 14.8 H (11.5-14.5) % Plt Count 106 L (140-440) X 10*3/uL MPV 12.9 H (9.5-12.2) FL POC Glucose (mg/dL) 128 H (70-110) mg/dL Hemoglobin A1c (<=6.0) % Vitamin B12 183.0 L (200.0-944.0) pg/mL Assessment and Plan Assessment: Removal of deep hardware, screw, left SIJ. Postoperative day 2 Left lower extremity radiculopathy and weakness due to hardware failure Accelerated essential hypertension. Improved now. Hyperglycemia is uncontrolled diabetes type 2 Vitamin B 12 deficiency Coronary arteries history of stent placement History of aortic valve replacement History of TIA x 2 with no residual defects. Hypothyroidism GERD Prior history of smoking DVT prophylaxis patient is on aspirin and also SCDs. Plan: Patient will be continued on home blood pressure medications including Norvasc and metoprolol and will add lisinopril or losartan if continues to be elevated. Continue to titrate medications. Insulin sliding scale for better blood sugar control. Hemoglobin stable at 10.5. Patient was given cyanocobalamin IM x 1 due to vitamin B12 deficiency. Continue other home medications. PT OT has seen the patient. Patient is able to ambulate well. Encourage incentive spirometry. patient is being discharged home today. Discharge medication reconciliation was done. Recommended to follow-up primary catheterization next 2 to 5 days. Time with Patient: Greater than 30
[2024-01-17 11:27] LABS: Glucose,Whole Blood 127 mg/dL (70-110)
[2024-01-17] MEDS: CYANOCOBALAMIN 1,000 MCG/ML 1 ML VIAL IM SCH (11:52)
[2024-01-18] MEDS ORDERED: CYANOCOBALAMIN 500 MCG TAB PO SCH (09:00)
[2024-01-18] MEDS ORDERED: ERGOCALCIFEROL 1,250 MCG (50,000 IU) CAPSULE PO SCH (09:00)
== END 2024-01-17 12:48 | disposition home health service (06) ==
LOC: OR 11:01 → 4SSUR 15:50 → OR 01-17 12:48
PROVIDERS: ATTEND Orthopaedic Surgery
DX: T84.226A Displacement of internal fixation device of vertebrae, initial encounter (principal); I25.10 Atherosclerotic heart disease of native coronary artery without angina pectoris; E78.5 Hyperlipidemia, unspecified; I10 Essential (primary) hypertension; E03.9 Hypothyroidism, unspecified; M19.90 Unspecified osteoarthritis, unspecified site; E11.65 Type 2 diabetes mellitus with hyperglycemia; K21.9 Gastro-esophageal reflux disease without esophagitis; G43.909 Migraine, unspecified, not intractable, without status migrainosus; F41.9 Anxiety disorder, unspecified; Z86.73 Personal history of transient ischemic attack (TIA), and cerebral infarction without residual deficits; Z90.710 Acquired absence of both cervix and uterus; Z90.49 Acquired absence of other specified parts of digestive tract; Z95.2 Presence of prosthetic heart valve; Z96.652 Presence of left artificial knee joint; Z96.643 Presence of artificial hip joint, bilateral; Z95.5 Presence of coronary angioplasty implant and graft; Z80.0 Family history of malignant neoplasm of digestive organs; Z88.5 Allergy status to narcotic agent; Z87.891 Personal history of nicotine dependence; Z79.84 Long term (current) use of oral hypoglycemic drugs; Z79.890 Hormone replacement therapy; Z79.899 Other long term (current) drug therapy
CPT/HCPCS: 97163; 82747; 80048; 82607; 85025 ×2; 83036; 72100; 20680; J2250; J3370; J0330; J0360; J3420; J0690; J2405; J2003; J3010; J2704; J2371 ×2; J0665; J1920

== ENCOUNTER → 2024-03-10 | Outpatient (CLI) | payer MEDICARE ==
--- NOTE | 2024-03-11 18:36 | US ---
EXAMINATION TYPE: US kidneys/renal and bladder DATE OF EXAM: 03/10/2024 COMPARISON: NONE CLINICAL INDICATION: Female, 78 years old with history of N39.0 UTI; UTI TECHNIQUE: Grayscale imaging of the bilateral kidneys and urinary bladder: FINDINGS: EXAM MEASUREMENTS: Right Kidney: 10.1 x 3.8 x 5.0 cm Left Kidney: 10.3 x 4.2 x 4.7 cm Right Kidney: No hydronephrosis or masses seen Left Kidney: No hydronephrosis or masses seen Bladder: wnl Bilateral Jets seen: yes There is no evidence for hydronephrosis at this point in time. No nephrolithiasis is seen. No rosanna s are identified. The urinary bladder is anechoic. IMPRESSION: No evidence for obstructive uropathy or renal calculus. [facility], , 03/11/2024 6:33 PM
== END | disposition home or self-care (01) ==
LOC: RADUSWWP 15:06
PROVIDERS: ATTEND Internal Medicine Geriatric Medicine
DX: N39.0 Urinary tract infection, site not specified (principal)
CPT/HCPCS: 76770

== ENCOUNTER → 2024-05-18 | Outpatient (CLI) | payer MEDICARE ==
[2024-05-18 18:22] LABS: HCT 39.5 % (37.2-46.3); HGB 12.8 g/dL (12.0-15.0); MCH 30.5 pg (27.0-32.0); MCHC 32.4 g/dL (32.0-37.0); Mean Platelet Volume 12.5 FL (9.5-12.2); NRBC Per 100 WBC 0 X 10*3/uL (0.00-0.01); Platelet Count 105 X 10*3/uL (140-440); WBC 10.36 X 10*3/uL (4.50-10.00)
[2024-05-18 18:31] LABS: NT-Pro-B-Type Natriuretic Pept 1953 pg/mL (0-450)
[2024-05-18 18:45] LABS: BUN/Creat Ratio 18.18 Ratio (12.00-20.00); Calcium 9.9 mg/dL (8.7-10.3); Carbon Dioxide 25.9 mmol/L (21.6-31.8); Chloride 97 mmol/L (96-109); Glucose 202 mg/dL (70-110); Sodium 139 mmol/L (135-145)
== END | disposition home or self-care (01) ==
LOC: LABWHC1 14:19
PROVIDERS: ATTEND Internal Medicine Cardiovascular Disease
DX: I10 Essential (primary) hypertension (principal); I25.10 Atherosclerotic heart disease of native coronary artery without angina pectoris; E78.5 Hyperlipidemia, unspecified; R06.02 Shortness of breath; Z95.2 Presence of prosthetic heart valve
CPT/HCPCS: 36415; 80048; 83880; 84443; 85027

== ENCOUNTER → 2024-05-18 | Outpatient (CLI) | payer MEDICARE ==
--- NOTE | 2024-05-18 15:05 | XR ---
EXAMINATION TYPE: XR chest 2V DATE OF EXAM: 05/18/2024 2:53 PM COMPARISON: Chest radiographs from 12/24/2023 TECHNIQUE: XR chest 2V Frontal and lateral views of the chest. CLINICAL INDICATION:Female, 78 years old with history of R06.02 SHORTNESS OF BREATH; FINDINGS: Lungs/Pleura: No pneumothorax or focal consolidation. Small right pleural effusion with associated at electasis. Elevation the right hemidiaphragm. Pulmonary vascularity: Unremarkable. Heart/mediastinum: Cardiomediastinal silhouette is enlarged and stable. Surgical changes from stent g raft involving the aortic root. Atherosclerotic calcifications are seen in the aorta. Musculoskeletal: No acute osseous pathology. IMPRESSION: Development of a small right pleural effusion with associated atelectasis. [facility], , 05/18/2024 3:03 PM
== END | disposition home or self-care (01) ==
LOC: RADXRMAIN 14:39
PROVIDERS: ATTEND Physician Assistant
DX: J98.11 Atelectasis (principal); J90 Pleural effusion, not elsewhere classified
CPT/HCPCS: 71046

== ENCOUNTER → 2024-06-08 | Outpatient (CLI) | payer MEDICARE ==
[2024-06-08 09:18] LABS: African American GFR (CKD) 48 (>60 ml/min/1.73 sqM); Blood Urea Nitrogen 28 mg/dL (7-17); Non-African American GFR(CKD) 41 (>60 ml/min/1.73 sqM)
--- NOTE | 2024-06-08 09:29 | FL ---
EXAMINATION TYPE: FL sniff test without CXR DATE OF EXAM: 06/08/2024 CLINICAL HISTORY: TECHNIQUE: A fluoroscopic guided sniff test is performed. One image submitted. 29 seconds of fluoros copy. The DAP not provided. COMPARISON: None FINDINGS: Elevated bilateral hemidiaphragms greater on the right noted on pulmonary imaging. There is no significant movement of the right hemidiaphragm with regard to the sniff tests suggestive of ron diaphragm paresis. Can be associated with phrenic nerve paresis. There is reduced movement of the left hemidiaphragm. IMPRESSION: 1. There is elevated right hemidiaphragm with no significant movement upon sniff test. Correlate for phrenic nerve paresis. 2. There is diminished movement of the left hemidiaphragm. [facility], , 06/08/2024 9:26 AM
--- NOTE | 2024-06-08 10:21 | CT ---
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 CT DLP: 518 mGycm. Automated Exposure Control for Dose Reduction was Utilized. FINDINGS: LUNGS: Elevated right hemidiaphragm is present. There is consolidation/atelectasis in the bilateral l kylah bases. No pleural effusion or pneumothorax seen. No suspicious masses. HEART: Mild cardiomegaly. Coronary artery stent or dense calcification in the LAD and left circumflex artery. Surgical change along the aortic valve. MEDIASTINUM: Lack of IV contrast is noted to limit evaluation for mediastinal and especially hilar ad enopathy. There are no definitive greater than 1 cm mediastinal lymph nodes. No pericardial effusio n is seen. Small sized hiatal hernia. Mild/moderate calcified plaque of the thoracic aorta. OTHER: Cholecystectomy clips are seen. Diverticula in the colon is present. Moderate atrophy pancreas . Scoliotic curvature in the upper thoracic spine. Cortical volume loss in the visualized portion of both kidneys. IMPRESSION: Elevated right hemidiaphragm. Right greater than left bibasilar atelectasis and/or consol idation. No suspicious pulmonary masses. [facility], , 06/08/2024 10:18 AM
== END | disposition home or self-care (01) ==
LOC: RADFLMAIN 07:52
PROVIDERS: ATTEND Internal Medicine Critical Care Medicine
DX: J98.6 Disorders of diaphragm (principal); J98.11 Atelectasis; R94.39 Abnormal result of other cardiovascular function study
CPT/HCPCS: 36415; 71250; 76000; 82565; 84520

== ENCOUNTER → 2024-06-21 | Outpatient (CLI) | payer MEDICARE | END | disposition home or self-care (01) | LOC: LABWHC1 12:22 | PROVIDERS: ATTEND Internal Medicine Critical Care Medicine | DX: R06.09 Other forms of dyspnea (principal) | CPT/HCPCS: 36415; 82085; 82550; 85652 ==